=== PATIENT | male | born 1940 | race Caucasian/White ===

== ENCOUNTER 2017-06-10 09:28 | Emergency (ER) | payer MEDICARE, BC ==
[2017-06-10 09:45] VITALS: BP 122/50
--- NOTE | 2017-06-10 10:01 | EDM.PDOC ---
ED HPI GENERAL MEDICAL PROBLEM - General Chief Complaint: Chest Pain Stated Complaint: Rt Chest Pain Time Seen by Provider: 06/10/17 09:55 Source of Information: Reports: Patient History Limitations: Reports: No Limitations - History of Present Illness INITIAL COMMENTS - FREE TEXT/NARRATIVE: PT STATES HE DEVELOPED RIGHT LOWER CHEST AND RIGHT UPPER ABD PAIN AT MIDNIGHT TODAY. FEELS CRAMPY AND IS CONTINUOUS. CURRENTLY IN BETWEEN MEDICATION CYCLES FOR BONE CANCER. 3 WEEKS ON AND ONE WEEK OFF. RESTART ON TUESDAY. DENIES SOB, N/V /D, DYSURIA, KENDALL, OR VISION CHANGES. HAS HAD SIMILAR PAIN IN PAST WITH MEDICATION. DIAGNOSED WITH CA 2.5 YEARS AGO. Onset: Today Duration: Hour(s): Location: Reports: Chest, Abdomen Quality: Reports: Other (CRAMPING) Severity: Mild Improves with: Reports: None Worsens with: Reports: None Associated Symptoms: Reports: No Other Symptoms Right Upper Chest Pain Score (Numeric/FACES): 5 - Related Data Allergies Allergy/AdvReac Type Severity Reaction Status Date / Time No Known Drug Allergies Allergy NONE Verified 06/10/17 09:50 Home Meds: Home Meds FLUoxetine HCl [Prozac] 10 mg PO 0800 02/14/15 [History] [place]ep[place] [address]/14/15 [History] Simvastatin 40 mg PO 199902/14/15 [History] Docusate Sodium [Colace] 100 mg PO 0809/02/15 [History] Metoprolol Tartrate 50 mg PO 199909/02/15 [History] Polyethylene Glycol 3350 [Miralax] 17 gm PO 0809/02/15 [History] Tamsulosin [Flomax] 0.4 mg PO 0800 09/02/15 [History] Warfarin [Coumadin] 5 mg PO ASDIRECTED 09/02/15 [History] oxyCODONE 10 mg PO Q4H PRN 09/02/15 [History] Prochlorperazine Maleate [Compazine] 10 mg PO Q6H PRN 09/03/15 [History] Cholecalciferol (Vitamin D3) [Vitamin D3] 1 tab PO DAILY@1500 10/27/15 [History] Cyanocobalamin (Vitamin B-12) [Vitamin B-12] 1,000 mcg PO DAILY@1500 10/27/15 [ History] Moexipril/Hydrochlorothiazide [Moexipril-HCTZ 15-25 MG] 0.5 tab PO DAILY [History] Potassium Chloride [Klor-Con 10] 20 meq PO TID 01/21/16 [History] Furosemide [Lasix] 20 mg PO ASDIRECTED 06/16/16 [History] Methadone 10 mg PO QID 06/16/16 [History] Oxybutynin Chloride [Ditropan Xl] 10 mg PO DAILY 06/16/16 [History] Phytonadione [Vitamin K] 100 mcg PO DAILY 06/16/16 [History] valACYclovir HCl [Valtrex] 500 mg PO BID 06/16/16 [History] LORazepam 0.5 mg PO Q4H PRN 01/06/17 [History] Solifenacin [Vesicare] 5 mg PO DAILY 01/06/17 [History] FLUoxetine HCl [Fluoxetine HCl] 20 mg PO DAILY 06/10/17 [History] Gabapentin [Neurontin] 900 mg PO BEDTIME 06/10/17 [History] Lenalidomide [Revlimid] 15 mg PO DAILY 06/10/17 [History] oxyCODONE 10 mg PO Q4H PRN 06/10/17 [History] rOPINIRole HCl [Requip] 0.5 mg PO BEDTIME 06/10/17 [History] Past Medical History HEENT History: Reports: Impaired Vision Cardiovascular History: Reports: Blood Clots/VTE/DVT, CAD, High Cholesterol, Hypertension, MD, SOB on Exertion Respiratory History: Reports: Sleep Apnea, SOB Other Respiratory History: CPAP Gastrointestinal History: Reports: Chronic Constipation, GERD Genitourinary History: Reports: BPH, Other (See Below) Other Genitourinary History: appt to see Dr Sin Mojica in [place] 09/30/16 for Kidney follow-up/. Renal Biopsy Oct 13 2015 negative for malignancy Musculoskeletal History: Reports: Back Pain, Chronic, Fracture, Other (See Below ) Other Musculoskeletal History: Thigh pain resolved no voices only of low back pain - see pain assessment. Neurological History: Reports: None Psychiatric History: Reports: Depression, Other (See Below) Other Psychiatric History: continues on Prozac - feels this is helpful, anxiety is less Prozac qd Endocrine/Metabolic History: Reports: Obesity/BMI 30+ Hematologic History: Reports: None, Other (See Below) Other Hematologic History: Iron studies done Oncologic (Cancer) History: Reports: Prostate, Other (See Below) Other Oncologic History: multiple myeloma jun 2015 Dermatologic History: Reports: Eczema, Other (See Below) Other Dermatologic History: In Sep 2016Itchy rash raised red/pink size of a pinhead after procrit injection, Procrit now held. continues using cream for eczema on abdomen, Voices at one time bruising was an issue "not so much any more" It's getting better" - Infectious Disease History Infectious Disease History: Reports: Chicken Pox, Measles - Past Surgical History HEENT Surgical History: Reports: None Cardiovascular Surgical History: Reports: Coronary Artery Bypass Respiratory Surgical History: Reports: None GI Surgical History: Reports: Colonoscopy Male Surgical History: Reports: Prostate Biopsy Endocrine Surgical History: Reports: None Neurological Surgical History: Reports: Vertebroplasty, Other (See Below) Other Neurological Surgeries/Procedures: vertibroplasty - in Jun 2015 Musculoskeletal Surgical History: Reports: Other (See Below) Other Musculoskeletal Surgeries/Procedures:: 3rd vertebral plasty done 09/24/15. Oncologic Surgical History: Reports: Bone Marrow Aspiration Social & Family History - Family History Family Medical History: Noncontributory Cardiac: Reports: MD Respiratory: Reports: None GI: Reports: None : Reports: None OBGYN: Reports: None Musculoskeletal: Reports: Back pain, Chronic Psychiatric: Reports: None Endocrine/Metabolic: Reports: None - Tobacco Use Smoking Status *Q: Former Smoker Years of Tobacco use: 30 Packs/Tins Daily: 1 Used Tobacco, but Quit: Yes Month Tobacco Last Used: 1 Second Hand Smoke Exposure: No - Alcohol Use Days Per Week of Alcohol Use: 0 - Recreational Drug Use Recreational Drug Use: No - Living Situation & Occupation Living situation: Reports: , with Spouse ED ROS GENERAL - Review of Systems Review Of Systems: ROS reveals no pertinent complaints other than HPI. Constitutional: Reports: No Symptoms HEENT: Reports: No Symptoms Respiratory: Reports: No Symptoms Cardiovascular: Reports: Chest Pain Endocrine: Reports: No Symptoms GI/Abdominal: Reports: Abdominal Pain : Reports: No Symptoms Musculoskeletal: Reports: No Symptoms Skin: Reports: No Symptoms Neurological: Reports: No Symptoms Psychiatric: Reports: No Symptoms Hematologic/Lymphatic: Reports: No Symptoms Immunologic: Reports: No Symptoms ED EXAM, GENERAL - Physical Exam Exam: See Below Exam Limited By: No Limitations General Appearance: Alert, WD/WN, No Apparent Distress Eye Exam: Bilateral Eye: Normal Inspection Nose: Normal Inspection, Normal Mucosa, No Blood Throat/Mouth: Normal Inspection, Normal Oropharynx, No Airway Compromise Head: Atraumatic, Normocephalic Neck: Normal Inspection, Supple Respiratory/Chest: No Respiratory Distress, Lungs Clear, Normal Breath Sounds, No Accessory Muscle Use, Other (TENDERNESS TO PALP ON RIGHT LOWER RIBS) Cardiovascular: Regular Rate, Rhythm, No Murmur GI/Abdominal: Normal Bowel Sounds, Soft, Tender (MINIMAL AT RUQ). No: Distended , Guarding, Rigid, Rebound Back Exam: Normal Inspection. No: CVA Tenderness (L), CVA Tenderness (R) Extremities: Normal Inspection, No Pedal Edema Neurological: Alert, Oriented, Normal Cognition Psychiatric: Normal Affect, Normal Mood Skin Exam: Warm, Dry, Intact, Normal Color, No Rash EKG INTERPRETATION EKG Date: 06/10/17 Time: 09:50 Rhythm: Other (sinus nagi) Rate (Beats/Min): 50 [place]: Normal P-Wave: Present QRS: Normal ST-T: Normal QT: Normal Comparison: NA - No Prior EKG Course - Vital Signs Last Recorded V/S: Last Vital Signs Temp 99.1 F 06/10/17 09:41 Pulse 72 06/10/17 09:41 Resp 18 06/10/17 09:41 BP 122/50 L 06/10/17 09:41 Pulse Ox 95 06/10/17 09:41 - Orders/Labs/Meds Orders: Active Orders 24 hr Category Date Time Status EKG Documentation Completion [RC] ASDIRECTED Care 06/10/17 09:45 Active Chest 2V [CR] Stat Exams 06/10/17 09:46 Ordered CBC WITH AUTO DIFF [HEME] Stat Lab 06/10/17 09:47 Ordered CMP [COMPREHENSIVE METABOLIC PN,CMP] [CHEM] Stat Lab 06/10/17 09:47 Ordered D Dimer [D-DIMER QUANTITATIVE] [COAG] Stat Lab 06/10/17 09:48 Ordered INR,PT,PROTHROMBIN TIME [COAG] Stat Lab 06/10/17 09:48 Ordered LIPASE [CHEM] Stat Lab 06/10/17 09:47 Ordered EKG 12 Lead [EK] Routine Ther 06/10/17 09:45 Ordered - Radiology Interpretation Free Text/Narrative:: CXR SHOWS NO ACUTE PROCESS - Re-Assessments/Exams Free Text/Narrative Re-Assessment/Exam: 06/10/17 10:44 PT AFEBRILE, NONTOXIC APPEARING, PAIN SUBSIDED, AT BEDSIDE. RECEIVED LAB VALUES FROM 06/06/17 TO COMPARE TO TODAY. NO SIGNIFICANT CHANGE NOTED Departure - Departure Time of Disposition: 10:46 Disposition: Home, Self-Care 01 Condition: Good Clinical Impression: Atypical chest pain - Discharge Information Instructions: Nonspecific Chest Pain, [id number] Referrals: Danielle Foss, [employer] [Primary Care Provider] - Additional Instructions: RESTART MEDICATION TOMORROW DIRECTED. FOLLOW UP AT [facility] NEXT WEEK. RETURN TO ER SOONER IF SYMPTOMS CONTINUE - My Orders Last 24 Hours: My Active Orders 06/10/17 09:45 EKG Documentation Completion [RC] ASDIRECTED EKG 12 Lead [EK] Routine 06/10/17 09:46 Chest 2V [CR] Stat 06/10/17 09:47 CBC WITH AUTO DIFF [HEME] Stat CMP [COMPREHENSIVE METABOLIC PN,CMP] [CHEM] Stat LIPASE [CHEM] Stat 06/10/17 09:48 D Dimer [D-DIMER QUANTITATIVE] [COAG] Stat INR,PT,PROTHROMBIN TIME [COAG] Stat - Assessment/Plan Last 24 Hours: My Active Orders 06/10/17 09:45 EKG Documentation Completion [RC] ASDIRECTED EKG 12 Lead [EK] Routine 06/10/17 09:46 Chest 2V [CR] Stat 06/10/17 09:47 CBC WITH AUTO DIFF [HEME] Stat CMP [COMPREHENSIVE METABOLIC PN,CMP] [CHEM] Stat LIPASE [CHEM] Stat 06/10/17 09:48 D Dimer [D-DIMER QUANTITATIVE] [COAG] Stat INR,PT,PROTHROMBIN TIME [COAG] Stat Assessment:: NONSPECIFIC CHEST PAIN Plan: F/U WITH PCP
== END 2017-06-10 11:00 | disposition home or self-care (01) ==
LOC: KA.ED 09:28
DX: R07.89 Other chest pain (principal); E78.00 Pure hypercholesterolemia, unspecified; I25.10 Atherosclerotic heart disease of native coronary artery without angina pectoris; I10 Essential (primary) hypertension; I25.2 Old myocardial infarction; K21.9 Gastro-esophageal reflux disease without esophagitis; E66.9 Obesity, unspecified; C79.51 Secondary malignant neoplasm of bone; Z79.899 Other long term (current) drug therapy; Z87.891 Personal history of nicotine dependence
CPT/HCPCS: 36415; 71020; 80053; 83690; 85025; 85379; 85610; 93005; 99284; 99285

== ENCOUNTER 2018-11-29 11:41 | Inpatient (IN) | payer MEDICARE, BC ==
[2018-11-30] MEDS ORDERED: EPINEPHrine 0.3 MG/0.3 ML Pen Autoinjector IM PRN (16:43)
[2018-11-30] MEDS ORDERED: Prochlorperazine 5 MG Tab PO PRN (16:43)
[2018-11-30] MEDS ORDERED: traZODone 50 MG Tab PO PRN (16:43)
[2018-11-30] MEDS ORDERED: LORazepam 0.5 MG Tab PO PRN (16:43)
[2018-11-30] MEDS ORDERED: Warfarin 5 MG Tab PO SCH (18:00)
[2018-11-30] MEDS: Gabapentin 300 MG Cap PO SCH (21:11)
[2018-11-30] MEDS: Potassium Chloride 10 MEQ Tab.ER PO SCH (21:11)
[2018-11-30] MEDS: Simvastatin 20 MG Tab PO SCH (21:11)
[2018-11-30] MEDS: QUEtiapine 25 MG Tab PO SCH (21:11)
[2018-11-30] MEDS: Melatonin 3 MG Tab PO SCH (21:11)
[2018-11-30] MEDS: oxyCODONE 5 MG Tab PO PRN (21:12)
[2018-11-30] MEDS: Enoxaparin 40 MG/0.4 ML Syringe SUBCUT SCH (21:15)
[2018-11-30] MEDS: valACYclovir 500 MG Tab PO SCH (22:18)
[2018-12-01] MEDS: oxyCODONE 5 MG Tab PO PRN ×2 (02:22→10:31)
[2018-12-01] MEDS: Docusate Sodium 100 MG Cap PO SCH (09:10)
[2018-12-01] MEDS: Tamsulosin 0.4 MG Cap.ER PO SCH (09:11)
[2018-12-01] MEDS: Omeprazole 20 MG Cap.CR PO SCH (09:11)
[2018-12-01] MEDS: Polyethylene Glycol 3350 Powder 17 GM Packet PO SCH (09:11)
[2018-12-01] MEDS: Potassium Chloride 10 MEQ Tab.ER PO SCH (09:11)
[2018-12-01] MEDS: Furosemide 40 MG Tab PO SCH (09:12)
[2018-12-01] MEDS: Cyanocobalamin (Vitamin B12) 500 MCG Tab PO SCH (09:13)
[2018-12-01] MEDS: FLUoxetine 10 MG Cap PO SCH (09:13)
[2018-12-01] MEDS: Oxybutynin 5 MG Tab.ER PO SCH (09:13)
[2018-12-01] MEDS: Cholecalciferol (Vitamin D3) 1,000 Unit Tab PO SCH (09:14)
[2018-12-01] MEDS: Phytonadione 100 MCG Tab PO SCH (09:15)
[2018-12-01] MEDS: Lidocaine 5% 700 MG Patch TOP SCH (09:33)
[2018-12-01] MEDS: Gabapentin 300 MG Cap PO SCH ×3 (09:33→20:37)
[2018-12-01 12:27] LABS: ANION GAP 15.5 mmol/L (5-15); CHLORIDE,CL 103 mmol/L (98-115); SODIUM,NA 146 mmol/L (136-145)
[2018-12-01] MEDS: valACYclovir 500 MG Tab PO SCH ×2 (15:00→20:37)
[2018-12-01] MEDS: Moexipril 7.5 MG Tab PO SCH (15:01)
[2018-12-01] MEDS: Hydrochlorothiazide 12.5 MG Cap PO SCH (15:02)
[2018-12-01] MEDS: Warfarin 5 MG Tab PO SCH (18:18)
--- NOTE | 2018-12-01 20:02 | PCM.HP ---
H&P History of Present Illness - General Date of Service: 12/01/18 Admit Problem/Dx: Admission Diagnosis/Problem Admission Diagnosis/Problem Debility Source of Information: Patient, Family, Old Records History Limitations: Reports: No Limitations - History of Present Illness Initial Comments - Free Text/Narative: Mr. Paz reports no complaints this morning. After a long stay at [facility] for R femoral pathological fracture repair and subsequent complications of Oglivie syndrome and acute blood loss anemia requiring transfusions, he is feeling well. Happy to be dyeing machine back tender to home. Optimistic about being able to get stronger and discharge to home. His pain is fairly well controlled. Passing flatus and last bowel movement today. Denies any other concerns; see ROS. - Related Data Allergies/Adverse Reactions: Allergies Allergy/AdvReac Type Severity Reaction Status Date / Time epoetin jesse [From Procrit] Allergy Hives Verified 07/06/18 12:00 Home Medications: Home Meds Omeprazole 20 mg PO 0800 02/14/15 [History] Simvastatin 40 mg PO 199902/14/15 [History] Docusate Sodium [Colace] 100 mg PO 0809/02/15 [History] Polyethylene Glycol 3350 [Miralax] 17 gm PO 0800 09/02/15 [History] Tamsulosin [Flomax] 0.4 mg PO 0800 09/02/15 [History] Prochlorperazine Maleate [Compazine] 10 mg PO Q6H PRN 09/03/15 [History] Potassium Chloride [Klor-Con 10] 40 meq PO BID 01/21/16 [History] Furosemide [Lasix] 40 mg PO DAILY PRN 06/16/16 [History] Phytonadione [Vitamin K] 100 mcg PO DAILY 06/16/16 [History] valACYclovir HCl [Valtrex] 500 mg PO BID 06/16/16 [History] LORazepam 0.5 mg PO Q4H PRN 01/06/17 [History] Gabapentin [Neurontin] 900 mg PO BEDTIME 06/10/17 [History] Lenalidomide [Revlimid] 15 mg PO DAILY 06/10/17 [History] Cyclobenzaprine [Flexeril] 5 - 10 mg PO TID PRN 07/06/18 [History] Moexipril/Hydrochlorothiazide [Moexipril-HCTZ 7.5-12.5 MG] 1 tab PO DAILY [History] traZODone HCl [Trazodone HCl] 50 mg PO BEDTIME PRN 07/06/18 [History] EPINEPHrine [Epipen] 0.3 mg IM ASDIRECTED PRN #1 ml 07/07/18 [Rx] FLUoxetine [PROzac] 10 mg PO DAILY 07/07/18 [History] Gabapentin [Neurontin] 300 mg PO 0900,1500 07/07/18 [History] Cholecalciferol (Vitamin D3) [Vitamin D3] 3,000 unit PO DAILY 11/30/18 [History] Cyanocobalamin (Vitamin B-12) [B-12] 1,000 mg PO DAILY 11/30/18 [History] Enoxaparin [Lovenox] 40 mg SUBCUT BEDTIME 11/30/18 [History] Furosemide [Lasix] 40 mg PO QAM 11/30/18 [History] Lidocaine 5% [Lidoderm 5%] 1 patch TOP DAILY 11/30/18 [History] Melatonin 6 mg PO BEDTIME 11/30/18 [History] Oxybutynin [Oxybutynin ER] 5 mg PO DAILY 11/30/18 [History] QUEtiapine [SEROquel] 25 mg PO BEDTIME 11/30/18 [History] Sennosides/Docusate Sodium [Senna-S] 1 tab PO BID 11/30/18 [History] oxyCODONE 2.5 mg PO Q4HR PRN 11/30/18 [History] Past Medical History HEENT History: Reports: Impaired Vision Cardiovascular History: Reports: Blood Clots/VTE/DVT, CAD, Heart Failure, High Cholesterol, Hypertension, [place], SOB on Exertion Respiratory History: Reports: Sleep Apnea, SOB Other Respiratory History: CPAP Gastrointestinal History: Reports: Chronic Constipation, GERD Genitourinary History: Reports: BPH, Other (See Below) Other Genitourinary History: appt to see Dr Sin Mojica in [place] 09/30/16 for Kidney follow-up/. Renal Biopsy Oct 13 2015 negative for malignancy Musculoskeletal History: Reports: Back Pain, Chronic, Fracture, Other (See Below ) Other Musculoskeletal History: Thigh pain resolved no voices only of low back pain - see pain assessment. Neurological History: Reports: None Psychiatric History: Reports: Depression, Other (See Below) Other Psychiatric History: continues on Prozac - feels this is helpful, anxiety is less Prozac qd Endocrine/Metabolic History: Reports: Obesity/BMI 30+ Hematologic History: Reports: Anemia, Other (See Below) Other Hematologic History: Iron studies done Immunologic History: Reports: Immunosuppression Oncologic (Cancer) History: Reports: Prostate, Other (See Below) Other Oncologic History: multiple myeloma jun 2015 Dermatologic History: Reports: Eczema, Other (See Below) Other Dermatologic History: In Sep 2016Itchy rash raised red/pink size of a pinhead after procrit injection, Procrit now held. continues using cream for eczema on abdomen, Voices at one time bruising was an issue "not so much any more" It's getting better" - Infectious Disease History Infectious Disease History: Reports: Chicken Pox, Measles - Past Surgical History HEENT Surgical History: Reports: None Cardiovascular Surgical History: Reports: Coronary Artery Bypass Respiratory Surgical History: Reports: None GI Surgical History: Reports: Colonoscopy Male Surgical History: Reports: Prostate Biopsy Endocrine Surgical History: Reports: None Neurological Surgical History: Reports: Vertebroplasty, Other (See Below) Other Neurological Surgeries/Procedures: vertibroplasty - in Jun 2015 Musculoskeletal Surgical History: Reports: Other (See Below) Other Musculoskeletal Surgeries/Procedures:: 3rd vertebral plasty done 09/24/15. Oncologic Surgical History: Reports: Bone Marrow Aspiration Social & Family History - Family History Cardiac: Reports: [place] Respiratory: Reports: None GI: Reports: None : Reports: None OBGYN: Reports: None Musculoskeletal: Reports: Back pain, Chronic Psychiatric: Reports: None Endocrine/Metabolic: Reports: None - Tobacco Use Smoking Status *Q: Never Smoker Second Hand Smoke Exposure: No - Caffeine Use Caffeine Use: Reports: Coffee, Soda - Recreational Drug Use Recreational Drug Use: No - Living Situation & Occupation Living situation: Reports: , with Spouse H&P Review of Systems - Review of Systems: Review Of Systems: See Below General: Reports: Weakness (generalized). Denies: Fever, Chills, Fatigue, Decreased Appetite HEENT: Denies: Ear Pain, Eye Pain, Headaches, Sinus Congestion, Sore Throat Pulmonary: Denies: Shortness of Breath, Wheezing, Cough Cardiovascular: Reports: Edema. Denies: Chest Pain, Palpitations, Dyspnea on Exertion, Orthopnea, PND, Lightheadedness Gastrointestinal: Denies: Abdominal Pain, Black Stool, Bloody Stool, Constipation, Diarrhea, Nausea, Vomiting Genitourinary: Denies: Dysuria, Frequency, Burning, Pain Musculoskeletal: Reports: Joint Pain, Muscle Pain. Denies: Neck Pain, Shoulder Pain, Joint Swelling Skin: Reports: Bruising, Wound. Denies: Rash Psychiatric: Denies: Confusion, Depression, Anxiety Neurological: Denies: Confusion, Dizziness, Headache, Numbness, Tingling Hematologic/Lymphatic: Reports: Easy Bleeding, Easy Bruising Exam - Exam Exam: See Below - Vital Signs Vital Signs: Last Vital Signs Temp 37.0 C 12/01/18 15:00 Pulse 87 12/01/18 15:00 Resp 16 12/01/18 15:00 BP 175/78 H 12/01/18 15:01 Pulse Ox 95 12/01/18 15:00 Weight: 121.291 kg - Exam Physical Exam Comments:: GENERAL: Well-appearing morbidly obese elderly white male sitting in bedside chair in in no acute distress. HEENT: Normocephalic, atraumatic. Conjunctiva clear. Nares patent without discharge. Mucous membranes moist, posterior pharynx unremarkable. NECK: Supple, no masses. CV: Regular rate and rhythm, no murmurs, rubs, or gallops. 2+ radial and pedal pulses. PULMONARY: Normal effort, clear to auscultation bilaterally, no wheezes, rales, or rhonchi. ABDOMEN: Positive bowel sounds, soft, nontender, nondistended. EXTREMITIES: 1+ edema of bilateral lower extremities to upper shins, no cyanosis or clubbing. MUSCULOSKELETAL: Moves all extremities well. Ambulates with walker. NEUROLOGICAL: No obvious deficits. Sensation intact to light touch in lower extremity dermatomes. DERMATOLOGIC: No rashes or suspicious lesions in exposed areas. PSYCHIATRIC: Alert, interactive, appropriate affect. - Patient Data Lab Results Last 24 hrs: Laboratory Results - last 24 hr 12/01/18 12/01/18 12/01/18 Range/Units 07:10 12:00 12:00 WBC 4.70 L (5.00-10.00) 10^3/uL RBC 2.93 L (4.50-6.00) 10^6/uL Hgb 9.2 L D (13.0-17.0) g/dL Hct 28.3 L (40.0-52.0) % MCV 96.6 H D (82.0-92.0) fL MCH 31.4 H (27.0-31.0) pg MCHC 32.5 (32.0-36.0) g/dL RDW 16.2 H (11.5-14.5) % Plt Count 192 (150-400) 10^3/uL MPV 11.4 H (7.4-10.4) fL Immature Gran % (Auto) 0.6 (0.0-5.0) % Neut % (Auto) 73.6 H (50.0-70.0) % Lymph % (Auto) 17.9 L (20.0-40.0) % [place] % (Auto) 6.2 (2.0-8.0) % Eos % (Auto) 1.3 (1.0-3.0) % Baso % (Auto) 0.4 (0.0-1.0) % Immature Gran # (Auto) 0.03 (0.00-0.50) 10^3/uL Neut # (Auto) 3.46 (2.50-7.00) 10^3/uL Lymph # (Auto) 0.84 L (1.00-4.00) 10^3/uL [place] # (Auto) 0.29 (0.10-0.80) 10^3/uL Eos # (Auto) 0.06 L (0.10-0.30) 10^3/uL Baso # (Auto) 0.02 (0.00-0.10) 10^3/uL PT TNP INR 1.1 (0.9-1.1) Sodium 146 H (136-145) mmol/L Potassium 4.4 (3.3-5.3) mmol/L Chloride 103 (98-115) mmol/L Carbon Dioxide 31.9 (21.0-32.0) mmol/L Anion Gap 15.5 H (5-15) mmol/L BUN 18 (6-25) mg/dL Creatinine 1.10 (0.51-1.17) mg/dL Est Cr Clr Drug Dosing 50.75 mL/min Estimated GFR (MDRD) > 60 mL/min BUN/Creatinine Ratio 16.36 Glucose 112 H (75 - 99) mg/dL Calcium 8.8 (8.7-10.3) mg/dL Phosphorus 2.9 (2.6-4.7) mg/dL Albumin 2.81 L (3.00-4.80) g/dL Result Diagrams: 12/01/18 12:00 12/01/18 12:00 Problem List Initiated/Reviewed/Updated: Yes Orders Last 24hrs: Active Orders 24 hr Category Date Time Status Activity as Tolerated [RC] .Routine Care 11/30/18 23:56 Active Communication Order [RC] DAILY Care 12/01/18 12:49 Active Communication Order [RC] DAILY Care 12/01/18 12:51 Active Communication Order [RC] DAILY Care 12/01/18 13:15 Active Communication Order [RC] PER UNIT ROUTINE Care 12/01/18 12:44 Active Communication Order [RC] ROUTINE Care 12/01/18 11:25 Active Communication Order [RC] ROUTINE Care 12/01/18 12:41 Active Communication Order [RC] ROUTINE Care 12/01/18 12:47 Active Dressing Change [Wound Care] [RC] ASDIRECTED Care 12/01/18 18:20 Active INR,PT,PROTHROMBIN TIME [COAG] DAILY Lab 12/02/18 18:33 Ordered INR,PT,PROTHROMBIN TIME [COAG] DAILY Lab 12/03/18 18:33 Ordered INR,PT,PROTHROMBIN TIME [COAG] DAILY Lab 12/04/18 18:33 Ordered INR,PT,PROTHROMBIN TIME [COAG] DAILY Lab 12/05/18 18:33 Ordered INR,PT,PROTHROMBIN TIME [COAG] DAILY Lab 12/06/18 18:33 Ordered INR,PT,PROTHROMBIN TIME [COAG] DAILY Lab 12/07/18 18:33 Ordered INR,PT,PROTHROMBIN TIME [COAG] DAILY Lab 12/08/18 18:33 Ordered INR,PT,PROTHROMBIN TIME [COAG] DAILY Lab 12/09/18 18:33 Ordered INR,PT,PROTHROMBIN TIME [COAG] DAILY Lab 12/10/18 18:33 Ordered INR,PT,PROTHROMBIN TIME [COAG] DAILY Lab 12/11/18 18:33 Ordered INR,PT,PROTHROMBIN TIME [COAG] DAILY Lab 12/12/18 18:33 Ordered INR,PT,PROTHROMBIN TIME [COAG] DAILY Lab 12/13/18 18:33 Ordered INR,PT,PROTHROMBIN TIME [COAG] DAILY Lab 12/14/18 18:33 Ordered INR,PT,PROTHROMBIN TIME [COAG] DAILY Lab 12/15/18 18:33 Ordered INR,PT,PROTHROMBIN TIME [COAG] DAILY Lab 12/16/18 18:33 Ordered INR,PT,PROTHROMBIN TIME [COAG] DAILY Lab 12/17/18 18:33 Ordered INR,PT,PROTHROMBIN TIME [COAG] DAILY Lab 12/18/18 18:33 Ordered INR,PT,PROTHROMBIN TIME [COAG] DAILY Lab 12/19/18 18:33 Ordered INR,PT,PROTHROMBIN TIME [COAG] DAILY Lab 12/20/18 18:33 Ordered INR,PT,PROTHROMBIN TIME [COAG] DAILY Lab 12/21/18 18:33 Ordered INR,PT,PROTHROMBIN TIME [COAG] DAILY Lab 12/22/18 18:33 Ordered Cholecalciferol (Vitamin D3) [Vitamin D3] Med 12/01/18 09:00 Active 3,000 units PO DAILY Cyanocobalamin (Vitamin B12) [Vitamin B12] Med 12/01/18 09:00 Active 1,000 mcg PO DAILY Docusate Sodium [Colace] Med 12/01/18 08:00 Active 100 mg PO 0800 Docusate Sodium/Sennosides [Senna Plus] Med 11/30/18 21:00 Active 1 tab PO BID Enoxaparin [Lovenox] Med 11/30/18 21:00 Active 40 mg SUBCUT BEDTIME FLUoxetine [PROzac] Med 12/01/18 09:00 Active 10 mg PO DAILY Furosemide [Lasix] Med 12/01/18 09:00 Active 40 mg PO QAM Gabapentin [Neurontin] Med 12/01/18 09:00 Active 300 mg PO 0900,1500 Gabapentin [Neurontin] Med 11/30/18 21:00 Active 900 mg PO BEDTIME Lidocaine 5% [Lidoderm 5%] Med 12/01/18 09:00 Active 700 mg TOP DAILY Melatonin Med 11/30/18 21:00 Active 6 mg PO BEDTIME Moexipril [Univasc] Med 12/01/18 12:00 Active 7.5 mg PO DAILY Omeprazole Med 12/01/18 08:00 Active 20 mg PO 0800 Oxybutynin [Oxybutynin ER] Med 12/01/18 09:00 Active 5 mg PO DAILY Phytonadione [Vitamin K] Med 12/01/18 09:00 Active 100 mcg PO DAILY Polyethylene Glycol 3350 [MiraLAX] Med 12/01/18 08:00 Active 17 gm PO 0800 Potassium Chloride [Klor-Con M20] Med 12/01/18 21:00 Active 40 meq PO BID QUEtiapine [SEROquel] Med 11/30/18 21:00 Active 25 mg PO BEDTIME Remove Patch Med 11/30/18 21:00 Active 1 ea TRDERM BEDTIME Simvastatin [Zocor] Med 11/30/18 20:00 Active 40 mg PO 2000 Tamsulosin [Flomax] Med 12/01/18 08:00 Active 0.4 mg PO 0800 Warfarin [Coumadin] Med 12/02/18 18:00 Active 5 mg PO SuTuWeThSa@1800 Warfarin [Coumadin] Med 12/01/18 18:00 Active 7.5 mg PO MoFr@1800 hydroCHLOROthiazide Med 12/01/18 12:00 Active 12.5 mg PO DAILY valACYclovir [Valtrex] Med 11/30/18 21:00 Active 500 mg PO BID ALY Bandage [Elastic Wrap] [OM.PC] Routine Oth 12/01/18 18:27 Ordered Resuscitation Status Routine Resus Stat 12/01/18 00:26 Ordered Medication Orders Cholecalciferol (Vitamin D3) 3,000 units PO DAILY [facility] Last Admin: 12/01/18 09:14 Dose: 3,000 units Cyanocobalamin (Vitamin B12) 1,000 mcg PO DAILY [facility] Last Admin: 12/01/18 09:13 Dose: 1,000 mcg Cyclobenzaprine HCl (Flexeril) 5 - 10 mg PO TID PRN PRN Reason: Muscle Spasm Docusate Sodium (Colace) 100 mg PO 0800 [facility] Last Admin: 12/01/18 09:10 Dose: 100 mg Enoxaparin Sodium (Lovenox) 40 mg SUBCUT BEDTIME [facility] Last Admin: 11/30/18 21:15 Dose: 40 mg Epinephrine HCl (Epipen) 0.3 mg IM ASDIRECTED PRN PRN Reason: Anaphylaxis Fluoxetine HCl (Prozac) 10 mg PO DAILY [facility] Last Admin: 12/01/18 09:13 Dose: 10 mg Furosemide (Lasix) 40 mg PO QAM [facility] Last Admin: 12/01/18 09:12 Dose: 40 mg Gabapentin (Neurontin) 900 mg PO BEDTIME [facility] Last Admin: 11/30/18 21:11 Dose: 900 mg Gabapentin (Neurontin) 300 mg PO 0900,1500 [facility] Last Admin: 12/01/18 15:03 Dose: 300 mg Admin: 12/01/18 09:33 Dose: 300 mg Hydrochlorothiazide (Hydrochlorothiazide) 12.5 mg PO DAILY [facility] Last Admin: 12/01/18 15:02 Dose: 12.5 mg Lidocaine (Lidoderm 5%) 700 mg TOP DAILY [facility] Last Admin: 12/01/18 09:33 Dose: 700 mg Lorazepam (Ativan) 0.5 mg PO Q4H PRN PRN Reason: Anxiety Last Admin: 12/01/18 02:21 Dose: 0.5 mg Melatonin (Melatonin) 6 mg PO BEDTIME [facility] Last Admin: 11/30/18 21:11 Dose: 6 mg Miscellaneous Information (Remove Patch) 1 ea TRDERM BEDTIME [facility] Last Admin: 11/30/18 21:13 Dose: 1 ea Moexipril HCl (Univasc) 7.5 mg PO DAILY [facility] Last Admin: 12/01/18 15:01 Dose: 7.5 mg Omeprazole (Omeprazole) 20 mg PO 0800 [facility] Last Admin: 12/01/18 09:11 Dose: 20 mg Oxybutynin Chloride (Oxybutynin Er) 5 mg PO DAILY [facility] Last Admin: 12/01/18 09:13 Dose: 5 mg Oxycodone HCl (Oxycodone) 2.5 mg PO Q4HR PRN PRN Reason: Pain (moderate 4-6) Last Admin: 12/01/18 10:31 Dose: 2.5 mg Admin: 12/01/18 02:22 Dose: 2.5 mg Admin: 11/30/18 21:12 Dose: 2.5 mg Phytonadione (Vitamin K) 100 mcg PO DAILY [facility] Last Admin: 12/01/18 09:15 Dose: 100 mcg Polyethylene Glycol (Miralax) 17 gm PO 0800 [facility] Last Admin: 12/01/18 09:11 Dose: 17 gm Potassium Chloride (Klor-Con M20) 40 meq PO BID [facility] Prochlorperazine Maleate (Compazine) 10 mg PO Q6H PRN PRN Reason: Nausea Quetiapine Fumarate (Seroquel) 25 mg PO BEDTIME [facility] Last Admin: 11/30/18 21:11 Dose: 25 mg Senna/Docusate Sodium (Senna Plus) 1 tab PO BID [facility] Last Admin: 12/01/18 09:13 Dose: 1 tab Admin: 11/30/18 21:12 Dose: 1 tab Simvastatin (Zocor) 40 mg PO 2000 [facility] Last Admin: 11/30/18 21:11 Dose: 40 mg Tamsulosin HCl (Flomax) 0.4 mg PO 0800 [facility] Last Admin: 12/01/18 09:11 Dose: 0.4 mg Trazodone HCl (Trazodone) 50 mg PO BEDTIME PRN PRN Reason: Insomnia Last Admin: 11/30/18 21:12 Dose: 50 mg Valacyclovir HCl (Valtrex) 500 mg PO BID [facility] Last Admin: 12/01/18 15:00 Dose: 500 mg Admin: 11/30/18 22:18 Dose: Warfarin Sodium (Pharmacy To Dose - Warfarin) 1 dose .XX DAILY@1800 [facility] Warfarin Sodium (Coumadin) 5 mg PO SuTuWeThSa@1800 [facility] Warfarin Sodium (Coumadin) 7.5 mg PO MoFr@1800 [facility] Last Admin: 12/01/18 18:18 Dose: 7.5 mg Assessment/Plan Comment:: HPI summary: 78yoM with a history notable for multiple myeloma, 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 Rock, hematology/oncology, for several months of R hip pain for which 11/17/18 PET scan revealed a R pathological femur fracture along with other cervical, scapular, and rib abnormalities and several areas of increased hypermetabolic lesions for which he was admitted for management. He underwent R femoral pathological fracture repair on 11/19/18. Postoperative complications included hematoma and acute blood loss anemia requiring PRBC transfusion, most recently on 11/28/18; Oglivie syndrome requiring colonoscopic decompression on 11/23/18 with subsequent passage of bowel movements; acute delirium improved with melatonin and quetiapine nightly; and LALITHA and HFpEF exacerbation improved with fluid management. Due to deconditioning and need for ongoing physical therapy, he was transferred to [facility] for swing bed rehabilitation. Hospitalization problems: # Deconditioning # S/p R femoral pathological fracture repair - Physical therapy - Lidoderm patch, oxycodone prn, cyclobenzaprine prn - Dressing changes weekly - Follow-up with orthopedic surgery as scheduled on 12/06 (with MRI) and 12/20 Chronic, stable conditions: # Multiple myeloma / recent acute blood loss anemia: Hgb stable today at 9.2. Managed by Dr. Rock, with whom care was discussed. He recommends periodic monitoring of CBC, transfusions to keep hgb >8, and holding Aranesp while hospitalized. Follow-up with Dr. Rock as scheduled on 12/29/18. Continue valacyclovir for prophylaxis. # Hx renal cell cancer and prostate cancer: Follow-up with Dr. Ann as scheduled on 01/02/19. # Hx DVT: Warfarin and vitamin K restarted; dosing per pharmacy (prior stable dosing 5mg except MF 7.5mg along with vitamin K 100mg daily). Continue enoxaparin until therapeutic INR 2-3. # EDITH: Continue CPAP. # CAD s/p CABG / HFpEF / PHTN / HTN / HLD: Last echo 11/28 with EF 60% and moderate pulmonary artery HTN. Last lipid panel 06/29. Continue moexepril, HCTZ , furosemide/KCl, and simvastatin. # Hx Oglivie syndrome: S/p colonoscopy decompression. Ensure BMs daily. Continue PEG daily, docusate daily, and Senna-docusate BID. # GERD: Stable. Continue omeprazole. # BPH: Stable. Continue tamsulosin 0.4mg. # Hyperactive bladder: Stable. Continue oxybutynin. # Hypoalbuminemia: Albumin 2.8. # Morbid obesity: BMI 43. # Neuropathic pain: Stable. Continue gabapentin TID. # Major recurrent depression / generalized anxiety disorder / insomnia / hx delirium: Stable. Continue fluoxetine, quetiapine, trazodone, and melatonin with limited use of lorazepam. # Vitamin B12 and D deficiency: Continue replacement. Hospitalization details: # FEN: No IV. Electrolytes normal. Regular diet. # PPX: DVT prophlyaxis with enoxaparin until warfarin achieves therapeutic INR. Delirium prophylaxis as above. # Code status: DNR/DNI, verified with patient and at bedside. They state this is also reflected on documents they have in a safe deposit box, which I encouraged them to bring in for scanning. # Emergency contact: , Kelly, who was updated at bedside. # Disposition: Admit to swing bed. Anticipate discharge to home pending improvement in physical conditioning.
[2018-12-01] MEDS: Simvastatin 20 MG Tab PO SCH (20:34)
[2018-12-01] MEDS: Potassium Chloride 20 MEQ Tab.ER PO SCH (20:34)
[2018-12-01] MEDS: Enoxaparin 40 MG/0.4 ML Syringe SUBCUT SCH (20:35)
[2018-12-01] MEDS: Melatonin 3 MG Tab PO SCH (20:36)
[2018-12-01] MEDS: QUEtiapine 25 MG Tab PO SCH (20:37)
[2018-12-02] MEDS: oxyCODONE 5 MG Tab PO PRN ×2 (04:59→22:30)
[2018-12-02] MEDS: Polyethylene Glycol 3350 Powder 17 GM Packet PO SCH (08:04)
[2018-12-02] MEDS: Moexipril 7.5 MG Tab PO SCH (08:05)
[2018-12-02] MEDS: Cholecalciferol (Vitamin D3) 1,000 Unit Tab PO SCH (08:05)
[2018-12-02] MEDS: Omeprazole 20 MG Cap.CR PO SCH (08:05)
[2018-12-02] MEDS: Lidocaine 5% 700 MG Patch TOP SCH (08:05)
[2018-12-02] MEDS: Hydrochlorothiazide 12.5 MG Cap PO SCH (08:05)
[2018-12-02] MEDS: Oxybutynin 5 MG Tab.ER PO SCH (08:05)
[2018-12-02] MEDS: Docusate Sodium 100 MG Cap PO SCH (08:06)
[2018-12-02] MEDS: Furosemide 40 MG Tab PO SCH (08:06)
[2018-12-02] MEDS: valACYclovir 500 MG Tab PO SCH ×2 (08:06→20:52)
[2018-12-02] MEDS: FLUoxetine 10 MG Cap PO SCH (08:06)
[2018-12-02] MEDS: Gabapentin 300 MG Cap PO SCH ×3 (08:06→20:51)
[2018-12-02] MEDS: Tamsulosin 0.4 MG Cap.ER PO SCH (08:06)
[2018-12-02] MEDS: Cyanocobalamin (Vitamin B12) 500 MCG Tab PO SCH (08:12)
[2018-12-02] MEDS: Potassium Chloride 20 MEQ Tab.ER PO SCH ×2 (08:12→20:51)
[2018-12-02] MEDS: Phytonadione 100 MCG Tab PO SCH (10:21)
[2018-12-02] MEDS ORDERED: LORazepam 0.5 MG Tab PO PRN (14:11)
[2018-12-02] MEDS: Warfarin 5 MG Tab PO SCH (17:20)
[2018-12-02] MEDS: Enoxaparin 40 MG/0.4 ML Syringe SUBCUT SCH (20:51)
[2018-12-02] MEDS: QUEtiapine 25 MG Tab PO SCH (20:51)
[2018-12-02] MEDS: Melatonin 3 MG Tab PO SCH (20:51)
[2018-12-02] MEDS: Simvastatin 20 MG Tab PO SCH (20:52)
[2018-12-03] MEDS: Omeprazole 20 MG Cap.CR PO SCH (08:28)
[2018-12-03] MEDS: Moexipril 7.5 MG Tab PO SCH (08:28)
[2018-12-03] MEDS: Gabapentin 300 MG Cap PO SCH ×3 (08:28→20:13)
[2018-12-03] MEDS: Cyanocobalamin (Vitamin B12) 500 MCG Tab PO SCH (08:28)
[2018-12-03] MEDS: Cholecalciferol (Vitamin D3) 1,000 Unit Tab PO SCH (08:28)
[2018-12-03] MEDS: Potassium Chloride 20 MEQ Tab.ER PO SCH ×2 (08:28→20:10)
[2018-12-03] MEDS: valACYclovir 500 MG Tab PO SCH ×2 (08:29→20:10)
[2018-12-03] MEDS: Tamsulosin 0.4 MG Cap.ER PO SCH (08:29)
[2018-12-03] MEDS: Hydrochlorothiazide 12.5 MG Cap PO SCH (08:29)
[2018-12-03] MEDS: FLUoxetine 10 MG Cap PO SCH (08:29)
[2018-12-03] MEDS: Furosemide 40 MG Tab PO SCH (08:29)
[2018-12-03] MEDS: Docusate Sodium 100 MG Cap PO SCH (08:29)
[2018-12-03] MEDS: Oxybutynin 5 MG Tab.ER PO SCH (08:29)
[2018-12-03] MEDS: Lidocaine 5% 700 MG Patch TOP SCH (08:32)
[2018-12-03] MEDS: Polyethylene Glycol 3350 Powder 17 GM Packet PO SCH (08:32)
[2018-12-03] MEDS: Phytonadione 100 MCG Tab PO SCH (08:33)
[2018-12-03] MEDS: Warfarin 5 MG Tab PO SCH (18:07)
[2018-12-03] MEDS: Simvastatin 20 MG Tab PO SCH (20:09)
[2018-12-03] MEDS: Melatonin 3 MG Tab PO SCH (20:10)
[2018-12-03] MEDS: QUEtiapine 25 MG Tab PO SCH (20:10)
[2018-12-03] MEDS: oxyCODONE 5 MG Tab PO PRN (20:13)
[2018-12-03] MEDS: Enoxaparin 40 MG/0.4 ML Syringe SUBCUT SCH (20:13)
[2018-12-04 07:45] LABS: ANION GAP 13.9 mmol/L (5-15)
[2018-12-04] MEDS: Polyethylene Glycol 3350 Powder 17 GM Packet PO SCH (08:08)
[2018-12-04] MEDS: Lidocaine 5% 700 MG Patch TOP SCH (08:09)
[2018-12-04] MEDS: Phytonadione 100 MCG Tab PO SCH (08:09)
[2018-12-04] MEDS: Potassium Chloride 20 MEQ Tab.ER PO SCH ×2 (08:10→20:49)
[2018-12-04] MEDS: Docusate Sodium 100 MG Cap PO SCH (08:10)
[2018-12-04] MEDS: Moexipril 7.5 MG Tab PO SCH (08:11)
[2018-12-04] MEDS: Oxybutynin 5 MG Tab.ER PO SCH (08:11)
[2018-12-04] MEDS: FLUoxetine 10 MG Cap PO SCH (08:11)
[2018-12-04] MEDS: Cyanocobalamin (Vitamin B12) 500 MCG Tab PO SCH (08:11)
[2018-12-04] MEDS: Tamsulosin 0.4 MG Cap.ER PO SCH (08:11)
[2018-12-04] MEDS: Hydrochlorothiazide 12.5 MG Cap PO SCH (08:12)
[2018-12-04] MEDS: Cholecalciferol (Vitamin D3) 1,000 Unit Tab PO SCH (08:12)
[2018-12-04] MEDS: Gabapentin 300 MG Cap PO SCH ×3 (08:12→20:50)
[2018-12-04] MEDS: Furosemide 40 MG Tab PO SCH (08:13)
[2018-12-04] MEDS: valACYclovir 500 MG Tab PO SCH ×2 (08:13→20:49)
[2018-12-04] MEDS: Omeprazole 20 MG Cap.CR PO SCH (08:13)
[2018-12-04] MEDS: oxyCODONE 5 MG Tab PO PRN ×2 (13:36→19:26)
[2018-12-04] MEDS: Cyclobenzaprine 5 MG Tab PO PRN (16:09)
[2018-12-04] MEDS: Warfarin 5 MG Tab PO SCH (18:27)
[2018-12-04] MEDS: Melatonin 3 MG Tab PO SCH (20:48)
[2018-12-04] MEDS: Simvastatin 20 MG Tab PO SCH (20:49)
[2018-12-04] MEDS: QUEtiapine 25 MG Tab PO SCH (20:49)
[2018-12-04] MEDS: Enoxaparin 40 MG/0.4 ML Syringe SUBCUT SCH (21:48)
[2018-12-05] MEDS: oxyCODONE 5 MG Tab PO PRN ×2 (06:19→14:47)
[2018-12-05] MEDS: Docusate Sodium 100 MG Cap PO SCH (07:10)
[2018-12-05] MEDS: Polyethylene Glycol 3350 Powder 17 GM Packet PO SCH (07:10)
[2018-12-05] MEDS: Tamsulosin 0.4 MG Cap.ER PO SCH (07:11)
[2018-12-05] MEDS: Omeprazole 20 MG Cap.CR PO SCH (07:11)
[2018-12-05] MEDS: Moexipril 7.5 MG Tab PO SCH (08:48)
[2018-12-05] MEDS: Potassium Chloride 20 MEQ Tab.ER PO SCH ×2 (08:48→20:54)
[2018-12-05] MEDS: Cyanocobalamin (Vitamin B12) 500 MCG Tab PO SCH (08:49)
[2018-12-05] MEDS: valACYclovir 500 MG Tab PO SCH ×2 (08:49→20:54)
[2018-12-05] MEDS: Cholecalciferol (Vitamin D3) 1,000 Unit Tab PO SCH (08:49)
[2018-12-05] MEDS: Gabapentin 300 MG Cap PO SCH ×3 (08:50→20:54)
[2018-12-05] MEDS: Hydrochlorothiazide 12.5 MG Cap PO SCH (08:50)
[2018-12-05] MEDS: FLUoxetine 10 MG Cap PO SCH (08:50)
[2018-12-05] MEDS: Oxybutynin 5 MG Tab.ER PO SCH (08:50)
[2018-12-05] MEDS: Lidocaine 5% 700 MG Patch TOP SCH (08:51)
[2018-12-05] MEDS: Phytonadione 100 MCG Tab PO SCH (08:51)
[2018-12-05] MEDS: Furosemide 40 MG Tab PO SCH (08:53)
[2018-12-05] MEDS: Warfarin 5 MG Tab PO SCH (17:23)
[2018-12-05] MEDS: Cyclobenzaprine 5 MG Tab PO PRN (17:23)
[2018-12-05] MEDS: QUEtiapine 25 MG Tab PO SCH (20:54)
[2018-12-05] MEDS: Melatonin 3 MG Tab PO SCH (20:54)
[2018-12-05] MEDS: Simvastatin 20 MG Tab PO SCH (20:54)
[2018-12-05] MEDS: Enoxaparin 40 MG/0.4 ML Syringe SUBCUT SCH (20:55)
[2018-12-06] MEDS: Omeprazole 20 MG Cap.CR PO SCH (07:37)
[2018-12-06] MEDS: Docusate Sodium 100 MG Cap PO SCH (07:38)
[2018-12-06] MEDS: Polyethylene Glycol 3350 Powder 17 GM Packet PO SCH (07:38)
[2018-12-06] MEDS: Tamsulosin 0.4 MG Cap.ER PO SCH (07:38)
[2018-12-06] MEDS: oxyCODONE 5 MG Tab PO PRN ×3 (07:42→20:34)
[2018-12-06] MEDS: Lidocaine 5% 700 MG Patch TOP SCH (08:56)
[2018-12-06] MEDS: Hydrochlorothiazide 12.5 MG Cap PO SCH (08:56)
[2018-12-06] MEDS: valACYclovir 500 MG Tab PO SCH ×2 (08:57→20:36)
[2018-12-06] MEDS: Potassium Chloride 20 MEQ Tab.ER PO SCH ×2 (08:57→20:36)
[2018-12-06] MEDS: Cholecalciferol (Vitamin D3) 1,000 Unit Tab PO SCH (08:57)
[2018-12-06] MEDS: Phytonadione 100 MCG Tab PO SCH (08:58)
[2018-12-06] MEDS: Oxybutynin 5 MG Tab.ER PO SCH (08:58)
[2018-12-06] MEDS: Cyanocobalamin (Vitamin B12) 500 MCG Tab PO SCH (08:58)
[2018-12-06] MEDS: Gabapentin 300 MG Cap PO SCH ×3 (08:58→20:36)
[2018-12-06] MEDS: Moexipril 7.5 MG Tab PO SCH (08:58)
[2018-12-06] MEDS: FLUoxetine 10 MG Cap PO SCH (08:58)
[2018-12-06] MEDS: Furosemide 40 MG Tab PO SCH (08:58)
[2018-12-06] MEDS: Warfarin 5 MG Tab PO SCH (17:40)
[2018-12-06] MEDS: Enoxaparin 40 MG/0.4 ML Syringe SUBCUT SCH (20:34)
[2018-12-06] MEDS: Simvastatin 20 MG Tab PO SCH (20:35)
[2018-12-06] MEDS: QUEtiapine 25 MG Tab PO SCH (20:36)
[2018-12-06] MEDS: Melatonin 3 MG Tab PO SCH (20:36)
[2018-12-07] MEDS: Cholecalciferol (Vitamin D3) 1,000 Unit Tab PO SCH (08:56)
[2018-12-07] MEDS: Lidocaine 5% 700 MG Patch TOP SCH (08:56)
[2018-12-07] MEDS: FLUoxetine 10 MG Cap PO SCH (08:56)
[2018-12-07] MEDS: Polyethylene Glycol 3350 Powder 17 GM Packet PO SCH (08:56)
[2018-12-07] MEDS: valACYclovir 500 MG Tab PO SCH ×2 (08:56→20:29)
[2018-12-07] MEDS: Cyanocobalamin (Vitamin B12) 500 MCG Tab PO SCH (08:56)
[2018-12-07] MEDS: Hydrochlorothiazide 12.5 MG Cap PO SCH (08:57)
[2018-12-07] MEDS: Furosemide 40 MG Tab PO SCH (08:57)
[2018-12-07] MEDS: Docusate Sodium 100 MG Cap PO SCH (08:57)
[2018-12-07] MEDS: Potassium Chloride 20 MEQ Tab.ER PO SCH ×2 (08:57→20:29)
[2018-12-07] MEDS: Omeprazole 20 MG Cap.CR PO SCH (08:57)
[2018-12-07] MEDS: Oxybutynin 5 MG Tab.ER PO SCH (08:57)
[2018-12-07] MEDS: Phytonadione 100 MCG Tab PO SCH (08:57)
[2018-12-07] MEDS: Gabapentin 300 MG Cap PO SCH ×3 (08:57→20:29)
[2018-12-07] MEDS: Tamsulosin 0.4 MG Cap.ER PO SCH (08:57)
[2018-12-07] MEDS: Moexipril 7.5 MG Tab PO SCH (08:58)
[2018-12-07] MEDS: oxyCODONE 5 MG Tab PO PRN (14:10)
[2018-12-07] MEDS: Warfarin 5 MG Tab PO SCH (17:24)
[2018-12-07] MEDS: Melatonin 3 MG Tab PO SCH (20:29)
[2018-12-07] MEDS: Enoxaparin 40 MG/0.4 ML Syringe SUBCUT SCH (20:29)
[2018-12-07] MEDS: QUEtiapine 25 MG Tab PO SCH (20:30)
[2018-12-07] MEDS: Simvastatin 20 MG Tab PO SCH (20:30)
--- NOTE | 2018-12-08 08:42 | PCM.SN ---
- Free Text/Narrative Note: I was asked to assess the patient's wound by the nursing staff. She has suffered a pathological femur fracture along with other cervical, scapular, and rib abnormalities. He underwent a right femoral pathological fracture repair on 11/19/18. Postoperative complications included hematoma and acute blood loss anemia requiring PRBC transfusion. He was subsequently transferred here for residential services and rehabilitation. Vital signs stable, no fever, Right hip, wound no wound dehiscence, no erythema or discharge. No hematoma palpable. No signs and symptoms of infection
[2018-12-08] MEDS: Cyanocobalamin (Vitamin B12) 500 MCG Tab PO SCH (08:48)
[2018-12-08] MEDS: valACYclovir 500 MG Tab PO SCH ×2 (08:48→20:55)
[2018-12-08] MEDS: Tamsulosin 0.4 MG Cap.ER PO SCH (08:48)
[2018-12-08] MEDS: Docusate Sodium 100 MG Cap PO SCH (08:48)
[2018-12-08] MEDS: FLUoxetine 10 MG Cap PO SCH (08:48)
[2018-12-08] MEDS: Cholecalciferol (Vitamin D3) 1,000 Unit Tab PO SCH (08:49)
[2018-12-08] MEDS: Gabapentin 300 MG Cap PO SCH ×3 (08:49→20:55)
[2018-12-08] MEDS: Moexipril 7.5 MG Tab PO SCH (08:49)
[2018-12-08] MEDS: Omeprazole 20 MG Cap.CR PO SCH (08:49)
[2018-12-08] MEDS: Phytonadione 100 MCG Tab PO SCH (08:49)
[2018-12-08] MEDS: Oxybutynin 5 MG Tab.ER PO SCH (08:49)
[2018-12-08] MEDS: Polyethylene Glycol 3350 Powder 17 GM Packet PO SCH (08:49)
[2018-12-08] MEDS: Hydrochlorothiazide 12.5 MG Cap PO SCH (08:49)
[2018-12-08] MEDS: Furosemide 40 MG Tab PO SCH (08:49)
[2018-12-08] MEDS: Potassium Chloride 20 MEQ Tab.ER PO SCH ×2 (08:50→20:56)
[2018-12-08] MEDS: Lidocaine 5% 700 MG Patch TOP SCH (08:50)
[2018-12-08] MEDS: oxyCODONE 5 MG Tab PO PRN (08:50)
[2018-12-08] MEDS: Cyclobenzaprine 5 MG Tab PO PRN (14:46)
[2018-12-08] MEDS: Warfarin 5 MG Tab PO SCH (17:35)
[2018-12-08] MEDS: Simvastatin 20 MG Tab PO SCH (20:55)
[2018-12-08] MEDS: Melatonin 3 MG Tab PO SCH (20:55)
[2018-12-08] MEDS: QUEtiapine 25 MG Tab PO SCH (20:56)
[2018-12-09] MEDS: Gabapentin 300 MG Cap PO SCH ×3 (08:30→20:39)
[2018-12-09] MEDS: Tamsulosin 0.4 MG Cap.ER PO SCH (08:30)
[2018-12-09] MEDS: Omeprazole 20 MG Cap.CR PO SCH (08:30)
[2018-12-09] MEDS: Furosemide 40 MG Tab PO SCH (08:30)
[2018-12-09] MEDS: FLUoxetine 10 MG Cap PO SCH (08:30)
[2018-12-09] MEDS: Cyanocobalamin (Vitamin B12) 500 MCG Tab PO SCH (08:30)
[2018-12-09] MEDS: Docusate Sodium 100 MG Cap PO SCH (08:30)
[2018-12-09] MEDS: Potassium Chloride 20 MEQ Tab.ER PO SCH (08:30)
[2018-12-09] MEDS: Moexipril 7.5 MG Tab PO SCH (08:30)
[2018-12-09] MEDS: valACYclovir 500 MG Tab PO SCH ×2 (08:30→20:39)
[2018-12-09] MEDS: Cholecalciferol (Vitamin D3) 1,000 Unit Tab PO SCH (08:30)
[2018-12-09] MEDS: Phytonadione 100 MCG Tab PO SCH (08:30)
[2018-12-09] MEDS: Hydrochlorothiazide 12.5 MG Cap PO SCH (08:30)
[2018-12-09] MEDS: Oxybutynin 5 MG Tab.ER PO SCH (08:31)
[2018-12-09] MEDS: Polyethylene Glycol 3350 Powder 17 GM Packet PO SCH (08:31)
[2018-12-09] MEDS: Lidocaine 5% 700 MG Patch TOP SCH (08:58)
[2018-12-09] MEDS: Warfarin 5 MG Tab PO SCH (17:56)
[2018-12-09] MEDS: Melatonin 3 MG Tab PO SCH (20:39)
[2018-12-09] MEDS: Simvastatin 20 MG Tab PO SCH (20:39)
[2018-12-09] MEDS: QUEtiapine 25 MG Tab PO SCH (20:39)
[2018-12-10 07:58] LABS: ANION GAP 14.7 mmol/L (5-15)
[2018-12-10] MEDS: Cholecalciferol (Vitamin D3) 1,000 Unit Tab PO SCH (09:12)
[2018-12-10] MEDS: Potassium Chloride 20 MEQ Tab.ER PO SCH (09:12)
[2018-12-10] MEDS: Oxybutynin 5 MG Tab.ER PO SCH (09:12)
[2018-12-10] MEDS: Docusate Sodium 100 MG Cap PO SCH (09:13)
[2018-12-10] MEDS: Hydrochlorothiazide 12.5 MG Cap PO SCH (09:13)
[2018-12-10] MEDS: Tamsulosin 0.4 MG Cap.ER PO SCH (09:13)
[2018-12-10] MEDS: Gabapentin 300 MG Cap PO SCH ×3 (09:13→20:44)
[2018-12-10] MEDS: Omeprazole 20 MG Cap.CR PO SCH (09:13)
[2018-12-10] MEDS: Moexipril 7.5 MG Tab PO SCH (09:13)
[2018-12-10] MEDS: FLUoxetine 10 MG Cap PO SCH (09:13)
[2018-12-10] MEDS: valACYclovir 500 MG Tab PO SCH ×2 (09:13→20:44)
[2018-12-10] MEDS: Phytonadione 100 MCG Tab PO SCH (09:13)
[2018-12-10] MEDS: Furosemide 40 MG Tab PO SCH (09:13)
[2018-12-10] MEDS: Cyanocobalamin (Vitamin B12) 500 MCG Tab PO SCH (09:14)
[2018-12-10] MEDS: Polyethylene Glycol 3350 Powder 17 GM Packet PO SCH (09:14)
[2018-12-10] MEDS: Lidocaine 5% 700 MG Patch TOP SCH (09:14)
[2018-12-10] MEDS: Warfarin 5 MG Tab PO SCH (17:54)
[2018-12-10] MEDS: QUEtiapine 25 MG Tab PO SCH (20:44)
[2018-12-10] MEDS: Melatonin 3 MG Tab PO SCH (20:45)
[2018-12-10] MEDS: Simvastatin 20 MG Tab PO SCH (20:45)
[2018-12-11] MEDS: Polyethylene Glycol 3350 Powder 17 GM Packet PO SCH (08:44)
[2018-12-11] MEDS: Tamsulosin 0.4 MG Cap.ER PO SCH (08:44)
[2018-12-11] MEDS: Moexipril 7.5 MG Tab PO SCH (08:44)
[2018-12-11] MEDS: Potassium Chloride 20 MEQ Tab.ER PO SCH (08:44)
[2018-12-11] MEDS: Omeprazole 20 MG Cap.CR PO SCH (08:44)
[2018-12-11] MEDS: Gabapentin 300 MG Cap PO SCH ×3 (08:44→20:35)
[2018-12-11] MEDS: Cyanocobalamin (Vitamin B12) 500 MCG Tab PO SCH (08:44)
[2018-12-11] MEDS: Docusate Sodium 100 MG Cap PO SCH (08:44)
[2018-12-11] MEDS: Cholecalciferol (Vitamin D3) 1,000 Unit Tab PO SCH (08:44)
[2018-12-11] MEDS: Lidocaine 5% 700 MG Patch TOP SCH (08:44)
[2018-12-11] MEDS: Phytonadione 100 MCG Tab PO SCH (08:44)
[2018-12-11] MEDS: Oxybutynin 5 MG Tab.ER PO SCH (08:45)
[2018-12-11] MEDS: Hydrochlorothiazide 12.5 MG Cap PO SCH (08:45)
[2018-12-11] MEDS: valACYclovir 500 MG Tab PO SCH ×2 (08:45→20:34)
[2018-12-11] MEDS: Furosemide 40 MG Tab PO SCH (08:45)
[2018-12-11] MEDS: FLUoxetine 10 MG Cap PO SCH (08:45)
[2018-12-11] MEDS: Warfarin 5 MG Tab PO SCH (18:19)
[2018-12-11] MEDS: oxyCODONE 5 MG Tab PO PRN (20:34)
[2018-12-11] MEDS: Simvastatin 20 MG Tab PO SCH (20:35)
[2018-12-11] MEDS: Melatonin 3 MG Tab PO SCH (20:35)
[2018-12-11] MEDS: QUEtiapine 25 MG Tab PO SCH (20:35)
[2018-12-12] MEDS: Cholecalciferol (Vitamin D3) 1,000 Unit Tab PO SCH (09:42)
[2018-12-12] MEDS: valACYclovir 500 MG Tab PO SCH ×2 (09:42→20:52)
[2018-12-12] MEDS: Moexipril 7.5 MG Tab PO SCH (09:43)
[2018-12-12] MEDS: Docusate Sodium 100 MG Cap PO SCH (09:43)
[2018-12-12] MEDS: Furosemide 40 MG Tab PO SCH (09:44)
[2018-12-12] MEDS: Cyanocobalamin (Vitamin B12) 500 MCG Tab PO SCH (09:44)
[2018-12-12] MEDS: Phytonadione 100 MCG Tab PO SCH (09:44)
[2018-12-12] MEDS: FLUoxetine 10 MG Cap PO SCH (09:44)
[2018-12-12] MEDS: Oxybutynin 5 MG Tab.ER PO SCH (09:44)
[2018-12-12] MEDS: Hydrochlorothiazide 12.5 MG Cap PO SCH (09:44)
[2018-12-12] MEDS: Potassium Chloride 20 MEQ Tab.ER PO SCH (09:45)
[2018-12-12] MEDS: Omeprazole 20 MG Cap.CR PO SCH (09:45)
[2018-12-12] MEDS: Lidocaine 5% 700 MG Patch TOP SCH (09:45)
[2018-12-12] MEDS: Tamsulosin 0.4 MG Cap.ER PO SCH (09:46)
[2018-12-12] MEDS: Polyethylene Glycol 3350 Powder 17 GM Packet PO SCH (09:47)
[2018-12-12] MEDS: Gabapentin 300 MG Cap PO SCH ×3 (09:51→20:51)
[2018-12-12] MEDS: Warfarin 5 MG Tab PO SCH (18:41)
[2018-12-12] MEDS: QUEtiapine 25 MG Tab PO SCH (20:51)
[2018-12-12] MEDS: Melatonin 3 MG Tab PO SCH (20:51)
[2018-12-12] MEDS: Simvastatin 20 MG Tab PO SCH (20:52)
[2018-12-12] MEDS: oxyCODONE 5 MG Tab PO PRN (20:57)
[2018-12-13] MEDS: Polyethylene Glycol 3350 Powder 17 GM Packet PO SCH (08:30)
[2018-12-13] MEDS: Docusate Sodium 100 MG Cap PO SCH (08:31)
[2018-12-13] MEDS: Tamsulosin 0.4 MG Cap.ER PO SCH (08:31)
[2018-12-13] MEDS: Oxybutynin 5 MG Tab.ER PO SCH (08:32)
[2018-12-13] MEDS: Omeprazole 20 MG Cap.CR PO SCH (08:32)
[2018-12-13] MEDS: Hydrochlorothiazide 12.5 MG Cap PO SCH (08:32)
[2018-12-13] MEDS: Furosemide 40 MG Tab PO SCH (08:33)
[2018-12-13] MEDS: Cholecalciferol (Vitamin D3) 1,000 Unit Tab PO SCH (08:33)
[2018-12-13] MEDS: valACYclovir 500 MG Tab PO SCH (08:33)
[2018-12-13] MEDS: Potassium Chloride 20 MEQ Tab.ER PO SCH (08:33)
[2018-12-13] MEDS: Phytonadione 100 MCG Tab PO SCH (08:33)
[2018-12-13] MEDS: Moexipril 7.5 MG Tab PO SCH (08:34)
[2018-12-13] MEDS: Gabapentin 300 MG Cap PO SCH (08:34)
[2018-12-13] MEDS: FLUoxetine 10 MG Cap PO SCH (08:34)
[2018-12-13] MEDS: Cyanocobalamin (Vitamin B12) 500 MCG Tab PO SCH (08:34)
[2018-12-13 08:38] VITALS: BP 137/71
[2018-12-13] MEDS: Lidocaine 5% 700 MG Patch TOP SCH (08:38)
--- NOTE | 2018-12-13 09:54 | PCM.DCSUM1 ---
Discharge Summary - Hospital Course Diagnosis: Stroke: No - Discharge Data Discharge Date: 12/13/18 Discharge Disposition: Home, Self-Care 01 Condition: Good - Patient Summary/Data Consults: Consultations 11/30/18 16:49 PT Evaluation and Treatment [CONS] Routine - Patient Instructions Diet: Usual Diet as Tolerated Activity: Apply Ice, Cough & Deep Breathe Showering/Bathing: May Shower Wound/Incision Care: Keep Operative Site/Wound Site Clean and Dry Notify Provider of: Fever, Increased Pain, Swelling and Redness, Drainage, Nausea and/or Vomiting Other/Special Instructions: Follow-up with Dr. Rock as scheduled on . Follow-up with Dr. Ann as scheduled on 01/02/19. Physical therapy with [facility]. [facility] will manage Coumadin/INR - Discharge Plan *PRESCRIPTION DRUG MONITORING PROGRAM REVIEWED*: Not Applicable *COPY OF PRESCRIPTION DRUG MONITORING REPORT IN PATIENT ANAHY: Not Applicable Home Medications: Home Meds [place] [address]/14/15 [History] Simvastatin 40 mg PO 199902/14/15 [History] Docusate Sodium [Colace] 100 mg PO 0809/02/15 [History] Polyethylene Glycol 3350 [Miralax] 17 gm PO 0809/02/15 [History] Tamsulosin [Flomax] 0.4 mg PO 0809/02/15 [History] Prochlorperazine Maleate [Compazine] 10 mg PO Q6H PRN 09/03/15 [History] Potassium Chloride [Klor-Con 10] 40 meq PO BID 01/21/16 [History] Furosemide [Lasix] 40 mg PO DAILY PRN 06/16/16 [History] Phytonadione [Vitamin K] 100 mcg PO DAILY 06/16/16 [History] valACYclovir HCl [Valtrex] 500 mg PO BID 06/16/16 [History] LORazepam 0.5 mg PO Q4H PRN 01/06/17 [History] Gabapentin [Neurontin] 900 mg PO BEDTIME 06/10/17 [History] Lenalidomide [Revlimid] 15 mg PO DAILY 06/10/17 [History] Cyclobenzaprine [Flexeril] 5 - 10 mg PO TID PRN 07/06/18 [History] Moexipril/Hydrochlorothiazide [Moexipril-HCTZ 7.5-12.5 MG] 1 tab PO DAILY [History] traZODone HCl [Trazodone HCl] 50 mg PO BEDTIME PRN 07/06/18 [History] EPINEPHrine [Epipen 2-Hunter] 0.3 mg IM ASDIRECTED PRN #1 ml 07/07/18 [Rx] FLUoxetine [PROzac] 10 mg PO DAILY 07/07/18 [History] Gabapentin [Neurontin] 300 mg PO 0900,1500 07/07/18 [History] Cholecalciferol (Vitamin D3) [Vitamin D3] 3,000 unit PO DAILY 11/30/18 [History] Cyanocobalamin (Vitamin B-12) [B-12] 1,000 mg PO DAILY 11/30/18 [History] Furosemide [Lasix] 40 mg PO QAM 11/30/18 [History] Lidocaine 5% [Lidoderm 5%] 1 patch TOP DAILY 11/30/18 [History] Melatonin 6 mg PO BEDTIME 11/30/18 [History] Oxybutynin [Oxybutynin ER] 5 mg PO DAILY 11/30/18 [History] QUEtiapine [SEROquel] 25 mg PO BEDTIME 11/30/18 [History] Sennosides/Docusate Sodium [Senna-S] 1 tab PO BID 11/30/18 [History] oxyCODONE 2.5 mg PO Q4HR PRN 11/30/18 [History] - Discharge Summary/Plan Comment DC Time >30 min.: Yes Discharge Summary/Plan Comment: Final diagnosis Deconditioning s/p R femoral pathological fracture repair Oglivie syndrome Other chronic problems Multiple myeloma periodic monitoring of CBC, transfusions to keep hgb >8, and holding Aranesp while hospitalized. Follow-up with Dr. Rock as scheduled on 12/29/18. Continue valacyclovir for prophylaxis. Hx renal cell cancer and prostate cancer: Hx DVT EDITH: CAD s/p CABG / HFpEF / PHTN / HTN / HLD: Hx Oglivie syndrome: GERD: BPH: Hyperactive bladder: Hypoalbuminemia: Morbid obesity: Neuropathic pain: Major recurrent depression / generalized anxiety disorder / insomnia / hx delirium: Vitamin B12 and D deficiency: History summary 78y was admitted into swing bed for rehabilitation due to deconditioning conditioning after the patient suffered a R pathological femur fracture along with other cervical, scapular. He underwent R femoral pathological fracture repair on 11/19/18. Postoperative complications included hematoma and acute blood loss anemia requiring PRBC transfusion, Oglivie syndrome requiring colonoscopic decompression on 11/23/18 with subsequent passage of bowel movements ; Due to deconditioning and need for ongoing physical therapy, he was transferred to [facility] for swing bed rehabilitation. Rehabilitation/penitentiary care course Patient did well, receive physical therapy and did well without any complications. His hemoglobin was monitored, did not require any transfusions, wound were monitored without any wound dehiscence. Coumadin and vitamin K was restarted was given enoxaparin until therapeutic INR. Receive physical therapy, pain was controlled with Lidoderm patch, oxycodone and cyclobenzaprine. Aranesp was held while he was in the hospital. Good bowel movements and had good medication for bowel regimen. Follow-up recommendations Follow-up with Dr. Rock as scheduled on 12/29/18. Follow-up with Dr. Ann as scheduled on 01/02/19. PT with [facility] - Review of Systems General: Reports: No Symptoms Pulmonary: Reports: No Symptoms Cardiovascular: Reports: No Symptoms - Patient Data Vitals - Most Recent: Last Vital Signs Temp 98.5 F 12/13/18 06:50 Pulse 86 12/13/18 06:50 Resp 16 12/13/18 06:50 BP 137/71 12/13/18 08:34 Pulse Ox 95 12/13/18 06:55 Weight - Most Recent: 257 lb 3 oz I&O - Last 24 hours: Intake & Output 12/12/18 12/13/18 12/13/18 22:59 06:59 14:59 Intake Total 320 200 Balance 320 200 Lab Results - Last 24 hrs: Laboratory Results - last 24 hr 12/13/18 Range/Units 08:34 PT TNP INR 2.9 H (0.9-1.1) Med Orders - Current: Current Medications Cholecalciferol (Vitamin D3) 3,000 units PO DAILY [facility] Last Admin: 12/13/18 08:33 Dose: 3,000 units Cyanocobalamin (Vitamin B12) 1,000 mcg PO DAILY [facility] Last Admin: 12/13/18 08:34 Dose: 1,000 mcg Cyclobenzaprine HCl (Flexeril) 5 - 10 mg PO TID PRN PRN Reason: Muscle Spasm Last Admin: 12/08/18 14:46 Dose: 5 mg Docusate Sodium (Colace) 100 mg PO 0800 [facility] Last Admin: 12/13/18 08:31 Dose: 100 mg Epinephrine HCl (Epipen) 0.3 mg IM ASDIRECTED PRN PRN Reason: Anaphylaxis Fluoxetine HCl (Prozac) 10 mg PO DAILY [facility] Last Admin: 12/13/18 08:34 Dose: 10 mg Furosemide (Lasix) 40 mg PO QAM [facility] Last Admin: 12/13/18 08:33 Dose: 40 mg Gabapentin (Neurontin) 900 mg PO BEDTIME [facility] Last Admin: 12/12/18 20:51 Dose: 900 mg Gabapentin (Neurontin) 300 mg PO 0900,1500 [facility] Last Admin: 12/13/18 08:34 Dose: 300 mg Hydrochlorothiazide (Hydrochlorothiazide) 12.5 mg PO DAILY [facility] Last Admin: 12/13/18 08:32 Dose: 12.5 mg Lidocaine (Lidoderm 5%) 700 mg TOP DAILY [facility] Last Admin: 12/13/18 08:38 Dose: Not Given Lorazepam (Ativan) 0.5 mg PO BID PRN PRN Reason: Anxiety Melatonin (Melatonin) 6 mg PO BEDTIME [facility] Last Admin: 12/12/18 20:51 Dose: 6 mg Miscellaneous Information (Remove Patch) 1 ea TRDERM BEDTIME [facility] Last Admin: 12/12/18 20:52 Dose: 1 ea Moexipril HCl (Univasc) 7.5 mg PO DAILY [facility] Last Admin: 12/13/18 08:34 Dose: 7.5 mg Omeprazole (Omeprazole) 20 mg PO 0800 [facility] Last Admin: 12/13/18 08:32 Dose: 20 mg Oxybutynin Chloride (Oxybutynin Er) 5 mg PO DAILY [facility] Last Admin: 12/13/18 08:32 Dose: 5 mg Oxycodone HCl (Oxycodone) 2.5 mg PO Q4HR PRN PRN Reason: Pain (moderate 4-6) Last Admin: 12/12/18 20:57 Dose: 2.5 mg Phytonadione (Vitamin K) 100 mcg PO DAILY [facility] Last Admin: 12/13/18 08:33 Dose: 100 mcg Polyethylene Glycol (Miralax) 17 gm PO 0800 [facility] Last Admin: 12/13/18 08:30 Dose: 17 gm Potassium Chloride (Klor-Con M20) 40 meq PO DAILY [facility] Last Admin: 12/13/18 08:33 Dose: 40 meq Prochlorperazine Maleate (Compazine) 10 mg PO Q6H PRN PRN Reason: Nausea Quetiapine Fumarate (Seroquel) 25 mg PO BEDTIME [facility] Last Admin: 12/12/18 20:51 Dose: 25 mg Senna/Docusate Sodium (Senna Plus) 1 tab PO BID [facility] Last Admin: 12/13/18 08:34 Dose: 1 tab Simvastatin (Zocor) 40 mg PO 2000 [facility] Last Admin: 12/12/18 20:52 Dose: 40 mg Tamsulosin HCl (Flomax) 0.4 mg PO 0800 [facility] Last Admin: 12/13/18 08:31 Dose: 0.4 mg Trazodone HCl (Trazodone) 50 mg PO BEDTIME PRN PRN Reason: Insomnia Last Admin: 11/30/18 21:12 Dose: 50 mg Valacyclovir HCl (Valtrex) 500 mg PO BID [facility] Last Admin: 12/13/18 08:33 Dose: 500 mg Warfarin Sodium (Pharmacy To Dose - Warfarin) 1 dose .XX DAILY@1800 [facility] Warfarin Sodium (Coumadin) 5 mg PO SuTuWeThSa@1800 [facility] Last Admin: 12/12/18 18:41 Dose: 5 mg Warfarin Sodium (Coumadin) 7.5 mg PO MoFr@1800 [facility] Last Admin: 12/11/18 18:19 Dose: 7.5 mg Discontinued Medications Enoxaparin Sodium (Lovenox) 40 mg SUBCUT BEDTIME [facility] Last Admin: 12/07/18 20:29 Dose: 40 mg Lorazepam (Ativan) 0.5 mg PO Q4H PRN PRN Reason: Anxiety Last Admin: 12/01/18 02:21 Dose: 0.5 mg Potassium Chloride (Klor-Con 10) 40 meq PO BID [facility] Last Admin: 12/01/18 09:11 Dose: 40 meq Potassium Chloride (Klor-Con M20) 40 meq PO BID [facility] Last Admin: 12/09/18 08:30 Dose: 40 meq Warfarin Sodium (Coumadin) 5 mg PO DAILY@1800 [facility] Stop: 11/30/18 18:01 Last Admin: 11/30/18 18:06 Dose: 5 mg - Exam General: Reports: Alert
== END 2018-12-13 12:30 | disposition home or self-care (01) | DRG 945 ==
LOC: KA.MS 11-30 12:53
PROVIDERS: ADMIT Family Medicine; ATTEND Family Medicine
PROC: F07M6ZZ Therapeutic Exercise Treatment of Musculoskeletal System - Whole Body (ICD-10-PCS; principal; 2018-12-01)
PROC: F07Z5ZZ Bed Mobility Treatment (ICD-10-PCS; 2018-12-01)
PROC: F07Z9ZZ Gait Training/Functional Ambulation Treatment (ICD-10-PCS; 2018-12-01)
PROC: F07Z8ZZ Transfer Training Treatment (ICD-10-PCS; 2018-12-01)
DX: R53.81 Other malaise (principal); H54.7 Unspecified visual loss; I25.10 Atherosclerotic heart disease of native coronary artery without angina pectoris; E78.00 Pure hypercholesterolemia, unspecified; I50.30 Unspecified diastolic (congestive) heart failure; I11.0 Hypertensive heart disease with heart failure; Z66 Do not resuscitate; K21.9 Gastro-esophageal reflux disease without esophagitis; K59.09 Other constipation; N40.0 Benign prostatic hyperplasia without lower urinary tract symptoms; M54.9 Dorsalgia, unspecified; G89.29 Other chronic pain; F32.9 Major depressive disorder, single episode, unspecified; E66.01 Morbid (severe) obesity due to excess calories; G47.33 Obstructive sleep apnea (adult) (pediatric); E78.5 Hyperlipidemia, unspecified; N32.81 Overactive bladder; Z68.41 Body mass index [BMI] 40.0-44.9, adult; E88.09 Other disorders of plasma-protein metabolism, not elsewhere classified; G62.9 Polyneuropathy, unspecified; G47.00 Insomnia, unspecified; F41.1 Generalized anxiety disorder; E53.8 Deficiency of other specified B group vitamins; E55.9 Vitamin D deficiency, unspecified; Z86.718 Personal history of other venous thrombosis and embolism; Z88.8 Allergy status to other drugs, medicaments and biological substances; I25.2 Old myocardial infarction; Z79.899 Other long term (current) drug therapy; Z85.46 Personal history of malignant neoplasm of prostate; Z95.1 Presence of aortocoronary bypass graft
CPT/HCPCS: 36415; 36416; 80048; 80069; 85025; 85610; 87070; 87077; 87147; 87186; 87205; 97110-GP; 97162-GP; A9270-GY; J1650

== ENCOUNTER 2019-02-07 17:19 | Emergency (ER) | payer MEDICARE, BC ==
[2019-02-07 17:56] VITALS: BP 131/67
[2019-02-07] MEDS ORDERED: GI Cocktail 45 ML BOTTLE PO ONE (17:56)
--- NOTE | 2019-02-07 18:00 | EDM.PDOC ---
ED HPI GENERAL MEDICAL PROBLEM - General Chief Complaint: General Stated Complaint: CHEST PRESSURE Time Seen by Provider: 02/07/19 17:33 Source of Information: Reports: Patient History Limitations: Reports: No Limitations - History of Present Illness INITIAL COMMENTS - FREE TEXT/NARRATIVE: Patient is a 78-year-old gentleman who presents to the emergency department this afternoon with a complaint of chest and abdominal burning sensation. Patient states that he was in [place] receiving the chemotherapy drug DARZALEX at noon today. On the ride home they stopped at a gas station and the patient consumed hot dogs and an energy drink. About an hour later, patient felt a burning sensation in upper abdomen and lower chest. He went home and took Tums which gave him mild relief. Patient became concerned so he contacted the [facility] in [place], and was advised to present to the ER to make sure that there are no cardiac issues. At this time. Patient states that symptoms are better, and described it as a burning sensation in mid upper abdomen and lower chest. Patient denies shortness of breath, fever, nausea, vomiting, diarrhea, abdominal pain, rash, or any facial or tongue swelling. Onset: Today Onset Date: 02/07/19 Onset Time: 13:30 Duration: Hour(s): Location: Reports: Chest, Abdomen Quality: Reports: Burning Severity: Mild Improves with: Reports: Other (Somewhat after taking Tums) Worsens with: Reports: None Associated Symptoms: Reports: No Other Symptoms - Related Data Allergies Allergy/AdvReac Type Severity Reaction Status Date / Time epoetin jesse [From Procrit] Allergy Hives Verified 02/07/19 17:57 [id number] [From Zarxio] Allergy Anaphylactic Verified 02/07/19 17:57 Shock Home Meds: Home Meds Omeprazole 20 mg PO 0800 02/14/15 [History] Simvastatin 40 mg PO 199902/14/15 [History] Docusate Sodium [Colace] 100 mg PO 0809/02/15 [History] Polyethylene Glycol 3350 [Miralax] 17 gm PO 0809/02/15 [History] Tamsulosin [Flomax] 0.4 mg PO 0800 09/02/15 [History] Prochlorperazine Maleate [Compazine] 10 mg PO Q6H PRN 12/23/15 [History] Potassium Chloride [Klor-Con 10] 40 meq PO BID 01/21/16 [History] Furosemide [Lasix] 40 mg PO DAILY PRN 06/16/16 [History] Phytonadione [Vitamin K] 100 mcg PO DAILY 06/16/16 [History] valACYclovir HCl [Valtrex] 500 mg PO BID 06/16/16 [History] LORazepam 0.5 mg PO Q4H PRN 01/06/17 [History] Gabapentin [Neurontin] 900 mg PO BEDTIME 06/10/17 [History] Lenalidomide [Revlimid] 15 mg PO DAILY 06/10/17 [History] Cyclobenzaprine [Flexeril] 5 - 10 mg PO TID PRN 07/06/18 [History] Moexipril/Hydrochlorothiazide [Moexipril-HCTZ 7.5-12.5 MG] 1 tab PO DAILY [History] traZODone HCl [Trazodone HCl] 50 mg PO BEDTIME PRN 07/06/18 [History] EPINEPHrine [Epipen 2-Hunter] 0.3 mg IM ASDIRECTED PRN #1 ml 07/07/18 [Rx] FLUoxetine [PROzac] 10 mg PO DAILY 07/07/18 [History] Gabapentin [Neurontin] 300 mg PO 0900,1500 07/07/18 [History] Cholecalciferol (Vitamin D3) [Vitamin D3] 3,000 unit PO DAILY 11/30/18 [History] Cyanocobalamin (Vitamin B-12) [B-12] 1,000 mg PO DAILY 11/30/18 [History] Furosemide [Lasix] 40 mg PO QAM 11/30/18 [History] Lidocaine 5% [Lidoderm 5%] 1 patch TOP DAILY 11/30/18 [History] Melatonin 6 mg PO BEDTIME 11/30/18 [History] Oxybutynin [Oxybutynin ER] 5 mg PO DAILY 11/30/18 [History] QUEtiapine [SEROquel] 25 mg PO BEDTIME 11/30/18 [History] Sennosides/Docusate Sodium [Senna-S] 1 tab PO BID 11/30/18 [History] oxyCODONE 2.5 mg PO Q4HR PRN 11/30/18 [History] Past Medical History HEENT History: Reports: Impaired Vision Cardiovascular History: Reports: Blood Clots/VTE/DVT, CAD, Heart Failure, High Cholesterol, Hypertension, [place], SOB on Exertion Respiratory History: Reports: Sleep Apnea, SOB Other Respiratory History: CPAP Gastrointestinal History: Reports: Chronic Constipation, GERD Genitourinary History: Reports: BPH, Other (See Below) Other Genitourinary History: appt to see Dr Sin Mojica in [place] 09/30/16 for Kidney follow-up/. Renal Biopsy Oct 13 2015 negative for malignancy Musculoskeletal History: Reports: Back Pain, Chronic, Fracture, Other (See Below ) Other Musculoskeletal History: Thigh pain resolved no voices only of low back pain - see pain assessment. Neurological History: Reports: None Psychiatric History: Reports: Depression, Other (See Below) Other Psychiatric History: continues on Prozac - feels this is helpful, anxiety is less Prozac qd Endocrine/Metabolic History: Reports: Obesity/BMI 30+ Hematologic History: Reports: Anemia, Other (See Below) Other Hematologic History: Iron studies done Immunologic History: Reports: Immunosuppression Oncologic (Cancer) History: Reports: Prostate, Other (See Below) Other Oncologic History: multiple myeloma jun 2015 Dermatologic History: Reports: Eczema, Other (See Below) Other Dermatologic History: In Sep 2016Itchy rash raised red/pink size of a pinhead after procrit injection, Procrit now held. continues using cream for eczema on abdomen, Voices at one time bruising was an issue "not so much any more" It's getting better" - Infectious Disease History Infectious Disease History: Reports: Chicken Pox, Measles - Past Surgical History HEENT Surgical History: Reports: None Cardiovascular Surgical History: Reports: Coronary Artery Bypass Respiratory Surgical History: Reports: None GI Surgical History: Reports: Colonoscopy Male Surgical History: Reports: Prostate Biopsy Endocrine Surgical History: Reports: None Neurological Surgical History: Reports: Vertebroplasty, Other (See Below) Other Neurological Surgeries/Procedures: vertibroplasty - in Jun 2015 Musculoskeletal Surgical History: Reports: Other (See Below) Other Musculoskeletal Surgeries/Procedures:: 3rd vertebral plasty done 09/24/15. Oncologic Surgical History: Reports: Bone Marrow Aspiration Social & Family History - Family History Family Medical History: Noncontributory Cardiac: Reports: [place] Respiratory: Reports: None GI: Reports: None : Reports: None OBGYN: Reports: None Musculoskeletal: Reports: Back pain, Chronic Psychiatric: Reports: None Endocrine/Metabolic: Reports: None - Caffeine Use Caffeine Use: Reports: Coffee, Soda - Living Situation & Occupation Living situation: Reports: , with Spouse ED ROS GENERAL - Review of Systems Review Of Systems: ROS reveals no pertinent complaints other than HPI. Constitutional: Reports: No Symptoms HEENT: Reports: No Symptoms Respiratory: Reports: No Symptoms Cardiovascular: Reports: Chest Pain Endocrine: Reports: No Symptoms GI/Abdominal: Reports: Abdominal Pain : Reports: No Symptoms Musculoskeletal: Reports: No Symptoms Skin: Reports: No Symptoms Neurological: Reports: No Symptoms Psychiatric: Reports: No Symptoms Hematologic/Lymphatic: Reports: No Symptoms Immunologic: Reports: No Symptoms ED EXAM, GENERAL - Physical Exam Exam: See Below Exam Limited By: No Limitations General Appearance: Alert, WD/WN, No Apparent Distress Nose: Normal Inspection, Normal Mucosa, No Blood Throat/Mouth: Normal Inspection, Normal Oropharynx, No Airway Compromise Head: Atraumatic, Normocephalic Neck: Normal Inspection, Supple, Non-Tender, Full Range of Motion Respiratory/Chest: No Respiratory Distress, Lungs Clear, Normal Breath Sounds, No Accessory Muscle Use, Chest Non-Tender Cardiovascular: Regular Rate, Rhythm, No Murmur, No Rub GI/Abdominal: Normal Bowel Sounds, Soft, Non-Tender, No Organomegaly, No Distention, No Abnormal Bruit, No Mass Back Exam: Normal Inspection. No: CVA Tenderness (L), CVA Tenderness (R) Extremities: Normal Inspection Neurological: Alert, Oriented, Normal Cognition Psychiatric: Normal Affect, Normal Mood Skin Exam: Warm, Dry, Intact, Normal Color, No Rash EKG INTERPRETATION EKG Date: 02/07/19 Time: 17:45 Rhythm: NSR Rate (Beats/Min): 70 [place]: Normal P-Wave: Present QRS: Normal ST-T: Normal QT: Normal Course - Orders/Labs/Meds Orders: Active Orders 24 hr Category Date Time Status EKG Documentation Completion [RC] ASDIRECTED Care 02/07/19 17:34 Ordered EKG 12 Lead [EK] Routine Ther 02/07/19 17:34 Ordered - Re-Assessments/Exams Free Text/Narrative Re-Assessment/Exam: 02/07/19 18:10 Patient afebrile, vital signs stable, symptoms relieved. Discussed situation in depth with Yuli who is our chemotherapy nurse. Patient scheduled to be seen 0800 tomorrow. Patient will return to ER if symptoms continue or worsen. Departure - Departure Time of Disposition: 18:12 Disposition: Home, Self-Care 01 Condition: Good Clinical Impression: GERD (gastroesophageal reflux disease) Qualifiers: Esophagitis presence: esophagitis presence not specified Qualified Code(s): K21.9 - Gastro-esophageal reflux disease without esophagitis - Discharge Information Instructions: Indigestion, [id number], Food Choices for Gastroesophageal Reflux Disease, Adult, Gastroesophageal Reflux Disease, Adult, [id number] Referrals: Danielle Foss, ACADEMIC SUPPORT DIRECTOR [Primary Care Provider] - Forms: ED Department Discharge Additional Instructions: Follow-up with PCP in next 1-2 days. Follow-up tomorrow morning as scheduled for chemotherapy. Return to emergency department sooner if symptoms continue or worsen. - My Orders Last 24 Hours: My Active Orders 02/07/19 17:34 EKG Documentation Completion [RC] ASDIRECTED EKG 12 Lead [EK] Routine - Assessment/Plan Last 24 Hours: My Active Orders 02/07/19 17:34 EKG Documentation Completion [RC] ASDIRECTED EKG 12 Lead [EK] Routine Assessment:: GERD Plan: Follow-up tomorrow as scheduled for chemotherapy
== END 2019-02-07 18:25 | disposition home or self-care (01) ==
LOC: KA.ED 17:19
DX: K21.9 Gastro-esophageal reflux disease without esophagitis (principal); I11.0 Hypertensive heart disease with heart failure; I50.9 Heart failure, unspecified; E78.00 Pure hypercholesterolemia, unspecified; I25.2 Old myocardial infarction; Z88.8 Allergy status to other drugs, medicaments and biological substances; Z79.899 Other long term (current) drug therapy
CPT/HCPCS: 93005; 99283-25; 99284; A9270-GY

== ENCOUNTER 2019-02-17 21:05 | Inpatient (IN) | payer MEDICARE, BC ==
[2019-02-17] MEDS: Sodium Chloride 0.9% 10 ML Syringe FLUSH PRN (22:05)
--- NOTE | 2019-02-17 22:23 | EDM.PDOC ---
ED HPI GENERAL MEDICAL PROBLEM - General Chief Complaint: Respiratory Problem Stated Complaint: FEVER/WHEEZING Time Seen by Provider: 02/17/19 21:59 Source of Information: Reports: Patient, Significant Other History Limitations: Reports: No Limitations - History of Present Illness INITIAL COMMENTS - FREE TEXT/NARRATIVE: Patient presents with fever, cough and dyspnea that started abruptly two days ago. Temp at home was 101. He is currently getting chemo and radiation for multiple myeloma and his WBC has been in the 1-2 range recently. He takes Bactrim 3x/week for prophylaxis. - Related Data Allergies Allergy/AdvReac Type Severity Reaction Status Date / Time daratumumab Allergy Nausea and Verified 02/17/19 22:57 Vomiting epoetin jesse [From Procrit] Allergy Hives Verified 02/17/19 21:32 [id number] [From Zarxio] Allergy Anaphylactic Verified 02/17/19 21:32 Shock Home Meds: Home Meds Omeprazole 20 mg PO 0800 02/14/15 [History] Simvastatin 40 mg PO 199902/14/15 [History] Docusate Sodium [Colace] 100 mg PO 0800 09/02/15 [History] Polyethylene Glycol 3350 [Miralax] 17 gm PO 0800 09/02/15 [History] Tamsulosin [Flomax] 0.4 mg PO 0800 09/02/15 [History] Potassium Chloride [Klor-Con 10] 10 meq PO BID 01/21/16 [History] Phytonadione [Vitamin K] 100 mcg PO DAILY@1500 06/16/16 [History] valACYclovir HCl [Valtrex] 500 mg PO BID 06/16/16 [History] LORazepam 0.5 mg PO Q4H PRN 01/06/17 [History] Gabapentin [Neurontin] 900 mg PO BEDTIME 06/10/17 [History] Cyclobenzaprine [Flexeril] 5 - 10 mg PO TID PRN 07/06/18 [History] Moexipril/Hydrochlorothiazide [Moexipril-HCTZ 7.5-12.5 MG] 1 tab PO DAILY [History] traZODone HCl [Trazodone HCl] 50 mg PO BEDTIME PRN 07/06/18 [History] EPINEPHrine [Epipen 2-Hunter] 0.3 mg IM ASDIRECTED PRN #1 ml 07/07/18 [Rx] Gabapentin [Neurontin] 300 mg PO 0900,1500 07/07/18 [History] Cholecalciferol (Vitamin D3) [Vitamin D3] 3,000 unit PO DAILY@1500 11/30/18 [ History] Cyanocobalamin (Vitamin B-12) [B-12] 1,000 mg PO DAILY@1500 11/30/18 [History] Furosemide [Lasix] 40 mg PO QAM PRN 11/30/18 [History] Melatonin 6 mg PO BEDTIME 11/30/18 [History] Oxybutynin [Oxybutynin ER] 5 mg PO DAILY 11/30/18 [History] QUEtiapine [SEROquel] 25 mg PO BEDTIME 11/30/18 [History] Sennosides/Docusate Sodium [Senna-S] 1 tab PO BID 11/30/18 [History] oxyCODONE 5 mg PO Q4HR PRN 11/30/18 [History] Lidocaine/Prilocaine [EMLA Crm] 1 applic TOP ASDIRECTED 02/08/19 [History] Magnesium Chloride [Mag-64] 64 mg PO DAILY@1500 02/08/19 [History] Metoprolol Tartrate 50 mg PO DAILY 02/08/19 [History] Pomalidomide [Pomalyst] 1 mg PO DAILY 02/08/19 [History] Prochlorperazine Maleate [Compazine] 10 mg PO Q6H PRN 02/08/19 [History] Sulfamethoxazole/Trimethoprim [Bactrim Ds Tablet] 1 each PO MOWEFR 02/08/19 [ History] Warfarin [Coumadin] 5 mg PO DAILY@1800 02/08/19 [History] dexAMETHasone [Dexamethasone] 20 mg PO ASDIRECTED 02/08/19 [History] FLUoxetine HCl [Prozac] 20 mg PO DAILY 02/17/19 [History] Past Medical History HEENT History: Reports: Impaired Vision Cardiovascular History: Reports: Blood Clots/VTE/DVT, CAD, Heart Failure, High Cholesterol, Hypertension, [place], SOB on Exertion, Other (See Below) Other Cardiovascular History: chronic diastolic heart failure Respiratory History: Reports: Sleep Apnea, SOB Other Respiratory History: CPAP Gastrointestinal History: Reports: Chronic Constipation, GERD Genitourinary History: Reports: BPH, Other (See Below) Other Genitourinary History: appt to see Dr Sin Mojica in [place] 09/30/16 for Kidney follow-up/. Renal Biopsy Oct 13 2015 negative for malignancy. HYPOGONADISM Musculoskeletal History: Reports: Back Pain, Chronic, Fracture, Other (See Below ) Other Musculoskeletal History: Thigh pain resolved no voices only of low back pain - see pain assessment. DJD Neurological History: Reports: Neuropathy, Peripheral, Seizure Psychiatric History: Reports: Anxiety, Depression, Other (See Below) Other Psychiatric History: continues on Prozac - feels this is helpful, anxiety is less Prozac qd Endocrine/Metabolic History: Reports: Obesity/BMI 30+ Hematologic History: Reports: Anemia, Other (See Below) Other Hematologic History: Iron studies done. RED BLOOD CELL ANTIBODY POSITIVE (ON ANTI-CD38 THERAPY (DARATUMUMAB)) Immunologic History: Reports: Immunosuppression, Other (See Below) Other Immunologic History: CHEMOTHERAPY AND RADIATION Oncologic (Cancer) History: Reports: Prostate, Other (See Below) Other Oncologic History: multiple myeloma jun 2015. PROSTATE CA 05-24-2013. 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 MASS IN KIDNEY 06-04-2015 Dermatologic History: Reports: Eczema, Other (See Below) Other Dermatologic History: In Sep 2016Itchy rash raised red/pink size of a pinhead after procrit injection, Procrit now held. continues using cream for eczema on abdomen, Voices at one time bruising was an issue "not so much any more" It's getting better" - Infectious Disease History Infectious Disease History: Reports: Chicken Pox, Measles Other Infectious Disease History: INFECTION WITH DRUG RESISTANT MICROORGANISMS - Past Surgical History HEENT Surgical History: Reports: None Cardiovascular Surgical History: Reports: Coronary Artery Bypass Respiratory Surgical History: Reports: None GI Surgical History: Reports: Colonoscopy Male Surgical History: Reports: Prostate Biopsy Endocrine Surgical History: Reports: None Neurological Surgical History: Reports: Vertebroplasty, Other (See Below) Other Neurological Surgeries/Procedures: vertibroplasty - in Jun 2015 Musculoskeletal Surgical History: Reports: Hip Replacement, Other (See Below) Other Musculoskeletal Surgeries/Procedures:: 3rd vertebral plasty done 09/24/15. Oncologic Surgical History: Reports: Bone Marrow Aspiration, Other (See Below) Other Oncologic Surgeries/Procedures: PROSTATE BIOPSY. LUNG BIOPSY. KIDNEY BIOPSY Dermatological Surgical History: Reports: None Social & Family History - Family History Family Medical History: Noncontributory Cardiac: Reports: [place] Respiratory: Reports: None GI: Reports: None : Reports: None OBGYN: Reports: None Musculoskeletal: Reports: Back pain, Chronic Psychiatric: Reports: None Endocrine/Metabolic: Reports: None - Caffeine Use Caffeine Use: Reports: Coffee, Soda - Living Situation & Occupation Living situation: Reports: , with Spouse ED ROS GENERAL - Review of Systems Review Of Systems: See Below Constitutional: Reports: Fever, Diaphoresis HEENT: Denies: Ear Pain, Vision Change Respiratory: Reports: Shortness of Breath, Wheezing, Cough Cardiovascular: Denies: Chest Pain, Lightheadedness, Syncope GI/Abdominal: Denies: Abdominal Pain, Diarrhea, Nausea, Vomiting : Reports: No Symptoms Musculoskeletal: Reports: No Symptoms Skin: Denies: Cyanosis, Jaundice, Mottled, Pallor, Diaphoresis Neurological: Denies: Confusion, Dizziness, Seizure, Syncope, Trouble Speaking, Difficulty Walking Psychiatric: Denies: Agitation, Anxiety, Confusion Hematologic/Lymphatic: Reports: Easy Bleeding (on warfarin for DVT prophylaxis since a clot 4 years ago) ED EXAM, GENERAL - Physical Exam Exam: See Below Exam Limited By: No Limitations General Appearance: Alert, WD/WN, No Apparent Distress Eye Exam: Bilateral Eye: EOMI, Normal Inspection, PERRL Ears: Normal External Exam, Hearing Grossly Normal Nose: Normal Inspection, No Blood Throat/Mouth: Normal Inspection, Normal Lips, Normal Voice, No Airway Compromise Head: Atraumatic, Normocephalic Neck: Normal Inspection, Supple, Non-Tender, Full Range of Motion Respiratory/Chest: Crackles, Wheezing, Prolonged Expiration. No: Stridor Cardiovascular: Normal Peripheral Pulses, Regular Rate, Rhythm, No Murmur GI/Abdominal: Soft, Non-Tender, No Distention Back Exam: Normal Inspection, Full Range of Motion. No: CVA Tenderness (L), CVA Tenderness (R) Extremities: Normal Inspection Neurological: Alert, Oriented, Normal Cognition, No Motor/Sensory Deficits Psychiatric: Normal Affect, Normal Mood Skin Exam: Warm, Dry, Intact, Normal Color, No Rash Course - Vital Signs Last Recorded V/S: Last Vital Signs Temp 99.7 F 02/17/19 21:18 Pulse 100 02/17/19 21:18 Resp 21 H 02/17/19 21:18 BP 155/73 H 02/17/19 21:18 Pulse Ox 94 L 02/17/19 22:33 - Orders/Labs/Meds Orders: Active Orders 24 hr Category Date Time Status Peripheral IV Care [RC] . DIRECTED Care 02/17/19 22:03 Active RT Aerosol Therapy [RC] ASDIRECTED Care 02/17/19 22:33 Ordered Chest 2V [CR] Stat Exams 02/17/19 21:33 Taken CULTURE BLOOD [BC] Stat Lab 02/17/19 22:32 Ordered CULTURE BLOOD [BC] Stat Lab 02/17/19 22:32 Ordered Sodium Chloride 0.9% [Saline Flush] Med 02/17/19 22:03 Active 10 ml FLUSH Q8HR PRN Blood Culture x2 Reflex Set [OM.PC] Stat Oth 02/17/19 22:32 Ordered Peripheral IV Insertion Adult [OM.PC] Routine Oth 02/17/19 22:03 Ordered Medication Orders Sodium Chloride (Saline Flush) 10 ml FLUSH Q8HR PRN PRN Reason: keep vein open Last Admin: 02/17/19 22:05 Dose: 10 ml Labs: Laboratory Tests 02/17/19 02/17/19 02/17/19 Range/Units 21:50 21:50 21:50 WBC 5.34 (5.00-10.00) 10^3/uL RBC 3.00 L (4.50-6.00) 10^6/uL Hgb 10.6 L D (13.0-17.0) g/dL Hct 29.9 L (40.0-52.0) % MCV 99.7 H (82.0-92.0) fL MCH 35.3 H (27.0-31.0) pg MCHC 35.5 (32.0-36.0) g/dL RDW 16.0 H (11.5-14.5) % Plt Count 164 (150-400) 10^3/uL MPV 11.6 H (7.4-10.4) fL Immature Gran % (Auto) 0.6 (0.0-5.0) % Neut % (Auto) 77.5 H (50.0-70.0) % Lymph % (Auto) 11.4 L (20.0-40.0) % Crane % (Auto) 6.0 (2.0-8.0) % Eos % (Auto) 3.9 H (1.0-3.0) % Baso % (Auto) 0.6 (0.0-1.0) % Immature Gran # (Auto) 0.03 (0.00-0.50) 10^3/uL Neut # (Auto) 4.14 (2.50-7.00) 10^3/uL Lymph # (Auto) 0.61 L (1.00-4.00) 10^3/uL Crane # (Auto) 0.32 (0.10-0.80) 10^3/uL Eos # (Auto) 0.21 (0.10-0.30) 10^3/uL Baso # (Auto) 0.03 (0.00-0.10) 10^3/uL PT 13.7 H D (8.9-11.4) SEC INR 1.4 H (0.9-1.1) APTT 29.6 (23.1-31.3) SEC Sodium 143 (136-145) mmol/L Potassium 3.9 (3.3-5.3) mmol/L Chloride 107 (98-115) mmol/L Carbon Dioxide 26.2 (21.0-32.0) mmol/L Anion Gap 13.7 (5-15) mmol/L BUN 23 (6-25) mg/dL Creatinine 0.98 (0.51-1.17) mg/dL Est Cr Clr Drug Dosing 56.96 mL/min Estimated GFR (MDRD) > 60 mL/min Glucose 110 H (75 - 99) mg/dL Lactic Acid (0.4-2.0) mmol/L Calcium 7.6 L D (8.7-10.3) mg/dL Total Bilirubin 0.3 (0.2-1.0) mg/dL AST 9 L (15-37) U/L ALT 11 L (12-78) U/L Alkaline Phosphatase 63 (46-116) IU/L Total Protein 5.5 L (6.4-8.2) g/dL Albumin 2.79 L (3.00-4.80) g/dL Specimen Type Urine Color (YELLOW) Urine Appearance (CLEAR) Urine pH (5.0-9.0) Ur Specific [place] (1.005-1.030) Urine Protein (NEGATIVE) mg/dL Urine Glucose (UA) (NEGATIVE) mg/dL Urine Ketones (NEGATIVE) mg/dL Urine Occult Blood (NEGATIVE) Urine Nitrite (NEGATIVE) Urine Bilirubin (NEGATIVE) Urine Urobilinogen (0.2-1.0) E.U./dL Ur Leukocyte Esterase (NEGATIVE) Urine RBC (0-5) /HPF Urine WBC (0-5) /HPF Ur Epithelial Cells /LPF Urine Bacteria (NONE TO FEW) /HPF Urine Mucus (NEGATIVE) /LPF 02/17/19 02/17/19 Range/Units 21:50 22:34 WBC (5.00-10.00) 10^3/uL RBC (4.50-6.00) 10^6/uL Hgb (13.0-17.0) g/dL Hct (40.0-52.0) % MCV (82.0-92.0) fL MCH (27.0-31.0) pg MCHC (32.0-36.0) g/dL RDW (11.5-14.5) % Plt Count (150-400) 10^3/uL MPV (7.4-10.4) fL Immature Gran % (Auto) (0.0-5.0) % Neut % (Auto) (50.0-70.0) % Lymph % (Auto) (20.0-40.0) % Crane % (Auto) (2.0-8.0) % Eos % (Auto) (1.0-3.0) % Baso % (Auto) (0.0-1.0) % Immature Gran # (Auto) (0.00-0.50) 10^3/uL Neut # (Auto) (2.50-7.00) 10^3/uL Lymph # (Auto) (1.00-4.00) 10^3/uL Crane # (Auto) (0.10-0.80) 10^3/uL Eos # (Auto) (0.10-0.30) 10^3/uL Baso # (Auto) (0.00-0.10) 10^3/uL PT (8.9-11.4) SEC INR (0.9-1.1) APTT (23.1-31.3) SEC Sodium (136-145) mmol/L Potassium (3.3-5.3) mmol/L Chloride (98-115) mmol/L Carbon Dioxide (21.0-32.0) mmol/L Anion Gap (5-15) mmol/L BUN (6-25) mg/dL Creatinine (0.51-1.17) mg/dL Est Cr Clr Drug Dosing mL/min Estimated GFR (MDRD) mL/min Glucose (75 - 99) mg/dL Lactic Acid 1.5 (0.4-2.0) mmol/L Calcium (8.7-10.3) mg/dL Total Bilirubin (0.2-1.0) mg/dL AST (15-37) U/L ALT (12-78) U/L Alkaline Phosphatase (46-116) IU/L Total Protein (6.4-8.2) g/dL Albumin (3.00-4.80) g/dL Specimen Type Urincc Urine Color Yellow (YELLOW) Urine Appearance Clear (CLEAR) Urine pH 5.5 (5.0-9.0) Ur Specific [place] 1.015 (1.005-1.030) Urine Protein Trace H (NEGATIVE) mg/dL Urine Glucose (UA) Negative (NEGATIVE) mg/dL Urine Ketones Negative (NEGATIVE) mg/dL Urine Occult Blood Negative (NEGATIVE) Urine Nitrite Negative (NEGATIVE) Urine Bilirubin Negative (NEGATIVE) Urine Urobilinogen 0.2 (0.2-1.0) E.U./dL Ur Leukocyte Esterase Negative (NEGATIVE) Urine RBC Not seen (0-5) /HPF Urine WBC 0-5 (0-5) /HPF Ur Epithelial Cells Not seen /LPF Urine Bacteria Rare (NONE TO FEW) /HPF Urine Mucus Occasional H (NEGATIVE) /LPF Meds: Medications Generic Name Dose Route Start Last Admin Trade Name Freq PRN Reason Stop Dose Admin Sodium Chloride 10 ml 02/17/19 22:03 02/17/19 22:05 Saline Flush FLUSH 10 ml Q8HR PRN Administration keep vein open Discontinued Medications Generic Name Dose Route Start Last Admin Trade Name Freq PRN Reason Stop Dose Admin Albuterol/Ipratropium 3 ml 02/17/19 22:33 02/17/19 22:36 Duoneb 3.0-0.5 Mg/3 Ml NEB 06/08/19 22:34 3 ml ONETIME ONE Administration - Re-Assessments/Exams Free Text/Narrative Re-Assessment/Exam: 02/17/19 23:30 WBC is 5.3. Xray shows evidence of possible pneumonia which definitely fits the clinical picture. Patient did have chemotherapy 3 days ago for his multiple myeloma. Discussed findings with patient and his . Will admit for treatment here. Discussed case with Alicja Foss DIRECTOR OF INDIVIDUAL GIVING; she reviews his [facility] chart and notes that the most recent WBC is 6.2 3 days ago. She accepts for admission and will review to determine appropriate antibiotic regimen; she says he also has adenocarcinoma of lung. Blood cultures are drawn and will start antibiotics JAYCEE. 02/17/19 23:50 Alicja called back and will start Cefepime and Vanco. She will put admission orders in. Pt stable throughout ER course. Departure - Departure Time of Disposition: 23:50 Disposition: Admitted As Inpatient 67 Condition: Fair Clinical Impression: Pneumonia Qualifiers: Laterality: bilateral Lung location: unspecified part of lung Multiple myeloma Qualifiers: Multiple myeloma remission status: unspecified Qualified Code(s): C90.00 - Multiple myeloma not having achieved remission - Discharge Information Forms: ED Department Discharge - My Orders Last 24 Hours: My Active Orders 02/17/19 21:33 Chest 2V [CR] Stat 02/17/19 22:03 Peripheral IV Care [RC] . DIRECTED Sodium Chloride 0.9% [Saline Flush] 10 ml FLUSH Q8HR PRN Peripheral IV Insertion Adult [OM.PC] Routine 02/17/19 22:32 CULTURE BLOOD [BC] Stat CULTURE BLOOD [BC] Stat Blood Culture x2 Reflex Set [OM.PC] Stat 02/17/19 22:33 RT Aerosol Therapy [RC] ASDIRECTED - Assessment/Plan Last 24 Hours: My Active Orders 02/17/19 21:33 Chest 2V [CR] Stat 02/17/19 22:03 Peripheral IV Care [RC] . DIRECTED Sodium Chloride 0.9% [Saline Flush] 10 ml FLUSH Q8HR PRN Peripheral IV Insertion Adult [OM.PC] Routine 02/17/19 22:32 CULTURE BLOOD [BC] Stat CULTURE BLOOD [BC] Stat Blood Culture x2 Reflex Set [OM.PC] Stat 02/17/19 22:33 RT Aerosol Therapy [RC] ASDIRECTED
[2019-02-17 22:29] LABS: ANION GAP 13.7 mmol/L (5-15); CHLORIDE,CL 107 mmol/L (98-115); SODIUM,NA 143 mmol/L (136-145)
[2019-02-17] MEDS ORDERED: Albuterol/Ipratropium 3.0-0.5 MG/3 ML Neb Soln NEB ONE (22:33)
[2019-02-18] MEDS ORDERED: oxyCODONE 5 MG Tab PO PRN (01:55)
[2019-02-18] MEDS ORDERED: LORazepam 0.5 MG Tab PO PRN (01:55)
[2019-02-18] MEDS ORDERED: Sodium Chloride 0.9% 10 ML Syringe FLUSH PRN (02:21)
[2019-02-18] MEDS ORDERED: Albuterol 0.083% 2.5 MG/3 ML Neb Soln NEB PRN (02:21)
[2019-02-18] MEDS ORDERED: Acetaminophen 325 MG Tab PO PRN (02:21)
[2019-02-18] MEDS ORDERED: Sodium Chloride 0.9% 250 ML IV SCH (02:45)
[2019-02-18] MEDS: Cefepime 2 GM in Sodium Chloride 0.9% 50 ML IV SCH ×3 (03:21→18:40)
[2019-02-18] MEDS: Albuterol/Ipratropium 3.0-0.5 MG/3 ML Neb Soln NEB SCH ×4 (04:34→22:10)
[2019-02-18] MEDS: Docusate Sodium 100 MG Cap PO SCH (08:15)
[2019-02-18] MEDS: Tamsulosin 0.4 MG Cap.ER PO SCH (08:15)
[2019-02-18] MEDS: Omeprazole 20 MG Cap.CR PO SCH (08:15)
[2019-02-18] MEDS: Polyethylene Glycol 3350 Powder 17 GM Packet PO SCH (08:15)
[2019-02-18 09:24] LABS: CHLORIDE,CL 108 mmol/L (98-115); SODIUM,NA 144 mmol/L (136-145)
[2019-02-18] MEDS: Potassium Chloride 10 MEQ Tab.ER PO SCH ×2 (09:42→20:51)
[2019-02-18] MEDS: FLUoxetine 10 MG Cap PO SCH (09:42)
[2019-02-18] MEDS: Metoprolol Tartrate 50 MG Tab PO SCH (09:42)
[2019-02-18] MEDS: Hydrochlorothiazide 12.5 MG Cap PO SCH (09:42)
[2019-02-18] MEDS: Gabapentin 300 MG Cap PO SCH ×2 (09:42→15:37)
[2019-02-18] MEDS: Oxybutynin 5 MG Tab.ER PO SCH (09:42)
[2019-02-18] MEDS: valACYclovir 500 MG Tab PO SCH ×2 (09:42→20:52)
--- NOTE | 2019-02-18 10:24 | CR ---
[id number] RAD/RAD Chest PA And Lateral EXAM: FRONTAL AND LATERAL CHEST INDICATION: Shortness of breath and wheezing. COMPARISON: July 06, 2018. DISCUSSION: Hyperinflation is compatible with chronic obstructive pulmonary disease. Trace right pleural effusion. On the lateral view early lower lobe infiltrates are suggested, side indeterminant. Mild cardiomegaly without evidence of pulmonary edema. A right internal jugular port is present tip overlying the SVC. Sternotomy. Chronic bilateral rib fractures and likely chronic mild mid thoracic compression fracture. IMPRESSION: 1. Early lower lobe infiltrates are suggested on the lateral view, side undetermined. 2. Trace right pleural effusion. Yadiel Shukla MD 02/18/19 1023 Thank you for allowing us to participate in the care of your patient.
[2019-02-18] MEDS: Moexipril 7.5 MG Tab PO SCH (10:40)
--- NOTE | 2019-02-18 12:05 | PCM.HP ---
H&P History of Present Illness - General Date of Service: 02/18/19 Admit Problem/Dx: Admission Diagnosis/Problem Admission Diagnosis/Problem Pneumonia Pneumonia Immunocompromised status Source of Information: Patient, Old Records, Provider History Limitations: Reports: No Limitations - History of Present Illness Initial Comments - Free Text/Narative: Mr. Paz is a pleasant 78 year old male who presented to the ED 02/17/19 with complaints of a fever and a cough. The patient states that on (02/15/19) he developed a strong productive cough and some wheezing. Yesterday he was mowing the lawn and he noted an increase in wheezing without SOB. He states that he checked his temperature at home and it was 101F. 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 He has been receiving Chemotherapy with last dose on 02/14/19. He has also recently started radiation on 02/12/19 for RUL adenocarcinoma and also of the cervical spine as palliative treatment due to multiple myeloma involvement. Patient contacted oncology yesterday regarding symptoms and fever and was recommended to follow-up in the ED for further evaluation. Pertinent ED workup/findings: Chest-xray- "Early lower lobe infiltrates are suggested on the lateral view, side undetermined. Trace right pleural effusion." WBC-5.4 Hgb- 10.6 Plt- 164 UA- negative INR- 1.4 Lactic acid normal - Related Data Allergies/Adverse Reactions: Allergies Allergy/AdvReac Type Severity Reaction Status Date / Time daratumumab Allergy Nausea and Verified 02/17/19 22:57 Vomiting epoetin jesse [From Procrit] Allergy Hives Verified 02/17/19 21:32 [id number] [From Zarxio] Allergy Anaphylactic Verified 02/17/19 21:32 Shock Home Medications: Home Meds Omeprazole 20 mg PO 0802/14/15 [History] Simvastatin 40 mg PO 199902/14/15 [History] Docusate Sodium [Colace] [place] 79909/02/15 [History] Polyethylene Glycol 3350 [Miralax] 17 [place] 7[address]09/02/15 [History] Tamsulosin [Flomax] 0.4 [place] 79909/02/15 [History] Potassium Chloride [Klor-Con 10] 10 meq PO BID 01/21/16 [History] Phytonadione [Vitamin K] 100 mcg PO DAILY@1500 06/16/16 [History] valACYclovir HCl [Valtrex] 500 mg PO BID 06/16/16 [History] LORazepam 0.5 mg PO Q4H PRN 01/06/17 [History] Gabapentin [Neurontin] 900 mg PO BEDTIME 06/10/17 [History] Cyclobenzaprine [Flexeril] 5 - 10 mg PO TID PRN 07/06/18 [History] Moexipril/Hydrochlorothiazide [Moexipril-HCTZ 7.5-12.5 MG] 1 tab PO DAILY [History] traZODone HCl [Trazodone HCl] 50 mg PO BEDTIME PRN 07/06/18 [History] EPINEPHrine [Epipen 2-Hunter] 0.3 mg IM ASDIRECTED PRN #1 ml 07/07/18 [Rx] Gabapentin [Neurontin] 300 mg PO 0900,1500 07/07/18 [History] Cholecalciferol (Vitamin D3) [Vitamin D3] 3,000 unit PO DAILY@1500 11/30/18 [ History] Cyanocobalamin (Vitamin B-12) [B-12] 1,000 mg PO DAILY@1500 11/30/18 [History] Furosemide [Lasix] 40 mg PO QAM PRN 11/30/18 [History] Melatonin 6 mg PO BEDTIME 11/30/18 [History] Oxybutynin [Oxybutynin ER] 5 mg PO DAILY 11/30/18 [History] QUEtiapine [SEROquel] 25 mg PO BEDTIME 11/30/18 [History] Sennosides/Docusate Sodium [Senna-S] 1 tab PO BID 11/30/18 [History] oxyCODONE 5 mg PO Q4HR PRN 11/30/18 [History] Lidocaine/Prilocaine [EMLA Crm] 1 applic TOP ASDIRECTED 02/08/19 [History] Magnesium Chloride [Mag-64] 64 mg PO DAILY@1500 02/08/19 [History] Metoprolol Tartrate 50 mg PO DAILY 02/08/19 [History] Pomalidomide [Pomalyst] 1 mg PO DAILY 02/08/19 [History] Prochlorperazine Maleate [Compazine] 10 mg PO Q6H PRN 02/08/19 [History] Sulfamethoxazole/Trimethoprim [Bactrim Ds Tablet] 1 each PO MOWEFR 02/08/19 [ History] Warfarin [Coumadin] 5 mg PO DAILY@1800 02/08/19 [History] dexAMETHasone [Dexamethasone] 20 mg PO ASDIRECTED 02/08/19 [History] FLUoxetine HCl [Prozac] 20 mg PO DAILY 02/17/19 [History] Past Medical History HEENT History: Reports: Impaired Vision Cardiovascular History: Reports: Blood Clots/VTE/DVT, CAD, Heart Failure, High Cholesterol, Hypertension, LA, SOB on Exertion, Other (See Below) Other Cardiovascular History: chronic diastolic heart failure Respiratory History: Reports: Bronchitis, Recurrent, COPD, Sleep Apnea, SOB Other Respiratory History: CPAP, adenoncarcinoma of the right lung Gastrointestinal History: Reports: Chronic Constipation, GERD Genitourinary History: Reports: BPH, Other (See Below) Other Genitourinary History: appt to see Dr Sin Mojica in [place] 09/30/16 for Kidney follow-up/. Renal Biopsy Oct 13 2015 negative for malignancy. HYPOGONADISM Musculoskeletal History: Reports: Back Pain, Chronic, Fracture, Other (See Below ) Other Musculoskeletal History: Thigh pain resolved no voices only of low back pain - see pain assessment. DJD Neurological History: Reports: Neuropathy, Peripheral, Seizure Psychiatric History: Reports: Anxiety, Depression, Other (See Below) Other Psychiatric History: continues on Prozac - feels this is helpful, anxiety is less Prozac qd Endocrine/Metabolic History: Reports: Obesity/BMI 30+ Hematologic History: Reports: Anemia, Other (See Below) Other Hematologic History: Iron studies done. RED BLOOD CELL ANTIBODY POSITIVE (ON ANTI-CD38 THERAPY (DARATUMUMAB)). Chemotherapy induced anemiahypogammaglobulinemia, acquired Immunologic History: Reports: Immunosuppression, Other (See Below) Other Immunologic History: CHEMOTHERAPY AND RADIATION Oncologic (Cancer) History: Reports: Prostate, Other (See Below) Other Oncologic History: multiple myeloma jun 2015. PROSTATE CA 05-24-2013. 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 MASS IN KIDNEY 06-04-2015 Dermatologic History: Reports: Eczema, Other (See Below) Other Dermatologic History: In Sep 2016Itchy rash raised red/pink size of a pinhead after procrit injection, Procrit now held. continues using cream for eczema on abdomen, Voices at one time bruising was an issue "not so much any more" It's getting better" - Infectious Disease History Infectious Disease History: Reports: Chicken Pox, Measles Other Infectious Disease History: INFECTION WITH DRUG RESISTANT MICROORGANISMS - Past Surgical History HEENT Surgical History: Reports: None, Tonsillectomy Cardiovascular Surgical History: Reports: Coronary Artery Bypass Respiratory Surgical History: Reports: None GI Surgical History: Reports: Colonoscopy Male Surgical History: Reports: Prostate Biopsy Endocrine Surgical History: Reports: None Neurological Surgical History: Reports: Vertebroplasty, Other (See Below) Other Neurological Surgeries/Procedures: vertibroplasty - in Jun 2015 Musculoskeletal Surgical History: Reports: Hip Replacement, Other (See Below) Other Musculoskeletal Surgeries/Procedures:: 3rd vertebral plasty done 09/24/15. Oncologic Surgical History: Reports: Bone Marrow Aspiration, Other (See Below) Other Oncologic Surgeries/Procedures: PROSTATE BIOPSY. LUNG BIOPSY. KIDNEY BIOPSY Dermatological Surgical History: Reports: None Social & Family History - Family History Family Medical History: Noncontributory Cardiac: Reports: LA Respiratory: Reports: None GI: Reports: None : Reports: None OBGYN: Reports: None Musculoskeletal: Reports: Back pain, Chronic Psychiatric: Reports: None Endocrine/Metabolic: Reports: None - Tobacco Use Smoking Status *Q: Former Smoker Tobacco Use Within Last Twelve Months: Cigarettes Years of Tobacco use: 35 Used Tobacco, but Quit: Yes Month/Year Tobacco Last Used: 09/1989 - Caffeine Use Caffeine Use: Reports: Coffee, Soda - Alcohol Use Alcohol Use History: No - Recreational Drug Use Recreational Drug Use: No - Living Situation & Occupation Living situation: Reports: , with Spouse H&P Review of Systems - Review of Systems: Review Of Systems: See Below General: Reports: Fever, Fatigue. Denies: Chills, Weakness HEENT: Reports: Sinus Congestion, Sore Throat (with cough), Other (nasal congestion). Denies: Dysphasia, Ear Pain, Headaches Pulmonary: Reports: Wheezing, Cough, Sputum. Denies: Shortness of Breath, Pleuritic Chest Pain, Hemoptysis Cardiovascular: Reports: Dyspnea on Exertion (mild, chronic), Edema (chronic and unchanged. L>R). Denies: Chest Pain, Palpitations Gastrointestinal: Reports: Decreased Appetite. Denies: Abdominal Pain, Constipation, Diarrhea, Difficulty Swallowing, Distension, Nausea, Vomiting Genitourinary: Reports: No Symptoms Musculoskeletal: Reports: Joint Pain. Denies: Joint Swelling Skin: Reports: No Symptoms Psychiatric: Denies: Confusion, Depression, Anxiety Neurological: Denies: Dizziness, Headache, Numbness, Tingling, Difficulty Walking, Weakness, Gait Disturbance Hematologic/Lymphatic: Reports: No Symptoms. Denies: Easy Bleeding, Easy Bruising Exam - Exam Exam: See Below - Vital Signs Vital Signs: Last Vital Signs Temp 98.1 F 02/18/19 06:07 Pulse 109 H 02/18/19 09:42 Resp 20 02/18/19 06:07 BP 140/76 02/18/19 09:42 Pulse Ox 96 02/18/19 09:00 Weight: 262 lb 5 oz - Exam General: Alert, Oriented, Other (Morbidly obese elderly male seated at bedsite in no acute distress. ) HEENT: Conjunctiva Clear, Mucosa Moist & [place], Nares Patent Neck: Supple. No: JVD Lungs: Normal Respiratory Effort, Crackles, Wheezing (expiratory wheezing noted throughout), Other (coarse upper airway congestion. ) Cardiovascular: Regular Rate, Regular Rhythm, Other (Apical HR 76) GI/Abdominal Exam: Normal Bowel Sounds, Soft, Non-Tender, Other (Obese habitus) (Male) Exam: Deferred Rectal (Males) Exam: Deferred Extremities: Other (1+ edema noted to bilateral pretibial and ankle. ). No: Leg Pain, Increased Warmth, Redness Skin: Warm, Dry, Intact Neuro Extensive - Mental Status: Alert, Normal Mood/Affect Neuro Extensive - Motor, Sensory, Reflexes: No: Motor/Sensory Deficits Psychiatric: Alert, Normal Affect, Normal Mood - Patient Data Lab Results Last 24 hrs: Laboratory Results - last 24 hr 02/17/19 02/17/19 02/17/19 Range/Units 21:50 21:50 21:50 WBC 5.34 (5.00-10.00) 10^3/uL RBC 3.00 L (4.50-6.00) 10^6/uL Hgb 10.6 L D (13.0-17.0) g/dL Hct 29.9 L (40.0-52.0) % MCV 99.7 H (82.0-92.0) fL MCH 35.3 H (27.0-31.0) pg MCHC 35.5 (32.0-36.0) g/dL RDW 16.0 H (11.5-14.5) % Plt Count 164 (150-400) 10^3/uL MPV 11.6 H (7.4-10.4) fL Immature Gran % (Auto) 0.6 (0.0-5.0) % Neut % (Auto) 77.5 H (50.0-70.0) % Lymph % (Auto) 11.4 L (20.0-40.0) % [place] % (Auto) 6.0 (2.0-8.0) % Eos % (Auto) 3.9 H (1.0-3.0) % Baso % (Auto) 0.6 (0.0-1.0) % Immature Gran # (Auto) 0.03 (0.00-0.50) 10^3/uL Neut # (Auto) 4.14 (2.50-7.00) 10^3/uL Lymph # (Auto) 0.61 L (1.00-4.00) 10^3/uL [place] # (Auto) 0.32 (0.10-0.80) 10^3/uL Eos # (Auto) 0.21 (0.10-0.30) 10^3/uL Baso # (Auto) 0.03 (0.00-0.10) 10^3/uL PT 13.7 H D (8.9-11.4) SEC INR 1.4 H (0.9-1.1) APTT 29.6 (23.1-31.3) SEC Sodium 143 (136-145) mmol/L Potassium 3.9 (3.3-5.3) mmol/L Chloride 107 (98-115) mmol/L Carbon Dioxide 26.2 (21.0-32.0) mmol/L Anion Gap 13.7 (5-15) mmol/L BUN 23 (6-25) mg/dL Creatinine 0.98 (0.51-1.17) mg/dL Est Cr Clr Drug Dosing 56.96 mL/min Estimated GFR (MDRD) > 60 mL/min Glucose 110 H (75 - 99) mg/dL Lactic Acid (0.4-2.0) mmol/L Calcium 7.6 L D (8.7-10.3) mg/dL Total Bilirubin 0.3 (0.2-1.0) mg/dL AST 9 L (15-37) U/L ALT 11 L (12-78) U/L Alkaline Phosphatase 63 (46-116) IU/L B-Natriuretic Peptide (0-100) pg/mL Total Protein 5.5 L (6.4-8.2) g/dL Albumin 2.79 L (3.00-4.80) g/dL Specimen Type Urine Color (YELLOW) Urine Appearance (CLEAR) Urine pH (5.0-9.0) Ur Specific Hood (1.005-1.030) Urine Protein (NEGATIVE) mg/dL Urine Glucose (UA) (NEGATIVE) mg/dL Urine Ketones (NEGATIVE) mg/dL Urine Occult Blood (NEGATIVE) Urine Nitrite (NEGATIVE) Urine Bilirubin (NEGATIVE) Urine Urobilinogen (0.2-1.0) E.U./dL Ur Leukocyte Esterase (NEGATIVE) Urine RBC (0-5) /HPF Urine WBC (0-5) /HPF Ur Epithelial Cells /LPF Urine Bacteria (NONE TO FEW) /HPF Urine Mucus (NEGATIVE) /LPF 02/17/19 02/17/19 02/18/19 Range/Units 21:50 22:34 01:00 WBC (5.00-10.00) 10^3/uL RBC (4.50-6.00) 10^6/uL Hgb (13.0-17.0) g/dL Hct (40.0-52.0) % MCV (82.0-92.0) fL MCH (27.0-31.0) pg MCHC (32.0-36.0) g/dL RDW (11.5-14.5) % Plt Count (150-400) 10^3/uL MPV (7.4-10.4) fL Immature Gran % (Auto) (0.0-5.0) % Neut % (Auto) (50.0-70.0) % Lymph % (Auto) (20.0-40.0) % [place] % (Auto) (2.0-8.0) % Eos % (Auto) (1.0-3.0) % Baso % (Auto) (0.0-1.0) % Immature Gran # (Auto) (0.00-0.50) 10^3/uL Neut # (Auto) (2.50-7.00) 10^3/uL Lymph # (Auto) (1.00-4.00) 10^3/uL [place] # (Auto) (0.10-0.80) 10^3/uL Eos # (Auto) (0.10-0.30) 10^3/uL Baso # (Auto) (0.00-0.10) 10^3/uL PT (8.9-11.4) SEC INR (0.9-1.1) APTT (23.1-31.3) SEC Sodium (136-145) mmol/L Potassium (3.3-5.3) mmol/L Chloride (98-115) mmol/L Carbon Dioxide (21.0-32.0) mmol/L Anion Gap (5-15) mmol/L BUN (6-25) mg/dL Creatinine (0.51-1.17) mg/dL Est Cr Clr Drug Dosing mL/min Estimated GFR (MDRD) mL/min Glucose (75 - 99) mg/dL Lactic Acid 1.5 (0.4-2.0) mmol/L Calcium (8.7-10.3) mg/dL Total Bilirubin (0.2-1.0) mg/dL AST (15-37) U/L ALT (12-78) U/L Alkaline Phosphatase (46-116) IU/L B-Natriuretic Peptide 46 (0-100) pg/mL Total Protein (6.4-8.2) g/dL Albumin (3.00-4.80) g/dL Specimen Type Urincc Urine Color Yellow (YELLOW) Urine Appearance Clear (CLEAR) Urine pH 5.5 (5.0-9.0) Ur Specific Hood 1.015 (1.005-1.030) Urine Protein Trace H (NEGATIVE) mg/dL Urine Glucose (UA) Negative (NEGATIVE) mg/dL Urine Ketones Negative (NEGATIVE) mg/dL Urine Occult Blood Negative (NEGATIVE) Urine Nitrite Negative (NEGATIVE) Urine Bilirubin Negative (NEGATIVE) Urine Urobilinogen 0.2 (0.2-1.0) E.U./dL Ur Leukocyte Esterase Negative (NEGATIVE) Urine RBC Not seen (0-5) /HPF Urine WBC 0-5 (0-5) /HPF Ur Epithelial Cells Not seen /LPF Urine Bacteria Rare (NONE TO FEW) /HPF Urine Mucus Occasional H (NEGATIVE) /LPF 02/18/19 02/18/19 02/18/19 Range/Units 07:35 07:35 07:35 WBC 3.89 L (5.00-10.00) 10^3/uL RBC 2.81 L (4.50-6.00) 10^6/uL Hgb 9.5 L (13.0-17.0) g/dL Hct 28.6 L (40.0-52.0) % MCV 101.8 H (82.0-92.0) fL MCH 33.8 H (27.0-31.0) pg MCHC 33.2 (32.0-36.0) g/dL RDW 15.9 H (11.5-14.5) % Plt Count 134 L (150-400) 10^3/uL MPV 11.9 H (7.4-10.4) fL Immature Gran % (Auto) 0.8 (0.0-5.0) % Neut % (Auto) 77.6 H (50.0-70.0) % Lymph % (Auto) 9.3 L (20.0-40.0) % [place] % (Auto) 5.1 (2.0-8.0) % Eos % (Auto) 6.7 H (1.0-3.0) % Baso % (Auto) 0.5 (0.0-1.0) % Immature Gran # (Auto) 0.03 (0.00-0.50) 10^3/uL Neut # (Auto) 3.02 (2.50-7.00) 10^3/uL Lymph # (Auto) 0.36 L (1.00-4.00) 10^3/uL [place] # (Auto) 0.20 (0.10-0.80) 10^3/uL Eos # (Auto) 0.26 (0.10-0.30) 10^3/uL Baso # (Auto) 0.02 (0.00-0.10) 10^3/uL PT 13.4 H (8.9-11.4) SEC INR 1.3 H (0.9-1.1) APTT (23.1-31.3) SEC Sodium Cancelled (136-145) mmol/L Potassium Cancelled (3.3-5.3) mmol/L Chloride Cancelled (98-115) mmol/L Carbon Dioxide Cancelled (21.0-32.0) mmol/L Anion Gap Cancelled (5-15) mmol/L BUN Cancelled (6-25) mg/dL Creatinine Cancelled (0.51-1.17) mg/dL Est Cr Clr Drug Dosing Cancelled mL/min Estimated GFR (MDRD) Cancelled mL/min Glucose Cancelled (75 - 99) mg/dL Lactic Acid (0.4-2.0) mmol/L Calcium Cancelled (8.7-10.3) mg/dL Total Bilirubin (0.2-1.0) mg/dL AST (15-37) U/L ALT (12-78) U/L Alkaline Phosphatase (46-116) IU/L B-Natriuretic Peptide (0-100) pg/mL Total Protein (6.4-8.2) g/dL Albumin (3.00-4.80) g/dL Specimen Type Urine Color (YELLOW) Urine Appearance (CLEAR) Urine pH (5.0-9.0) Ur Specific Hood (1.005-1.030) Urine Protein (NEGATIVE) mg/dL Urine Glucose (UA) (NEGATIVE) mg/dL Urine Ketones (NEGATIVE) mg/dL Urine Occult Blood (NEGATIVE) Urine Nitrite (NEGATIVE) Urine Bilirubin (NEGATIVE) Urine Urobilinogen (0.2-1.0) E.U./dL Ur Leukocyte Esterase (NEGATIVE) Urine RBC (0-5) /HPF Urine WBC (0-5) /HPF Ur Epithelial Cells /LPF Urine Bacteria (NONE TO FEW) /HPF Urine Mucus (NEGATIVE) /LPF 02/18/19 Range/Units 07:35 WBC (5.00-10.00) 10^3/uL RBC (4.50-6.00) 10^6/uL Hgb (13.0-17.0) g/dL Hct (40.0-52.0) % MCV (82.0-92.0) fL MCH (27.0-31.0) pg MCHC (32.0-36.0) g/dL RDW (11.5-14.5) % Plt Count (150-400) 10^3/uL MPV (7.4-10.4) fL Immature Gran % (Auto) (0.0-5.0) % Neut % (Auto) (50.0-70.0) % Lymph % (Auto) (20.0-40.0) % [place] % (Auto) (2.0-8.0) % Eos % (Auto) (1.0-3.0) % Baso % (Auto) (0.0-1.0) % Immature Gran # (Auto) (0.00-0.50) 10^3/uL Neut # (Auto) (2.50-7.00) 10^3/uL Lymph # (Auto) (1.00-4.00) 10^3/uL [place] # (Auto) (0.10-0.80) 10^3/uL Eos # (Auto) (0.10-0.30) 10^3/uL Baso # (Auto) (0.00-0.10) 10^3/uL PT (8.9-11.4) SEC INR (0.9-1.1) APTT (23.1-31.3) SEC Sodium 144 (136-145) mmol/L Potassium 4.3 (3.3-5.3) mmol/L Chloride 108 (98-115) mmol/L Carbon Dioxide 28.3 (21.0-32.0) mmol/L Anion Gap 12.0 (5-15) mmol/L BUN 21 (6-25) mg/dL Creatinine 0.99 (0.51-1.17) mg/dL Est Cr Clr Drug Dosing 56.39 mL/min Estimated GFR (MDRD) > 60 mL/min Glucose 109 H (75 - 99) mg/dL Lactic Acid (0.4-2.0) mmol/L Calcium 7.7 L (8.7-10.3) mg/dL Total Bilirubin 0.4 (0.2-1.0) mg/dL AST 7 L (15-37) U/L ALT 8 L (12-78) U/L Alkaline Phosphatase 54 (46-116) IU/L B-Natriuretic Peptide (0-100) pg/mL Total Protein 5.2 L (6.4-8.2) g/dL Albumin 2.59 L (3.00-4.80) g/dL Specimen Type Urine Color (YELLOW) Urine Appearance (CLEAR) Urine pH (5.0-9.0) Ur Specific Hood (1.005-1.030) Urine Protein (NEGATIVE) mg/dL Urine Glucose (UA) (NEGATIVE) mg/dL Urine Ketones (NEGATIVE) mg/dL Urine Occult Blood (NEGATIVE) Urine Nitrite (NEGATIVE) Urine Bilirubin (NEGATIVE) Urine Urobilinogen (0.2-1.0) E.U./dL Ur Leukocyte Esterase (NEGATIVE) Urine RBC (0-5) /HPF Urine WBC (0-5) /HPF Ur Epithelial Cells /LPF Urine Bacteria (NONE TO FEW) /HPF Urine Mucus (NEGATIVE) /LPF Result Diagrams: 02/18/19 07:35 02/18/19 07:35 *Q Meaningful Use (ADM) - VTE Risk Assess *Q Each Risk Factor Represents 1 Point: Swollen Legs, Current, Obesity ( BMI > 25 kg/m2), Serious lung disease including pneumonia, Abnormal Pulmonary Function ( COPD) Total Score 1 Point Risk Factors: 4 Each Risk Factor Represents 2 Points: Malignancy (present or previous) Total Score 2 Point Risk Factors: 2 Each Risk Factor Represents 3 Points: Age 75 Years or Greater, History of DVT/PE Total Score 3 Point Risk Factors: 6 Each Risk Factor Represents 5 Points: None Total Score 5 Point Risk Factors: 0 Venous Thromboembolism Risk Factor Score *Q: 12 Problem List Initiated/Reviewed/Updated: Yes Orders Last 24hrs: Active Orders 24 hr Category Date Time Status Patient Status [ADT] Routine ADT 02/17/19 23:44 Ordered Patient Status [ADT] Routine ADT 02/18/19 02:21 Ordered Intake and Output [RC] 1400,2200,0600 Care 02/18/19 02:25 Active Oxygen Therapy [RC] DAILY Care 02/18/19 02:21 Active Pulse Oximetry [RC] .PRN Care 02/18/19 02:26 Active RT Aerosol Therapy [RC] ASDIRECTED Care 02/18/19 02:29 Active VTE/DVT Education [RC] PER UNIT ROUTINE Care 02/18/19 02:21 Active Vital Signs [RC] 0300,0700,1100,1500,1900,2300 Care 02/18/19 02:21 Active Heart Healthy Diet [DIET] Diet 02/18/19 Breakfast Active CBC WITH AUTO DIFF [HEME] AM Lab 02/19/19 05:11 Ordered COMPREHENSIVE METABOLIC PN,CMP [CHEM] DAILY Lab 02/19/19 08:48 Ordered CULTURE BLOOD [BC] Stat Lab 02/17/19 22:50 Received CULTURE BLOOD [BC] Stat Lab 02/17/19 23:08 Received CULTURE SPUTUM + SMEAR [RM] Stat Lab 02/18/19 02:21 Ordered INR,PT,PROTHROMBIN TIME [COAG] AM Lab 02/19/19 05:11 Ordered PROCALCITONIN [REF] Stat Lab 02/18/19 01:00 Received VANCOMYCIN TROUGH [CHEM] Timed Lab 02/20/19 15:30 Ordered Acetaminophen [Tylenol] Med 02/18/19 02:21 Active 650 mg PO Q6H PRN Albuterol [Proventil Neb Soln] Med 02/18/19 02:21 Active 2.5 mg NEB Q2H PRN Albuterol/Ipratropium [DuoNeb 3.0-0.5 MG/3 ML] Med 02/18/19 05:00 Active 3 ml NEB Q6HRRT Cefepime [Maxipime] 2 gm Med 02/18/19 03:00 Active Sodium Chloride 0.9% [Normal Saline] 50 ml IV Q8H Cholecalciferol (Vitamin D3) [Vitamin D3] Med 02/18/19 15:00 Active 3,000 units PO DAILY@1500 Cyanocobalamin (Vitamin B12) [Vitamin B12] Med 02/18/19 15:00 Active 1,000 mcg PO DAILY@1500 Docusate Sodium [Colace] Med 02/18/19 08:00 Active 100 mg PO 0800 Docusate Sodium/Sennosides [Senna Plus] Med 02/18/19 09:00 Active 1 tab PO BID FLUoxetine [PROzac] Med 02/18/19 09:00 Active 20 mg PO DAILY Gabapentin [Neurontin] Med 02/18/19 09:00 Active 300 mg PO 0900,1500 Gabapentin [Neurontin] Med 02/18/19 21:00 Active 900 mg PO BEDTIME LORazepam [Ativan] Med 02/18/19 01:55 Active 0.5 mg PO Q4H PRN Magnesium Chloride [Mag-64] Med 02/18/19 15:00 Active 64 mg PO DAILY@1500 Melatonin Med 02/18/19 21:00 Active 6 mg PO BEDTIME Metoprolol Tartrate [Lopressor] Med 02/18/19 09:00 Active 50 mg PO DAILY Moexipril [Univasc] Med 02/18/19 09:00 Active 7.5 mg PO DAILY Omeprazole Med 02/18/19 08:00 Active 20 mg PO 0800 Oxybutynin [Oxybutynin ER] Med 02/18/19 09:00 Active 5 mg PO DAILY Pharmacy to Dose - Vancomycin Med 02/18/19 02:15 Pending 1 dose .XX ASDIRECTED Phytonadione [Vitamin K] Med 02/18/19 15:00 Active 100 mcg PO DAILY@1500 Polyethylene Glycol 3350 [MiraLAX] Med 02/18/19 08:00 Active 17 gm PO 0800 Potassium Chloride [Klor-Con 10] Med 02/18/19 09:00 Active 10 meq PO BID QUEtiapine [SEROquel] Med 02/18/19 21:00 Active 25 mg PO BEDTIME Simvastatin [Zocor] Med 02/18/19 20:00 Active 40 mg PO 2000 Sodium Chloride 0.9% [Normal Saline] 250 ml Med 02/18/19 02:45 Active IV ASDIRECTED Sodium Chloride 0.9% [Saline Flush] Med 02/17/19 22:03 Active 10 ml FLUSH Q8HR PRN Sodium Chloride 0.9% [Saline Flush] Med 02/18/19 02:21 Active 10 ml FLUSH Q8HR PRN Tamsulosin [Flomax] Med 02/18/19 08:00 Active 0.4 mg PO 0800 Vancomycin 1.25 gm Med 02/18/19 04:00 Active Sodium Chloride 0.9% [Normal Saline] 250 ml IV Q12H Warfarin [Coumadin] Med 02/18/19 18:00 Ordered See Dose Instructions PO DAILY@1800 hydroCHLOROthiazide Med 02/18/19 09:00 Active 12.5 mg PO DAILY oxyCODONE Med 02/18/19 01:55 Active 5 mg PO Q4HR PRN valACYclovir [Valtrex] Med 02/18/19 09:00 Active 500 mg PO BID Blood Culture x2 Reflex Set [OM.PC] Stat Oth 02/17/19 22:32 Ordered Isolation [COMM] Routine Oth 02/18/19 10:48 Ordered Peripheral IV Insertion Adult [OM.PC] Routine Oth 02/17/19 22:03 Ordered Saline Lock Insert [OM.PC] Routine Oth 02/18/19 02:21 Ordered Resuscitation Status Routine Resus Stat 02/18/19 02:21 Ordered Medication Orders Acetaminophen (Tylenol) 650 mg PO Q6H PRN PRN Reason: Pain (Mild 1-3)/fever Albuterol (Proventil Neb Soln) 2.5 mg NEB Q2H PRN PRN Reason: Shortness Of Breath/wheezing Albuterol/Ipratropium (Duoneb 3.0-0.5 Mg/3 Ml) 3 ml NEB Q6HRRT [facility] Last Admin: 02/18/19 11:22 Dose: 3 ml Admin: 02/18/19 04:34 Dose: 3 ml Cholecalciferol (Vitamin D3) 3,000 units PO DAILY@1500 [facility] Cyanocobalamin (Vitamin B12) 1,000 mcg PO DAILY@1500 [facility] Docusate Sodium (Colace) 100 mg PO 0800 [facility] Last Admin: 02/18/19 08:15 Dose: 100 mg Fluoxetine HCl (Prozac) 20 mg PO DAILY [facility] Last Admin: 02/18/19 09:42 Dose: 20 mg Gabapentin (Neurontin) 300 mg PO 0900,1500 [facility] Last Admin: 02/18/19 09:42 Dose: 300 mg Gabapentin (Neurontin) 900 mg PO BEDTIME [facility] Hydrochlorothiazide (Hydrochlorothiazide) 12.5 mg PO DAILY [facility] Last Admin: 02/18/19 09:42 Dose: 12.5 mg Cefepime HCl 2 gm/ Sodium (Chloride) 50 mls @ 100 mls/hr IV Q8H [facility] Last Admin: 02/18/19 11:22 Dose: 100 mls/hr Admin: 02/18/19 03:21 Dose: 100 mls/hr Vancomycin HCl 1.25 gm/ Sodium (Chloride) 250 mls @ 166.667 mls/hr IV Q12H [facility] Last Admin: 02/18/19 04:29 Dose: 166.667 mls/hr Sodium Chloride (Normal Saline) 250 mls @ 50 mls/hr IV ASDIRECTED [facility] Last Admin: 02/18/19 03:21 Dose: 50 mls/hr Lorazepam (Ativan) 0.5 mg PO Q4H PRN PRN Reason: Anxiety Magnesium Chloride (Mag-64) 64 mg PO DAILY@1500 [facility] Melatonin (Melatonin) 6 mg PO BEDTIME [facility] Metoprolol Tartrate (Lopressor) 50 mg PO DAILY [facility] Last Admin: 02/18/19 09:42 Dose: 50 mg Moexipril HCl (Univasc) 7.5 mg PO DAILY [facility] Last Admin: 02/18/19 10:40 Dose: Omeprazole (Omeprazole) 20 mg PO 0800 [facility] Last Admin: 02/18/19 08:15 Dose: 20 mg Oxybutynin Chloride (Oxybutynin Er) 5 mg PO DAILY [facility] Last Admin: 02/18/19 09:42 Dose: 5 mg Oxycodone HCl (Oxycodone) 5 mg PO Q4HR PRN PRN Reason: Pain (moderate 4-6) Phytonadione (Vitamin K) 100 mcg PO DAILY@1500 [facility] Polyethylene Glycol (Miralax) 17 gm PO 0800 [facility] Last Admin: 02/18/19 08:15 Dose: 17 gm Potassium Chloride (Klor-Con 10) 10 meq PO BID [facility] Last Admin: 02/18/19 09:42 Dose: 10 meq Quetiapine Fumarate (Seroquel) 25 mg PO BEDTIME [facility] Senna/Docusate Sodium (Senna Plus) 1 tab PO BID [facility] Last Admin: 02/18/19 09:42 Dose: 1 tab Simvastatin (Zocor) 40 mg PO 2000 [facility] Sodium Chloride (Saline Flush) 10 ml FLUSH Q8HR PRN PRN Reason: keep vein open Last Admin: 02/17/19 22:05 Dose: 10 ml Sodium Chloride (Saline Flush) 10 ml FLUSH Q8HR PRN PRN Reason: keep vein open Last Admin: 02/18/19 04:36 Dose: 10 ml Tamsulosin HCl (Flomax) 0.4 mg PO 0800 [facility] Last Admin: 02/18/19 08:15 Dose: 0.4 mg Valacyclovir HCl (Valtrex) 500 mg PO BID [facility] Last Admin: 02/18/19 09:42 Dose: 500 mg Vancomycin HCl (Pharmacy To Dose - Vancomycin) 1 dose .XX ASDIRECTED [facility] Warfarin Sodium (Coumadin) 0 mg PO DAILY@1800 [facility] Assessment/Plan Comment:: 78 year old male with PMH significant for multiple myeloma and 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 He is followed by Dr. Rock ( oncology/hematology) and Dr. Bowers (Radiotherapy). He recently was started on radiotherapy last week of the cervical spine, due to multiple myeloma involvement, and of the right lung due to adenocarcinoma. He received Daratumumab on 02/14/19 and his Pomalyst had been on hold due to low counts. His WBC had recently been running 1-2 with seg neutrophil counts as low as 0.3. His most recent labwork done on 02/14/19 with a WBC 6.2. Mild anemia noted with a hgb of 10.7 at that time, presumably chemotherapy induced. Recent onset of a cough and wheezing 02/15/19 with symptoms progression. Denies any significant SOB but notes a strong and at times productive cough with wheezing. Fever of 101 at home. Clinical concern for pneumonia. Hospitalization Problems: 1. Pneumonia- chest x-ray done in ED showing "early lower lobe infiltrates suggested on the lateral view, side undetermined". X-ray consistent with history and exam findings. Patient afebrile since admit. 2. Immunocompromised status- recent chemotherapy tx on 02/14/19. WBC mildly decreased today at from 5.4. to 3.89. 3. Anemia- Hemoglobin stable at 9.6. Likely chemotherapy induced. Chronic Conditions: 1. Multiple Myeloma- On chemotherapy (daratumumab) with last dose 02/14/19. Receiving radiotherapy with scheduled end date 02/23/19. Next scheduled dose 02/19. Pomalyst currently on hold per Dr. Rock. On Bactrim MWF for infection prophylaxis. Will hold while on IV abx therapy. Consult with oncology placed through [facility] and spoke with Dr. Deepa Vaz regarding patient status and scheduled radiotherapy for tomorrow. Recommendation to continue current medical therapy and at this time radiotherapy is not felt to be a priority. Dr. Deepa Vaz to contact Dr. Bowers and Dr. Rock to determine further plan and if transfer is recommended to receive radiotherapy scheduled for tomorrow. Continue on Valcyclovir for prophylaxis. Continue on current pain management with scheduled and PRN oxycodone. 2. RUL Adenocarcinoma- Diagnosed 01/10/19. Currently receiving radiotherapy. Schedule as noted above. 3. Hx of Renal cell CA and prostate CA. 4. Hx DVT- On warfarin and Vitamin K. INR is subtherapeutic at 1.3 today. Dosing per pharmacy. Will start enoxaparin until therapeutic INR 2-3. 5. EDITH- Continue on CPAP 6. CAD s/p CABG, HFpEF, PHTN, HTN- BNP done and normal at 96. Last echo 11/28 with EF 60%. Grade 1 diastolic dysfunction. Moderate pulmonary artery HTN. Continue Moexepril, HCTZ, and Metoprolol Tartrate. Furosemide PRN. 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 Ensure daily BM. continue with bowel regimen including PEG daily, docusate daily, and Senna-docusate BID. 8. GERD- stable. continue on Omeprazole daily. 9. BPH- stable. Continue on Tamsulosin 10. Hyperactive bladder- Stable. Continue on oxybutynin. 11. Anxiety- stable. Continue on Fluoxetine. alprazolam as needed. 12. neuropathic pain- continue on gabapentin. 13. Vitamin B12 and Vitamin D deficiencies- Continue on supplementation. 14. Hypoalbuminemia- albumin 2.59. Corrected calcium 8.8. 14. Insomnia- continue on melatonin scheduled. Trazadone PRN. Hospitalization details: 1. FEN: IV fluids TKO. Electrolytes normal. Regular diet. 2. PPX: DVT prophylaxis with enoxaparin until therapeutic INR with warfarin. Close monitoring of platelet counts. 3. Code status: DNR/DNI as verified with patient with at bedside. Disposition: Admit to inpatient status. Continue with IV vancomycin and Cefepime. Scheduled and PRN nebs. Sputum culture and BC x2 pending. Procalcitonin trend. Add Enoxaparin for DVT PPX. Close patient and laboratory monitoring. Low threshold for transfer if change in patient status given significant PMH and immunocompromised status. Will await further notification from oncology regarding radiotherapy scheduled for tomorrow.
[2019-02-18] MEDS ORDERED: Enoxaparin 40 MG/0.4 ML Syringe SUBCUT SCH (13:00)
[2019-02-18] MEDS ORDERED: Cholecalciferol (Vitamin D3) 1,000 Unit Tab PO SCH (15:00)
[2019-02-18] MEDS ORDERED: Cyanocobalamin (Vitamin B12) 500 MCG Tab PO SCH (15:00)
[2019-02-18] MEDS ORDERED: Phytonadione 100 MCG Tab PO SCH (15:00)
[2019-02-18] MEDS ORDERED: Magnesium Chloride 64 MG Tab.ER PO SCH (15:00)
[2019-02-18] MEDS ORDERED: Warfarin 5 MG Tab PO SCH ×2 (18:00)
[2019-02-18] MEDS ORDERED: Simvastatin 20 MG Tab PO SCH (20:00)
[2019-02-18] MEDS ORDERED: Gabapentin 300 MG Cap PO SCH (21:00)
[2019-02-18] MEDS ORDERED: QUEtiapine 25 MG Tab PO SCH (21:00)
[2019-02-18] MEDS ORDERED: Melatonin 3 MG Tab PO SCH (21:00)
[2019-02-19] MEDS: Cefepime 2 GM in Sodium Chloride 0.9% 50 ML IV SCH ×2 (02:47→11:06)
[2019-02-19] MEDS: Albuterol/Ipratropium 3.0-0.5 MG/3 ML Neb Soln NEB SCH ×2 (06:04→10:50)
[2019-02-19 07:29] LABS: ANION GAP 13.8 mmol/L (5-15); CHLORIDE,CL 108 mmol/L (98-115); SODIUM,NA 146 mmol/L (136-145)
[2019-02-19] MEDS: Omeprazole 20 MG Cap.CR PO SCH (08:06)
[2019-02-19] MEDS: Docusate Sodium 100 MG Cap PO SCH (08:06)
[2019-02-19] MEDS: Tamsulosin 0.4 MG Cap.ER PO SCH (08:06)
[2019-02-19] MEDS: Polyethylene Glycol 3350 Powder 17 GM Packet PO SCH (08:07)
[2019-02-19] MEDS: Hydrochlorothiazide 12.5 MG Cap PO SCH (09:28)
[2019-02-19] MEDS: Metoprolol Tartrate 50 MG Tab PO SCH (09:28)
[2019-02-19] MEDS: Potassium Chloride 10 MEQ Tab.ER PO SCH (09:29)
[2019-02-19] MEDS: Oxybutynin 5 MG Tab.ER PO SCH (09:29)
[2019-02-19] MEDS: Gabapentin 300 MG Cap PO SCH (09:29)
[2019-02-19] MEDS: FLUoxetine 10 MG Cap PO SCH (09:29)
[2019-02-19] MEDS: valACYclovir 500 MG Tab PO SCH (09:29)
--- NOTE | 2019-02-19 09:44 | PCM.PN ---
- General Info Date of Service: 02/19/19 Admission Dx/Problem (Free Text): Admission Diagnosis/Problem Admission Diagnosis/Problem Pneumonia Pneumonia Immunocompromised status - Review of Systems General: Denies: Fever - Patient Data Vitals - Most Recent: Last Vital Signs Temp 97.5 F 02/19/19 06:09 Pulse 100 02/19/19 09:28 Resp 20 02/19/19 06:09 BP 137/75 02/19/19 09:28 Pulse Ox 92 L 02/19/19 06:09 Weight - Most Recent: 252 lb 12.8 oz I&O - Last 24 Hours: Intake & Output 02/18/19 02/19/19 02/19/19 22:59 06:59 14:59 Intake Total 640 335 Balance 640 335 Lab Results Last 24 Hours: Laboratory Results - last 24 hr 02/19/19 02/19/19 02/19/19 Range/Units 06:30 06:30 06:30 WBC 3.08 L (5.00-10.00) 10^3/uL RBC 2.91 L (4.50-6.00) 10^6/uL Hgb 9.9 L (13.0-17.0) g/dL Hct 29.1 L (40.0-52.0) % MCV 100.0 H (82.0-92.0) fL MCH 34.0 H (27.0-31.0) pg MCHC 34.0 (32.0-36.0) g/dL RDW 15.7 H (11.5-14.5) % Plt Count 135 L (150-400) 10^3/uL MPV 12.2 H (7.4-10.4) fL Immature Gran % (Auto) 0.3 (0.0-5.0) % Neut % (Auto) 70.9 H (50.0-70.0) % Lymph % (Auto) 15.9 L (20.0-40.0) % [place] % (Auto) 4.2 (2.0-8.0) % Eos % (Auto) 8.4 H (1.0-3.0) % Baso % (Auto) 0.3 (0.0-1.0) % Immature Gran # (Auto) 0.01 (0.00-0.50) 10^3/uL Neut # (Auto) 2.18 L (2.50-7.00) 10^3/uL Lymph # (Auto) 0.49 L (1.00-4.00) 10^3/uL [place] # (Auto) 0.13 (0.10-0.80) 10^3/uL Eos # (Auto) 0.26 (0.10-0.30) 10^3/uL Baso # (Auto) 0.01 (0.00-0.10) 10^3/uL PT 12.6 H (8.9-11.4) SEC INR 1.3 H (0.9-1.1) Sodium 146 H (136-145) mmol/L Potassium 4.3 (3.3-5.3) mmol/L Chloride 108 (98-115) mmol/L Carbon Dioxide 28.5 (21.0-32.0) mmol/L Anion Gap 13.8 (5-15) mmol/L BUN 20 (6-25) mg/dL Creatinine 1.01 (0.51-1.17) mg/dL Est Cr Clr Drug Dosing 55.27 mL/min Estimated GFR (MDRD) > 60 mL/min Glucose 103 H (75 - 99) mg/dL Calcium 8.3 L (8.7-10.3) mg/dL Total Bilirubin 0.5 (0.2-1.0) mg/dL AST 8 L (15-37) U/L ALT 10 L (12-78) U/L Alkaline Phosphatase 56 (46-116) IU/L Total Protein 5.4 L (6.4-8.2) g/dL Albumin 2.62 L (3.00-4.80) g/dL Frank Results Last 24 Hours: Microbiology 02/17/19 23:08 Aerobic Blood Culture - Preliminary Blood - Venous - Lab Draw NO GROWTH AFTER 1 DAY Anaerobic Blood Culture - Preliminary NO GROWTH AFTER 1 DAY 02/17/19 22:50 Aerobic Blood Culture - Preliminary Blood - Venous NO GROWTH AFTER 1 DAY Anaerobic Blood Culture - Preliminary NO GROWTH AFTER 1 DAY Med Orders - Current: Current Medications Acetaminophen (Tylenol) 650 mg PO Q6H PRN PRN Reason: Pain (Mild 1-3)/fever Albuterol (Proventil Neb Soln) 2.5 mg NEB Q2H PRN PRN Reason: Shortness Of Breath/wheezing Albuterol/Ipratropium (Duoneb 3.0-0.5 Mg/3 Ml) 3 ml NEB Q6HRRT [facility] Last Admin: 02/19/19 06:04 Dose: 3 ml Cholecalciferol (Vitamin D3) 3,000 units PO DAILY@1500 [facility] Last Admin: 02/18/19 15:37 Dose: 3,000 units Cyanocobalamin (Vitamin B12) 1,000 mcg PO DAILY@1500 [facility] Last Admin: 02/18/19 15:37 Dose: 1,000 mcg Docusate Sodium (Colace) 100 mg PO 0800 [facility] Last Admin: 02/19/19 08:06 Dose: 100 mg Enoxaparin Sodium (Lovenox) 40 mg SUBCUT Q24H [facility] Last Admin: 02/18/19 14:09 Dose: 40 mg Fluoxetine HCl (Prozac) 20 mg PO DAILY [facility] Last Admin: 02/19/19 09:29 Dose: 20 mg Gabapentin (Neurontin) 300 mg PO 0900,1500 [facility] Last Admin: 02/19/19 09:29 Dose: 300 mg Gabapentin (Neurontin) 900 mg PO BEDTIME [facility] Last Admin: 02/18/19 20:52 Dose: 900 mg Hydrochlorothiazide (Hydrochlorothiazide) 12.5 mg PO DAILY [facility] Last Admin: 02/19/19 09:28 Dose: 12.5 mg Cefepime HCl 2 gm/ Sodium (Chloride) 50 mls @ 100 mls/hr IV Q8H [facility] Last Admin: 02/19/19 02:47 Dose: 100 mls/hr Vancomycin HCl 1.25 gm/ Sodium (Chloride) 250 mls @ 166.667 mls/hr IV Q12H [facility] Last Admin: 02/19/19 03:36 Dose: 166.667 mls/hr Sodium Chloride (Normal Saline) 250 mls @ 50 mls/hr IV ASDIRECTED [facility] Last Admin: 02/18/19 03:21 Dose: 50 mls/hr Lorazepam (Ativan) 0.5 mg PO Q4H PRN PRN Reason: Anxiety Magnesium Chloride (Mag-64) 64 mg PO DAILY@1500 [facility] Last Admin: 02/18/19 15:37 Dose: 64 mg Melatonin (Melatonin) 6 mg PO BEDTIME [facility] Last Admin: 02/18/19 20:51 Dose: 6 mg Metoprolol Tartrate (Lopressor) 50 mg PO DAILY [facility] Last Admin: 02/19/19 09:28 Dose: 50 mg Moexipril HCl (Univasc) 7.5 mg PO DAILY [facility] Last Admin: 02/18/19 10:40 Dose: Not Given Omeprazole (Omeprazole) 20 mg PO 0800 [facility] Last Admin: 02/19/19 08:06 Dose: 20 mg Oxybutynin Chloride (Oxybutynin Er) 5 mg PO DAILY [facility] Last Admin: 02/19/19 09:29 Dose: 5 mg Oxycodone HCl (Oxycodone) 5 mg PO Q4HR PRN PRN Reason: Pain (moderate 4-6) Phytonadione (Vitamin K) 100 mcg PO DAILY@1500 [facility] Last Admin: 02/18/19 15:37 Dose: 100 mcg Polyethylene Glycol (Miralax) 17 gm PO 0800 [facility] Last Admin: 02/19/19 08:07 Dose: 17 gm Potassium Chloride (Klor-Con 10) 10 meq PO BID [facility] Last Admin: 02/19/19 09:29 Dose: 10 meq Quetiapine Fumarate (Seroquel) 25 mg PO BEDTIME [facility] Last Admin: 02/18/19 20:52 Dose: 25 mg Senna/Docusate Sodium (Senna Plus) 1 tab PO BID [facility] Last Admin: 02/19/19 09:29 Dose: 1 tab Simvastatin (Zocor) 40 mg PO 1999 [facility] Last Admin: 02/18/19 20:51 Dose: 40 mg Sodium Chloride (Saline Flush) 10 ml FLUSH Q8HR PRN PRN Reason: keep vein open Last Admin: 02/17/19 22:05 Dose: 10 ml Sodium Chloride (Saline Flush) 10 ml FLUSH Q8HR PRN PRN Reason: keep vein open Last Admin: 02/18/19 04:36 Dose: 10 ml Tamsulosin HCl (Flomax) 0.4 mg PO 0800 [facility] Last Admin: 02/19/19 08:06 Dose: 0.4 mg Valacyclovir HCl (Valtrex) 500 mg PO BID [facility] Last Admin: 02/19/19 09:29 Dose: 500 mg Vancomycin HCl (Pharmacy To Dose - Vancomycin) 1 dose .XX ASDIRECTED [facility] Warfarin Sodium (Coumadin) 5 mg PO DAILY@1800 [facility] Last Admin: 02/18/19 17:39 Dose: 5 mg Warfarin Sodium (Pharmacy To Dose - Warfarin) 1 dose PO ASDIRECTED [facility] Discontinued Medications Albuterol/Ipratropium (Duoneb 3.0-0.5 Mg/3 Ml) 3 ml NEB ONETIME ONE Stop: 02/17/19 22:34 Last Admin: 02/17/19 22:36 Dose: 3 ml Warfarin Sodium (Coumadin) 5 mg PO DAILY@1800 [facility] - Problem List Review Problem List Initiated/Reviewed/Updated: Yes - My Orders Last 24 Hours: My Active Orders 02/18/19 09:00 Docusate Sodium/Sennosides [Senna Plus] 1 tab PO BID FLUoxetine [PROzac] 20 mg PO DAILY Gabapentin [Neurontin] 300 mg PO 0900,1500 Metoprolol Tartrate [Lopressor] 50 mg PO DAILY Moexipril [Univasc] 7.5 mg PO DAILY Oxybutynin [Oxybutynin ER] 5 mg PO DAILY Potassium Chloride [Klor-Con 10] 10 meq PO BID hydroCHLOROthiazide 12.5 mg PO DAILY valACYclovir [Valtrex] 500 mg PO BID 02/18/19 10:48 Isolation [COMM] Routine 02/18/19 12:00 Warfarin Pharmacy to Dose [Pharmacy to Dose - Warfarin] 1 dose PO ASDIRECTED 02/18/19 13:00 Enoxaparin [Lovenox] 40 mg SUBCUT Q24H 02/18/19 15:00 Cholecalciferol (Vitamin D3) [Vitamin D3] 3,000 units PO DAILY@1500 Cyanocobalamin (Vitamin B12) [Vitamin B12] 1,000 mcg PO DAILY@1500 Magnesium Chloride [Mag-64] 64 mg PO DAILY@1500 Phytonadione [Vitamin K] 100 mcg PO DAILY@1500 02/18/19 18:00 Warfarin [Coumadin] 5 mg PO DAILY@1800 02/18/19 20:00 Simvastatin [Zocor] 40 mg PO 199902/18/19 21:00 Gabapentin [Neurontin] 900 mg PO BEDTIME Melatonin 6 mg PO BEDTIME QUEtiapine [SEROquel] 25 mg PO BEDTIME - Plan Plan:: 78 year old male with PMH significant for multiple myeloma and 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 He is followed by Dr. Rock ( oncology/hematology) and Dr. Bowers (Radiotherapy). He recently was started on radiotherapy last week of the cervical spine, due to multiple myeloma involvement, and of the right lung due to adenocarcinoma. He received Daratumumab on 02/14/19 and his Pomalyst had been on hold due to low counts. His WBC had recently been running 1-2 with seg neutrophil counts as low as 0.3. His most recent labwork done on 02/14/19 with a WBC 6.2. Mild anemia noted with a hgb of 10.7 at that time, presumably chemotherapy induced. Recent onset of a cough and wheezing 02/15/19 with symptoms progression. Denies any significant SOB but notes a strong and at times productive cough with wheezing. Fever of 101 at home. Clinical concern for pneumonia. Hospitalization Problems: 1. Pneumonia- chest x-ray done in ED showing "early lower lobe infiltrates suggested on the lateral view, side undetermined". X-ray consistent with history and exam findings. Patient afebrile since admit. 2. Immunocompromised status- recent chemotherapy tx on 02/14/19. WBC mildly decreased today at from 5.4. to 3.89. 3. Anemia- Hemoglobin stable at 9.6. Likely chemotherapy induced. Chronic Conditions: 1. Multiple Myeloma- On chemotherapy (daratumumab) with last dose 02/14/19. Receiving radiotherapy with scheduled end date 02/23/19. Next scheduled dose 02/19. Pomalyst currently on hold per Dr. Rock. On Bactrim MWF for infection prophylaxis. Will hold while on IV abx therapy. Consult with oncology placed through [facility] and spoke with Dr. Deepa Vaz regarding patient status and scheduled radiotherapy for tomorrow. Recommendation to continue current medical therapy and at this time radiotherapy is not felt to be a priority. Dr. Deepa Vaz to contact Dr. Bowers and Dr. Rock to determine further plan and if transfer is recommended to receive radiotherapy scheduled for tomorrow. Continue on Valcyclovir for prophylaxis. Continue on current pain management with scheduled and PRN oxycodone. 2. RUL Adenocarcinoma- Diagnosed 01/10/19. Currently receiving radiotherapy. Schedule as noted above. 3. Hx of Renal cell CA and prostate CA. 4. Hx DVT- On warfarin and Vitamin K. INR is subtherapeutic at 1.3 today. Dosing per pharmacy. Will start enoxaparin until therapeutic INR 2-3. 5. EDITH- Continue on CPAP 6. CAD s/p CABG, HFpEF, PHTN, HTN- BNP done and normal at 96. Last echo 11/28 with EF 60%. Grade 1 diastolic dysfunction. Moderate pulmonary artery HTN. Continue Moexepril, HCTZ, and Metoprolol Tartrate. Furosemide PRN. 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 Ensure daily BM. continue with bowel regimen including PEG daily, docusate daily, and Senna-docusate BID. 8. GERD- stable. continue on Omeprazole daily. 9. BPH- stable. Continue on Tamsulosin 10. Hyperactive bladder- Stable. Continue on oxybutynin. 11. Anxiety- stable. Continue on Fluoxetine. alprazolam as needed. 12. neuropathic pain- continue on gabapentin. 13. Vitamin B12 and Vitamin D deficiencies- Continue on supplementation. 14. Hypoalbuminemia- albumin 2.59. Corrected calcium 8.8. 14. Insomnia- continue on melatonin scheduled. Trazadone PRN. Hospitalization details: 1. FEN: IV fluids TKO. Electrolytes normal. Regular diet. 2. PPX: DVT prophylaxis with enoxaparin until therapeutic INR with warfarin. Close monitoring of platelet counts and for S&S of bleeding. 3. Code status: DNR/DNI as verified with patient with at bedside. Disposition: Continue with IV vancomycin and Cefepime. Scheduled and PRN nebs. Sputum culture and BC x2 pending. Procalcitonin trend. Add Enoxaparin for DVT PPX. Close patient and laboratory monitoring. Low threshold for transfer if change in patient status given significant PMH and immunocompromised status. Will await further notification from oncology regarding radiotherapy scheduled for tomorrow.
[2019-02-19] MEDS: Moexipril 7.5 MG Tab PO SCH (10:08)
--- NOTE | 2019-02-19 10:12 | PCM.DCSUM1 ---
Discharge Summary - Discharge Data Discharge Date: 02/19/19 Discharge Disposition: DC/Tfer to Acute Hospital 02 Condition: Fair - Discharge Diagnosis/Problem(s) (1) Pneumonia SNOMED Code(s): 157637609 ICD Code: J18.9 - PNEUMONIA, UNSPECIFIED ORGANISM Status: Acute Current Visit: No Qualifiers: Laterality: bilateral Lung location: unspecified part of lung (2) Immunocompromised state SNOMED Code(s): 466555656 ICD Code: D89.9 - DISORDER INVOLVING THE IMMUNE MECHANISM, UNSPECIFIED Status: Acute Current Visit: Yes - Discharge Plan Home Medications: Home Meds Omeprazole 20 mg PO 0800 02/14/15 [History] Simvastatin 40 mg PO 199902/14/15 [History] Docusate Sodium [Colace] 100 mg PO 0800 09/02/15 [History] Polyethylene Glycol 3350 [Miralax] 17 gm PO 0800 09/02/15 [History] Tamsulosin [Flomax] 0.4 mg PO 0800 09/02/15 [History] Potassium Chloride [Klor-Con 10] 10 meq PO BID 01/21/16 [History] Phytonadione [Vitamin K] 100 mcg PO DAILY@1500 06/16/16 [History] valACYclovir HCl [Valtrex] 500 mg PO BID 06/16/16 [History] LORazepam 0.5 mg PO Q4H PRN 01/06/17 [History] Gabapentin [Neurontin] 900 mg PO BEDTIME 06/10/17 [History] Cyclobenzaprine [Flexeril] 5 - 10 mg PO TID PRN 07/06/18 [History] Moexipril/Hydrochlorothiazide [Moexipril-HCTZ 7.5-12.5 MG] 1 tab PO DAILY [History] traZODone HCl [Trazodone HCl] 50 mg PO BEDTIME PRN 07/06/18 [History] EPINEPHrine [Epipen 2-Hunter] 0.3 mg IM ASDIRECTED PRN #1 ml 07/07/18 [Rx] Gabapentin [Neurontin] 300 mg PO 0900,1500 07/07/18 [History] Cholecalciferol (Vitamin D3) [Vitamin D3] 3,000 unit PO DAILY@1500 11/30/18 [ History] Cyanocobalamin (Vitamin B-12) [B-12] 1,000 mg PO DAILY@1500 11/30/18 [History] Furosemide [Lasix] 40 mg PO QAM PRN 11/30/18 [History] Melatonin 6 mg PO BEDTIME 11/30/18 [History] Oxybutynin [Oxybutynin ER] 5 mg PO DAILY 11/30/18 [History] QUEtiapine [SEROquel] 25 mg PO BEDTIME 11/30/18 [History] Sennosides/Docusate Sodium [Senna-S] 1 tab PO BID 11/30/18 [History] oxyCODONE 5 mg PO Q4HR PRN 11/30/18 [History] Lidocaine/Prilocaine [EMLA Crm] 1 applic TOP ASDIRECTED 02/08/19 [History] Magnesium Chloride [Mag-64] 64 mg PO DAILY@1500 02/08/19 [History] Metoprolol Tartrate 50 mg PO DAILY 02/08/19 [History] Pomalidomide [Pomalyst] 1 mg PO DAILY 02/08/19 [History] Prochlorperazine Maleate [Compazine] 10 mg PO Q6H PRN 02/08/19 [History] Sulfamethoxazole/Trimethoprim [Bactrim Ds Tablet] 1 each PO MOWEFR 02/08/19 [ History] Warfarin [Coumadin] 5 mg PO DAILY@1800 02/08/19 [History] dexAMETHasone [Dexamethasone] 20 mg PO ASDIRECTED 02/08/19 [History] FLUoxetine HCl [Prozac] 20 mg PO DAILY 02/17/19 [History] Forms: ED Department Discharge - Discharge Summary/Plan Comment DC Time >30 min.: Yes - General Info Date of Service: 02/19/19 Admission Dx/Problem (Free Text: Mr. Paz is a pleasant 78 year old male who presented to the ED 02/17/19 with complaints of a fever and a cough. The patient states that on (02/15/19) he developed a strong productive cough and some wheezing. Yesterday he was mowing the lawn and he noted an increase in wheezing without SOB. He states that he checked his temperature at home and it was 101F. 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 He is followed by Dr. Rock (oncology/hematology) and Dr. Bowers (Radiation oncology). He recently was started on radiotherapy last week of the cervical spine, due to multiple myeloma involvement, and of the right lung due to adenocarcinoma. He received Daratumumab on 02/14/19 and his Pomalyst had been on hold due to low counts. His WBC had recently been running 1 -2 with seg neutrophil counts as low as 0.3. His most recent lab work done on 02/14/19 with a WBC 6.2. Mild anemia noted with a hgb of 10.7 at that time, presumably chemotherapy induced. He contacted [facility] oncology department regarding his fever and respiratory symptoms and was instructed to present to the local ER for further evaluation. Pertinent ED workup/findings: Chest-xray- "Early lower lobe infiltrates are suggested on the lateral view, side undetermined. Trace right pleural effusion." WBC-5.4 Hgb- 10.6 Plt- 164 UA- negative INR- 1.4 Lactic acid normal Hospitalization Problems/Course: 1. Pneumonia- Patient was admitted to the hospital as an inpatient status. Hospital course thus far has been stable Patient has been receiving IV cefepime 2 g Q8H and IV vancomycin. DueNebs scheduled with PRN albuterol. Continues to note wheezing and upper airway congestion with improvement with neb treatments. Cough is productive. Lung sound are course with notable wheezing. He has been afebrile since admit. He has been off of supplemental oxygen for 24 hours with saturations >90%. Preliminary blood culture report after 24 hours showing now growth. Sputum culture is pending. Procalcitonin pending. Patient has been up ambulating in the halls. 2. Immunocompromised status- Close monitoring of counts. WBC on admit 5.4. WBC today 3.08. 3. Anemia- Hemoglobin is stable. Hemoglobin up from 9.6 to 9.9 today. Anemia likely chemotherapy induced. Chronic conditions: 1. Multiple Myeloma- On chemotherapy (daratumumab) with last dose 02/14/19. Receiving radiotherapy with scheduled end date 02/23/19. Next scheduled dose 02/19. Pomalyst currently on hold per Dr. Rock. On Bactrim MWF for infection prophylaxis. Medication held while on IV abx therapy. Continued on Valcyclovir for prophylaxis. On pain management regimen with scheduled and PRN oxycodone. Did consult with oncology through [facility] on 02/18/[address] Deepa Vaz regarding patient status and scheduled radiotherapy for tomorrow. Recommendation to continue current medical therapy made at that time and further contact with Dr. Bowers and Dr. Rock to determine if transfer would be recommended. Outgoing call placed today to 02/19/19 to [facility] oncology department and spoke with Dr. Rock with recommendation for patient transfer. 2. RUL Adenocarcinoma- Diagnosed 01/10/19. Currently receiving radiotherapy. Schedule as noted above. 3. Hx of Renal cell CA and prostate CA. 4. Hx DVT- On warfarin and Vitamin K. INR subtherapeutic throughout hospitalization with INR at discharge today of 1.3. Patient on enoxaparin until therapeutic INR 2-3. 5. DEITH- On CPAP 6. COPD- HO COPD. He has reportedly been managing nonpharmacologically. 6. CAD s/p CABG, HFpEF, PHTN, HTN- BNP done on admit and normal at 96. Last echo 11/28 with EF 60%. Grade 1 diastolic dysfunction. Moderate pulmonary artery HTN. On Moexepril, HCTZ, and Metoprolol Tartrate. Furosemide PRN. 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 On daily bowel regimen including PEG daily, docusate daily, and Senna-docusate BID. 8. GERD- stable. continue on Omeprazole daily. 9. BPH- stable. On Tamsulosin 10. Hyperactive bladder- Stable. On oxybutynin. 11. Anxiety- stable. On Fluoxetine. alprazolam as needed. 12. neuropathic pain- On gabapentin. 13. Vitamin B12 and Vitamin D deficiencies- On supplementation. 14. Hypoalbuminemia- albumin 2.62. 14. Insomnia- On melatonin at HS. Trazadone PRN. Hospitalization details: 1. FEN: IV fluids TKO. Electrolytes normal. Regular diet. 2. PPX: DVT prophylaxis with enoxaparin until therapeutic INR with warfarin. Platelet count stable. 3. Code status: DNR/DNI as verified with patient with at bedside. Disposition: Discussed plan of care with Dr. Rock and the radiation/oncology department at [facility] with recommendation to transfer patient. Patient is scheduled to receive radiotherapy today-Tuesday. Will plan for transfer via EMS to [facility] in [place]. Functional Status: Reports: Pain Controlled, Tolerating Diet, Ambulating - Review of Systems General: Reports: Appetite (decreased appetite). Denies: Fever, Weakness, Night Sweats HEENT: Reports: Sinus Congestion, Sore Throat (with coughing), Rhinitis Pulmonary: Reports: Cough, Sputum, Wheezing. Denies: Shortness of Breath Cardiovascular: Reports: Orthopnea, Edema (chronic edema with the LLE>RLE). Denies: Chest Pain, Palpitations, Dyspnea on Exertion Gastrointestinal: Reports: No Symptoms Genitourinary: Reports: Frequency (notes up frequently during the night voiding. ) Musculoskeletal: Reports: No Symptoms Skin: Reports: Pallor, Dryness. Denies: Cyanosis, Mottled, Diaphoresis Neurological: Denies: Dizziness, Headache, Difficulty Walking, Gait Disturbance Psychiatric: Reports: No Symptoms - Patient Data Vitals - Most Recent: Last Vital Signs Temp 98.3 F 02/19/19 09:15 Pulse 100 02/19/19 09:28 Resp 18 02/19/19 09:15 BP 137/75 02/19/19 09:28 Pulse Ox 96 02/19/19 09:15 Weight - Most Recent: 252 lb 12.8 oz I&O - Last 24 hours: Intake & Output 02/18/19 02/19/19 02/19/19 22:59 06:59 14:59 Intake Total 640 335 Balance 640 335 Lab Results - Last 24 hrs: Laboratory Results - last 24 hr 02/19/19 02/19/19 02/19/19 Range/Units 06:30 06:30 06:30 WBC 3.08 L (5.00-10.00) 10^3/uL RBC 2.91 L (4.50-6.00) 10^6/uL Hgb 9.9 L (13.0-17.0) g/dL Hct 29.1 L (40.0-52.0) % MCV 100.0 H (82.0-92.0) fL MCH 34.0 H (27.0-31.0) pg MCHC 34.0 (32.0-36.0) g/dL RDW 15.7 H (11.5-14.5) % Plt Count 135 L (150-400) 10^3/uL MPV 12.2 H (7.4-10.4) fL Immature Gran % (Auto) 0.3 (0.0-5.0) % Neut % (Auto) 70.9 H (50.0-70.0) % Lymph % (Auto) 15.9 L (20.0-40.0) % [place] % (Auto) 4.2 (2.0-8.0) % Eos % (Auto) 8.4 H (1.0-3.0) % Baso % (Auto) 0.3 (0.0-1.0) % Immature Gran # (Auto) 0.01 (0.00-0.50) 10^3/uL Neut # (Auto) 2.18 L (2.50-7.00) 10^3/uL Lymph # (Auto) 0.49 L (1.00-4.00) 10^3/uL [place] # (Auto) 0.13 (0.10-0.80) 10^3/uL Eos # (Auto) 0.26 (0.10-0.30) 10^3/uL Baso # (Auto) 0.01 (0.00-0.10) 10^3/uL PT 12.6 H (8.9-11.4) SEC INR 1.3 H (0.9-1.1) Sodium 146 H (136-145) mmol/L Potassium 4.3 (3.3-5.3) mmol/L Chloride 108 (98-115) mmol/L Carbon Dioxide 28.5 (21.0-32.0) mmol/L Anion Gap 13.8 (5-15) mmol/L BUN 20 (6-25) mg/dL Creatinine 1.01 (0.51-1.17) mg/dL Est Cr Clr Drug Dosing 55.27 mL/min Estimated GFR (MDRD) > 60 mL/min Glucose 103 H (75 - 99) mg/dL Calcium 8.3 L (8.7-10.3) mg/dL Total Bilirubin 0.5 (0.2-1.0) mg/dL AST 8 L (15-37) U/L ALT 10 L (12-78) U/L Alkaline Phosphatase 56 (46-116) IU/L Total Protein 5.4 L (6.4-8.2) g/dL Albumin 2.62 L (3.00-4.80) g/dL MARY Results - Last 24 hrs: Microbiology 02/17/19 23:08 Aerobic Blood Culture - Preliminary Blood - Venous - Lab Draw NO GROWTH AFTER 1 DAY Anaerobic Blood Culture - Preliminary NO GROWTH AFTER 1 DAY 02/17/19 22:50 Aerobic Blood Culture - Preliminary Blood - Venous NO GROWTH AFTER 1 DAY Anaerobic Blood Culture - Preliminary NO GROWTH AFTER 1 DAY Med Orders - Current: Current Medications Acetaminophen (Tylenol) 650 mg PO Q6H PRN PRN Reason: Pain (Mild 1-3)/fever Albuterol (Proventil Neb Soln) 2.5 mg NEB Q2H PRN PRN Reason: Shortness Of Breath/wheezing Albuterol/Ipratropium (Duoneb 3.0-0.5 Mg/3 Ml) 3 ml NEB Q6HRRT [facility] Last Admin: 02/19/19 06:04 Dose: 3 ml Cholecalciferol (Vitamin D3) 3,000 units PO DAILY@1500 [facility] Last Admin: 02/18/19 15:37 Dose: 3,000 units Cyanocobalamin (Vitamin B12) 1,000 mcg PO DAILY@1500 [facility] Last Admin: 02/18/19 15:37 Dose: 1,000 mcg Docusate Sodium (Colace) 100 mg PO 0800 [facility] Last Admin: 02/19/19 08:06 Dose: 100 mg Enoxaparin Sodium (Lovenox) 40 mg SUBCUT Q24H [facility] Last Admin: 02/18/19 14:09 Dose: 40 mg Fluoxetine HCl (Prozac) 20 mg PO DAILY [facility] Last Admin: 02/19/19 09:29 Dose: 20 mg Gabapentin (Neurontin) 300 mg PO 0900,1500 [facility] Last Admin: 02/19/19 09:29 Dose: 300 mg Gabapentin (Neurontin) 900 mg PO BEDTIME [facility] Last Admin: 02/18/19 20:52 Dose: 900 mg Hydrochlorothiazide (Hydrochlorothiazide) 12.5 mg PO DAILY [facility] Last Admin: 02/19/19 09:28 Dose: 12.5 mg Cefepime HCl 2 gm/ Sodium (Chloride) 50 mls @ 100 mls/hr IV Q8H [facility] Last Admin: 02/19/19 02:47 Dose: 100 mls/hr Vancomycin HCl 1.25 gm/ Sodium (Chloride) 250 mls @ 166.667 mls/hr IV Q12H [facility] Last Admin: 02/19/19 03:36 Dose: 166.667 mls/hr Sodium Chloride (Normal Saline) 250 mls @ 50 mls/hr IV ASDIRECTED [facility] Last Admin: 02/18/19 03:21 Dose: 50 mls/hr Lorazepam (Ativan) 0.5 mg PO Q4H PRN PRN Reason: Anxiety Magnesium Chloride (Mag-64) 64 mg PO DAILY@1500 [facility] Last Admin: 02/18/19 15:37 Dose: 64 mg Melatonin (Melatonin) 6 mg PO BEDTIME [facility] Last Admin: 02/18/19 20:51 Dose: 6 mg Metoprolol Tartrate (Lopressor) 50 mg PO DAILY [facility] Last Admin: 02/19/19 09:28 Dose: 50 mg Moexipril HCl (Univasc) 7.5 mg PO DAILY [facility] Last Admin: 02/18/19 10:40 Dose: Not Given Omeprazole (Omeprazole) 20 mg PO 0800 [facility] Last Admin: 02/19/19 08:06 Dose: 20 mg Oxybutynin Chloride (Oxybutynin Er) 5 mg PO DAILY [facility] Last Admin: 02/19/19 09:29 Dose: 5 mg Oxycodone HCl (Oxycodone) 5 mg PO Q4HR PRN PRN Reason: Pain (moderate 4-6) Phytonadione (Vitamin K) 100 mcg PO DAILY@1500 [facility] Last Admin: 02/18/19 15:37 Dose: 100 mcg Polyethylene Glycol (Miralax) 17 gm PO 0800 [facility] Last Admin: 02/19/19 08:07 Dose: 17 gm Potassium Chloride (Klor-Con 10) 10 meq PO BID [facility] Last Admin: 02/19/19 09:29 Dose: 10 meq Quetiapine Fumarate (Seroquel) 25 mg PO BEDTIME [facility] Last Admin: 02/18/19 20:52 Dose: 25 mg Senna/Docusate Sodium (Senna Plus) 1 tab PO BID [facility] Last Admin: 02/19/19 09:29 Dose: 1 tab Simvastatin (Zocor) 40 mg PO 1999 [facility] Last Admin: 02/18/19 20:51 Dose: 40 mg Sodium Chloride (Saline Flush) 10 ml FLUSH Q8HR PRN PRN Reason: keep vein open Last Admin: 02/17/19 22:05 Dose: 10 ml Sodium Chloride (Saline Flush) 10 ml FLUSH Q8HR PRN PRN Reason: keep vein open Last Admin: 02/18/19 04:36 Dose: 10 ml Tamsulosin HCl (Flomax) 0.4 mg PO 0800 [facility] Last Admin: 02/19/19 08:06 Dose: 0.4 mg Valacyclovir HCl (Valtrex) 500 mg PO BID [facility] Last Admin: 02/19/19 09:29 Dose: 500 mg Vancomycin HCl (Pharmacy To Dose - Vancomycin) 1 dose .XX ASDIRECTED [facility] Warfarin Sodium (Coumadin) 5 mg PO DAILY@1800 [facility] Last Admin: 02/18/19 17:39 Dose: 5 mg Warfarin Sodium (Pharmacy To Dose - Warfarin) 1 dose PO ASDIRECTED [facility] Discontinued Medications Albuterol/Ipratropium (Duoneb 3.0-0.5 Mg/3 Ml) 3 ml NEB ONETIME ONE Stop: 02/17/19 22:34 Last Admin: 02/17/19 22:36 Dose: 3 ml Warfarin Sodium (Coumadin) 5 mg PO DAILY@1800 [facility] - Exam Quality Assessment: Reports: DVT Prophylaxis. Denies: Supplemental Oxygen, Skin Breakdown General: Reports: Alert, Oriented Neck: Reports: Supple. Denies: No JVD Lungs: Reports: Crackles (crackles noted to the lung bases), Wheezing ( inspiratory wheezing noted throughout. ), Other (there is notable upper airway congestion. ) Cardiovascular: Reports: Regular Rate, Regular Rhythm GI/Abdominal Exam: Normal Bowel Sounds, Soft, Non-Tender. No: No Distention Extremities: Normal Inspection, Other (1+ midlly pitting edema to the BLE, with LLE midly worse than RLE) Skin: Reports: Warm, Dry, Intact Neurological: Reports: No New Focal Deficit Psy/Mental Status: Reports: Alert, Normal Affect, Normal Mood
[2019-02-19 11:01] VITALS: BP 118/70
[2019-02-19] MEDS: Sodium Chloride 0.9% 10 ML Syringe FLUSH PRN (11:06)
== END 2019-02-19 11:15 | DRG 194 ==
LOC: KA.ED 21:05 → KA.MS 23:44
PROVIDERS: ADMIT Physician Assistant Surgical; ATTEND Nurse Practitioner Family
DX: R05 Cough (principal); R06.00 Dyspnea, unspecified; J18.9 Pneumonia, unspecified organism; I50.32 Chronic diastolic (congestive) heart failure; C90.00 Multiple myeloma not having achieved remission; C34.11 Malignant neoplasm of upper lobe, right bronchus or lung; Z68.41 Body mass index [BMI] 40.0-44.9, adult; F32.9 Major depressive disorder, single episode, unspecified; Z86.718 Personal history of other venous thrombosis and embolism; I25.10 Atherosclerotic heart disease of native coronary artery without angina pectoris; I25.2 Old myocardial infarction; Z66 Do not resuscitate; K59.00 Constipation, unspecified; E78.00 Pure hypercholesterolemia, unspecified; G89.29 Other chronic pain; M54.9 Dorsalgia, unspecified; H54.7 Unspecified visual loss; I11.0 Hypertensive heart disease with heart failure; J44.9 Chronic obstructive pulmonary disease, unspecified; K21.9 Gastro-esophageal reflux disease without esophagitis; N32.81 Overactive bladder; F41.9 Anxiety disorder, unspecified; G62.9 Polyneuropathy, unspecified; E66.9 Obesity, unspecified; Z96.649 Presence of unspecified artificial hip joint; N40.0 Benign prostatic hyperplasia without lower urinary tract symptoms; G47.00 Insomnia, unspecified; E88.09 Other disorders of plasma-protein metabolism, not elsewhere classified; D89.9 Disorder involving the immune mechanism, unspecified; D64.81 Anemia due to antineoplastic chemotherapy; Z85.46 Personal history of malignant neoplasm of prostate; Z88.8 Allergy status to other drugs, medicaments and biological substances; Z87.891 Personal history of nicotine dependence; Z79.899 Other long term (current) drug therapy; Z92.21 Personal history of antineoplastic chemotherapy; Z92.3 Personal history of irradiation; Z95.1 Presence of aortocoronary bypass graft; Z79.01 Long term (current) use of anticoagulants; Z85.528 Personal history of other malignant neoplasm of kidney
CPT/HCPCS: 36415; 71046; 80053; 81001; 83605; 83880; 84145; 85025; 85610; 85730; 87040; 94640; 99284; 99285-25; A9270-GY; J0692; J1650; J3370; J7050; J7620-GY

== ENCOUNTER 2019-05-22 18:00 | Inpatient (IN) | payer MEDICARE, BC ==
[2019-05-22] MEDS ORDERED: Lidocaine/Prilocaine 2.5-2.5% Crm 5 GM Tube TOP ONE (18:47)
[2019-05-22] MEDS ORDERED: oxyCODONE 5 MG Tab PO PRN (19:39)
[2019-05-22] MEDS ORDERED: LORazepam 0.5 MG Tab PO PRN (19:39)
[2019-05-22] MEDS ORDERED: Prochlorperazine 5 MG Tab PO PRN (19:52)
[2019-05-22] MEDS ORDERED: Cyclobenzaprine 5 MG Tab PO PRN (19:52)
[2019-05-22] MEDS ORDERED: traZODone 50 MG Tab PO PRN (19:52)
[2019-05-22] MEDS ORDERED: EPINEPHrine 0.3 MG/0.3 ML Pen Autoinjector IM PRN (19:52)
[2019-05-22] MEDS ORDERED: Lidocaine/Prilocaine 2.5-2.5% Crm 5 GM Tube TOP SCH (20:00)
[2019-05-22] MEDS ORDERED: Sodium Chloride 0.9% 100 ML SDV FLUSH PRN (20:47)
[2019-05-22] MEDS: Cefepime 2 GM in Sodium Chloride 0.9% 50 ML IV SCH (20:52)
[2019-05-22] MEDS: valACYclovir 500 MG Tab PO SCH (21:44)
[2019-05-22] MEDS: Potassium Chloride 10 MEQ Tab.ER PO SCH (21:44)
[2019-05-22] MEDS: Gabapentin 300 MG Cap PO SCH (21:45)
[2019-05-22] MEDS: Simvastatin 20 MG Tab PO SCH (21:46)
[2019-05-22] MEDS: Enoxaparin 150 MG/1 ML Syringe SUBCUT SCH (21:47)
[2019-05-23 07:44] LABS: ANION GAP 12.3 mmol/L (5-15)
[2019-05-23] MEDS: Oxybutynin 5 MG Tab.ER PO SCH (08:11)
[2019-05-23] MEDS: valACYclovir 500 MG Tab PO SCH ×2 (08:11→20:46)
[2019-05-23] MEDS: FLUoxetine 10 MG Cap PO SCH (08:11)
[2019-05-23] MEDS: Polyethylene Glycol 3350 Powder 17 GM Packet PO SCH (08:11)
[2019-05-23] MEDS: Omeprazole 20 MG Cap.CR PO SCH (08:12)
[2019-05-23] MEDS: Potassium Chloride 10 MEQ Tab.ER PO SCH ×2 (08:12→20:46)
[2019-05-23] MEDS: Tolterodine 2 MG Cap.ER PO SCH (08:12)
[2019-05-23] MEDS: Gabapentin 300 MG Cap PO SCH ×3 (08:12→20:45)
[2019-05-23] MEDS ORDERED: POMALIDOMIDE 1 MG PO SCH (09:00)
[2019-05-23] MEDS: Metoprolol Tartrate 50 MG Tab PO SCH (09:01)
[2019-05-23] MEDS: Cefepime 2 GM in Sodium Chloride 0.9% 50 ML IV SCH (10:15)
--- NOTE | 2019-05-23 11:36 | PCM.PN ---
- General Info Date of Service: 05/23/19 Functional Status: Reports: Pain Controlled, Tolerating Diet, New Symptoms ( overall feels better slightly weak upon standing). Denies: Ambulating - Review of Systems General: Reports: Weakness, Fatigue. Denies: Fever, Malaise, Chills, Night Sweats HEENT: Reports: No Symptoms Pulmonary: Denies: Shortness of Breath, Cough, Sputum Cardiovascular: Reports: Dyspnea on Exertion, Edema Gastrointestinal: Reports: No Symptoms Genitourinary: Reports: No Symptoms Musculoskeletal: Reports: No Symptoms Skin: Reports: No Symptoms Neurological: Reports: Difficulty Walking, Weakness Psychiatric: Denies: Confusion, Depression, Agitation - Patient Data Vitals - Most Recent: Last Vital Signs Temp 97.6 F 05/23/19 06:51 Pulse 69 05/23/19 09:01 Resp 20 05/23/19 06:51 BP 104/55 L 05/23/19 09:01 Pulse Ox 96 05/23/19 06:51 Weight - Most Recent: 272 lb I&O - Last 24 Hours: Intake & Output 05/22/19 05/23/19 05/23/19 22:59 06:59 14:59 Intake Total 760 300 Output Total 200 Balance 760 100 Lab Results Last 24 Hours: Laboratory Results - last 24 hr 05/23/19 05/23/19 05/23/19 Range/Units 06:29 07:16 07:16 WBC 1.98 L* (5.00-10.00) 10^3/uL RBC 2.20 L (4.50-6.00) 10^6/uL Hgb 8.0 L D (13.0-17.0) g/dL Hct 24.0 L (40.0-52.0) % MCV 109.1 H D (82.0-92.0) fL MCH 36.4 H (27.0-31.0) pg MCHC 33.3 (32.0-36.0) g/dL RDW 16.7 H (11.5-14.5) % Plt Count 91 L (150-400) 10^3/uL MPV 11.9 H (7.4-10.4) fL Add Manual Diff Yes Neutrophils % (Manual) 42 L (50-70) % Lymphocytes % (Manual) 26 (20-40) % Monocytes % (Manual) 17 H (2-8) % Eosinophils % (Manual) 15 H (1-3) % Absolute Neutrophils 0.8316 Lymphocytes # (Manual) 0.5148 Monocytes # (Manual) 0.3366 Eosinophils # (Manual) 0.2970 Reactive Lymphocytes Occasional Tear Drop Cells 2+ moderate Schistocytes 1+ slight Sodium 143 (136-145) mmol/L Potassium 4.4 (3.3-5.3) mmol/L Chloride 107 (98-115) mmol/L Carbon Dioxide 28.1 (21.0-32.0) mmol/L Anion Gap 12.3 (5-15) mmol/L BUN 27 H (6-25) mg/dL Creatinine 1.49 H (0.51-1.17) mg/dL Est Cr Clr Drug Dosing 37.47 mL/min Estimated GFR (MDRD) 46 mL/min Glucose 99 (75 - 99) mg/dL Calcium 7.9 L (8.7-10.3) mg/dL Specimen Type Urinblad Urine Color Yellow (YELLOW) Urine Appearance Slightly cloudy H (CLEAR) Urine pH 5.0 (5.0-9.0) Ur Specific [place] 1.025 (1.005-1.030) Urine Protein Negative (NEGATIVE) mg/dL Urine Glucose (UA) Negative (NEGATIVE) mg/dL Urine Ketones Negative (NEGATIVE) mg/dL Urine Occult Blood Negative (NEGATIVE) Urine Nitrite Negative (NEGATIVE) Urine Bilirubin Negative (NEGATIVE) Urine Urobilinogen 0.2 (0.2-1.0) E.U./dL Ur Leukocyte Esterase Negative (NEGATIVE) Urine RBC 0-5 (0-5) /HPF Urine WBC 0-5 (0-5) /HPF Ur Epithelial Cells Rare /LPF Urine Bacteria Occasional (NONE TO FEW) /HPF Hyaline Casts Few H (NEGATIVE) /LPF Urine Mucus Few H (NEGATIVE) /LPF Med Orders - Current: Current Medications Cholecalciferol (Vitamin D3) 75 mcg PO DAILY@1500 [facility] Cyanocobalamin (Vitamin B12) 1,000 mcg PO DAILY@1500 [facility] Cyclobenzaprine HCl (Flexeril) 5 mg PO TID PRN PRN Reason: Muscle Spasm Enoxaparin Sodium (Lovenox) 120 mg 1 mg/kg (120 mg) SUBCUT BID [facility] Last Admin: 05/22/19 21:47 Dose: 120 mg Epinephrine HCl (Epipen) 0.3 mg IM ASDIRECTED PRN PRN Reason: Anaphylaxis Fluoxetine HCl (Prozac) 20 mg PO DAILY [facility] Last Admin: 05/23/19 08:11 Dose: 20 mg Furosemide (Lasix) 40 mg PO QAM PRN PRN Reason: leg swelling Gabapentin (Neurontin) 900 mg PO BEDTIME [facility] Last Admin: 05/22/19 21:45 Dose: 900 mg Gabapentin (Neurontin) 300 mg PO 0900,1500 [facility] Last Admin: 05/23/19 08:12 Dose: 300 mg Cefepime HCl 2 gm/ Sodium (Chloride) 50 mls @ 100 mls/hr IV Q12H [facility] Last Admin: 05/23/19 10:15 Dose: 100 mls/hr Vancomycin HCl 1.25 gm/ Sodium (Chloride) 250 mls @ 166.667 mls/hr IV DAILY@ 1800 [facility] Last Admin: 05/22/19 22:03 Dose: 166.667 mls/hr Lidocaine/Prilocaine (Emla Crm) 0 gm TOP ASDIRECTED [facility] Lorazepam (Ativan) 0.5 mg PO Q4H PRN PRN Reason: Anxiety Magnesium Chloride (Mag-64) 64 mg PO DAILY@1500 [facility] Metoprolol Tartrate (Lopressor) 50 mg PO DAILY [facility] Last Admin: 05/23/19 09:01 Dose: 50 mg Omeprazole (Omeprazole) 20 mg PO 0800 [facility] Last Admin: 05/23/19 08:12 Dose: 20 mg Oxybutynin Chloride (Oxybutynin Er) 5 mg PO DAILY [facility] Last Admin: 05/23/19 08:11 Dose: 5 mg Oxycodone HCl (Oxycodone) 10 mg PO Q4H PRN PRN Reason: Pain *Ptom* Pomalyst 1mg (Capsule) 1 each PO DAILY [facility] Stop: 05/28/19 09:01 Polyethylene Glycol (Miralax) 17 gm PO 0800 [facility] Last Admin: 05/23/19 08:11 Dose: 17 gm Potassium Chloride (Klor-Con 10) 10 meq PO BID [facility] Last Admin: 05/23/19 08:12 Dose: 10 meq Prochlorperazine Maleate (Compazine) 10 mg PO Q6H PRN PRN Reason: Nausea Senna/Docusate Sodium (Senna Plus) 1 tab PO BID [facility] Last Admin: 05/23/19 08:12 Dose: 1 tab Simvastatin (Zocor) 40 mg PO 1999 [facility] Last Admin: 05/22/19 21:46 Dose: 40 mg Sodium Chloride (Normal Saline) 100 ml FLUSH ASDIRECTED PRN PRN Reason: Flush Tolterodine Tartrate (Detrol La 24 Hr) 2 mg PO DAILY [facility] Last Admin: 05/23/19 08:12 Dose: 2 mg Trazodone HCl (Trazodone) 50 mg PO BEDTIME PRN PRN Reason: Insomnia Valacyclovir HCl (Valtrex) 500 mg PO BID [facility] Last Admin: 05/23/19 08:11 Dose: 500 mg Vancomycin HCl (Pharmacy To Dose - Vancomycin) 1 dose .XX ONETIME ONE Stop: 05/22/19 22:31 Discontinued Medications Vancomycin HCl 1.25 gm/ Sodium (Chloride) 250 mls @ 166.667 mls/hr IV DAILY@ 1800 [facility] Last Admin: 05/22/19 23:06 Dose: Not Given Lidocaine/Prilocaine (Emla Crm) 5 gm TOP ONETIME ONE Stop: 05/22/19 18:48 Last Admin: 05/22/19 19:30 Dose: 1 applic Non-Formulary Medication (Pomalidomide [Pomalyst]) 1 mg PO DAILY [facility] - Exam Quality Assessment: No: Supplemental Oxygen, DVT Prophylaxis General: Alert, Oriented, Cooperative, No Acute Distress HEENT: Other (dry lips dry mouth). No: Scleral Icterus Neck: Supple. No: Lymphadenopathy Lungs: Wheezing (wheezing, slightly worse posterior right l) Cardiovascular: Irregular Rhythm. No: Tachycardia GI/Abdominal Exam: Soft. No: Hepatomegaly (Male) Exam: Deferred Back Exam: No: CVA Tenderness (L), CVA Tenderness (R) Extremities: Pedal Edema (2+ LLE, 1+ RLE) Peripheral Pulses: 2+: Radial (L), Radial (R) Skin: Warm, Dry, Intact Psy/Mental Status: Alert, Normal Affect, Normal Mood - Problem List Review Problem List Initiated/Reviewed/Updated: Yes - My Orders Last 24 Hours: My Active Orders 05/24/19 09:00 Patient's Own Medication [Ptom] 1 each PO DAILY - Plan Plan:: history summary Mr Zabala is a 78 -year-old gentleman that was admitted yesterday from [facility] by Alicja Foss [employer]. He was seen for what what described as generalized complaints of SOB, wheezing, nausea/vomiting, urinary frequency, and weakness. The patients spouse stated that the patient was in [place] the day prior when he started to get quite diaphoretic nausea, and weak with the feeling of almost passing out. When he was seen in the clinic has some wheezing and occasional SOB. however no fever but did have chills/diaphoresis and mild cough. patient was recently removed off oagulation due to a pending lesion removal on his face. He started having worsening LE edema so US was performed and patient ruled out for acute DVT. INR 1.[address] [facility]. ABGs were ordered hoever were not able to be obtained. Due to pneumonia patient was started on cefepime and vancomycin. Patient does have relapsed multiple myeloma does see oncology for th Pertinent diagnostics US LLE; no evidence of acute DVT. primary hospital problems --Pneumonia, RLL, --Neutropenia, severe ANC 0.8 (yesterday ANC was 1,500) --Immunocompromised Host --CKD, creatinine 1. --thrombocytopenia ,hold LWMW --History of DV, hypercoagulable state, restart warfarin and vitamin K Chronic conditions: --Multiple Myeloma- On chemotherapy. Will hold next dose of Daratumumab schedule for 05/24/19 On Pomalidomide. Labs done yesterday- WBC 4.2, absolute neutrophil 1.9. Hemoglobin 9.5. plt 130, creatinine 1.67, GFR 40. History of pathologic fracture of C3 treated with RT. On Bactrim three times a week and Valacyclovir BID for prophylaxis. 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 Treated with SBRT starting 02/12/19. --Hx of renal cell carcinoma and prostate cancer --EDITH- on CPAP --CAD- s/p CABG, HFpEF, PHTN, HTN- last echo 11/28 with EF 60%. Grade 1 diastolic dysfunction. Moderate pulmonary artery HTN. On Moexepril, HCTZ, ------ ---History [place] syndrome- on Miralax daily. Senna BID. monitor K+ --GERD- on omeprazole --BPH- on Tamsulosin --Hyperactive bladder- on oxybutynin --Anxiety- On fluoxetine. Alprazolam PRN. Scheduled to see psychology 05/31/19. --Neuropathic pain- on gabapentin --Vitamin B12 and Vitamin D deficiency- on supplementation. --Insomnia- on Trazodone PRN. --Hypogammaglobulinemia --History of MRSA Disposition/overall plan --continue cefepime and vancomycin --Restart coumadin --neutropenic precautions --May benefit from Neupogen, will consult oncology --Hold Chemo the patient is quite neutropenic, with pneumonia.
[2019-05-23] MEDS: Enoxaparin 150 MG/1 ML Syringe SUBCUT SCH (12:18)
[2019-05-23] MEDS: Cyanocobalamin (Vitamin B12) 500 MCG Tab PO SCH (16:56)
[2019-05-23] MEDS: Cholecalciferol (Vitamin D3) 25 MCG Tab PO SCH (16:56)
[2019-05-23] MEDS: Magnesium Chloride 64 MG Tab.ER PO SCH (16:57)
[2019-05-23] MEDS: Warfarin 5 MG Tab PO SCH (18:11)
[2019-05-23] MEDS: Simvastatin 20 MG Tab PO SCH (20:46)
[2019-05-24] MEDS: Omeprazole 20 MG Cap.CR PO SCH (07:55)
[2019-05-24] MEDS: Polyethylene Glycol 3350 Powder 17 GM Packet PO SCH (07:55)
[2019-05-24] MEDS: valACYclovir 500 MG Tab PO SCH ×2 (08:31→20:22)
[2019-05-24] MEDS: Tolterodine 2 MG Cap.ER PO SCH (08:31)
[2019-05-24] MEDS: Potassium Chloride 10 MEQ Tab.ER PO SCH ×2 (08:31→20:22)
[2019-05-24] MEDS: Gabapentin 300 MG Cap PO SCH ×3 (08:31→20:21)
[2019-05-24] MEDS: Oxybutynin 5 MG Tab.ER PO SCH (08:32)
[2019-05-24] MEDS: FLUoxetine 10 MG Cap PO SCH (08:32)
[2019-05-24] MEDS: Docusate Sodium 100 MG Cap PO SCH (08:32)
[2019-05-24] MEDS: POMALYST PO SCH (08:37)
[2019-05-24] MEDS: Metoprolol Tartrate 50 MG Tab PO SCH (08:49)
[2019-05-24 08:53] LABS: ANION GAP 12.7 mmol/L (5-15)
--- NOTE | 2019-05-24 09:45 | PCM.PN ---
- General Info Date of Service: 05/24/19 Functional Status: Reports: Pain Controlled, Tolerating Diet, Ambulating, Urinating, Incentive Spirometry. Denies: New Symptoms - Review of Systems General: Denies: Fever, Weakness, Night Sweats HEENT: Reports: No Symptoms Pulmonary: Reports: Wheezing (slight wheezing) Cardiovascular: Reports: Edema. Denies: Chest Pain, Dyspnea on Exertion, Orthopnea Gastrointestinal: Reports: No Symptoms Genitourinary: Reports: No Symptoms Musculoskeletal: Reports: No Symptoms Skin: Denies: Rash Neurological: Reports: Gait Disturbance Psychiatric: Reports: No Symptoms - Patient Data Vitals - Most Recent: Last Vital Signs Temp 98.2 F 05/24/19 06:52 Pulse 70 05/24/19 08:49 Resp 20 05/24/19 06:52 BP 106/60 05/24/19 08:49 Pulse Ox 95 05/24/19 06:52 Weight - Most Recent: 272 lb I&O - Last 24 Hours: Intake & Output 05/23/19 05/24/19 05/24/19 22:59 06:59 14:59 Intake Total 830 200 Output Total 300 Balance 830 -100 Lab Results Last 24 Hours: Laboratory Results - last 24 hr 05/22/19 05/24/19 05/24/19 Range/Units 19:00 07:15 08:15 WBC 1.77 L* (5.00-10.00) 10^3/uL RBC 2.46 L (4.50-6.00) 10^6/uL Hgb 8.9 L (13.0-17.0) g/dL Hct 27.1 L (40.0-52.0) % MCV 110.2 H (82.0-92.0) fL MCH 36.2 H (27.0-31.0) pg MCHC 32.8 (32.0-36.0) g/dL RDW 16.5 H (11.5-14.5) % Plt Count 96 L (150-400) 10^3/uL MPV 12.8 H (7.4-10.4) fL Immature Gran % (Auto) 0.0 (0.0-5.0) % Neut % (Auto) 35.0 L (50.0-70.0) % Lymph % (Auto) 32.8 (20.0-40.0) % Pierce % (Auto) 11.9 H (2.0-8.0) % Eos % (Auto) 19.2 H (1.0-3.0) % Baso % (Auto) 1.1 H (0.0-1.0) % Immature Gran # (Auto) 0.00 (0.00-0.50) 10^3/uL Neut # (Auto) 0.62 L (2.50-7.00) 10^3/uL Lymph # (Auto) 0.58 L (1.00-4.00) 10^3/uL Pierce # (Auto) 0.21 (0.10-0.80) 10^3/uL Eos # (Auto) 0.34 H (0.10-0.30) 10^3/uL Baso # (Auto) 0.02 (0.00-0.10) 10^3/uL Platelet Estimate Decreased Tear Drop Cells 1+ slight Schistocytes 1+ slight PT TNP INR 1.1 (0.9-1.1) Sodium (136-145) mmol/L Potassium (3.3-5.3) mmol/L Chloride (98-115) mmol/L Carbon Dioxide (21.0-32.0) mmol/L Anion Gap (5-15) mmol/L BUN (6-25) mg/dL Creatinine (0.51-1.17) mg/dL Est Cr Clr Drug Dosing mL/min Estimated GFR (MDRD) mL/min Glucose (75 - 99) mg/dL Calcium (8.7-10.3) mg/dL Procalcitonin 0.16 H (<0.10) ng/mL 05/24/19 Range/Units 08:15 WBC (5.00-10.00) 10^3/uL RBC (4.50-6.00) 10^6/uL Hgb (13.0-17.0) g/dL Hct (40.0-52.0) % MCV (82.0-92.0) fL MCH (27.0-31.0) pg MCHC (32.0-36.0) g/dL RDW (11.5-14.5) % Plt Count (150-400) 10^3/uL MPV (7.4-10.4) fL Immature Gran % (Auto) (0.0-5.0) % Neut % (Auto) (50.0-70.0) % Lymph % (Auto) (20.0-40.0) % Pierce % (Auto) (2.0-8.0) % Eos % (Auto) (1.0-3.0) % Baso % (Auto) (0.0-1.0) % Immature Gran # (Auto) (0.00-0.50) 10^3/uL Neut # (Auto) (2.50-7.00) 10^3/uL Lymph # (Auto) (1.00-4.00) 10^3/uL Pierce # (Auto) (0.10-0.80) 10^3/uL Eos # (Auto) (0.10-0.30) 10^3/uL Baso # (Auto) (0.00-0.10) 10^3/uL Platelet Estimate Tear Drop Cells Schistocytes PT INR (0.9-1.1) Sodium 141 (136-145) mmol/L Potassium 4.6 (3.3-5.3) mmol/L Chloride 107 (98-115) mmol/L Carbon Dioxide 25.9 (21.0-32.0) mmol/L Anion Gap 12.7 (5-15) mmol/L BUN 22 (6-25) mg/dL Creatinine 1.32 H (0.51-1.17) mg/dL Est Cr Clr Drug Dosing 42.29 mL/min Estimated GFR (MDRD) 53 mL/min Glucose 132 H (75 - 99) mg/dL Calcium 8.1 L (8.7-10.3) mg/dL Procalcitonin (<0.10) ng/mL Frank Results Last 24 Hours: Microbiology 05/22/19 20:15 Aerobic Blood Culture - Preliminary Blood - Venous - Lab Draw NO GROWTH AFTER 1 DAY Anaerobic Blood Culture - Preliminary NO GROWTH AFTER 1 DAY 05/22/19 19:00 Aerobic Blood Culture - Preliminary Blood - Venous NO GROWTH AFTER 1 DAY Anaerobic Blood Culture - Preliminary NO GROWTH AFTER 1 DAY Med Orders - Current: Current Medications Cholecalciferol (Vitamin D3) 75 mcg PO DAILY@1500 [facility] Last Admin: 05/23/19 16:56 Dose: 75 mcg Cyanocobalamin (Vitamin B12) 1,000 mcg PO DAILY@1500 [facility] Last Admin: 05/23/19 16:56 Dose: 1,000 mcg Cyclobenzaprine HCl (Flexeril) 5 mg PO TID PRN PRN Reason: Muscle Spasm Docusate Sodium (Colace) 100 mg PO DAILY [facility] Last Admin: 05/24/19 08:32 Dose: 100 mg Enoxaparin Sodium (Lovenox) 120 mg 1 mg/kg (120 mg) SUBCUT BID [facility] Last Admin: 05/23/19 12:18 Dose: Not Given Epinephrine HCl (Epipen) 0.3 mg IM ASDIRECTED PRN PRN Reason: Anaphylaxis Fluoxetine HCl (Prozac) 20 mg PO DAILY [facility] Last Admin: 05/24/19 08:32 Dose: 20 mg Furosemide (Lasix) 40 mg PO QAM PRN PRN Reason: leg swelling Gabapentin (Neurontin) 900 mg PO BEDTIME [facility] Last Admin: 05/23/19 20:45 Dose: 900 mg Gabapentin (Neurontin) 300 mg PO 0900,1500 [facility] Last Admin: 05/24/19 08:31 Dose: 300 mg Vancomycin HCl 1.25 gm/ Sodium (Chloride) 250 mls @ 166.667 mls/hr IV DAILY@ 1800 [facility] Last Admin: 05/23/19 18:11 Dose: 166.667 mls/hr Cefepime HCl 2 gm/ Sodium (Chloride) 50 mls @ 100 mls/hr IV DAILY [facility] Lidocaine/Prilocaine (Emla Crm) 0 gm TOP ASDIRECTED [facility] Lorazepam (Ativan) 0.5 mg PO Q4H PRN PRN Reason: Anxiety Magnesium Chloride (Mag-64) 64 mg PO DAILY@1500 [facility] Last Admin: 05/23/19 16:57 Dose: 64 mg Metoprolol Tartrate (Lopressor) 50 mg PO DAILY [facility] Last Admin: 05/24/19 08:49 Dose: 50 mg Omeprazole (Omeprazole) 20 mg PO 0800 [facility] Last Admin: 05/24/19 07:55 Dose: 20 mg Oxybutynin Chloride (Oxybutynin Er) 5 mg PO DAILY [facility] Last Admin: 05/24/19 08:32 Dose: 5 mg Oxycodone HCl (Oxycodone) 10 mg PO Q4H PRN PRN Reason: Pain *Ptom* Pomalyst 1mg (Capsule) 1 each PO DAILY [facility] Stop: 05/28/19 09:01 Last Admin: 05/24/19 08:37 Dose: 1 each Polyethylene Glycol (Miralax) 17 gm PO 0800 [facility] Last Admin: 05/24/19 07:55 Dose: 17 gm Potassium Chloride (Klor-Con 10) 10 meq PO BID [facility] Last Admin: 05/24/19 08:31 Dose: 10 meq Prochlorperazine Maleate (Compazine) 10 mg PO Q6H PRN PRN Reason: Nausea Sargramostim (Leukine) 500 mcg SUBCUT ONETIME ONE Stop: 05/24/19 09:43 Senna/Docusate Sodium (Senna Plus) 1 tab PO BID [facility] Last Admin: 05/24/19 08:31 Dose: 1 tab Simvastatin (Zocor) 40 mg PO 1999 [facility] Last Admin: 05/23/19 20:46 Dose: 40 mg Sodium Chloride (Normal Saline) 100 ml FLUSH ASDIRECTED PRN PRN Reason: Flush Tolterodine Tartrate (Detrol La 24 Hr) 2 mg PO DAILY [facility] Last Admin: 05/24/19 08:31 Dose: 2 mg Trazodone HCl (Trazodone) 50 mg PO BEDTIME PRN PRN Reason: Insomnia Valacyclovir HCl (Valtrex) 500 mg PO BID [facility] Last Admin: 05/24/19 08:31 Dose: 500 mg Vancomycin HCl (Pharmacy To Dose - Vancomycin) 1 dose .XX ONETIME ONE Stop: 05/22/19 22:31 Warfarin Sodium (Coumadin) 5 mg PO SUTUWETHSA [facility] Last Admin: 05/23/19 18:11 Dose: 5 mg Warfarin Sodium (Coumadin) 7.5 mg PO MOFR [facility] Discontinued Medications Cefepime HCl 2 gm/ Sodium (Chloride) 50 mls @ 100 mls/hr IV Q12H [facility] Last Admin: 05/23/19 10:15 Dose: 100 mls/hr Vancomycin HCl 1.25 gm/ Sodium (Chloride) 250 mls @ 166.667 mls/hr IV DAILY@ 1800 [facility] Last Admin: 05/22/19 23:06 Dose: Not Given Lidocaine/Prilocaine (Emla Crm) 5 gm TOP ONETIME ONE Stop: 05/22/19 18:48 Last Admin: 05/22/19 19:30 Dose: 1 applic Non-Formulary Medication (Pomalidomide [Pomalyst]) 1 mg PO DAILY [facility] - Exam Quality Assessment: DVT Prophylaxis. No: Supplemental Oxygen General: Alert, Oriented, Cooperative, No Acute Distress Neck: No JVD Lungs: Wheezing (slight wheeze) Cardiovascular: Regular Rate, Irregular Rhythm GI/Abdominal Exam: Soft Back Exam: No: CVA Tenderness (L), CVA Tenderness (R) Extremities: Pedal Edema Skin: Warm, Dry, Intact Neurological: No New Focal Deficit Psy/Mental Status: Alert, Normal Affect, Normal Mood - Problem List Review Problem List Initiated/Reviewed/Updated: Yes - My Orders Last 24 Hours: My Active Orders 05/23/19 18:00 Warfarin [Coumadin] 5 mg PO SUTUWETHSA 05/24/19 09:00 Docusate Sodium [Colace] 100 mg PO DAILY Patient's Own Medication [Ptom] 1 each PO DAILY 05/24/19 09:42 Sargramostim [Leukine] 500 mcg SUBCUT ONETIME ONE 05/24/19 10:00 Cefepime [Maxipime] 2 gm Sodium Chloride 0.9% [Normal Saline] 50 ml IV DAILY 05/25/19 05:11 INR,PT,PROTHROMBIN TIME [COAG] DAILY 05/25/19 18:00 Warfarin [Coumadin] 7.5 mg PO MOFR 05/26/19 05:11 INR,PT,PROTHROMBIN TIME [COAG] DAILY 05/27/19 05:11 INR,PT,PROTHROMBIN TIME [COAG] DAILY 05/28/19 05:11 INR,PT,PROTHROMBIN TIME [COAG] DAILY - Plan Plan:: history summary Mr Zabala is a 78 -year-old gentleman that was admitted yesterday from [facility] by Alicja Foss [employer]. He was seen for what what described as generalized complaints of SOB, wheezing, nausea/vomiting, urinary frequency, and weakness. The patients spouse stated that the patient was in [place] the day prior when he started to get quite diaphoretic nausea, and weak with the feeling of almost passing out. When he was seen in the clinic has some wheezing and occasional SOB. however no fever but did have chills/diaphoresis and mild cough. patient was recently removed off oagulation due to a pending lesion removal on his face. He started having worsening LE edema so US was performed and patient ruled out for acute DVT. INR 1.1 at [facility]. ABGs were ordered hoever were not able to be obtained. Due to pneumonia patient was started on cefepime and vancomycin. Patient does have relapsed multiple myeloma does see oncology for th Pertinent diagnostics US LLE; no evidence of acute DVT. update on rounds today, No fever, severe ANC ~600. slight loose cough, improvement in his resp status, Likely pulmonary source of infection identified- -suspect viral pneumonia. MAP good, no fever, night sweats or mental status, no sputum. no growth on blood cultures. No SOB primary hospital problems --Pneumonia, RLL, --Neutropenia/Immunocompromised Host, severe ANC ~600. no fever. --CKD, creatinine 1. --thrombocytopenia, hold LWMW --History of DVT, hypercoagulable state, restart warfarin and vitamin K, monitor INR Chronic conditions: --Multiple Myeloma- On chemotherapy. Will hold next dose of Daratumumab schedule for 05/24/19 On Pomalidomide. Labs done yesterday- --History of pathologic fracture of C3 treated with RT. On Bactrim three times a week and Valacyclovir BID for prophylaxis. 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 Treated with SBRT starting 02/12/19. --Hx of renal cell carcinoma and prostate cancer --EDITH- on CPAP --CAD- s/p CABG, HFpEF, PHTN, HTN- last echo 11/28 with EF 60%. Grade 1 diastolic dysfunction. Moderate pulmonary artery HTN. On Moexepril, HCTZ, ------ ---History [place] syndrome- on Miralax daily. Senna BID. monitor K+ --GERD- on PPI --BPH- on Tamsulosin --Hyperactive bladder- on oxybutynin --Anxiety- On fluoxetine. Alprazolam PRN. Scheduled to see psychology 05/31/19. --Neuropathic pain- on gabapentin --Vitamin B12 and Vitamin D deficiency- on supplementation. --Insomnia- Trazodone PRN. --Hypogammaglobulinemia --History of MRSA Disposition/overall plan --continue cefepime and vancomycin, monitor creat and trough --500mcg Leukine today to boost neutrophilia. --Monitor INR, restarted coumadin --neutropenic precautions --Hold Chemo --TEDs stockings. --Monitor BC results.
[2019-05-24] MEDS: Cefepime 2 GM in Sodium Chloride 0.9% 50 ML IV SCH (10:24)
[2019-05-24] MEDS ORDERED: Sodium Chloride 0.9% 100 ML IV SCH (10:30)
[2019-05-24] MEDS: Cyanocobalamin (Vitamin B12) 500 MCG Tab PO SCH (14:04)
[2019-05-24] MEDS: Cholecalciferol (Vitamin D3) 25 MCG Tab PO SCH (14:05)
[2019-05-24] MEDS: Magnesium Chloride 64 MG Tab.ER PO SCH (14:05)
[2019-05-24] MEDS: Warfarin 5 MG Tab PO SCH (17:27)
[2019-05-24] MEDS: Simvastatin 20 MG Tab PO SCH (20:21)
[2019-05-25] MEDS: Omeprazole 20 MG Cap.CR PO SCH (07:25)
[2019-05-25] MEDS: Polyethylene Glycol 3350 Powder 17 GM Packet PO SCH (07:25)
[2019-05-25 07:46] LABS: ANION GAP 1.6 mmol/L (5-15)
[2019-05-25] MEDS: Oxybutynin 5 MG Tab.ER PO SCH (08:08)
[2019-05-25] MEDS: Potassium Chloride 10 MEQ Tab.ER PO SCH ×2 (08:08→21:15)
[2019-05-25] MEDS: Gabapentin 300 MG Cap PO SCH ×3 (08:08→21:15)
[2019-05-25] MEDS: Tolterodine 2 MG Cap.ER PO SCH (08:08)
[2019-05-25] MEDS: FLUoxetine 10 MG Cap PO SCH (08:08)
[2019-05-25] MEDS: Docusate Sodium 100 MG Cap PO SCH (08:08)
[2019-05-25] MEDS: valACYclovir 500 MG Tab PO SCH ×2 (08:08→21:15)
[2019-05-25] MEDS: Metoprolol Tartrate 50 MG Tab PO SCH (08:14)
[2019-05-25] MEDS: POMALYST PO SCH (08:15)
[2019-05-25] MEDS: Cefepime 2 GM in Sodium Chloride 0.9% 50 ML IV SCH (09:59)
--- NOTE | 2019-05-25 10:25 | PCM.PN ---
- General Info Date of Service: 05/25/19 Functional Status: Reports: Pain Controlled, Tolerating Diet, Incentive Spirometry. Denies: New Symptoms - Review of Systems General: Reports: Weakness. Denies: Night Sweats HEENT: Reports: No Symptoms, Other (left eye droop). Denies: Eye Pain Pulmonary: Reports: Wheezing. Denies: Cough Cardiovascular: Reports: Dyspnea on Exertion, Edema. Denies: Palpitations, Orthopnea, Lightheadedness Gastrointestinal: Reports: No Symptoms Genitourinary: Reports: No Symptoms Musculoskeletal: Reports: No Symptoms Neurological: Denies: Tingling, Weakness Psychiatric: Reports: No Symptoms - Patient Data Vitals - Most Recent: Last Vital Signs Temp 98.3 F 05/25/19 06:35 Pulse 71 05/25/19 08:14 Resp 20 05/25/19 06:35 BP 112/59 L 05/25/19 08:14 Pulse Ox 94 L 05/25/19 06:35 Weight - Most Recent: 272 lb I&O - Last 24 Hours: Intake & Output 05/24/19 05/25/19 05/25/19 22:59 06:59 14:59 Intake Total 780 150 Balance 780 150 Lab Results Last 24 Hours: Laboratory Results - last 24 hr 05/25/19 05/25/19 05/25/19 Range/Units 07:15 07:15 07:15 WBC 1.80 L* (5.00-10.00) 10^3/uL RBC 2.25 L (4.50-6.00) 10^6/uL Hgb 8.1 L (13.0-17.0) g/dL Hct 24.8 L (40.0-52.0) % MCV 110.2 H (82.0-92.0) fL MCH 36.0 H (27.0-31.0) pg MCHC 32.7 (32.0-36.0) g/dL RDW 16.5 H (11.5-14.5) % Plt Count 61 L (150-400) 10^3/uL MPV 9.4 (7.4-10.4) fL Immature Gran % (Auto) 0.6 (0.0-5.0) % Neut % (Auto) 32.8 L (50.0-70.0) % Lymph % (Auto) 27.2 (20.0-40.0) % [place] % (Auto) 16.1 H (2.0-8.0) % Eos % (Auto) 22.2 H (1.0-3.0) % Baso % (Auto) 1.1 H (0.0-1.0) % Immature Gran # (Auto) 0.01 (0.00-0.50) 10^3/uL Neut # (Auto) 0.59 L (2.50-7.00) 10^3/uL Lymph # (Auto) 0.49 L (1.00-4.00) 10^3/uL [place] # (Auto) 0.29 (0.10-0.80) 10^3/uL Eos # (Auto) 0.40 H (0.10-0.30) 10^3/uL Baso # (Auto) 0.02 (0.00-0.10) 10^3/uL Tear Drop Cells 1+ slight Schistocytes 1+ slight PT 11.4 (8.9-11.4) SEC INR 1.1 (0.9-1.1) Sodium 134 L (136-145) mmol/L Potassium 5.0 (3.3-5.3) mmol/L Chloride 108 (98-115) mmol/L Carbon Dioxide 29.4 (21.0-32.0) mmol/L Anion Gap 1.6 L (5-15) mmol/L BUN 17 (6-25) mg/dL Creatinine 1.31 H (0.51-1.17) mg/dL Est Cr Clr Drug Dosing 42.61 mL/min Estimated GFR (MDRD) 53 mL/min Glucose 97 (75 - 99) mg/dL Calcium 8.2 L (8.7-10.3) mg/dL Frank Results Last 24 Hours: Microbiology 05/22/19 20:15 Aerobic Blood Culture - Preliminary Blood - Venous - Lab Draw NO GROWTH AFTER 2 DAYS Anaerobic Blood Culture - Preliminary NO GROWTH AFTER 2 DAYS 05/22/19 19:00 Aerobic Blood Culture - Preliminary Blood - Venous NO GROWTH AFTER 2 DAYS Anaerobic Blood Culture - Preliminary NO GROWTH AFTER 2 DAYS Med Orders - Current: Current Medications Cholecalciferol (Vitamin D3) 75 mcg PO DAILY@1500 [facility] Last Admin: 05/24/19 14:05 Dose: 75 mcg Cyanocobalamin (Vitamin B12) 1,000 mcg PO DAILY@1500 [facility] Last Admin: 05/24/19 14:04 Dose: 1,000 mcg Cyclobenzaprine HCl (Flexeril) 5 mg PO TID PRN PRN Reason: Muscle Spasm Docusate Sodium (Colace) 100 mg PO DAILY [facility] Last Admin: 05/25/19 08:08 Dose: 100 mg Enoxaparin Sodium (Lovenox) 120 mg 1 mg/kg (120 mg) SUBCUT BID [facility] Last Admin: 05/23/19 12:18 Dose: Not Given Epinephrine HCl (Epipen) 0.3 mg IM ASDIRECTED PRN PRN Reason: Anaphylaxis Fluoxetine HCl (Prozac) 20 mg PO DAILY [facility] Last Admin: 05/25/19 08:08 Dose: 20 mg Furosemide (Lasix) 40 mg PO QAM PRN PRN Reason: leg swelling Gabapentin (Neurontin) 900 mg PO BEDTIME [facility] Last Admin: 05/24/19 20:21 Dose: 900 mg Gabapentin (Neurontin) 300 mg PO 0900,1500 [facility] Last Admin: 05/25/19 08:08 Dose: 300 mg Vancomycin HCl 1.25 gm/ Sodium (Chloride) 250 mls @ 166.667 mls/hr IV DAILY@ 1800 [facility] Last Admin: 05/24/19 17:15 Dose: 166.667 mls/hr Cefepime HCl 2 gm/ Sodium (Chloride) 50 mls @ 100 mls/hr IV DAILY [facility] Last Admin: 05/25/19 09:59 Dose: 100 mls/hr Sodium Chloride (Normal Saline) 100 mls @ 999 mls/hr IV ONETIME [facility] Last Admin: 05/24/19 10:25 Dose: 999 mls/hr Lidocaine/Prilocaine (Emla Crm) 0 gm TOP ASDIRECTED [facility] Lorazepam (Ativan) 0.5 mg PO Q4H PRN PRN Reason: Anxiety Magnesium Chloride (Mag-64) 64 mg PO DAILY@1500 [facility] Last Admin: 05/24/19 14:05 Dose: 64 mg Metoprolol Tartrate (Lopressor) 50 mg PO DAILY [facility] Last Admin: 05/25/19 08:14 Dose: 50 mg Omeprazole (Omeprazole) 20 mg PO 0800 [facility] Last Admin: 05/25/19 07:25 Dose: 20 mg Oxybutynin Chloride (Oxybutynin Er) 5 mg PO DAILY [facility] Last Admin: 05/25/19 08:08 Dose: 5 mg Oxycodone HCl (Oxycodone) 10 mg PO Q4H PRN PRN Reason: Pain *Ptom* Pomalyst 1mg (Capsule) 1 each PO DAILY [facility] Stop: 05/28/19 09:01 Last Admin: 05/25/19 08:15 Dose: 1 each Polyethylene Glycol (Miralax) 17 gm PO 0800 [facility] Last Admin: 05/25/19 07:25 Dose: 17 gm Potassium Chloride (Klor-Con 10) 10 meq PO BID [facility] Last Admin: 05/25/19 08:08 Dose: 10 meq Prochlorperazine Maleate (Compazine) 10 mg PO Q6H PRN PRN Reason: Nausea Senna/Docusate Sodium (Senna Plus) 1 tab PO BID [facility] Last Admin: 05/25/19 08:08 Dose: 1 tab Simvastatin (Zocor) 40 mg PO 2000 [facility] Last Admin: 05/24/19 20:21 Dose: 40 mg Tolterodine Tartrate (Detrol La 24 Hr) 2 mg PO DAILY [facility] Last Admin: 05/25/19 08:08 Dose: 2 mg Trazodone HCl (Trazodone) 50 mg PO BEDTIME PRN PRN Reason: Insomnia Valacyclovir HCl (Valtrex) 500 mg PO BID [facility] Last Admin: 05/25/19 08:08 Dose: 500 mg Vancomycin HCl (Pharmacy To Dose - Vancomycin) 1 dose .XX ONETIME ONE Stop: 05/22/19 22:31 Warfarin Sodium (Coumadin) 5 mg PO SUTUWETHSA [facility] Last Admin: 05/24/19 17:27 Dose: 5 mg Warfarin Sodium (Coumadin) 7.5 mg PO MOFR [facility] Discontinued Medications Cefepime HCl 2 gm/ Sodium (Chloride) 50 mls @ 100 mls/hr IV Q12H [facility] Last Admin: 05/23/19 10:15 Dose: 100 mls/hr Vancomycin HCl 1.25 gm/ Sodium (Chloride) 250 mls @ 166.667 mls/hr IV DAILY@ 1800 [facility] Last Admin: 05/22/19 23:06 Dose: Not Given Lidocaine/Prilocaine (Emla Crm) 5 gm TOP ONETIME ONE Stop: 05/22/19 18:48 Last Admin: 05/22/19 19:30 Dose: 1 applic Non-Formulary Medication (Pomalidomide [Pomalyst]) 1 mg PO DAILY [facility] Sargramostim (Leukine) 500 mcg SUBCUT ONETIME ONE Stop: 05/24/19 09:43 Last Admin: 05/24/19 10:09 Dose: 500 mcg - Exam Quality Assessment: DVT Prophylaxis. No: Supplemental Oxygen General: Alert, Oriented, Cooperative, No Acute Distress HEENT: Pupils Reactive, Other Neck: No JVD (Drooping left eye). No: JVD Lungs: Wheezing (Mild insp wheeze R midlung parker--posterior) Cardiovascular: Irregular Rhythm GI/Abdominal Exam: Soft (Male) Exam: Deferred Back Exam: No: CVA Tenderness (R) Extremities: Pedal Edema Peripheral Pulses: 2+: Radial (L), Radial (R) Skin: Warm, Dry, Intact Psy/Mental Status: Alert, Normal Affect, Normal Mood - Problem List Review Problem List Initiated/Reviewed/Updated: Yes - My Orders Last 24 Hours: My Active Orders 05/24/19 10:00 Cefepime [Maxipime] 2 gm Sodium Chloride 0.9% [Normal Saline] 50 ml IV DAILY 05/24/19 10:10 ALY Bandage [Elastic Wrap] [OM.PC] Routine 05/24/19 10:30 Sodium Chloride 0.9% [Normal Saline] 100 ml IV ONETIME 05/25/19 07:15 PROCALCITONIN [REF] Routine 05/25/19 18:00 Warfarin [Coumadin] 7.5 mg PO MOFR 05/26/19 05:11 INR,PT,PROTHROMBIN TIME [COAG] DAILY 05/27/19 05:11 INR,PT,PROTHROMBIN TIME [COAG] DAILY 05/28/19 05:11 INR,PT,PROTHROMBIN TIME [COAG] DAILY - Plan Plan:: history summary Mr Zabala is a 78 -year-old gentleman that was admitted yesterday from [facility] by Alicja Foss NP. He was seen for what what described as generalized complaints of SOB, wheezing, nausea/vomiting, urinary frequency, and weakness. The patients spouse stated that the patient was in [place] the day prior when he started to get quite diaphoretic nausea, and weak with the feeling of almost passing out. When he was seen in the clinic has some wheezing and occasional SOB. however no fever but did have chills/diaphoresis and mild cough. patient was recently removed off oagulation due to a pending lesion removal on his face. He started having worsening LE edema so US was performed and patient ruled out for acute DVT. INR 1.1 at [facility]. ABGs were ordered however were not able to be obtained. Due to pneumonia patient was started on cefepime and vancomycin. Patient does have relapsed multiple myeloma does see oncology for th Pertinent diagnostics US LLE; no evidence of acute DVT. update on rounds today, No fever, severe ANC ~600. slight loose cough, improvement in resp status, WBC slight improvement. Likely pulmonary source of infection identified--suspect viral pneumonia. MAP good, no fever, night sweats or alt mental status, no sputum. no growth on blood cultures. No SOB primary hospital problems --Pneumonia, RLL, --Neutropenia/Immunocompromised Host, severe ANC ~600. no fever. --CKD, creatinine 1.3 --Thrombocytopenia, hold LWMW --History of DVT, hypercoagulable state, restated warfarin and vitamin K, monitor INR--anticipate rapid rise soon, no need to bridge surekha with low plt Chronic conditions: --Multiple Myeloma- On chemotherapy. Held 05/24/ dose of Daratumumab, likely can resurme next week. Keep Pomalidomide. Hemoglobin 8.1 plt 60, --Hx pathologic fracture of C3 treated with RT. On Bactrim three times a week and Valacyclovir BID for prophylaxis. 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 Treated with SBRT starting 02/12/19. --Hx of renal cell carcinoma and prostate cancer --EDITH- on CPAP --CAD- s/p CABG, HFpEF, PHTN, HTN- last echo 11/28 with EF 60%. Grade 1 diastolic dysfunction. Moderate pulmonary artery HTN. On Moexepril, HCTZ, --History [place] syndrome- on Miralax daily. Senna BID. monitor K+ --GERD- on PPI --BPH- on Tamsulosin --Hyperactive bladder- on oxybutynin --Anxiety- On fluoxetine. Alprazolam PRN. Scheduled to see psychology 05/31/19. --Neuropathic pain- on gabapentin --Vitamin B12 and Vitamin D deficiency- on supplementation. --Insomnia- Trazodone PRN. --Hypogammaglobulinemia --History of MRSA Disposition/overall plan --DC cefepime and vancomycin, Place on ceftriaxone --Leukine 500mcg daily for now. --Monitor INR, --Neutropenic precautions --Hold Chemo --TEDs stockings. --Monitor BC results. --Would like to see white count at least 3-4.0 before discharge,
[2019-05-25] MEDS: cefTRIAXone 1 GM Vial IVPUSH SCH (11:23)
[2019-05-25] MEDS: Furosemide 40 MG Tab PO PRN (12:11)
[2019-05-25] MEDS: Cyanocobalamin (Vitamin B12) 500 MCG Tab PO SCH (14:57)
[2019-05-25] MEDS: Magnesium Chloride 64 MG Tab.ER PO SCH (14:57)
[2019-05-25] MEDS: Cholecalciferol (Vitamin D3) 25 MCG Tab PO SCH (14:58)
[2019-05-25] MEDS ORDERED: Warfarin 2.5 MG Tab PO SCH (18:00)
[2019-05-25] MEDS: Simvastatin 20 MG Tab PO SCH (21:14)
[2019-05-26 07:44] LABS: POTASSIUM,POC 4.4 mmol/L (3.5-4.9)
[2019-05-26] MEDS: Polyethylene Glycol 3350 Powder 17 GM Packet PO SCH (08:58)
[2019-05-26] MEDS: Docusate Sodium 100 MG Cap PO SCH (08:58)
[2019-05-26] MEDS: Tolterodine 2 MG Cap.ER PO SCH (08:59)
[2019-05-26] MEDS: FLUoxetine 10 MG Cap PO SCH (08:59)
[2019-05-26] MEDS: Oxybutynin 5 MG Tab.ER PO SCH (08:59)
[2019-05-26] MEDS: Gabapentin 300 MG Cap PO SCH ×3 (08:59→21:36)
[2019-05-26] MEDS: valACYclovir 500 MG Tab PO SCH ×2 (08:59→21:37)
[2019-05-26] MEDS: Potassium Chloride 10 MEQ Tab.ER PO SCH ×2 (08:59→21:37)
[2019-05-26] MEDS: Omeprazole 20 MG Cap.CR PO SCH (08:59)
[2019-05-26] MEDS: POMALYST PO SCH (09:07)
[2019-05-26] MEDS: Metoprolol Tartrate 50 MG Tab PO SCH (09:18)
--- NOTE | 2019-05-26 10:34 | PCM.PN ---
- General Info Date of Service: 05/26/19 Subjective Update: Patient reports he is feeling better. at bedside during rounds. Nursing reports having to repeat the plan of care and medication regimen often for patient, questioning relation to "chemo brain". Functional Status: Reports: Pain Controlled, Tolerating Diet, Ambulating, Urinating - Review of Systems General: Reports: Weakness, Fatigue. Denies: Fever, Chills HEENT: Reports: Glasses, Other (UGASHIK). Denies: Headaches Pulmonary: Reports: Cough. Denies: Shortness of Breath, Sputum, Wheezing Cardiovascular: Reports: Edema. Denies: Chest Pain Gastrointestinal: Denies: Constipation, Diarrhea Genitourinary: Reports: Frequency (related to lasix use yesterday) Neurological: Denies: Dizziness, Headache Psychiatric: Denies: Anxiety - Patient Data Vitals - Most Recent: Last Vital Signs Temp 97.3 F 05/26/19 06:39 Pulse 69 05/26/19 09:18 Resp 16 05/26/19 06:39 BP 108/55 L 05/26/19 09:18 Pulse Ox 93 L 05/26/19 06:39 Weight - Most Recent: 272 lb I&O - Last 24 Hours: Intake & Output 05/25/19 05/26/19 05/26/19 22:59 06:59 14:59 Intake Total 200 300 Balance 200 300 Lab Results Last 24 Hours: Laboratory Results - last 24 hr 05/25/19 05/26/19 05/26/19 Range/Units 07:15 07:00 07:00 WBC 2.23 L (5.00-10.00) 10^3/uL RBC 2.46 L (4.50-6.00) 10^6/uL Hgb 8.9 L (13.0-17.0) g/dL Hct 26.6 L (40.0-52.0) % MCV 108.1 H (82.0-92.0) fL MCH 36.2 H (27.0-31.0) pg MCHC 33.5 (32.0-36.0) g/dL RDW 16.2 H (11.5-14.5) % Plt Count 86 L (150-400) 10^3/uL MPV 12.9 H (7.4-10.4) fL Immature Gran % (Auto) Sprinkler Tender Neut % (Auto) Sprinkler Tender Lymph % (Auto) Sprinkler Tender [place] % (Auto) Sprinkler Tender Eos % (Auto) Sprinkler Tender Baso % (Auto) Sprinkler Tender Immature Gran # (Auto) Sprinkler Tender Neut # (Auto) Sprinkler Tender Lymph # (Auto) Sprinkler Tender [place] # (Auto) Sprinkler Tender Eos # (Auto) Sprinkler Tender Baso # (Auto) Sprinkler Tender Add Manual Diff Yes Neutrophils % (Manual) 25 L (50-70) % Band Neutrophils % 3 L (4-12) % Lymphocytes % (Manual) 24 (20-40) % Atypical Lymphs % 1 Monocytes % (Manual) 15 H (2-8) % Eosinophils % (Manual) 31 H (1-3) % Basophils % (Manual) 1 (0-1) % Absolute Neutrophils 0.6244 Lymphocytes # (Manual) 0.5575 Monocytes # (Manual) 0.3345 Eosinophils # (Manual) 0.6913 Basophils # (Manual) 0.0223 Atypical Lymphocytes Few Smudge Cells Occasional Macrocytosis 1+ slight Tear Drop Cells 1+ slight Helmet Cells Few PT 15.4 H D (8.9-11.4) SEC INR 1.5 H (0.9-1.1) POC Sodium (136-146) mmol/L POC Potassium (3.5-4.9) mmol/L POC Chloride (98-109) mmol/L POC Total CO2 (24-29) mmol/L POC BUN (8-26) mg/dL POC Creatinine (0.60-1.32) mg/dL POC Glucose (74-106) mg/dl POC Ioniz Calcium Lena (1.12-1.32) mmol/L Procalcitonin 0.20 H (<0.10) ng/mL 05/26/19 Range/Units 07:00 WBC (5.00-10.00) 10^3/uL RBC (4.50-6.00) 10^6/uL Hgb (13.0-17.0) g/dL Hct (40.0-52.0) % MCV (82.0-92.0) fL MCH (27.0-31.0) pg MCHC (32.0-36.0) g/dL RDW (11.5-14.5) % Plt Count (150-400) 10^3/uL MPV (7.4-10.4) fL Immature Gran % (Auto) Neut % (Auto) Lymph % (Auto) [place] % (Auto) Eos % (Auto) Baso % (Auto) Immature Gran # (Auto) Neut # (Auto) Lymph # (Auto) [place] # (Auto) Eos # (Auto) Baso # (Auto) Add Manual Diff Neutrophils % (Manual) (50-70) % Band Neutrophils % (4-12) % Lymphocytes % (Manual) (20-40) % Atypical Lymphs % Monocytes % (Manual) (2-8) % Eosinophils % (Manual) (1-3) % Basophils % (Manual) (0-1) % Absolute Neutrophils Lymphocytes # (Manual) Monocytes # (Manual) Eosinophils # (Manual) Basophils # (Manual) Atypical Lymphocytes Smudge Cells Macrocytosis Tear Drop Cells Helmet Cells PT (8.9-11.4) SEC INR (0.9-1.1) POC Sodium 140 (136-146) mmol/L POC Potassium 4.4 (3.5-4.9) mmol/L POC Chloride 102 (98-109) mmol/L POC Total CO2 26 (24-29) mmol/L POC BUN 15 (8-26) mg/dL POC Creatinine 1.30 (0.60-1.32) mg/dL POC Glucose 99 (74-106) mg/dl POC Ioniz Calcium Lena 1.20 (1.12-1.32) mmol/L Procalcitonin (<0.10) ng/mL Frank Results Last 24 Hours: Microbiology 05/22/19 20:15 Aerobic Blood Culture - Preliminary Blood - Venous - Lab Draw NO GROWTH AFTER 3 DAYS Anaerobic Blood Culture - Preliminary NO GROWTH AFTER 3 DAYS 05/22/19 19:00 Aerobic Blood Culture - Preliminary Blood - Venous NO GROWTH AFTER 3 DAYS Anaerobic Blood Culture - Preliminary NO GROWTH AFTER 3 DAYS Med Orders - Current: Current Medications Ceftriaxone Sodium (Rocephin) 1 gm IVPUSH Q24H [facility] Last Admin: 05/25/19 11:23 Dose: 1 gm Cholecalciferol (Vitamin D3) 75 mcg PO DAILY@1500 [facility] Last Admin: 05/25/19 14:58 Dose: 75 mcg Cyanocobalamin (Vitamin B12) 1,000 mcg PO DAILY@1500 [facility] Last Admin: 05/25/19 14:57 Dose: 1,000 mcg Cyclobenzaprine HCl (Flexeril) 5 mg PO TID PRN PRN Reason: Muscle Spasm Docusate Sodium (Colace) 100 mg PO DAILY [facility] Last Admin: 05/26/19 08:58 Dose: 100 mg Enoxaparin Sodium (Lovenox) 120 mg 1 mg/kg (120 mg) SUBCUT BID [facility] Last Admin: 05/23/19 12:18 Dose: Not Given Epinephrine HCl (Epipen) 0.3 mg IM ASDIRECTED PRN PRN Reason: Anaphylaxis Fluoxetine HCl (Prozac) 20 mg PO DAILY [facility] Last Admin: 05/26/19 08:59 Dose: 20 mg Furosemide (Lasix) 40 mg PO QAM PRN PRN Reason: leg swelling Last Admin: 05/25/19 12:11 Dose: 40 mg Gabapentin (Neurontin) 900 mg PO BEDTIME [facility] Last Admin: 05/25/19 21:15 Dose: 900 mg Gabapentin (Neurontin) 300 mg PO 0900,1500 [facility] Last Admin: 05/26/19 08:59 Dose: 300 mg Sodium Chloride (Normal Saline) 100 mls @ 999 mls/hr IV ONETIME [facility] Last Admin: 05/24/19 10:25 Dose: 999 mls/hr Lidocaine/Prilocaine (Emla Crm) 0 gm TOP ASDIRECTED [facility] Lorazepam (Ativan) 0.5 mg PO Q4H PRN PRN Reason: Anxiety Magnesium Chloride (Mag-64) 64 mg PO DAILY@1500 [facility] Last Admin: 05/25/19 14:57 Dose: 64 mg Metoprolol Tartrate (Lopressor) 50 mg PO DAILY [facility] Last Admin: 05/26/19 09:18 Dose: 50 mg Omeprazole (Omeprazole) 20 mg PO 0800 [facility] Last Admin: 05/26/19 08:59 Dose: 20 mg Oxybutynin Chloride (Oxybutynin Er) 5 mg PO DAILY [facility] Last Admin: 05/26/19 08:59 Dose: 5 mg Oxycodone HCl (Oxycodone) 10 mg PO Q4H PRN PRN Reason: Pain *Ptom* Pomalyst 1mg (Capsule) 1 each PO DAILY [facility] Stop: 05/28/19 09:01 Last Admin: 05/26/19 09:07 Dose: 1 each Polyethylene Glycol (Miralax) 17 gm PO 0800 [facility] Last Admin: 05/26/19 08:58 Dose: 17 gm Potassium Chloride (Klor-Con 10) 10 meq PO BID [facility] Last Admin: 05/26/19 08:59 Dose: 10 meq Prochlorperazine Maleate (Compazine) 10 mg PO Q6H PRN PRN Reason: Nausea Sargramostim (Leukine) 500 mcg SUBCUT DAILY [facility] Stop: 05/28/19 23:59 Last Admin: 05/26/19 08:59 Dose: 500 mcg Senna/Docusate Sodium (Senna Plus) 1 tab PO BID [facility] Last Admin: 05/26/19 08:59 Dose: 1 tab Simvastatin (Zocor) 40 mg PO 2000 [facility] Last Admin: 05/25/19 21:14 Dose: 40 mg Tolterodine Tartrate (Detrol La 24 Hr) 2 mg PO DAILY [facility] Last Admin: 05/26/19 08:59 Dose: 2 mg Trazodone HCl (Trazodone) 50 mg PO BEDTIME PRN PRN Reason: Insomnia Valacyclovir HCl (Valtrex) 500 mg PO BID [facility] Last Admin: 05/26/19 08:59 Dose: 500 mg Warfarin Sodium (Coumadin) 5 mg PO SUTUWETHSA [facility] Last Admin: 05/24/19 17:27 Dose: 5 mg Warfarin Sodium (Coumadin) 7.5 mg PO MOFR [facility] Last Admin: 05/25/19 17:15 Dose: 7.5 mg Warfarin Sodium (Pharmacy To Dose - Warfarin) 1 dose .XX ASDIRECTED [facility] Discontinued Medications Cefepime HCl 2 gm/ Sodium (Chloride) 50 mls @ 100 mls/hr IV Q12H [facility] Last Admin: 05/23/19 10:15 Dose: 100 mls/hr Vancomycin HCl 1.25 gm/ Sodium (Chloride) 250 mls @ 166.667 mls/hr IV DAILY@ 1800 [facility] Last Admin: 05/22/19 23:06 Dose: Not Given Vancomycin HCl 1.25 gm/ Sodium (Chloride) 250 mls @ 166.667 mls/hr IV DAILY@ 1800 [facility] Last Admin: 05/24/19 17:15 Dose: 166.667 mls/hr Cefepime HCl 2 gm/ Sodium (Chloride) 50 mls @ 100 mls/hr IV DAILY [facility] Last Admin: 05/25/19 09:59 Dose: 100 mls/hr Lidocaine/Prilocaine (Emla Crm) 5 gm TOP ONETIME ONE Stop: 05/22/19 18:48 Last Admin: 05/22/19 19:30 Dose: 1 applic Non-Formulary Medication (Pomalidomide [Pomalyst]) 1 mg PO DAILY ELLIE Sargramostim (Leukine) 500 mcg SUBCUT ONETIME ONE Stop: 05/24/19 09:43 Last Admin: 05/24/19 10:09 Dose: 500 mcg - Exam Quality Assessment: Central Line/PICC (port in right upper chest wall, no erythema/drainage present). No: Supplemental Oxygen, Urine Catheter, DVT Prophylaxis (on warfarin) General: Alert, Oriented, Cooperative, No Acute Distress HEENT: Other (UGASHIK) Lungs: Normal Respiratory Effort, Crackles (faint crackles to bilateral bases), Wheezing (expiratory wheezes to all lungs parker) Cardiovascular: Regular Rate, Regular Rhythm, No Murmurs GI/Abdominal Exam: Normal Bowel Sounds, Soft, Non-Tender, No Distention Extremities: Other (2-3+ pitting edema from mid-felipe to toes bilaterally, L>R) Skin: Warm, Dry, Intact Neurological: Normal Speech, Normal Tone Psy/Mental Status: Alert, Normal Affect, Normal Mood - Problem List Review Problem List Initiated/Reviewed/Updated: Yes - My Orders Last 24 Hours: My Active Orders 05/25/19 19:00 Pharmacy to Dose - Warfarin 1 dose .XX ASDIRECTED 05/26/19 03:30 Communication Order [RC] 0900,2100 05/27/19 05:11 BMP [BASIC METABOLIC PANEL,BMP] [CHEM] AM CBC WITH MANUAL DIFF [HEME] AM - Plan Plan:: HPI: This is a 78 year old male who presented to the [facility] with several complaints including SOB, wheezing, nausea/vomiting, urinary frequency and weakness. Patient's reported that the day prior to admission he was having dizzy episodes, increased shortness of breath and diaphoretic episodes. She called oncology who recommended he present to an ER, which the patient refused. He had an episode of nausea and emesis the day of admission and then was agreeable to being evaluated. Patient's also noted increase LLE edema and redness. He had been taken off his warfarin d/t an upcoming lesion removal procedure and was on LMWH. Patient has relapsed multiple myeloma for which he follows with oncology for. Patient was admitted for IV antibiotics and further monitoring. Pertinent clinic work-up: -US LLE: no evidence of acute DVT. -CXR: "Increased markings at the right base which may represent infiltrate". -ANC 1.5 -Creatinine 1.72 Primary Assessment/Plan: RLL pneumonia, CAP, POA. WBC 2.23. Repeat procalcitonin 0.20. Antibiotics were de-escalated yesterday to ceftriaxone 1 gm IV daily. Has been afebrile with adequate oxygen saturations on room air. Add DuoNebs q6h. Continue IS. BC x 2 negative. Sputum not obtained d/t nonproductive cough. Moderate neutropenia. ANC 624.4. Give 3rd dose of Leukine. Typically receives 4 doses prior to chemotherapy. Repeat CBC in AM. Consulted with [place] [employer] newsc[employer] director oncologist, Dr. Khalil, who recommends continuing Leukine daily until ANC 1.5 or greater. He also mentioned that oral pomalidomide can cause low counts, so sometimes this is held with infection; he defers this to patient's oncologist, Dr. Gabriel. He also states he would recommend holding the daratumumab until the following week, but defers the final decision to Dr. Gabriel. Will contact Dr. Olivares's through [employer] to make him aware and ask his recommendations. Immunocompromised host. Neutropenic precautions. Bilateral lower extremity edema. Admission BNP 95. Weight down 5 lbs overnight with use of oral lasix yesterday. Repeat lasix 40 mg po today. [place] wraps to BLE. Elevate extremities while seated. Daily weights. Repeat BMP in AM. Thrombocytopenia. PLTs 86. Holding LMWH and can discontinue until he will have lesion removal in the future. Antineoplastic chemotherapy induced anemia. Red blood cell antibody positive. Hgb 8.6. CKD stage III. Creatinine improved to 1.30. History of DVT, hypercoagulable state. Warfarin and vitamin K have been restarted. INR 1.5. Pharmacy to dose warfarin and monitor. Secondary Assessment/Plan: Multiple Myeloma. Currently on chemotherapy regimen of oral pomalidomide ( Pomalyst) and IV daratumumab (Darzalex). Also receives IVIG the day prior to chemo infusion, which is new. Current upcoming schedule is IVIG on 05/30/19 and IV daratumumab on 05/31/19. History of pathologic fracture of C5. Treated with RT. On bactrim three times weekly (on hold) and valacyclovir BID for prophylaxis. Flexeril PRN. 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 Biopsy on 01/10/19: Adenocarcinoma of lung origin. Treated with SBRT starting 02/12/19. History of renal cell carcinoma & prostate cancer. EDITH. On CPAP. CAD, s/p CABG. On lopressor 50 mg daily. HFpEF. Last echo 11/28 with EF 60%. Grade 1 diastolic dysfunction. Moderate pulmonary artery HTN. PHTN. HTN. On moexipril & HCTZ however has been on hold since admission. BPs and creatinine improving, may restart tomorrow. HLD. On simvastatin. LDL 85 (06/2018). History of [place] syndrome. On Miralax daily, colace daily, senna-s BID. GERD. On omeprazole daily. BPH. On tamsulosin. OAB. On oxybutynin and detrol LA. Anxiety. On fluoxetine and lorazepam PRN. Scheduled to see telemedicine psychology in [place] on 05/31/19. has noticed increasing episodes of anger. Insomnia. On trazodone. Neuropathic pain. On gabapentin. Lumbar DDD. On oxycodone PRN. Vitamin B12 and vitamin D deficiency. On supplementation. Hypomagnesemia. On oral magnesium. Mg level in AM. Hypokalemia. On potassium 10 mEq BID. K 4.4. Hypogammaglobulinemia. History of MRSA. Obesity. Overall plan: Continue with IV rocephin and Leukine injection today. Repeat labs in AM. Would like WBC to be between 3-4 prior to discharge. Will consult with Dr. Olivares's regarding chemotherapy plan.
[2019-05-26] MEDS: Albuterol/Ipratropium 3.0-0.5 MG/3 ML Neb Soln NEB SCH ×3 (11:03→23:11)
[2019-05-26] MEDS: cefTRIAXone 1 GM Vial IVPUSH SCH (11:03)
[2019-05-26] MEDS: Magnesium Chloride 64 MG Tab.ER PO SCH (15:05)
[2019-05-26] MEDS: Cyanocobalamin (Vitamin B12) 500 MCG Tab PO SCH (15:05)
[2019-05-26] MEDS: Cholecalciferol (Vitamin D3) 25 MCG Tab PO SCH (15:05)
[2019-05-26] MEDS ORDERED: Acetaminophen 325 MG Tab PO PRN (18:30)
[2019-05-26] MEDS: Warfarin 5 MG Tab PO SCH (18:35)
[2019-05-26] MEDS: Simvastatin 20 MG Tab PO SCH (21:36)
[2019-05-27] MEDS: Albuterol/Ipratropium 3.0-0.5 MG/3 ML Neb Soln NEB SCH ×2 (05:03→10:10)
[2019-05-27] MEDS: Omeprazole 20 MG Cap.CR PO SCH (07:39)
[2019-05-27] MEDS: Furosemide 40 MG Tab PO PRN (07:39)
[2019-05-27] MEDS: Polyethylene Glycol 3350 Powder 17 GM Packet PO SCH (07:40)
[2019-05-27 07:55] LABS: ANION GAP 11.4 mmol/L (5-15); CHLORIDE,CL 109 mmol/L (98-115); SODIUM,NA 146 mmol/L (136-145)
[2019-05-27] MEDS: Tolterodine 2 MG Cap.ER PO SCH (08:42)
[2019-05-27] MEDS: POMALYST PO SCH (08:42)
[2019-05-27] MEDS: Oxybutynin 5 MG Tab.ER PO SCH (08:43)
[2019-05-27] MEDS: Metoprolol Tartrate 50 MG Tab PO SCH (08:43)
[2019-05-27] MEDS: Potassium Chloride 10 MEQ Tab.ER PO SCH (08:43)
[2019-05-27] MEDS: FLUoxetine 10 MG Cap PO SCH (08:43)
[2019-05-27] MEDS: Docusate Sodium 100 MG Cap PO SCH (08:43)
[2019-05-27] MEDS: valACYclovir 500 MG Tab PO SCH (08:43)
[2019-05-27] MEDS: Gabapentin 300 MG Cap PO SCH (08:43)
[2019-05-27 08:48] VITALS: BP 105/61; PULSE 76
[2019-05-27] MEDS: cefTRIAXone 1 GM Vial IVPUSH SCH (10:10)
[2019-05-27] MEDS ORDERED: Sodium Chloride 0.9% 20 ML SDV FLUSH SCH (10:30)
--- NOTE | 2019-05-27 10:50 | PCM.DCSUM1 ---
Discharge Summary - Discharge Data Discharge Date: 05/27/19 Discharge Disposition: Home, Self-Care 01 Condition: Stable - Referral to Home Health Primary Care Physician: Alicja Foss MH TEACHER - Patient Instructions Diet: Heart Healthy Diet Activity: Cough & Deep Breathe, No Strenuous Activities, Rest and Relax Today Driving: Do Not Drive Showering/Bathing: May Shower Notify Provider of: Fever (shortness of breath, chest pain, lethargy), Nausea and/or Vomiting Other/Special Instructions: Hold Pomalyst until you are seen by Dr. Olivares's on 06/13/19. No chemotherapy this week. You will still receive IVIG on 05/30/19 at the [facility]. You will continue the Leukine injections daily until the ANC level is greater than 1500. - Discharge Plan *PRESCRIPTION DRUG MONITORING PROGRAM REVIEWED*: Not Applicable *COPY OF PRESCRIPTION DRUG MONITORING REPORT IN PATIENT ANAHY: Not Applicable Prescriptions/Med Rec: Albuterol/Ipratropium [DuoNeb 3.0-0.5 MG/3 ML] 3 ml NEB Q6HRRT #1 box Home Medications: Home Meds Omeprazole 20 mg PO 0800 02/14/15 [History] Simvastatin 40 mg PO 199902/14/15 [History] Docusate Sodium [Colace] 100 mg PO 0800 09/02/15 [History] Polyethylene Glycol 3350 [Miralax] 17 gm PO 0800 09/02/15 [History] Potassium Chloride [Klor-Con 10] 10 meq PO BID 01/21/16 [History] valACYclovir HCl [Valtrex] 500 mg PO BID 06/16/16 [History] LORazepam 0.5 mg PO Q4H PRN 01/06/17 [History] Gabapentin [Neurontin] 900 mg PO BEDTIME 06/10/17 [History] Cyclobenzaprine [Flexeril] 5 mg PO TID PRN 07/06/18 [History] traZODone HCl [Trazodone HCl] 50 mg PO BEDTIME PRN 07/06/18 [History] EPINEPHrine [Epipen 2-Hunter] 0.3 mg IM ASDIRECTED PRN #1 ml 07/07/18 [Rx] Gabapentin [Neurontin] 300 mg PO 0900,1500 07/07/18 [History] Cholecalciferol (Vitamin D3) [Vitamin D3] 3,000 unit PO DAILY@1500 11/30/18 [ History] Cyanocobalamin (Vitamin B-12) [B-12] 1,000 mg PO DAILY@1500 11/30/18 [History] Oxybutynin [Oxybutynin ER] 5 mg PO DAILY 11/30/18 [History] Sennosides/Docusate Sodium [Senna-S] 1 tab PO BID 11/30/18 [History] Lidocaine/Prilocaine [EMLA Crm] 1 applic TOP ASDIRECTED 02/08/19 [History] Metoprolol Tartrate 50 mg PO DAILY 02/08/19 [History] Prochlorperazine Maleate [Compazine] 10 mg PO Q6H PRN 02/08/19 [History] Warfarin [Coumadin] 5 mg PO SUTUWETHSA 02/08/19 [History] dexAMETHasone [Dexamethasone] 20 mg PO ASDIRECTED 02/08/19 [History] guaiFENesin/Codeine Phosphate [Guaiatussin AC Liquid] 10 ml PO Q4H PRN 04/26/19 [History] oxyCODONE 10 mg PO Q4H PRN 04/26/19 [History] Tolterodine [Detrol LA 24 Hr] 2 mg PO DAILY 05/22/19 [History] Warfarin [Coumadin] 7.5 mg PO MOFR 05/23/19 [History] Acetaminophen [Tylenol] 650 mg PO Q4H PRN tablet 05/27/19 [Rx] Albuterol/Ipratropium [DuoNeb 3.0-0.5 MG/3 ML] 3 ml NEB Q6HRRT #1 box 05/27/19 [ Rx] FLUoxetine HCl [Prozac] 20 mg PO DAILY #0 05/27/19 [Rx] Furosemide [Lasix] 20 mg PO QAM #30 05/27/19 [Rx] Magnesium Chloride [Mag-64] 128 mg PO DAILY@1500 #0 05/27/19 [Rx] Sargramostim [Leukine] 500 mcg SUBCUT DAILY vial 05/27/19 [Rx] Referrals: Dereck Shultz, MH TEACHER [Nurse Practitioner] - 05/28/19 (Call the [facility] in the morning to schedule your hospital follow-up appointment. [phone].) - Discharge Summary/Plan Comment DC Time >30 min.: Yes Discharge Summary/Plan Comment: Date of admission: 05/22/19 Date of discharge: 05/27/19 Admitting diagnosis: Primary: RLL pneumonia, Shortness of breath, Immunocompromised host, Thrombocytopenia, Antineoplastic chemotherapy induced anemia, Red blood cell antibody positive, History of DVT in hypercoagulable state, CKD stage III Secondary: Multiple myeloma, History of pathologic fracture of C5, RUL adenocarcinoma, History of renal cell carcinoma & prostate cancer, EDITH, CAD s/p CABG, HFpEF, PHTN, HTN, HLD, History of [place] syndrome, GERD, BPH, OAB, Anxiety, Insomnia, Neuropathic pain, Lumbar DDD, Vitamin B12 and Vitamin D deficiency, Hypomagnesemia, Hypokalemia, Hypogammaglobulinemia, History of MRSA , Obesity. Final diagnosis: Primary: RLL pneumonia (CAP) viral; Shortness of breath, resolved; Neutropenia, severe; Immunocompromised host; Bilateral lower extremity edema, improving; Thrombocytopenia, Antineoplastic chemotherapy induced anemia, Red blood cell antibody positive, CKD stage III, stable; History of DVT in hypercoagulable state, resolving. Secondary: Multiple myeloma, History of pathologic fracture of C5, RUL adenocarcinoma, History of renal cell carcinoma & prostate cancer, EDITH, CAD s/p CABG, HFpEF, PHTN, HTN, HLD, History of Allison syndrome, GERD, BPH, OAB, Anxiety, Insomnia, Neuropathic pain, Lumbar DDD, Vitamin B12 and Vitamin D deficiency, Hypomagnesemia, Hypokalemia, Hypogammaglobulinemia, History of MRSA , Obesity. Procedures performed: None Complications: None Brief History: This is a 78 year old male who presented to the [facility] with several complaints including SOB, wheezing, nausea/vomiting, urinary frequency and weakness. Patient's reported that the day prior to admission he was having dizzy episodes, increased shortness of breath and diaphoretic episodes. She called oncology who recommended he present to an ER, which the patient refused. He had an episode of nausea and emesis the day of admission and then was agreeable to being evaluated. Patient's also noted increased LLE edema and redness. He had been taken off his warfarin d/t an upcoming lesion removal procedure and was on LMWH. Patient has relapsed multiple myeloma for which he follows with oncology for. Patient was admitted for IV antibiotics and further monitoring. Pertinent clinic work-up: -US LLE: no evidence of acute DVT. -CXR: "Increased markings at the right base which may represent infiltrate". -ANC 1.5 -Creatinine 1.72 Hospital Course: The patient remained hemodynamically stable and afebrile during his stay. He did not require oxygen. He was initially treated with IV vancomycin and cefepime. Initial procalcitonin 0.16. He was neutropenic throughout his stay. He was given Leukine SQ daily and was in neutropenic precautions. Blood cultures x 2 were negative. Sputum culture was not obtained d/t unproductive cough. He used his incentive spirometer and had DuoNebs q6h. Antibiotic therapy was de-escalated to IV rocephin 2 days prior to discharge. He had notable edema to his BLE and was given oral lasix 40 mg daily along with aliya wraps and elevation with improvement in his weight down approximately 8 lbs at discharge. Discharge weight 264.3. His creatinine was elevated on admission and his moexipril-HCTZ was held during his stay. Creatinine improved. Consulted with admissions director [facility] oncologist, Dr. Khalil, as well as with patient's oncologist, Dr. Olivares's regarding chemotherapy plan. Dr. Olivares's recommends holding Pomalyst until his oncology appointment on 06/13/19, hold IV chemo this week, proceed with IVIG as planned on 05/30/19, continue Leukine daily until ANC > 1500. Discharge Labs: WBC 2.04 with ANC 469.2 Hgb 8.4 PLTs 73 INR 1.8 Na 146 K 4.5 Creatinine 1.16 Mg 1.7 New medications on discharge: -DuoNebs inhale every 6 hours -Tylenol 650 mg po every 4 hours PRN (No more than 3 g/day of tylenol from all sources) Changes to home medications on discharge: -Hold Pomalyst -Hold/discontinue lovenox -Lasix 20 mg po daily -Magnesium 128 mg po daily -Leukine 500 mcg SQ daily -Hold vitamin K -Hold Moexipril-HCTZ -Hold Bactrim Regular home medications on discharge: -Warfarin 7.5 mg po MF -Warfarin 5 mg po SunTuesWTHSat -Compazine 10 mg po q6h PRN -EMLA cream 1 application top as directed -Lorazepam 0.5 mg po q4h PRN -Epinephrine 0.3 mg IM as directed PRN -Flexeril 5 mg po TID PRN -Oxybutynin ER 5 mg po daily -Miralax 17 gm po daily -Omeprazole 20 mg po daily -Colace 100 mg po daily -Vitamin D3 3000 units po daily -Simvastatin 40 mg po daily -Senna-S 1 tab po BID -Potassium Chloride 10 mEq po BID -Vitamin B12 1000 mg po daily -Valtrex 500 mg po BID -Trazodone 50 mg po at HS PRN -Oxycodone 10 mg po q4h PRN -Detrol LA 2 mg po daily -Gabapentin 300/300/900 mg po -Dexamethasone 20 mg po as directed -Metoprolol Tartrate 50 mg po daily -Fluoxetine 20 mg po daily -Guaifenesin/Codeine 10 mL po q4h PRN Condition, Treatment & Final Disposition: The patient is in stable condition at the time of discharge. He was instructed on strict neutropenic precautions and voiced understanding. He will be seen in close follow-up tomorrow at the [facility] with labs. He will likely require another dose of Leukine at the [facility] tomorrow as well. Considerations at follow-up include repeat Magnesium level, CBC with ANC calculation, and determining the need of restarting Moexipril-HCTZ. He has a follow-up with oncology on 06/13/19. - General Info Date of Service: 05/27/19 Functional Status: Reports: Pain Controlled, Tolerating Diet, Ambulating, Urinating, Incentive Spirometry - Review of Systems General: Reports: Weakness, Fatigue. Denies: Fever, Chills HEENT: Reports: Glasses, Sore Throat (new in the last 24 hours). Denies: Headaches, Sinus Congestion Pulmonary: Reports: Cough, Sputum (mild). Denies: Shortness of Breath Cardiovascular: Reports: Edema. Denies: Chest Pain Genitourinary: Reports: Frequency (related to lasix use) Neurological: Denies: Dizziness, Headache Psychiatric: Reports: No Symptoms - Patient Data Vitals - Most Recent: Last Vital Signs Temp 96.1 F 05/27/19 06:37 Pulse 76 05/27/19 08:43 Resp 16 05/27/19 06:37 BP 105/61 05/27/19 08:43 Pulse Ox 94 L 05/27/19 06:37 Weight - Most Recent: 264 lb 3.2 oz I&O - Last 24 hours: Intake & Output 05/26/19 05/27/19 05/27/19 22:59 06:59 14:59 Intake Total 450 200 Balance 450 200 Lab Results - Last 24 hrs: Laboratory Results - last 24 hr 05/27/19 05/27/19 05/27/19 Range/Units 07:25 07:25 07:25 WBC 2.04 L (5.00-10.00) 10^3/uL RBC 2.34 L (4.50-6.00) 10^6/uL Hgb 8.4 L (13.0-17.0) g/dL Hct 25.1 L (40.0-52.0) % MCV 107.3 H (82.0-92.0) fL MCH 35.9 H (27.0-31.0) pg MCHC 33.5 (32.0-36.0) g/dL RDW 16.0 H (11.5-14.5) % RDW Coeff of Isaiah 16.0 Plt Count 73 L (150-400) 10^3/uL MPV 12.0 H (7.4-10.4) fL Neutrophils % (Manual) 22 L (50-70) % Band Neutrophils % 1 L (4-12) % Lymphocytes % (Manual) 34 (20-40) % Monocytes % (Manual) 4 (2-8) % Eosinophils % (Manual) 39 H (1-3) % Absolute Neutrophils 0.45 Band Neutrophils # 0.02 Lymphocytes # (Manual) 0.69 Monocytes # (Manual) 0.08 Eosinophils # (Manual) 0.80 Tear Drop Cells 1+ slight Elliptocytes 1+ slight PT 17.6 H (8.9-11.4) SEC INR 1.8 H (0.9-1.1) Sodium 146 H D (136-145) mmol/L Potassium 4.5 (3.3-5.3) mmol/L Chloride 109 (98-115) mmol/L Carbon Dioxide 30.1 (21.0-32.0) mmol/L Anion Gap 11.4 (5-15) mmol/L BUN 16 (6-25) mg/dL Creatinine 1.16 (0.51-1.17) mg/dL Est Cr Clr Drug Dosing 48.13 mL/min Estimated GFR (MDRD) > 60 mL/min Glucose 108 H (75 - 99) mg/dL Calcium 8.4 L (8.7-10.3) mg/dL Magnesium 1.7 L (1.8-2.4) mg/dL MARY Results - Last 24 hrs: Microbiology 05/22/19 20:15 Aerobic Blood Culture - Preliminary Blood - Venous - Lab Draw NO GROWTH AFTER 4 DAYS Anaerobic Blood Culture - Preliminary NO GROWTH AFTER 4 DAYS 05/22/19 19:00 Aerobic Blood Culture - Preliminary Blood - Venous NO GROWTH AFTER 4 DAYS Anaerobic Blood Culture - Preliminary NO GROWTH AFTER 4 DAYS Med Orders - Current: Current Medications Acetaminophen (Tylenol) 650 mg PO Q4H PRN PRN Reason: fever, pain Albuterol/Ipratropium (Duoneb 3.0-0.5 Mg/3 Ml) 3 ml NEB Q6HRRT [facility] Last Admin: 05/27/19 10:10 Dose: 3 ml Ceftriaxone Sodium (Rocephin) 1 gm IVPUSH Q24H [facility] Last Admin: 05/27/19 10:10 Dose: 1 gm Cholecalciferol (Vitamin D3) 75 mcg PO DAILY@1500 [facility] Last Admin: 05/26/19 15:05 Dose: 75 mcg Cyanocobalamin (Vitamin B12) 1,000 mcg PO DAILY@1500 [facility] Last Admin: 05/26/19 15:05 Dose: 1,000 mcg Cyclobenzaprine HCl (Flexeril) 5 mg PO TID PRN PRN Reason: Muscle Spasm Docusate Sodium (Colace) 100 mg PO DAILY [facility] Last Admin: 05/27/19 08:43 Dose: 100 mg Enoxaparin Sodium (Lovenox) 120 mg 1 mg/kg (120 mg) SUBCUT BID [facility] Last Admin: 05/23/19 12:18 Dose: Not Given Epinephrine HCl (Epipen) 0.3 mg IM ASDIRECTED PRN PRN Reason: Anaphylaxis Fluoxetine HCl (Prozac) 20 mg PO DAILY [facility] Last Admin: 05/27/19 08:43 Dose: 20 mg Furosemide (Lasix) 40 mg PO QAM PRN PRN Reason: leg swelling Last Admin: 05/27/19 07:39 Dose: 40 mg Gabapentin (Neurontin) 900 mg PO BEDTIME [facility] Last Admin: 05/26/19 21:36 Dose: 900 mg Gabapentin (Neurontin) 300 mg PO 0900,1500 [facility] Last Admin: 05/27/19 08:43 Dose: 300 mg Sodium Chloride (Normal Saline) 100 mls @ 999 mls/hr IV ONETIME [facility] Last Admin: 05/24/19 10:25 Dose: 999 mls/hr Lidocaine/Prilocaine (Emla Crm) 0 gm TOP ASDIRECTED [facility] Lorazepam (Ativan) 0.5 mg PO Q4H PRN PRN Reason: Anxiety Magnesium Chloride (Mag-64) 64 mg PO DAILY@1500 [facility] Last Admin: 05/26/19 15:05 Dose: 64 mg Metoprolol Tartrate (Lopressor) 50 mg PO DAILY [facility] Last Admin: 05/27/19 08:43 Dose: 50 mg Omeprazole (Omeprazole) 20 mg PO 0800 [facility] Last Admin: 05/27/19 07:39 Dose: 20 mg Oxybutynin Chloride (Oxybutynin Er) 5 mg PO DAILY [facility] Last Admin: 05/27/19 08:43 Dose: 5 mg Oxycodone HCl (Oxycodone) 10 mg PO Q4H PRN PRN Reason: Pain *Ptom* Pomalyst 1mg (Capsule) 1 each PO DAILY [facility] Stop: 05/28/19 09:01 Last Admin: 05/27/19 08:42 Dose: 1 each Polyethylene Glycol (Miralax) 17 gm PO 0800 [facility] Last Admin: 05/27/19 07:40 Dose: 17 gm Potassium Chloride (Klor-Con 10) 10 meq PO BID [facility] Last Admin: 05/27/19 08:43 Dose: 10 meq Prochlorperazine Maleate (Compazine) 10 mg PO Q6H PRN PRN Reason: Nausea Sargramostim (Leukine) 500 mcg SUBCUT DAILY [facility] Stop: 05/28/19 23:59 Last Admin: 05/27/19 08:44 Dose: 500 mcg Senna/Docusate Sodium (Senna Plus) 1 tab PO BID [facility] Last Admin: 05/27/19 08:43 Dose: 1 tab Simvastatin (Zocor) 40 mg PO 2000 [facility] Last Admin: 05/26/19 21:36 Dose: 40 mg Tolterodine Tartrate (Detrol La 24 Hr) 2 mg PO DAILY [facility] Last Admin: 05/27/19 08:42 Dose: 2 mg Trazodone HCl (Trazodone) 50 mg PO BEDTIME PRN PRN Reason: Insomnia Valacyclovir HCl (Valtrex) 500 mg PO BID [facility] Last Admin: 05/27/19 08:43 Dose: 500 mg Warfarin Sodium (Coumadin) 5 mg PO SUTUWETHSA [facility] Last Admin: 05/26/19 18:35 Dose: 5 mg Warfarin Sodium (Coumadin) 7.5 mg PO MOFR [facility] Last Admin: 05/25/19 17:15 Dose: 7.5 mg Warfarin Sodium (Pharmacy To Dose - Warfarin) 1 dose .XX ASDIRECTED [facility] Discontinued Medications Cefepime HCl 2 gm/ Sodium (Chloride) 50 mls @ 100 mls/hr IV Q12H [facility] Last Admin: 05/23/19 10:15 Dose: 100 mls/hr Vancomycin HCl 1.25 gm/ Sodium (Chloride) 250 mls @ 166.667 mls/hr IV DAILY@ 1800 [facility] Last Admin: 05/22/19 23:06 Dose: Not Given Vancomycin HCl 1.25 gm/ Sodium (Chloride) 250 mls @ 166.667 mls/hr IV DAILY@ 1800 [facility] Last Admin: 05/24/19 17:15 Dose: 166.667 mls/hr Cefepime HCl 2 gm/ Sodium (Chloride) 50 mls @ 100 mls/hr IV DAILY [facility] Last Admin: 05/25/19 09:59 Dose: 100 mls/hr Lidocaine/Prilocaine (Emla Crm) 5 gm TOP ONETIME ONE Stop: 05/22/19 18:48 Last Admin: 05/22/19 19:30 Dose: 1 applic Non-Formulary Medication (Pomalidomide [Pomalyst]) 1 mg PO DAILY [facility] Sargramostim (Leukine) 500 mcg SUBCUT ONETIME ONE Stop: 05/24/19 09:43 Last Admin: 05/24/19 10:09 Dose: 500 mcg - Exam Quality Assessment: Reports: Central Line/PICC, DVT Prophylaxis (On warfarin). Denies: Supplemental Oxygen, Urine Catheter General: Reports: Alert, Oriented, Cooperative, No Acute Distress HEENT: Reports: Mucous Membr. Moist/[place], Other (no oropharyngeal erythema/edema /exudate) Lungs: Reports: Normal Respiratory Effort, Wheezing (expiratory wheezes t/o lung parker). Denies: Crackles Cardiovascular: Reports: Regular Rate, Regular Rhythm, No Murmurs Extremities: Other (1-2+ pitting edema to LLE, 1+ edema to RLE) Skin: Reports: Warm, Dry, Intact Neurological: Reports: Normal Speech Psy/Mental Status: Reports: Alert, Normal Affect, Normal Mood
[2019-05-27] MEDS ORDERED: Albuterol/Ipratropium 3.0-0.5 MG/3 ML Neb Soln NEB SCH (11:00)
== END 2019-05-27 12:30 | disposition home or self-care (01) | DRG 194 ==
LOC: KA.MS 18:00
PROVIDERS: ADMIT Nurse Practitioner Family; ATTEND Family Medicine
DX: J12.9 Viral pneumonia, unspecified (principal); I13.0 Hypertensive heart and chronic kidney disease with heart failure and stage 1 through stage 4 chronic kidney disease, or unspecified chronic kidney disease; D80.1 Nonfamilial hypogammaglobulinemia; C90 Multiple myeloma and malignant plasma cell neoplasms; C34.11 Malignant neoplasm of upper lobe, right bronchus or lung; Z68.41 Body mass index [BMI] 40.0-44.9, adult; I50.32 Chronic diastolic (congestive) heart failure; D70.9 Neutropenia, unspecified; D69.6 Thrombocytopenia, unspecified; D64.81 Anemia due to antineoplastic chemotherapy; T45.1X5A Adverse effect of antineoplastic and immunosuppressive drugs, initial encounter; G47.33 Obstructive sleep apnea (adult) (pediatric); I25.10 Atherosclerotic heart disease of native coronary artery without angina pectoris; N18.3 Chronic kidney disease, stage 3 (moderate); E78.5 Hyperlipidemia, unspecified; I27.20 Pulmonary hypertension, unspecified; K21.9 Gastro-esophageal reflux disease without esophagitis; N40.0 Benign prostatic hyperplasia without lower urinary tract symptoms; F41.9 Anxiety disorder, unspecified; G47.00 Insomnia, unspecified; E83.42 Hypomagnesemia; E87.6 Hypokalemia; E66.9 Obesity, unspecified; M51.36 Other intervertebral disc degeneration, lumbar region; G62.9 Polyneuropathy, unspecified; E53.8 Deficiency of other specified B group vitamins; N32.81 Overactive bladder; F32.9 Major depressive disorder, single episode, unspecified; I25.2 Old myocardial infarction; Z85.528 Personal history of other malignant neoplasm of kidney; Z85.46 Personal history of malignant neoplasm of prostate; Z95.1 Presence of aortocoronary bypass graft; Z86.14 Personal history of Methicillin resistant Staphylococcus aureus infection; Z86.718 Personal history of other venous thrombosis and embolism; Z79.01 Long term (current) use of anticoagulants; Z79.899 Other long term (current) drug therapy; Z88.8 Allergy status to other drugs, medicaments and biological substances; Z90.89 Acquired absence of other organs; Z96.641 Presence of right artificial hip joint; Z87.891 Personal history of nicotine dependence
CPT/HCPCS: 36415; 36416; 80047; 80048; 81001; 83735; 84145; 85007; 85025; 85027; 85610; 87040; 94640; A9270-GY; J0692; J0696; J1642; J1650; J2820; J3370; J7050; J7620-GY

== ENCOUNTER 2020-05-26 18:48 | Inpatient (IN) | payer MEDICARE, BC, OTHER ==
--- NOTE | 2020-05-26 19:00 | EDM.PDOC ---
ED HPI GENERAL MEDICAL PROBLEM - General Chief Complaint: General Stated Complaint: LEG WEAKNESS Time Seen by Provider: 05/26/20 19:03 Source of Information: Reports: Patient, Family - History of Present Illness INITIAL COMMENTS - FREE TEXT/NARRATIVE: Underwent chemotherapy fourth fifth sixth and seventh returning home on the eighth with leg weakness developing and worsening since then. States his urine is stronger in order according to his . Denies any shortness of breath or fevers. States he is never experienced this in the week after chemotherapy in the past 3 sessions. Being treated for myeloma. Dr. Ovalles's [place] [facility] Onset: Gradual Duration: Week(s): Location: Reports: Lower Extremity, Left, Lower Extremity, Right Quality: Reports: Other Improves with: Reports: None (Occasional tingling to the feet) Worsens with: Reports: None Context: Reports: Sick Contact Bilateral Leg Pain Score (Numeric/FACES): 10 - Related Data Allergies Allergy/AdvReac Type Severity Reaction Status Date / Time daratumumab Allergy Nausea and Verified 05/26/20 19:07 Vomiting epoetin jesse [From Procrit] Allergy Hives Verified 05/26/20 19:03 [id number] [From Zarxio] Allergy Rash Verified 05/26/20 19:03 Home Meds: Home Meds Omeprazole 20 mg PO 0800 02/14/15 [History] Simvastatin 40 mg PO 199902/14/15 [History] Docusate Sodium [Colace] 100 mg PO 0800 PRN 09/02/15 [History] polyethylene glycoL 3350 [Miralax] 17 gm PO 0800 PRN 09/02/15 [History] Gabapentin [Neurontin] 300 mg PO BEDTIME 06/10/17 [History] EPINEPHrine [Epipen 2-Hunter] 0.3 mg IM ASDIRECTED PRN #1 ml 07/07/18 [Rx] Cyanocobalamin (Vitamin B-12) [B-12] 1,000 mg PO DAILY@1500 11/30/18 [History] Lidocaine/Prilocaine [EMLA Crm] 1 applic TOP ASDIRECTED 02/08/19 [History] Warfarin [Coumadin] 5 mg PO SUTUWETHSA 02/08/19 [History] dexAMETHasone [Dexamethasone] 20 mg PO ASDIRECTED 02/08/19 [History] oxyCODONE 10 mg PO Q4H PRN 04/26/19 [History] Warfarin [Coumadin] 7.5 mg PO MOFR 05/23/19 [History] Acetaminophen [Tylenol] 650 mg PO Q4H PRN tablet 05/27/19 [Rx] Furosemide [Lasix] 40 mg PO QAM 06/01/19 [History] Cholecalciferol (Vitamin D3) [Vitamin D3] 1,000 unit PO DAILY 04/23/20 [History] Sodium Bicarbonate 650 mg PO TID 04/23/20 [History] FLUoxetine [PROzac] 40 mg PO DAILY 05/14/20 [History] NIFEdipine [Nifedipine ER] 60 mg PO DAILY 05/14/20 [History] carvediloL [Carvedilol] 6.25 mg PO DAILY 05/14/20 [History] Past Medical History HEENT History: Reports: Hard of Hearing, Impaired Vision Cardiovascular History: Reports: Blood Clots/VTE/DVT, CAD, Heart Failure, High Cholesterol, Hypertension, [place], SOB on Exertion, Other (See Below) Other Cardiovascular History: Chronic diastolic heart failure Respiratory History: Reports: Bronchitis, Recurrent, COPD, Sleep Apnea, SOB Other Respiratory History: CPAP, Adenoncarcinoma of the right lung Gastrointestinal History: Reports: Chronic Constipation, GERD Genitourinary History: Reports: BPH, Urinary Incontinence Other Genitourinary History: appt to see Dr Sin Mojica in [place] 09/30/16 for Kidney follow-up/. Renal Biopsy Oct 13 2015 negative for malignancy. HYPOGONADISM Musculoskeletal History: Reports: Back Pain, Chronic, Fracture Other Musculoskeletal History: Thigh pain resolved no voices only of low back pain - see pain assessment. DJD Neurological History: Reports: Neuropathy, Peripheral, Seizure Psychiatric History: Reports: Anxiety, Depression Other Psychiatric History: Hallucinating off and on lately, angry, forgetful Endocrine/Metabolic History: Reports: Obesity/BMI 30+ Hematologic History: Reports: Anemia, Other (See Below) Other Hematologic History: Iron studies done. RED BLOOD CELL ANTIBODY POSITIVE (ON ANTI-CD38 THERAPY (DARATUMUMAB)). Chemotherapy induced anemiahypogammaglobulinemia, acquired Immunologic History: Reports: Immunosuppression, Other (See Below) Other Immunologic History: CHEMOTHERAPY AND RADIATION Oncologic (Cancer) History: Reports: Prostate, Other (See Below) Other Oncologic History: multiple myeloma jun 2015. PROSTATE CA 05-24-2013. 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 MASS IN KIDNEY 06-04-2015 Dermatologic History: Reports: Eczema Other Dermatologic History: In Sep 2016Itchy rash raised red/pink size of a pinhead after procrit injection, Procrit now held. continues using cream for eczema on abdomen, Voices at one time bruising was an issue "not so much any more" It's getting better" - Infectious Disease History Infectious Disease History: Reports: Chicken Pox, Influenza, Measles, Mumps Other Infectious Disease History: INFECTION WITH DRUG RESISTANT MICROORGANISMS - Past Surgical History HEENT Surgical History: Reports: Tonsillectomy Cardiovascular Surgical History: Reports: Coronary Artery Bypass Respiratory Surgical History: Reports: None GI Surgical History: Reports: Colonoscopy Male Surgical History: Reports: Prostate Biopsy Endocrine Surgical History: Reports: None Neurological Surgical History: Reports: Vertebroplasty, Other (See Below) Other Neurological Surgeries/Procedures: Vertibroplasty - in Jun 2015 Musculoskeletal Surgical History: Reports: Hip Replacement, Other (See Below) Other Musculoskeletal Surgeries/Procedures:: 3rd vertebral plasty done 09/24/15. Oncologic Surgical History: Reports: Bone Marrow Aspiration, Other (See Below) Other Oncologic Surgeries/Procedures: PROSTATE BIOPSY. LUNG BIOPSY. KIDNEY BIOPSY Dermatological Surgical History: Reports: None Social & Family History - Family History Family Medical History: Noncontributory Cardiac: Reports: [place] Respiratory: Reports: None GI: Reports: None : Reports: None OBGYN: Reports: None Musculoskeletal: Reports: Back pain, Chronic Psychiatric: Reports: None Endocrine/Metabolic: Reports: None - Caffeine Use Caffeine Use: Reports: Coffee, Soda - Living Situation & Occupation Living situation: Reports: , with Spouse ED ROS GENERAL - Review of Systems Review Of Systems: See Below Constitutional: Reports: Malaise, Weakness. Denies: Fever, Chills HEENT: Reports: No Symptoms Respiratory: Reports: No Symptoms Cardiovascular: Reports: No Symptoms Endocrine: Reports: No Symptoms GI/Abdominal: Reports: No Symptoms : Reports: Frequency Musculoskeletal: Reports: Leg Pain Skin: Reports: No Symptoms Neurological: Reports: No Symptoms Psychiatric: Reports: No Symptoms Hematologic/Lymphatic: Reports: No Symptoms Immunologic: Reports: No Symptoms ED EXAM, GENERAL - Physical Exam Exam: See Below Free Text/Narrative:: Alert oriented conversing freely in no acute distress. HEENT shows hair loss from his complexity of chemotherapy. [place] moist mucous membranes PERRLA no icterus no injection. Thorax is clear no wheezes no crackles. Cardiac S1-S2 with no noted murmur. Abdomen is rotund soft no pain is complained of. No flank pain. +2 edema to the lower extremities with generalized tenderness achiness with motion intact. Negative Homans sign but noted tenderness to touch superficially throughout. States he is due for lab work tomorrow including his INR. Course - Vital Signs Last Recorded V/S: Last Vital Signs Temp 35.8 C L 05/26/20 19:00 Pulse 90 05/26/20 19:00 Resp 20 05/26/20 19:00 BP 134/70 05/26/20 19:00 Pulse Ox 93 L 05/26/20 19:00 - Orders/Labs/Meds Orders: Medication Orders Sodium Chloride (Normal Saline) 1,000 mls @ 150 mls/hr IV ASDIRECTED [facility] Ondansetron HCl (Zofran) 4 mg IVPUSH Q6H PRN PRN Reason: Nausea/Vomiting Labs: Laboratory Tests 05/26/20 05/26/20 05/26/20 Range/Units 19:15 19:35 19:35 WBC (5.00-10.00) 10^3/uL RBC (4.50-6.00) 10^6/uL Hgb (13.0-17.0) g/dL Hct (40.0-52.0) % MCV (82.0-92.0) fL MCH (27.0-31.0) pg MCHC (32.0-36.0) g/dL RDW (11.5-14.5) % Plt Count (150-400) 10^3/uL MPV (7.4-10.4) fL Immature Gran % (Auto) (0.0-5.0) % Neut % (Auto) (50.0-70.0) % Lymph % (Auto) (20.0-40.0) % [place] % (Auto) (2.0-8.0) % Eos % (Auto) (1.0-3.0) % Baso % (Auto) (0.0-1.0) % Neut # (Auto) (2.50-7.00) 10^3/uL Lymph # (Auto) (1.00-4.00) 10^3/uL [place] # (Auto) (0.10-0.80) 10^3/uL Eos # (Auto) (0.10-0.30) 10^3/uL Baso # (Auto) (0.00-0.10) 10^3/uL Immature Gran # (Auto) (0.00-0.50) 10^3/uL PT 14.7 H (9.2-11.2) SEC INR 1.5 H (0.9-1.1) Sodium 142 (136-145) mmol/L Potassium 4.7 (3.3-5.3) mmol/L Chloride 106 (98-115) mmol/L Carbon Dioxide 29.6 (21.0-32.0) mmol/L Anion Gap 11.1 (5-15) mmol/L BUN 40 H (6-25) mg/dL Creatinine 3.21 H D (0.51-1.17) mg/dL Est Cr Clr Drug Dosing 17.11 mL/min Estimated GFR (MDRD) 19 mL/min Glucose 96 (75 - 99) mg/dL Calcium 9.3 (8.7-10.3) mg/dL Total Bilirubin 0.4 (0.2-1.0) mg/dL AST 16 (15-37) U/L ALT 16 (12-78) U/L Alkaline Phosphatase 58 (46-116) IU/L Total Protein 6.5 (6.4-8.2) g/dL Albumin 3.33 (3.00-4.80) g/dL Specimen Type Urincc Urine Color Yellow (YELLOW) Urine Appearance Slightly cloudy H (CLEAR) Urine pH 7.0 (5.0-9.0) Ur Specific [place] 1.020 (1.005-1.030) Urine Protein 30 H (NEGATIVE) mg/dL Urine Glucose (UA) Negative (NEGATIVE) mg/dL Urine Ketones Negative (NEGATIVE) mg/dL Urine Occult Blood Small H (NEGATIVE) Urine Nitrite Negative (NEGATIVE) Urine Bilirubin Negative (NEGATIVE) Urine Urobilinogen 0.2 (0.2-1.0) E.U./dL Ur Leukocyte Esterase Negative (NEGATIVE) Urine RBC 0-5 (0-5) /HPF Urine WBC 0-5 (0-5) /HPF Ur Epithelial Cells Few /LPF Amorphous Sediment Few (0/HPF) /HPF Urine Bacteria Few (NONE TO FEW) /HPF COVID-19 (OLIVIA) (NEGATIVE) 05/26/20 05/26/20 Range/Units 19:35 20:40 WBC 2.26 L (5.00-10.00) 10^3/uL RBC 2.58 L (4.50-6.00) 10^6/uL Hgb 8.5 L (13.0-17.0) g/dL Hct 24.5 L (40.0-52.0) % MCV 95.0 H D (82.0-92.0) fL MCH 32.9 H (27.0-31.0) pg MCHC 34.7 (32.0-36.0) g/dL RDW 15.3 H (11.5-14.5) % Plt Count 76 L (150-400) 10^3/uL MPV 12.3 H (7.4-10.4) fL Immature Gran % (Auto) 0.0 (0.0-5.0) % Neut % (Auto) 65.5 (50.0-70.0) % Lymph % (Auto) 29.2 (20.0-40.0) % [place] % (Auto) 4.0 (2.0-8.0) % Eos % (Auto) 0.9 L (1.0-3.0) % Baso % (Auto) 0.4 (0.0-1.0) % Neut # (Auto) 1.48 L (2.50-7.00) 10^3/uL Lymph # (Auto) 0.66 L (1.00-4.00) 10^3/uL [place] # (Auto) 0.09 L (0.10-0.80) 10^3/uL Eos # (Auto) 0.02 L (0.10-0.30) 10^3/uL Baso # (Auto) 0.01 (0.00-0.10) 10^3/uL Immature Gran # (Auto) 0.00 (0.00-0.50) 10^3/uL PT (9.2-11.2) SEC INR (0.9-1.1) Sodium (136-145) mmol/L Potassium (3.3-5.3) mmol/L Chloride (98-115) mmol/L Carbon Dioxide (21.0-32.0) mmol/L Anion Gap (5-15) mmol/L BUN (6-25) mg/dL Creatinine (0.51-1.17) mg/dL Est Cr Clr Drug Dosing mL/min Estimated GFR (MDRD) mL/min Glucose (75 - 99) mg/dL Calcium (8.7-10.3) mg/dL Total Bilirubin (0.2-1.0) mg/dL AST (15-37) U/L ALT (12-78) U/L Alkaline Phosphatase (46-116) IU/L Total Protein (6.4-8.2) g/dL Albumin (3.00-4.80) g/dL Specimen Type Urine Color (YELLOW) Urine Appearance (CLEAR) Urine pH (5.0-9.0) Ur Specific [place] (1.005-1.030) Urine Protein (NEGATIVE) mg/dL Urine Glucose (UA) (NEGATIVE) mg/dL Urine Ketones (NEGATIVE) mg/dL Urine Occult Blood (NEGATIVE) Urine Nitrite (NEGATIVE) Urine Bilirubin (NEGATIVE) Urine Urobilinogen (0.2-1.0) E.U./dL Ur Leukocyte Esterase (NEGATIVE) Urine RBC (0-5) /HPF Urine WBC (0-5) /HPF Ur Epithelial Cells /LPF Amorphous Sediment (0/HPF) /HPF Urine Bacteria (NONE TO FEW) /HPF COVID-19 (OLIVIA) Negative (NEGATIVE) Meds: Medications Generic Name Dose Route Start Last Admin Trade Name Freq PRN Reason Stop Dose Admin Sodium Chloride 1,000 mls @ 150 mls/hr 05/26/20 21:30 Normal Saline IV ASDIRECTED [facility] Ondansetron HCl 4 mg 05/26/20 21:27 Zofran IVPUSH Q6H PRN Nausea/Vomiting - Re-Assessments/Exams Free Text/Narrative Re-Assessment/Exam: 05/26/20 20:50 Discussed laboratory findings with complaint with Dr. Carine Campoverde, who agrees to observation status placement with IV fluid and repeat laboratory analysis in the morning. Departure - Departure Time of Disposition: 21:31 Disposition: Refer to Observation Condition: Fair Clinical Impression: Leg weakness, bilateral, Dependent edema Acute on chronic renal failure Qualifiers: Acute renal failure type: unspecified Chronic kidney disease stage: stage 3 (moderate) Qualified Code(s): N17.9 - Acute kidney failure, unspecified - Discharge Information *PRESCRIPTION DRUG MONITORING PROGRAM REVIEWED*: Not Applicable *COPY OF PRESCRIPTION DRUG MONITORING REPORT IN PATIENT ANAHY: Not Applicable Sepsis Event Note (ED) - Focused Exam Vital Signs: Vital Signs Temp Pulse Resp BP Pulse Ox 05/26/20 19:00 35.8 C L 90 20 134/70 93 L - Problem List & Annotations (1) Leg weakness, bilateral SNOMED Code(s): 6559862 Code(s): R29.898 - OTH SYMPTOMS AND SIGNS INVOLVING THE MUSCULOSKELETAL SYSTEM Status: Acute Priority: High Current Visit: Yes (2) Acute on chronic renal failure SNOMED Code(s): 891736266 Code(s): N17.9 - ACUTE KIDNEY FAILURE, UNSPECIFIED; N18.9 - CHRONIC KIDNEY DISEASE, UNSPECIFIED Status: Acute Current Visit: Yes Qualifiers: Acute renal failure type: unspecified Chronic kidney disease stage: stage 3 (moderate) Qualified Code(s): N17.9 - Acute kidney failure, unspecified; N18.3 - Chronic kidney disease, stage 3 (moderate) (3) Subtherapeutic international normalized ratio (INR) SNOMED Code(s): 989980296, 042123832 Code(s): R79.1 - ABNORMAL COAGULATION PROFILE Status: Acute Priority: Medium Current Visit: Yes (4) Dependent edema SNOMED Code(s): 891736788 Code(s): R60.9 - EDEMA, UNSPECIFIED Status: Chronic Priority: Medium Current Visit: Yes (5) Multiple myeloma SNOMED Code(s): 314866766 Code(s): C90.00 - MULTIPLE MYELOMA NOT HAVING ACHIEVED REMISSION Status: Chronic Priority: Medium Current Visit: No Qualifiers: Multiple myeloma remission status: unspecified Qualified Code(s): C90.00 - Multiple myeloma not having achieved remission - Problem List Review Problem List Initiated/Reviewed/Updated: Yes - Assessment/Plan Plan: Will be admitted observation status [facility], Dr. Carine Campoverde
[2020-05-26 20:02] LABS: ANION GAP 11.1 mmol/L (5-15)
[2020-05-26] MEDS ORDERED: Ondansetron 4 MG/2 ML SDV IVPUSH PRN (21:27)
[2020-05-26] MEDS ORDERED: Polyethylene Glycol 3350 Powder 17 GM Packet PO PRN (21:48)
[2020-05-26] MEDS ORDERED: Docusate Sodium 100 MG Cap PO PRN (21:48)
[2020-05-26] MEDS ORDERED: Non-Formulary Medication 1 Each (Warfarin [Coumadin] 7.5 MG) PO SCH (22:00)
[2020-05-26] MEDS ORDERED: DEXAMETHASONE 20 MG PO SCH (22:00)
[2020-05-26] MEDS ORDERED: Lidocaine/Prilocaine 2.5-2.5% Crm 30 GM Tube TOP SCH (22:00)
[2020-05-26] MEDS: Sodium Chloride 0.9% 1,000 ML IV SCH (22:59)
[2020-05-27] MEDS ORDERED: Warfarin 5 MG Tab PO ONE (01:25)
[2020-05-27] MEDS: Acetaminophen 325 MG Tab PO PRN ×2 (03:09→19:29)
[2020-05-27] MEDS: Omeprazole 20 MG Cap.CR PO SCH (07:57)
[2020-05-27 08:14] LABS: ANION GAP 12.8 mmol/L (5-15)
[2020-05-27] MEDS ORDERED: SODIUM BICARBONATE 650 MG PO SCH (09:00)
[2020-05-27] MEDS ORDERED: Carvedilol 6.25 MG Tab PO SCH (09:00)
[2020-05-27] MEDS: Cholecalciferol (Vitamin D3) 25 MCG Tab PO SCH (09:48)
--- NOTE | 2020-05-27 10:53 | PCM.HP.2 ---
H&P History of Present Illness - General Date of Service: 05/27/20 Admit Problem/Dx: Admission Diagnosis/Problem Admission Diagnosis/Problem Renal failure syndrome Bilateral Leg Pain Score (Numeric/FACES): 4 - Related Data Allergies/Adverse Reactions: Allergies Allergy/AdvReac Type Severity Reaction Status Date / Time daratumumab Allergy Nausea and Verified 05/26/20 22:45 Vomiting epoetin jesse [From Procrit] Allergy Hives Verified 05/26/20 22:45 [id number] [From Zarxio] Allergy Rash Verified 05/26/20 22:45 Home Medications: Home Meds Omeprazole 20 mg PO 0800 02/14/15 [History] Simvastatin 40 mg PO 199902/14/15 [History] Docusate Sodium [Colace] 200 mg PO 0800 09/02/15 [History] polyethylene glycoL 3350 [Miralax] 17 gm PO 0800 PRN 09/02/15 [History] Gabapentin [Neurontin] 300 mg PO BEDTIME 06/10/17 [History] EPINEPHrine [Epipen 2-Hunter] 0.3 mg IM ASDIRECTED PRN #1 ml 07/07/18 [Rx] Cyanocobalamin (Vitamin B-12) [B-12] 1,000 mg PO DAILY@1500 11/30/18 [History] Lidocaine/Prilocaine [EMLA Crm] 1 applic TOP ASDIRECTED 02/08/19 [History] Warfarin [Coumadin] 5 mg PO DAILY 02/08/19 [History] oxyCODONE 10 mg PO Q4H PRN 04/26/19 [History] Acetaminophen [Tylenol] 650 mg PO Q4H PRN tablet 05/27/19 [Rx] Furosemide [Lasix] 40 mg PO QAM 06/01/19 [History] Cholecalciferol (Vitamin D3) [Vitamin D3] 1,000 unit PO DAILY 04/23/20 [History] FLUoxetine [PROzac] 40 mg PO DAILY 05/14/20 [History] NIFEdipine [Nifedipine ER] 60 mg PO DAILY 05/14/20 [History] carvediloL [Carvedilol] 6.25 mg PO BIDMEALS 05/14/20 [History] Albuterol/Ipratropium [DuoNeb 3.0-0.5 MG/3 ML] 3 ml INH QID PRN 05/27/20 [History] Magnesium Chloride [Mag-64] 128 mg PO DAILY 05/27/20 [History] Phytonadione [Vitamin K] 100 mcg PO DAILY 05/27/20 [History] Past Medical History HEENT History: Reports: Hard of Hearing, Impaired Vision Cardiovascular History: Reports: Blood Clots/VTE/DVT, CAD, Heart Failure, High Cholesterol, Hypertension, NV, SOB on Exertion, Other (See Below) Other Cardiovascular History: Chronic diastolic heart failure Respiratory History: Reports: Bronchitis, Recurrent, COPD, Sleep Apnea, SOB Other Respiratory History: CPAP, Adenoncarcinoma of the right lung Gastrointestinal History: Reports: Chronic Constipation, GERD Genitourinary History: Reports: BPH, Urinary Incontinence Other Genitourinary History: appt to see Dr Sin Mojica in [place] 09/30/16 for Kidney follow-up/. Renal Biopsy Oct 13 2015 negative for malignancy. HYPOGONADISM Musculoskeletal History: Reports: Back Pain, Chronic, Fracture Other Musculoskeletal History: Thigh pain resolved no voices only of low back pain - see pain assessment. DJD Neurological History: Reports: Neuropathy, Peripheral, Seizure Psychiatric History: Reports: Anxiety, Depression Other Psychiatric History: Hallucinating off and on lately, angry, forgetful Endocrine/Metabolic History: Reports: Obesity/BMI 30+ Hematologic History: Reports: Anemia, Other (See Below) Other Hematologic History: Iron studies done. RED BLOOD CELL ANTIBODY POSITIVE (ON ANTI-CD38 THERAPY (DARATUMUMAB)). Chemotherapy induced anemiahypogammaglobulinemia, acquired Immunologic History: Reports: Immunosuppression, Other (See Below) Other Immunologic History: CHEMOTHERAPY AND RADIATION Oncologic (Cancer) History: Reports: Prostate, Other (See Below) Other Oncologic History: multiple myeloma jun 2015. PROSTATE CA 05-24-2013. 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 MASS IN KIDNEY 06-04-2015 Dermatologic History: Reports: Eczema Other Dermatologic History: In Sep 2016Itchy rash raised red/pink size of a pinhead after procrit injection, Procrit now held. continues using cream for eczema on abdomen, Voices at one time bruising was an issue "not so much any more" It's getting better" - Infectious Disease History Infectious Disease History: Reports: Chicken Pox, Influenza, Measles, Mumps Other Infectious Disease History: INFECTION WITH DRUG RESISTANT MICROORGANISMS - Past Surgical History HEENT Surgical History: Reports: Tonsillectomy Cardiovascular Surgical History: Reports: Coronary Artery Bypass Respiratory Surgical History: Reports: None GI Surgical History: Reports: Colonoscopy Male Surgical History: Reports: Prostate Biopsy Endocrine Surgical History: Reports: None Neurological Surgical History: Reports: Vertebroplasty, Other (See Below) Other Neurological Surgeries/Procedures: Vertibroplasty - in Jun 2015 Musculoskeletal Surgical History: Reports: Hip Replacement, Other (See Below) Other Musculoskeletal Surgeries/Procedures:: 3rd vertebral plasty done 09/24/15. Oncologic Surgical History: Reports: Bone Marrow Aspiration, Other (See Below) Other Oncologic Surgeries/Procedures: PROSTATE BIOPSY. LUNG BIOPSY. KIDNEY BIOPSY Dermatological Surgical History: Reports: None Social & Family History - Family History Family Medical History: Noncontributory Cardiac: Reports: NV Respiratory: Reports: None GI: Reports: None : Reports: None OBGYN: Reports: None Musculoskeletal: Reports: Back pain, Chronic Psychiatric: Reports: None Endocrine/Metabolic: Reports: None - Tobacco Use Smoking Status *Q: Former Smoker Used Tobacco, but Quit: Yes Month/Year Tobacco Last Used: 1989 - Caffeine Use Caffeine Use: Reports: Coffee, Soda - Recreational Drug Use Recreational Drug Use: No - Living Situation & Occupation Living situation: Reports: , with Spouse H&P Review of Systems - Review of Systems: Review Of Systems: See Below General: Reports: Malaise, Weakness. Denies: Decreased Appetite, Weight Loss HEENT: Reports: No Symptoms Pulmonary: Reports: No Symptoms Cardiovascular: Reports: Edema Gastrointestinal: Reports: No Symptoms Genitourinary: Reports: No Symptoms Musculoskeletal: Reports: No Symptoms Skin: Reports: Bruising (Bruising bilateral lower extremities), Wound (Right anterior felipe, scab) Psychiatric: Reports: No Symptoms Exam - Exam Exam: See Below - Vital Signs Vital Signs: Last Vital Signs Temp 97.5 F 05/27/20 05:57 Pulse 85 05/27/20 07:59 Resp 20 05/27/20 05:57 BP 154/78 H 05/27/20 07:59 Pulse Ox 93 L 05/27/20 05:57 Weight: 249 lb 6.4 oz - Exam Quality Assessment: No: Supplemental Oxygen General: Alert, Oriented, Cooperative. No: Mild Distress HEENT: Hearing Intact Neck: Supple Lungs: Clear to Auscultation, Normal Respiratory Effort Cardiovascular: Regular Rate, Regular Rhythm GI/Abdominal Exam: Normal Bowel Sounds, Soft, Other (Large abdominal habitus). No: Distended, Rigid, Rebound, Tender (Male) Exam: Deferred. No: Rash Rectal (Males) Exam: Deferred Back Exam: No: CVA Tenderness (L), CVA Tenderness (R) Extremities: Pedal Edema (Bilateral lower extremity edema,). No: Slow Capillary Refill ( worse on right) Peripheral Pulses: 0: Radial (L), 2+: Radial (R) Skin: Other (Bruising left medial knee, scab right anterior felipe, stable eschar) Neurological: Normal Speech, Normal Tone, Sensation Intact. No: Normal Gait Neuro Extensive - Mental Status: Alert, Oriented x3 Neuro Extensive - Motor, Sensory, Reflexes: CN II-XII Intact Psychiatric: Alert, Normal Mood - Patient Data Lab Results Last 24 hrs: Laboratory Results - last 24 hr 05/26/20 05/26/20 05/26/20 Range/Units 19:15 19:35 19:35 WBC (5.00-10.00) 10^3/uL RBC (4.50-6.00) 10^6/uL Hgb (13.0-17.0) g/dL Hct (40.0-52.0) % MCV (82.0-92.0) fL MCH (27.0-31.0) pg MCHC (32.0-36.0) g/dL RDW (11.5-14.5) % Plt Count (150-400) 10^3/uL MPV (7.4-10.4) fL Immature Gran % (Auto) (0.0-5.0) % Neut % (Auto) (50.0-70.0) % Lymph % (Auto) (20.0-40.0) % [place] % (Auto) (2.0-8.0) % Eos % (Auto) (1.0-3.0) % Baso % (Auto) (0.0-1.0) % Neut # (Auto) (2.50-7.00) 10^3/uL Lymph # (Auto) (1.00-4.00) 10^3/uL [place] # (Auto) (0.10-0.80) 10^3/uL Eos # (Auto) (0.10-0.30) 10^3/uL Baso # (Auto) (0.00-0.10) 10^3/uL Immature Gran # (Auto) (0.00-0.50) 10^3/uL Tear Drop Cells Elliptocytes PT 14.7 H (9.2-11.2) SEC INR 1.5 H (0.9-1.1) Sodium 142 (136-145) mmol/L Potassium 4.7 (3.3-5.3) mmol/L Chloride 106 (98-115) mmol/L Carbon Dioxide 29.6 (21.0-32.0) mmol/L Anion Gap 11.1 (5-15) mmol/L BUN 40 H (6-25) mg/dL Creatinine 3.21 H D (0.51-1.17) mg/dL Est Cr Clr Drug Dosing 17.11 mL/min Estimated GFR (MDRD) 19 mL/min Glucose 96 (75 - 99) mg/dL Calcium 9.3 (8.7-10.3) mg/dL Total Bilirubin 0.4 (0.2-1.0) mg/dL AST 16 (15-37) U/L ALT 16 (12-78) U/L Alkaline Phosphatase 58 (46-116) IU/L Total Protein 6.5 (6.4-8.2) g/dL Albumin 3.33 (3.00-4.80) g/dL Specimen Type Urincc Urine Color Yellow (YELLOW) Urine Appearance Slightly cloudy H (CLEAR) Urine pH 7.0 (5.0-9.0) Ur Specific Greene 1.020 (1.005-1.030) Urine Protein 30 H (NEGATIVE) mg/dL Urine Glucose (UA) Negative (NEGATIVE) mg/dL Urine Ketones Negative (NEGATIVE) mg/dL Urine Occult Blood Small H (NEGATIVE) Urine Nitrite Negative (NEGATIVE) Urine Bilirubin Negative (NEGATIVE) Urine Urobilinogen 0.2 (0.2-1.0) E.U./dL Ur Leukocyte Esterase Negative (NEGATIVE) Urine RBC 0-5 (0-5) /HPF Urine WBC 0-5 (0-5) /HPF Ur Epithelial Cells Few /LPF Amorphous Sediment Few (0/HPF) /HPF Urine Bacteria Few (NONE TO FEW) /HPF COVID-19 (OLIVIA) (NEGATIVE) 05/26/20 05/26/20 05/27/20 Range/Units 19:35 20:40 07:25 WBC 2.26 L 1.27 L* (5.00-10.00) 10^3/uL RBC 2.58 L 2.29 L (4.50-6.00) 10^6/uL Hgb 8.5 L 7.4 L (13.0-17.0) g/dL Hct 24.5 L 21.9 L (40.0-52.0) % MCV 95.0 H D 95.6 H (82.0-92.0) fL MCH 32.9 H 32.3 H (27.0-31.0) pg MCHC 34.7 33.8 (32.0-36.0) g/dL RDW 15.3 H 15.4 H (11.5-14.5) % Plt Count 76 L 50 L (150-400) 10^3/uL MPV 12.3 H 11.4 H (7.4-10.4) fL Immature Gran % (Auto) 0.0 0.8 (0.0-5.0) % Neut % (Auto) 65.5 55.8 (50.0-70.0) % Lymph % (Auto) 29.2 33.9 (20.0-40.0) % [place] % (Auto) 4.0 7.1 (2.0-8.0) % Eos % (Auto) 0.9 L 1.6 (1.0-3.0) % Baso % (Auto) 0.4 0.8 (0.0-1.0) % Neut # (Auto) 1.48 L 0.71 L (2.50-7.00) 10^3/uL Lymph # (Auto) 0.66 L 0.43 L (1.00-4.00) 10^3/uL [place] # (Auto) 0.09 L 0.09 L (0.10-0.80) 10^3/uL Eos # (Auto) 0.02 L 0.02 L (0.10-0.30) 10^3/uL Baso # (Auto) 0.01 0.01 (0.00-0.10) 10^3/uL Immature Gran # (Auto) 0.00 0.01 (0.00-0.50) 10^3/uL Tear Drop Cells 1+ slight Elliptocytes 1+ slight PT (9.2-11.2) SEC INR (0.9-1.1) Sodium (136-145) mmol/L Potassium (3.3-5.3) mmol/L Chloride (98-115) mmol/L Carbon Dioxide (21.0-32.0) mmol/L Anion Gap (5-15) mmol/L BUN (6-25) mg/dL Creatinine (0.51-1.17) mg/dL Est Cr Clr Drug Dosing mL/min Estimated GFR (MDRD) mL/min Glucose (75 - 99) mg/dL Calcium (8.7-10.3) mg/dL Total Bilirubin (0.2-1.0) mg/dL AST (15-37) U/L ALT (12-78) U/L Alkaline Phosphatase (46-116) IU/L Total Protein (6.4-8.2) g/dL Albumin (3.00-4.80) g/dL Specimen Type Urine Color (YELLOW) Urine Appearance (CLEAR) Urine pH (5.0-9.0) Ur Specific Greene (1.005-1.030) Urine Protein (NEGATIVE) mg/dL Urine Glucose (UA) (NEGATIVE) mg/dL Urine Ketones (NEGATIVE) mg/dL Urine Occult Blood (NEGATIVE) Urine Nitrite (NEGATIVE) Urine Bilirubin (NEGATIVE) Urine Urobilinogen (0.2-1.0) E.U./dL Ur Leukocyte Esterase (NEGATIVE) Urine RBC (0-5) /HPF Urine WBC (0-5) /HPF Ur Epithelial Cells /LPF Amorphous Sediment (0/HPF) /HPF Urine Bacteria (NONE TO FEW) /HPF COVID-19 (OLIVIA) Negative (NEGATIVE) 05/27/20 Range/Units 07:25 WBC (5.00-10.00) 10^3/uL RBC (4.50-6.00) 10^6/uL Hgb (13.0-17.0) g/dL Hct (40.0-52.0) % MCV (82.0-92.0) fL MCH (27.0-31.0) pg MCHC (32.0-36.0) g/dL RDW (11.5-14.5) % Plt Count (150-400) 10^3/uL MPV (7.4-10.4) fL Immature Gran % (Auto) (0.0-5.0) % Neut % (Auto) (50.0-70.0) % Lymph % (Auto) (20.0-40.0) % [place] % (Auto) (2.0-8.0) % Eos % (Auto) (1.0-3.0) % Baso % (Auto) (0.0-1.0) % Neut # (Auto) (2.50-7.00) 10^3/uL Lymph # (Auto) (1.00-4.00) 10^3/uL [place] # (Auto) (0.10-0.80) 10^3/uL Eos # (Auto) (0.10-0.30) 10^3/uL Baso # (Auto) (0.00-0.10) 10^3/uL Immature Gran # (Auto) (0.00-0.50) 10^3/uL Tear Drop Cells Elliptocytes PT (9.2-11.2) SEC INR (0.9-1.1) Sodium 142 (136-145) mmol/L Potassium 3.9 (3.3-5.3) mmol/L Chloride 105 (98-115) mmol/L Carbon Dioxide 28.1 (21.0-32.0) mmol/L Anion Gap 12.8 (5-15) mmol/L BUN 36 H (6-25) mg/dL Creatinine 3.07 H (0.51-1.17) mg/dL Est Cr Clr Drug Dosing 17.90 mL/min Estimated GFR (MDRD) 20 mL/min Glucose 88 (75 - 99) mg/dL Calcium 8.6 L (8.7-10.3) mg/dL Total Bilirubin 0.4 (0.2-1.0) mg/dL AST 14 L (15-37) U/L ALT 13 (12-78) U/L Alkaline Phosphatase 48 (46-116) IU/L Total Protein 5.7 L (6.4-8.2) g/dL Albumin 2.84 L (3.00-4.80) g/dL Specimen Type Urine Color (YELLOW) Urine Appearance (CLEAR) Urine pH (5.0-9.0) Ur Specific Greene (1.005-1.030) Urine Protein (NEGATIVE) mg/dL Urine Glucose (UA) (NEGATIVE) mg/dL Urine Ketones (NEGATIVE) mg/dL Urine Occult Blood (NEGATIVE) Urine Nitrite (NEGATIVE) Urine Bilirubin (NEGATIVE) Urine Urobilinogen (0.2-1.0) E.U./dL Ur Leukocyte Esterase (NEGATIVE) Urine RBC (0-5) /HPF Urine WBC (0-5) /HPF Ur Epithelial Cells /LPF Amorphous Sediment (0/HPF) /HPF Urine Bacteria (NONE TO FEW) /HPF COVID-19 (OLIVIA) (NEGATIVE) Result Diagrams: 05/27/20 07:25 05/27/20 07:25 Sepsis Event Note - Evaluation Sepsis Screening Result: No Definite Risk - Focused Exam Vital Signs: Vital Signs Temp Temp Pulse Pulse Resp BP BP 05/27/20 07:59 85 154/78 H 05/27/20 05:57 97.5 F 85 20 154/78 H 05/27/20 05:55 05/27/20 03:33 99.4 F 87 18 149/78 H 05/27/20 03:09 99.4 F 05/26/20 23:33 99.4 F 88 20 160/75 H Pulse Ox Pulse Ox 05/27/20 07:59 05/27/20 05:57 93 L 05/27/20 05:55 93 L 05/27/20 03:33 93 L 05/27/20 03:09 05/26/20 23:33 93 L Problem List Initiated/Reviewed/Updated: Yes Orders Last 24hrs: Active Orders 24 hr Category Date Time Status Patient Status [ADT] Routine ADT 05/26/20 21:16 Active Patient Status [ADT] Routine ADT 05/26/20 21:16 Active Bedrest Bathroom Privileges [RC] ASDIRECTED Care 05/26/20 23:33 Active Central Line Assessment [RC] 0900,2100 Care 05/26/20 23:33 Active Communication Order [RC] ,21 Care 05/27/20 09:00 Active Intake and Output [RC] 1400,2200,0600 Care 05/26/20 23:33 Active Oxygen Therapy [RC] PRN Care 05/26/20 23:33 Active VTE/DVT Education [RC] PER UNIT ROUTINE Care 05/26/20 23:33 Active Vital Signs [RC] Q4H Care 05/26/20 23:33 Active Heart Healthy Diet [DIET] Diet 05/27/20 Breakfast Active Acetaminophen [TylenoL] Med 05/26/20 21:47 Active 650 mg PO Q4H PRN Cholecalciferol (Vitamin D3) [Vitamin D3] Med 05/27/20 09:00 Active 25 mcg PO DAILY Cyanocobalamin (Vitamin B12) [Vitamin B12] Med 05/27/20 15:00 Active 1,000 mcg PO DAILY@1500 Docusate Sodium [Colace] Med 05/26/20 21:48 Active 100 mg PO 0800 PRN Gabapentin [Neurontin] Med 05/27/20 21:00 Active 300 mg PO BEDTIME Lidocaine/Prilocaine [EMLA Crm] Med 05/26/20 22:00 Active 0 gm TOP ASDIRECTED Omeprazole Med 05/27/20 08:00 Active 20 mg PO 0800 Ondansetron [Zofran] Med 05/26/20 21:27 Active 4 mg IVPUSH Q6H PRN Simvastatin [Zocor] Med 05/27/20 20:00 Active 40 mg PO 2000 Sodium Chloride 0.9% [Normal Saline] 1,000 ml Med 05/26/20 21:30 Active IV ASDIRECTED Warfarin [Coumadin] Med 05/27/20 18:00 Active 5 mg PO 1800 carvediloL [Coreg] Med 05/27/20 09:00 Active 6.25 mg PO DAILY oxyCODONE Med 05/26/20 21:48 Active 10 mg PO Q4H PRN polyethylene glycoL 3350 [MiraLAX] Med 05/26/20 21:48 Active 17 gm PO 0800 PRN Resuscitation Status Routine Resus Stat 05/26/20 23:33 Ordered Medication Orders Acetaminophen (Tylenol) 650 mg PO Q4H PRN PRN Reason: fever, pain Last Admin: 05/27/20 03:09 Dose: 650 mg Documented by: ROBI Carvedilol (Coreg) 6.25 mg PO DAILY ELLIE Last Admin: 05/27/20 07:59 Dose: 6.25 mg Documented by: MERVAT Cholecalciferol (Vitamin D3) 25 mcg PO DAILY [facility] Last Admin: 05/27/20 09:48 Dose: 25 mcg Documented by: MERVAT Cyanocobalamin (Vitamin B12) 1,000 mcg PO DAILY@1500 [facility] Docusate Sodium (Colace) 100 mg PO 0800 PRN PRN Reason: Constipation Gabapentin (Neurontin) 300 mg PO BEDTIME [facility] Sodium Chloride (Normal Saline) 1,000 mls @ 150 mls/hr IV ASDIRECTED [facility] Last Admin: 05/26/20 22:59 Dose: 150 mls/hr Documented by: ROBI Lidocaine/Prilocaine (Emla Crm) 0 gm TOP ASDIRECTED [facility] Omeprazole (Omeprazole) 20 mg PO 0800 [facility] Last Admin: 05/27/20 07:57 Dose: 20 mg Documented by: MERVAT Ondansetron HCl (Zofran) 4 mg IVPUSH Q6H PRN PRN Reason: Nausea/Vomiting Oxycodone HCl (Oxycodone) 10 mg PO Q4H PRN PRN Reason: Pain Polyethylene Glycol (Miralax) 17 gm PO 0800 PRN PRN Reason: Constipation Simvastatin (Zocor) 40 mg PO 2000 [facility] Warfarin Sodium (Coumadin) 5 mg PO 1800 [facility] Assessment/Plan Comment:: History of present illness Flow-void is a 79-year-old gentleman that was admitted through the ED last night due to lower extremity weakness. Patient suffers from progressing multiple myeloma and as under the close care of oncologist Dr. Wagoner in which the patient recently was discharged from [facility] on May 20 after he underwent chemotherapy. He was admitted on 05/15/2020 for cycle #3 of VAD chemotherapy. The patient overall did very well during this treatment and over his previous chemotherapy he did not have significant weakness before. Upon discharge he was quite weak and his oncologist desire him to perform outpatient physical therapy. Impression/plan --Weakness, 2/2 to chemotherapy --Anemia; 2/2 multiple myeloma, renal disease. --Chemotherapy induced neutropenia --Thrombopenia --Myeloma kidney/CKD --Bilateral edema of lower extremity Chronic conditions Chronic diastolic heart failure Bilateral edema of lower extremity CAD, S/P CABG in 1998 receiving clerk current use of anticoagulant, coumadin, INR 1.5 DDD (degenerative disc disease), lumbar Anxiety, stable Hyperlipidemia Essential hypertension Hx Adenocarcinoma of right lung Liver hemangioma Reactive depression Obesity EDITH on CPAP Disposition/overall plan Observation stay for today Leukine (the patient is allergic to filgrastim) TEDS to BLE Will need outpatient physical therapy - Mortality Measure Prognosis:: Good
[2020-05-27] MEDS: Sodium Chloride 0.9% 1,000 ML IV SCH ×2 (12:42→19:24)
[2020-05-27] MEDS: Cyanocobalamin (Vitamin B12) 500 MCG Tab PO SCH (15:16)
[2020-05-27] MEDS: Warfarin 5 MG Tab PO SCH (17:54)
[2020-05-27] MEDS: Simvastatin 20 MG Tab PO SCH (19:29)
[2020-05-27] MEDS: Gabapentin 300 MG Cap PO SCH ×2 (19:30→19:59)
[2020-05-27] MEDS ORDERED: NIFEdipine 30 MG Tab.ER PO ONE (20:50)
[2020-05-27] MEDS: oxyCODONE 5 MG Tab PO PRN (21:07)
[2020-05-27] MEDS: Carvedilol 6.25 MG Tab PO SCH (21:08)
[2020-05-28] MEDS: Sodium Chloride 0.9% 1,000 ML IV SCH ×2 (01:54→08:20)
[2020-05-28] MEDS: Omeprazole 20 MG Cap.CR PO SCH (08:21)
[2020-05-28] MEDS: Carvedilol 6.25 MG Tab PO SCH ×2 (08:21→18:04)
[2020-05-28] MEDS: Cholecalciferol (Vitamin D3) 25 MCG Tab PO SCH (08:21)
[2020-05-28] MEDS ORDERED: Albuterol/Ipratropium 3.0-0.5 MG/3 ML Neb Soln INH PRN (10:02)
[2020-05-28] MEDS ORDERED: Furosemide 40 MG/4 ML VIAL IVPUSH ONE (10:09)
[2020-05-28] MEDS ORDERED: Sodium Chloride 0.9% 10 ML Syringe FLUSH PRN ×2 (10:10→11:39)
[2020-05-28] MEDS: FLUoxetine 10 MG Cap PO SCH (10:39)
[2020-05-28] MEDS: NIFEdipine 30 MG Tab.ER PO SCH (10:39)
[2020-05-28] MEDS: Phytonadione 100 MCG Tab PO SCH (10:40)
[2020-05-28] MEDS: Magnesium Chloride 64 MG Tab.ER PO SCH (10:40)
[2020-05-28 10:53] LABS: POTASSIUM,POC 3.8 mmol/L (3.5-4.5)
--- NOTE | 2020-05-28 11:19 | PCM.PN ---
- General Info Date of Service: 05/28/20 Functional Status: Reports: Pain Controlled, Tolerating Diet, Urinating, New Symptoms (sore throat). Denies: Ambulating - Review of Systems General: Reports: Other (some improvement in BLE weakness). Denies: Fever HEENT: Reports: Sore Throat Pulmonary: Denies: Shortness of Breath, Cough, Sputum Cardiovascular: Reports: Edema (slighjt improved edema bilateral lower extremities). Denies: Chest Pain, Palpitations Gastrointestinal: Reports: No Symptoms. Denies: Abdominal Pain, Constipation, Decreased Appetite Genitourinary: Reports: No Symptoms Musculoskeletal: Reports: Leg Pain Skin: Reports: Bruising Neurological: Reports: Difficulty Walking, Weakness, Gait Disturbance Psychiatric: Reports: No Symptoms - Patient Data Vitals - Most Recent: Last Vital Signs Temp 96.9 F 05/28/20 10:40 Pulse 83 05/28/20 10:40 Resp 18 05/28/20 10:40 BP 141/65 H 05/28/20 10:40 Pulse Ox 93 L 05/28/20 07:55 Weight - Most Recent: 251 lb I&O - Last 24 Hours: Intake & Output 05/27/20 05/28/20 05/28/20 22:59 06:59 14:59 Intake Total 1717 1450 Output Total 600 Balance 1717 850 Lab Results Last 24 Hours: Laboratory Results - last 24 hr 05/28/20 05/28/20 Range/Units 10:25 10:25 WBC 1.10 L* (5.00-10.00) 10^3/uL RBC 2.32 L (4.50-6.00) 10^6/uL Hgb 7.5 L (13.0-17.0) g/dL Hct 22.4 L (40.0-52.0) % MCV 96.6 H (82.0-92.0) fL MCH 32.3 H (27.0-31.0) pg MCHC 33.5 (32.0-36.0) g/dL RDW 15.6 H (11.5-14.5) % Plt Count 58 L (150-400) 10^3/uL MPV 13.3 H (7.4-10.4) fL Immature Gran % (Auto) 0.0 (0.0-5.0) % Neut % (Auto) 58.2 (50.0-70.0) % Lymph % (Auto) 25.5 (20.0-40.0) % Runnels % (Auto) 12.7 H (2.0-8.0) % Eos % (Auto) 2.7 (1.0-3.0) % Baso % (Auto) 0.9 (0.0-1.0) % Neut # (Auto) 0.64 L (2.50-7.00) 10^3/uL Lymph # (Auto) 0.28 L (1.00-4.00) 10^3/uL Runnels # (Auto) 0.14 (0.10-0.80) 10^3/uL Eos # (Auto) 0.03 L (0.10-0.30) 10^3/uL Baso # (Auto) 0.01 (0.00-0.10) 10^3/uL Immature Gran # (Auto) 0.00 (0.00-0.50) 10^3/uL POC Sodium 142 (138-146) mmol/L POC Potassium 3.8 (3.5-4.5) mmol/L POC Chloride 107 (98-107) mmol/l POC Total CO2 27 (23-30) mmol/L POC Anion Gap 12 (7-16) mmol/L POC BUN 27 H (8-26) mg/dL POC Creatinine 3.13 H* (0.51-1.19) mg/dL POC Glucose 135 H (74-100) mg/dL POC Ioniz Calcium Lena 1.19 L (4.6-5.3) mmol/L Med Orders - Current: Current Medications Acetaminophen (Tylenol) 650 mg PO Q4H PRN PRN Reason: fever, pain Last Admin: 05/27/20 19:29 Dose: 650 mg Documented by: Albuterol/Ipratropium (Duoneb 3.0-0.5 Mg/3 Ml) 3 ml INH QID PRN PRN Reason: Shortness of Breath Carvedilol (Coreg) 6.25 mg PO BIDMEALS [facility] Last Admin: 05/28/20 08:21 Dose: 6.25 mg Documented by: Cholecalciferol (Vitamin D3) 25 mcg PO DAILY [facility] Last Admin: 05/28/20 08:21 Dose: 25 mcg Documented by: Cyanocobalamin (Vitamin B12) 1,000 mcg PO DAILY@1500 [facility] Last Admin: 05/27/20 15:16 Dose: 1,000 mcg Documented by: Docusate Sodium (Colace) 100 mg PO 0800 PRN PRN Reason: Constipation Fluoxetine HCl (Prozac) 40 mg PO DAILY [facility] Last Admin: 05/28/20 10:39 Dose: 40 mg Documented by: Gabapentin (Neurontin) 300 mg PO BEDTIME [facility] Last Admin: 05/27/20 19:59 Dose: Not Given Documented by: Lidocaine/Prilocaine (Emla Crm) 0 gm TOP ASDIRECTED [facility] Magnesium Chloride (Mag-64) 128 mg PO DAILY [facility] Last Admin: 05/28/20 10:40 Dose: 128 mg Documented by: Nifedipine (Procardia Xl) 60 mg PO DAILY [facility] Last Admin: 05/28/20 10:39 Dose: 60 mg Documented by: Omeprazole (Omeprazole) 20 mg PO 0800 [facility] Last Admin: 05/28/20 08:21 Dose: 20 mg Documented by: Ondansetron HCl (Zofran) 4 mg IVPUSH Q6H PRN PRN Reason: Nausea/Vomiting Oxycodone HCl (Oxycodone) 10 mg PO Q4H PRN PRN Reason: Pain Last Admin: 05/27/20 21:07 Dose: 10 mg Documented by: Phytonadione (Vitamin K) 100 mcg PO DAILY [facility] Last Admin: 05/28/20 10:40 Dose: 100 mcg Documented by: Polyethylene Glycol (Miralax) 17 gm PO 0800 PRN PRN Reason: Constipation Sargramostim (Leukine) 500 mcg IV ONETIME ONE Stop: 05/28/20 14:01 Simvastatin (Zocor) 40 mg PO 1999 [facility] Last Admin: 05/27/20 19:29 Dose: 40 mg Documented by: Sodium Chloride (Saline Flush) 10 ml FLUSH Q8HR PRN PRN Reason: keep vein open Warfarin Sodium (Coumadin) 5 mg PO 1800 [facility] Last Admin: 05/27/20 17:54 Dose: 5 mg Documented by: Discontinued Medications Carvedilol (Coreg) 6.25 mg PO DAILY [facility] Last Admin: 05/27/20 07:59 Dose: 6.25 mg Documented by: Furosemide (Lasix) 20 mg IVPUSH NOW ONE Stop: 05/28/20 10:10 Last Admin: 05/28/20 10:40 Dose: 20 mg Documented by: Sodium Chloride (Normal Saline) 1,000 mls @ 150 mls/hr IV ASDIRECTED [facility] Last Admin: 05/28/20 08:20 Dose: 150 mls/hr Documented by: Nifedipine (Procardia Xl) 60 mg PO ONETIME ONE Stop: 05/27/20 20:51 Last Admin: 05/27/20 21:08 Dose: 60 mg Documented by: Sargramostim (Leukine) 250 mcg IV DAILY [facility] Sargramostim (Leukine) 500 mcg IV DAILY ONE Stop: 05/27/20 14:00 Last Admin: 05/27/20 15:16 Dose: 500 mcg Documented by: Warfarin Sodium (Coumadin) 5 mg PO ONETIME ONE Stop: 05/27/20 01:26 Last Admin: 05/27/20 03:04 Dose: 5 mg Documented by: - Exam Quality Assessment: DVT Prophylaxis (on coumadin). No: Supplemental Oxygen General: Alert, Oriented, Cooperative, No Acute Distress Neck: Supple Lungs: Clear to Auscultation, Normal Respiratory Effort Cardiovascular: Regular Rate, Regular Rhythm GI/Abdominal Exam: Soft. No: Distended (Male) Exam: Deferred Back Exam: No: CVA Tenderness (L), CVA Tenderness (R) Extremities: Pedal Edema Skin: Other (Oozing left medial knee and a scab stable eschar right anterior felipe--all present on admission) Neurological: No New Focal Deficit Psy/Mental Status: Alert, Normal Affect, Normal Mood Sepsis Event Note - Evaluation Sepsis Screening Result: No Definite Risk - Focused Exam Vital Signs: Vital Signs Temp Pulse Pulse Resp BP BP Pulse Ox 05/28/20 10:40 96.9 F 83 18 141/65 H 05/28/20 10:39 141/65 H 05/28/20 08:21 88 146/74 H 05/28/20 07:55 05/28/20 07:17 05/28/20 06:57 97.4 F 86 20 147/76 H 93 L 05/28/20 02:09 98.8 F 85 20 158/79 H 92 L Pulse Ox 05/28/20 10:40 05/28/20 10:39 05/28/20 08:21 05/28/20 07:55 93 L 05/28/20 07:17 93 L 05/28/20 06:57 05/28/20 02:09 - Problem List Review Problem List Initiated/Reviewed/Updated: Yes - My Orders Last 24 Hours: My Active Orders 05/28/20 09:00 Magnesium Chloride [Mag-64] 128 mg PO DAILY 05/28/20 10:02 Albuterol/Ipratropium [DuoNeb 3.0-0.5 MG/3 ML] 3 ml INH QID PRN 05/28/20 10:06 RT Aerosol Therapy [RC] ASDIRECTED 05/28/20 10:10 Sodium Chloride 0.9% [Saline Flush] 10 ml FLUSH Q8HR PRN Convert IV to Peripheral Lock [Convert IV to Saline Lock] [OM.PC] Routine 05/28/20 10:30 FLUoxetine [PROzac] 40 mg PO DAILY NIFEdipine [Procardia XL] 60 mg PO DAILY Phytonadione [Vitamin K] 100 mcg PO DAILY 05/28/20 14:00 Sargramostim [Leukine] 500 mcg IV ONETIME ONE 05/29/20 06:00 INR,PT,PROTHROMBIN TIME [COAG] AM - Plan Plan:: History of present illness Flow-void is a 79-year-old gentleman that was admitted through the ED last night due to lower extremity weakness. Patient suffers from progressing multiple myeloma and as under the close care of oncologist Dr. Wagoner in which the patient recently was discharged from [facility] on May 20 after he underwent chemotherapy. He was admitted on 05/15/2020 for cycle #3 of VAD chemotherapy. The patient overall did very well during this treatment and over his previous chemotherapy he did not have significant weakness before. Upon discharge he was quite weak and his oncologist desire him to perform outpatient physical therapy. Impression/plan --Neutropenia, moderate with ANC 640 (chemo-induced) --Thrombocytopenia will monitor for bleeding, assess INR --Weakness, 2/2 to chemotherapy --Anemia; 2/2 multiple myeloma, renal disease. --Myeloma kidney/CKD --Bilateral edema of lower extremity--improving, saline lock fluids Chronic conditions Chronic diastolic heart failure Bilateral edema of lower extremity CAD, S/P CABG in 1998 longterm current use of anticoagulant, coumadin, INR 1.5 DDD (degenerative disc disease), lumbar Anxiety, stable Hyperlipidemia Essential hypertension Hx Adenocarcinoma of right lung Liver hemangioma Reactive depression Obesity EDITH on CPAP Disposition/overall plan --Change to inpatient status to monitor rising creatinine, decreasing ANC close monitoring for any opportunistic infections. --Neutropenic precautions --Neutropenic diet --throat culture --Lock IV fluids --Restart lasix but only 20mg today --We will need physical therapy consultation due to lower extremity weakness observation stay for today --Leukine 500mcg today --labs in am
[2020-05-28] MEDS: Cyanocobalamin (Vitamin B12) 500 MCG Tab PO SCH (14:44)
[2020-05-28] MEDS: Warfarin 5 MG Tab PO SCH (18:04)
[2020-05-28] MEDS: Simvastatin 20 MG Tab PO SCH (20:24)
[2020-05-28] MEDS: Gabapentin 300 MG Cap PO SCH (20:24)
[2020-05-28] MEDS: oxyCODONE 5 MG Tab PO PRN (20:27)
[2020-05-29] MEDS: Phytonadione 100 MCG Tab PO SCH (08:33)
[2020-05-29] MEDS: Cholecalciferol (Vitamin D3) 25 MCG Tab PO SCH (08:33)
[2020-05-29] MEDS: Magnesium Chloride 64 MG Tab.ER PO SCH (08:33)
[2020-05-29] MEDS: FLUoxetine 10 MG Cap PO SCH (08:33)
[2020-05-29] MEDS: Omeprazole 20 MG Cap.CR PO SCH (08:33)
[2020-05-29] MEDS: Carvedilol 6.25 MG Tab PO SCH ×2 (08:34→17:50)
[2020-05-29] MEDS: NIFEdipine 30 MG Tab.ER PO SCH (08:34)
[2020-05-29 09:09] LABS: ANION GAP 14.2 mmol/L (5-15)
--- NOTE | 2020-05-29 10:25 | PCM.PN ---
- General Info Date of Service: 05/29/20 Functional Status: Reports: Pain Controlled, Tolerating Diet, Urinating. Denies: Ambulating, New Symptoms - Review of Systems General: Reports: Weakness, Fatigue. Denies: Night Sweats, Appetite HEENT: Reports: No Symptoms Pulmonary: Reports: No Symptoms Cardiovascular: Reports: No Symptoms Gastrointestinal: Reports: No Symptoms Genitourinary: Reports: No Symptoms Musculoskeletal: Reports: Leg Pain Skin: Reports: Bruising. Denies: Rash Neurological: Reports: Pre-Existing Deficit, Difficulty Walking, Weakness Psychiatric: Denies: Confusion, Agitation - Patient Data Vitals - Most Recent: Last Vital Signs Temp 99.5 F 05/29/20 06:36 Pulse 95 05/29/20 08:34 Resp 18 05/29/20 06:36 BP 132/64 05/29/20 08:34 Pulse Ox 92 L 05/29/20 06:38 Weight - Most Recent: 249 lb 5 oz I&O - Last 24 Hours: Intake & Output 05/28/20 05/29/20 05/29/20 22:59 06:59 14:59 Intake Total 200 300 Output Total 300 Balance 200 0 Lab Results Last 24 Hours: Laboratory Results - last 24 hr 05/28/20 05/28/20 05/29/20 Range/Units 10:25 10:25 08:04 WBC 1.10 L* (5.00-10.00) 10^3/uL RBC 2.32 L (4.50-6.00) 10^6/uL Hgb 7.5 L (13.0-17.0) g/dL Hct 22.4 L (40.0-52.0) % MCV 96.6 H (82.0-92.0) fL MCH 32.3 H (27.0-31.0) pg MCHC 33.5 (32.0-36.0) g/dL RDW 15.6 H (11.5-14.5) % Plt Count 58 L (150-400) 10^3/uL MPV 13.3 H (7.4-10.4) fL Immature Gran % (Auto) 0.0 (0.0-5.0) % Neut % (Auto) 58.2 (50.0-70.0) % Lymph % (Auto) 25.5 (20.0-40.0) % Morrison % (Auto) 12.7 H (2.0-8.0) % Eos % (Auto) 2.7 (1.0-3.0) % Baso % (Auto) 0.9 (0.0-1.0) % Neut # (Auto) 0.64 L (2.50-7.00) 10^3/uL Lymph # (Auto) 0.28 L (1.00-4.00) 10^3/uL Morrison # (Auto) 0.14 (0.10-0.80) 10^3/uL Eos # (Auto) 0.03 L (0.10-0.30) 10^3/uL Baso # (Auto) 0.01 (0.00-0.10) 10^3/uL Immature Gran # (Auto) 0.00 (0.00-0.50) 10^3/uL WBC Morphology Comment Polychromasia Macrocytosis Tear Drop Cells Schistocytes PT 21.7 H D (9.2-11.2) SEC INR 2.2 H (0.9-1.1) POC Sodium 142 (138-146) mmol/L Sodium (136-145) mmol/L POC Potassium 3.8 (3.5-4.5) mmol/L Potassium (3.3-5.3) mmol/L POC Chloride 107 (98-107) mmol/l Chloride (98-115) mmol/L Carbon Dioxide (21.0-32.0) mmol/L POC Total CO2 27 (23-30) mmol/L Anion Gap (5-15) mmol/L POC Anion Gap 12 (7-16) mmol/L POC BUN 27 H (8-26) mg/dL BUN (6-25) mg/dL Creatinine (0.51-1.17) mg/dL POC Creatinine 3.13 H* (0.51-1.19) mg/dL Est Cr Clr Drug Dosing mL/min Estimated GFR (MDRD) mL/min Glucose (75 - 99) mg/dL POC Glucose 135 H (74-100) mg/dL Calcium (8.7-10.3) mg/dL POC Ioniz Calcium Lena 1.19 L (4.6-5.3) mmol/L 05/29/20 05/29/20 Range/Units 08:04 08:04 WBC 1.68 L* (5.00-10.00) 10^3/uL RBC 2.57 L (4.50-6.00) 10^6/uL Hgb 8.4 L (13.0-17.0) g/dL Hct 24.6 L (40.0-52.0) % MCV 95.7 H (82.0-92.0) fL MCH 32.7 H (27.0-31.0) pg MCHC 34.1 (32.0-36.0) g/dL RDW 15.9 H (11.5-14.5) % Plt Count 71 L (150-400) 10^3/uL MPV Consolidator (7.4-10.4) fL Immature Gran % (Auto) 1.2 (0.0-5.0) % Neut % (Auto) 52.9 (50.0-70.0) % Lymph % (Auto) 27.4 (20.0-40.0) % Morrison % (Auto) 14.9 H (2.0-8.0) % Eos % (Auto) 3.0 (1.0-3.0) % Baso % (Auto) 0.6 (0.0-1.0) % Neut # (Auto) 0.89 L (2.50-7.00) 10^3/uL Lymph # (Auto) 0.46 L (1.00-4.00) 10^3/uL Morrison # (Auto) 0.25 (0.10-0.80) 10^3/uL Eos # (Auto) 0.05 L (0.10-0.30) 10^3/uL Baso # (Auto) 0.01 (0.00-0.10) 10^3/uL Immature Gran # (Auto) 0.02 (0.00-0.50) 10^3/uL WBC Morphology Comment See note Polychromasia 1+ slight Macrocytosis Occasional Tear Drop Cells 1+ slight Schistocytes 1+ slight PT (9.2-11.2) SEC INR (0.9-1.1) POC Sodium (138-146) mmol/L Sodium 138 (136-145) mmol/L POC Potassium (3.5-4.5) mmol/L Potassium 4.0 (3.3-5.3) mmol/L POC Chloride (98-107) mmol/l Chloride 104 (98-115) mmol/L Carbon Dioxide 23.8 (21.0-32.0) mmol/L POC Total CO2 (23-30) mmol/L Anion Gap 14.2 (5-15) mmol/L POC Anion Gap (7-16) mmol/L POC BUN (8-26) mg/dL BUN 27 H (6-25) mg/dL Creatinine 2.90 H (0.51-1.17) mg/dL POC Creatinine (0.51-1.19) mg/dL Est Cr Clr Drug Dosing 18.94 mL/min Estimated GFR (MDRD) 21 mL/min Glucose 101 H (75 - 99) mg/dL POC Glucose (74-100) mg/dL Calcium 8.5 L (8.7-10.3) mg/dL POC Ioniz Calcium Lena (4.6-5.3) mmol/L Med Orders - Current: Current Medications Acetaminophen (Tylenol) 650 mg PO Q4H PRN PRN Reason: fever, pain Last Admin: 05/27/20 19:29 Dose: 650 mg Documented by: Albuterol/Ipratropium (Duoneb 3.0-0.5 Mg/3 Ml) 3 ml INH QID PRN PRN Reason: Shortness of Breath Carvedilol (Coreg) 6.25 mg PO BIDMEALS [facility] Last Admin: 05/29/20 08:34 Dose: 6.25 mg Documented by: Cholecalciferol (Vitamin D3) 25 mcg PO DAILY [facility] Last Admin: 05/29/20 08:33 Dose: 25 mcg Documented by: Cyanocobalamin (Vitamin B12) 1,000 mcg PO DAILY@1500 [facility] Last Admin: 05/28/20 14:44 Dose: 1,000 mcg Documented by: Docusate Sodium (Colace) 100 mg PO 0800 PRN PRN Reason: Constipation Fluoxetine HCl (Prozac) 40 mg PO DAILY [facility] Last Admin: 05/29/20 08:33 Dose: 40 mg Documented by: Gabapentin (Neurontin) 300 mg PO BEDTIME [facility] Last Admin: 05/28/20 20:24 Dose: 300 mg Documented by: Lidocaine/Prilocaine (Emla Crm) 0 gm TOP ASDIRECTED [facility] Magnesium Chloride (Mag-64) 128 mg PO DAILY [facility] Last Admin: 05/29/20 08:33 Dose: 128 mg Documented by: Nifedipine (Procardia Xl) 60 mg PO DAILY [facility] Last Admin: 05/29/20 08:34 Dose: 60 mg Documented by: Omeprazole (Omeprazole) 20 mg PO 0800 [facility] Last Admin: 05/29/20 08:33 Dose: 20 mg Documented by: Ondansetron HCl (Zofran) 4 mg IVPUSH Q6H PRN PRN Reason: Nausea/Vomiting Oxycodone HCl (Oxycodone) 10 mg PO Q4H PRN PRN Reason: Pain Last Admin: 05/28/20 20:27 Dose: 10 mg Documented by: Phytonadione (Vitamin K) 100 mcg PO DAILY [facility] Last Admin: 05/29/20 08:33 Dose: 100 mcg Documented by: Polyethylene Glycol (Miralax) 17 gm PO 0800 PRN PRN Reason: Constipation Simvastatin (Zocor) 40 mg PO 2000 [facility] Last Admin: 05/28/20 20:24 Dose: 40 mg Documented by: Sodium Chloride (Saline Flush) 10 ml FLUSH Q8HR PRN PRN Reason: keep vein open Last Admin: 05/28/20 14:45 Dose: 10 ml Documented by: Sodium Chloride (Saline Flush) 10 ml FLUSH Q8HR PRN PRN Reason: keep vein open Warfarin Sodium (Coumadin) 5 mg PO 1800 [facility] Last Admin: 05/28/20 18:04 Dose: 5 mg Documented by: Discontinued Medications Carvedilol (Coreg) 6.25 mg PO DAILY [facility] Last Admin: 05/27/20 07:59 Dose: 6.25 mg Documented by: Furosemide (Lasix) 20 mg IVPUSH NOW ONE Stop: 05/28/20 10:10 Last Admin: 05/28/20 10:40 Dose: 20 mg Documented by: Sodium Chloride (Normal Saline) 1,000 mls @ 150 mls/hr IV ASDIRECTED [facility] Last Admin: 05/28/20 08:20 Dose: 150 mls/hr Documented by: Nifedipine (Procardia Xl) 60 mg PO ONETIME ONE Stop: 05/27/20 20:51 Last Admin: 05/27/20 21:08 Dose: 60 mg Documented by: Sargramostim (Leukine) 250 mcg IV DAILY [facility] Sargramostim (Leukine) 500 mcg IV DAILY ONE Stop: 05/27/20 14:00 Last Admin: 05/27/20 15:16 Dose: 500 mcg Documented by: Sargramostim (Leukine) 500 mcg IV ONETIME ONE Stop: 05/28/20 14:01 Last Admin: 05/28/20 14:45 Dose: 500 mcg Documented by: Warfarin Sodium (Coumadin) 5 mg PO ONETIME ONE Stop: 05/27/20 01:26 Last Admin: 05/27/20 03:04 Dose: 5 mg Documented by: - Exam Quality Assessment: DVT Prophylaxis (on coumadin). No: Supplemental Oxygen General: Alert, Oriented, No Acute Distress Neck: No JVD Lungs: Clear to Auscultation, Normal Respiratory Effort Cardiovascular: Regular Rate, Regular Rhythm GI/Abdominal Exam: Soft Back Exam: No: CVA Tenderness (L), CVA Tenderness (R) Extremities: Pedal Edema (lower ) Skin: Other (bruising to left medial knee, and healing scab, stable eschar right ant felipe) Wound/Incisions: Healing Well Neurological: No New Focal Deficit, Normal Speech, Cranial Nerves Intact Psy/Mental Status: Alert, Normal Affect, Normal Mood Sepsis Event Note - Evaluation Sepsis Screening Result: No Definite Risk - Focused Exam Vital Signs: Vital Signs Temp Temp Pulse Pulse Resp BP BP 05/29/20 08:34 95 132/64 05/29/20 06:38 05/29/20 06:36 99.5 F 98 18 141/69 H 05/29/20 03:00 99.5 F 92 18 122/74 05/29/20 00:00 99.1 F 05/28/20 22:42 99.9 F 88 18 148/74 H Pulse Ox Pulse Ox 05/29/20 08:34 05/29/20 06:38 92 L 05/29/20 06:36 92 L 05/29/20 03:00 93 L 05/29/20 00:00 05/28/20 22:42 93 L - Problem List Review Problem List Initiated/Reviewed/Updated: Yes - My Orders Last 24 Hours: My Active Orders 05/28/20 10:02 Albuterol/Ipratropium [DuoNeb 3.0-0.5 MG/3 ML] 3 ml INH QID PRN 05/28/20 10:06 RT Aerosol Therapy [RC] ASDIRECTED 05/28/20 10:10 Sodium Chloride 0.9% [Saline Flush] 10 ml FLUSH Q8HR PRN Convert IV to Peripheral Lock [Convert IV to Saline Lock] [OM.PC] Routine 05/28/20 10:30 FLUoxetine [PROzac] 40 mg PO DAILY NIFEdipine [Procardia XL] 60 mg PO DAILY Phytonadione [Vitamin K] 100 mcg PO DAILY 05/28/20 11:37 Patient Status [ADT] Routine 05/28/20 11:39 Sodium Chloride 0.9% [Saline Flush] 10 ml FLUSH Q8HR PRN Convert IV to Saline Lock [OM.PC] Routine 05/28/20 11:42 Consult to Physical Therapy [PT Evaluation and Treatment] [CONS] Routine 05/28/20 13:00 CULTURE THROAT [RM] Routine 05/28/20 Dinner Neutropenic [DIET] - Plan Plan:: History of present illness Flow-void is a 79-year-old gentleman that was admitted through the ED last night due to lower extremity weakness. Patient suffers from progressing multiple myeloma and as under the close care of oncologist Dr. Wagoner in which the patient recently was discharged from on May 20 after he underwent chemotherapy. He was admitted on 05/15/2020 for cycle #3 of VAD chemotherapy. The patient overall did very well during this treatment and over his previous chemotherapy he did not have significant weakness before. Upon discharge he was quite weak and his oncologist desire him to perform outpatient physical therapy. Hospital course 05/28/2020; although lower extremity weakness is improving patient with signif icant neutropenia with an ANC approximately 600 requiring the patient to be placed on neutropenic precautions with neutropenic diet and closely monitoring for any opportunistic infection. Due to rising creatinine level likely slightly over hydrated and his fluids were saline locked. Lower extremity edema remains however slightly improved. He was started back on Lasix however at half the dose of 20 mg and physical therapy did evaluate the patient that day. Given dose of Leukine 500 mcg 05/29/2020; Patient is improving as his white count is improved today at 1.68 with corresponding ANC now up to 890. Leukine 500 mcg was given yesterday. He was taken off of IV fluids yesterday and his renal indices have improved today. Does have improved however lower extremity weakness, physical therapy feels would need PT likely as outpatient. INR now therapeutic. Impression/plan --Neutropenia, moderate with ANC 890, (chemo-induced) --Thrombocytopenia will monitor for bleeding, INR now therapeutic --Weakness, 2/2 to chemotherapy --Anemia; 2/2 multiple myeloma, renal disease. --Myeloma kidney/CKD --Bilateral edema of lower extremity--improving, saline lock fluids Chronic conditions Chronic diastolic heart failure Bilateral edema of lower extremity CAD, S/P CABG in 1998 senior living current use of anticoagulant, coumadin, INR 1.5 DDD (degenerative disc disease), lumbar Anxiety, stable Hyperlipidemia Essential hypertension Hx Adenocarcinoma of right lung Liver hemangioma Reactive depression Obesity EDITH on CPAP Disposition/overall plan --Patient meets ongoing inpatient qualification due to neutropenic precautions, monitoring for any opportunistic infection and/or bleeding. --Leukine 500 mcg today --Neutropenic precautions --Neutropenic diet --20 Lasix x 1 today --Anticipate discharge home in am with PT at least 3 days/week. --labs in am
[2020-05-29] MEDS ORDERED: Furosemide 40 MG/4 ML VIAL IVPUSH ONE (10:26)
[2020-05-29] MEDS: Cyanocobalamin (Vitamin B12) 500 MCG Tab PO SCH (14:38)
[2020-05-29] MEDS: Warfarin 5 MG Tab PO SCH (17:50)
[2020-05-29] MEDS: Simvastatin 20 MG Tab PO SCH (20:53)
[2020-05-29] MEDS: Gabapentin 300 MG Cap PO SCH (20:53)
[2020-05-30 08:00] LABS: ANION GAP 14.1 mmol/L (5-15)
[2020-05-30] MEDS: Cholecalciferol (Vitamin D3) 25 MCG Tab PO SCH (08:15)
[2020-05-30] MEDS: FLUoxetine 10 MG Cap PO SCH (08:15)
[2020-05-30] MEDS: Carvedilol 6.25 MG Tab PO SCH (08:16)
[2020-05-30] MEDS: Omeprazole 20 MG Cap.CR PO SCH (08:16)
[2020-05-30] MEDS: NIFEdipine 30 MG Tab.ER PO SCH (08:16)
[2020-05-30] MEDS: Phytonadione 100 MCG Tab PO SCH (08:17)
[2020-05-30] MEDS: Magnesium Chloride 64 MG Tab.ER PO SCH (08:17)
[2020-05-30 11:16] VITALS: BP 131/65; PULSE 83
--- NOTE | 2020-05-30 11:34 | PCM.DCSUM1 ---
Discharge Summary - Hospital Course Diagnosis: Stroke: No - Discharge Data Discharge Date: 05/30/20 Discharge Disposition: Home, Self-Care 01 Condition: Fair - Referral to Home Health Primary Care Physician: Nancie Campoverde MD - Patient Summary/Data Consults: Consultations 05/28/20 11:42 Consult to Physical Therapy [PT Evaluation and Treatment] [CONS] Routine - Patient Instructions Diet: Usual Diet as Tolerated Activity: As Tolerated Driving: May Drive Today Showering/Bathing: May Shower Notify Provider of: Fever, Nausea and/or Vomiting - Discharge Plan *PRESCRIPTION DRUG MONITORING PROGRAM REVIEWED*: Yes (through [employer] EMR) *COPY OF PRESCRIPTION DRUG MONITORING REPORT IN PATIENT ANAHY: Yes Home Medications: Home Meds Omeprazole 20 mg PO 0800 02/14/15 [History] Simvastatin 40 mg PO 199902/14/15 [History] Docusate Sodium [Colace] 200 mg PO 0800 09/02/15 [History] polyethylene glycoL 3350 [Miralax] 17 gm PO 0800 PRN 09/02/15 [History] Gabapentin [Neurontin] 300 mg PO BEDTIME 06/10/17 [History] EPINEPHrine [Epipen 2-Hunter] 0.3 mg IM ASDIRECTED PRN #1 ml 07/07/18 [Rx] Cyanocobalamin (Vitamin B-12) [B-12] 1,000 mg PO DAILY@1500 11/30/18 [History] Lidocaine/Prilocaine [EMLA Crm] 1 applic TOP ASDIRECTED 02/08/19 [History] Warfarin [Coumadin] 5 mg PO DAILY 02/08/19 [History] oxyCODONE 10 mg PO Q4H PRN 04/26/19 [History] Acetaminophen [Tylenol] 650 mg PO Q4H PRN tablet 05/27/19 [Rx] Furosemide [Lasix] 40 mg PO QAM 06/01/19 [History] Cholecalciferol (Vitamin D3) [Vitamin D3] 1,000 unit PO DAILY 04/23/20 [History] FLUoxetine [PROzac] 40 mg PO DAILY 05/14/20 [History] NIFEdipine [Nifedipine ER] 60 mg PO DAILY 05/14/20 [History] carvediloL [Carvedilol] 6.25 mg PO BIDMEALS 05/14/20 [History] Albuterol/Ipratropium [DuoNeb 3.0-0.5 MG/3 ML] 3 ml INH QID PRN 05/27/20 [History] Magnesium Chloride [Mag-64] 128 mg PO DAILY 05/27/20 [History] Phytonadione [Vitamin K] 100 mcg PO DAILY 05/27/20 [History] Referrals: Joaquin Rock MD [Ordering Only Provider] - - Discharge Summary/Plan Comment DC Time >30 min.: Yes Discharge Summary/Plan Comment: Final diagnosis Neutropenia, moderate with ANC 720, (chemo-induced) Thrombocytopenia INR now therapeutic Weakness, 2/2 to chemotherapy Anemia; 2/2 multiple myeloma, renal disease. Myeloma kidney/CKD Bilateral edema of lower extremity--improving, Chronic conditions Chronic diastolic heart failure Bilateral edema of lower extremity CAD, S/P CABG in 1998 [facility] current use of anticoagulant, coumadin therapeutic on discharge at 2.2 DDD (degenerative disc disease), lumbar Anxiety, stable Hyperlipidemia Essential hypertension Hx Adenocarcinoma of right lung Liver hemangioma Reactive depression EDITH on CPAP Obesity History Summary Mr Zabala is a 79-year-old gentleman that was admitted through the ED last night due to lower extremity weakness. Patient suffers from progressing multiple myeloma and as under the close care of oncologist Dr. Wagoner in which the patient recently was discharged from [facility] on May 20 after he underwent chemotherapy. He was admitted on 05/15/2020 for cycle #3 of VAD chemotherapy. The patient overall did very well during this treatment and over his previous chemotherapy he did not have significant weakness before. Upon discharge he was quite weak and his oncologist desire him to perform outpatient physical therapy. Hospital course 05/28/2020; although lower extremity weakness is improving patient with significant neutropenia with an ANC approximately 600 requiring the patient to be placed on neutropenic precautions with neutropenic diet and closely monitoring for any opportunistic infection. Due to rising creatinine level likely slightly over hydrated and his fluids were saline locked. Lower extremity edema remains however slightly improved. He was started back on Lasix however at half the dose of 20 mg and physical therapy did evaluate the patient that day. Given dose of Leukine 500 mcg 05/29/2020; Patient is improving as his white count is improved today at 1.68 with corresponding ANC now up to 890. Leukine 500 mcg was given yesterday. He was taken off of IV fluids yesterday and his renal indices have improved today. Does have improved however lower extremity weakness, physical therapy feels would need PT likely as outpatient. INR now therapeutic. 05/30/2020; patient's lower extremity weakness however not optimal or near baseline has been improved. Feels ready to be discharged today, slept well, no fever, his white count and ANC did decrease despite Leukine however no signs and symptoms of sequela or systemic infection. Medication changes/adjustments upon discharge No Changes to home medications Continue home medications as previously prescribed Disposition/overall plan Patient will be discharged from [facility], he is deemed ready for discharge despite being vulnerable due to low white count however he will receive his third dose of Leukine prior to discharge today. He will follow-up with his oncologist at a previously scheduled appointment at [facility]. Instructions to monitor for any edema, further weakness or any fever Referrals Referral sent for PT 3 days/week peter [facility] [place] - General Info Date of Service: 05/30/20 Functional Status: Reports: Pain Controlled, Tolerating Diet, Ambulating - Review of Systems General: Reports: Weakness (improved) HEENT: Reports: No Symptoms Pulmonary: Reports: No Symptoms Cardiovascular: Reports: No Symptoms Gastrointestinal: Reports: No Symptoms Genitourinary: Reports: No Symptoms Musculoskeletal: Reports: Leg Pain Skin: Reports: No Symptoms Neurological: Reports: Difficulty Walking, Weakness, Gait Disturbance. Denies: Confusion, Dizziness, Headache, Numbness Psychiatric: Reports: No Symptoms - Patient Data Vitals - Most Recent: Last Vital Signs Temp 97 F 05/30/20 11:00 Pulse 83 05/30/20 11:00 Resp 20 05/30/20 11:00 BP 131/65 05/30/20 11:00 Pulse Ox 93 L 05/30/20 11:00 Weight - Most Recent: 249 lb 5 oz I&O - Last 24 hours: Intake & Output 05/29/20 05/30/20 05/30/20 22:59 06:59 14:59 Intake Total 960 100 Balance 960 100 Lab Results - Last 24 hrs: Laboratory Results - last 24 hr 05/30/20 05/30/20 Range/Units 07:10 07:15 WBC 1.42 L* (5.00-10.00) 10^3/uL RBC 2.32 L (4.50-6.00) 10^6/uL Hgb 7.6 L (13.0-17.0) g/dL Hct 22.0 L (40.0-52.0) % MCV 94.8 H (82.0-92.0) fL MCH 32.8 H (27.0-31.0) pg MCHC 34.5 (32.0-36.0) g/dL RDW 16.1 H (11.5-14.5) % Plt Count 65 L (150-400) 10^3/uL MPV 13.1 H (7.4-10.4) fL Immature Gran % (Auto) 1.4 (0.0-5.0) % Neut % (Auto) 50.7 (50.0-70.0) % Lymph % (Auto) 29.6 (20.0-40.0) % [place] % (Auto) 12.7 H (2.0-8.0) % Eos % (Auto) 4.9 H (1.0-3.0) % Baso % (Auto) 0.7 (0.0-1.0) % Neut # (Auto) 0.72 L (2.50-7.00) 10^3/uL Lymph # (Auto) 0.42 L (1.00-4.00) 10^3/uL [place] # (Auto) 0.18 (0.10-0.80) 10^3/uL Eos # (Auto) 0.07 L (0.10-0.30) 10^3/uL Baso # (Auto) 0.01 (0.00-0.10) 10^3/uL Immature Gran # (Auto) 0.02 (0.00-0.50) 10^3/uL Sodium 141 (136-145) mmol/L Potassium 3.7 (3.3-5.3) mmol/L Chloride 105 (98-115) mmol/L Carbon Dioxide 25.6 (21.0-32.0) mmol/L Anion Gap 14.1 (5-15) mmol/L BUN 31 H (6-25) mg/dL Creatinine 2.95 H (0.51-1.17) mg/dL Est Cr Clr Drug Dosing 18.62 mL/min Estimated GFR (MDRD) 21 mL/min Glucose 91 (75 - 99) mg/dL Calcium 8.4 L (8.7-10.3) mg/dL Med Orders - Current: Current Medications Acetaminophen (Tylenol) 650 mg PO Q4H PRN PRN Reason: fever, pain Last Admin: 05/27/20 19:29 Dose: 650 mg Documented by: Albuterol/Ipratropium (Duoneb 3.0-0.5 Mg/3 Ml) 3 ml INH QID PRN PRN Reason: Shortness of Breath Carvedilol (Coreg) 6.25 mg PO BIDMEALS [facility] Last Admin: 05/30/20 08:16 Dose: 6.25 mg Documented by: Cholecalciferol (Vitamin D3) 25 mcg PO DAILY [facility] Last Admin: 05/30/20 08:15 Dose: 25 mcg Documented by: Cyanocobalamin (Vitamin B12) 1,000 mcg PO DAILY@1500 [facility] Last Admin: 05/29/20 14:38 Dose: 1,000 mcg Documented by: Docusate Sodium (Colace) 100 mg PO 0800 PRN PRN Reason: Constipation Fluoxetine HCl (Prozac) 40 mg PO DAILY [facility] Last Admin: 05/30/20 08:15 Dose: 40 mg Documented by: Gabapentin (Neurontin) 300 mg PO BEDTIME [facility] Last Admin: 05/29/20 20:53 Dose: 300 mg Documented by: Lidocaine/Prilocaine (Emla Crm) 0 gm TOP ASDIRECTED [facility] Magnesium Chloride (Mag-64) 128 mg PO DAILY [facility] Last Admin: 05/30/20 08:17 Dose: 128 mg Documented by: Nifedipine (Procardia Xl) 60 mg PO DAILY [facility] Last Admin: 05/30/20 08:16 Dose: 60 mg Documented by: Omeprazole (Omeprazole) 20 mg PO 0800 [facility] Last Admin: 05/30/20 08:16 Dose: 20 mg Documented by: Ondansetron HCl (Zofran) 4 mg IVPUSH Q6H PRN PRN Reason: Nausea/Vomiting Oxycodone HCl (Oxycodone) 10 mg PO Q4H PRN PRN Reason: Pain Last Admin: 05/28/20 20:27 Dose: 10 mg Documented by: Phytonadione (Vitamin K) 100 mcg PO DAILY [facility] Last Admin: 05/30/20 08:17 Dose: 100 mcg Documented by: Polyethylene Glycol (Miralax) 17 gm PO 0800 PRN PRN Reason: Constipation Simvastatin (Zocor) 40 mg PO 2000 [facility] Last Admin: 05/29/20 20:53 Dose: 40 mg Documented by: Sodium Chloride (Saline Flush) 10 ml FLUSH Q8HR PRN PRN Reason: keep vein open Last Admin: 05/28/20 14:45 Dose: 10 ml Documented by: Sodium Chloride (Saline Flush) 10 ml FLUSH Q8HR PRN PRN Reason: keep vein open Last Admin: 05/29/20 10:44 Dose: 10 ml Documented by: Warfarin Sodium (Coumadin) 5 mg PO 1800 [facility] Last Admin: 05/29/20 17:50 Dose: 5 mg Documented by: Discontinued Medications Carvedilol (Coreg) 6.25 mg PO DAILY [facility] Last Admin: 05/27/20 07:59 Dose: 6.25 mg Documented by: Furosemide (Lasix) 20 mg IVPUSH NOW ONE Stop: 05/28/20 10:10 Last Admin: 05/28/20 10:40 Dose: 20 mg Documented by: Furosemide (Lasix) 20 mg IVPUSH NOW ONE Stop: 05/29/20 10:27 Last Admin: 05/29/20 10:44 Dose: 20 mg Documented by: Sodium Chloride (Normal Saline) 1,000 mls @ 150 mls/hr IV ASDIRECTED [facility] Last Admin: 05/28/20 08:20 Dose: 150 mls/hr Documented by: Nifedipine (Procardia Xl) 60 mg PO ONETIME ONE Stop: 05/27/20 20:51 Last Admin: 05/27/20 21:08 Dose: 60 mg Documented by: Sargramostim (Leukine) 250 mcg IV DAILY [facility] Sargramostim (Leukine) 500 mcg IV DAILY ONE Stop: 05/27/20 14:00 Last Admin: 05/27/20 15:16 Dose: 500 mcg Documented by: Sargramostim (Leukine) 500 mcg IV ONETIME ONE Stop: 05/28/20 14:01 Last Admin: 05/28/20 14:45 Dose: 500 mcg Documented by: Sargramostim (Leukine) 500 mcg SUBCUT ONETIME ONE Stop: 05/29/20 14:01 Last Admin: 05/29/20 14:38 Dose: 500 mcg Documented by: Sargramostim (Leukine) 500 mcg SUBCUT ONETIME ONE Stop: 05/30/20 11:16 Warfarin Sodium (Coumadin) 5 mg PO ONETIME ONE Stop: 05/27/20 01:26 Last Admin: 05/27/20 03:04 Dose: 5 mg Documented by: - Exam Quality Assessment: Denies: Supplemental Oxygen General: Reports: Alert, Oriented, Cooperative, No Acute Distress Neck: Reports: No JVD Lungs: Reports: Clear to Auscultation, Normal Respiratory Effort Cardiovascular: Reports: Regular Rate, Regular Rhythm GI/Abdominal Exam: Soft Extremities: Pedal Edema Skin: Reports: Other (bruising to LLE medical knee and stable scab/escar Right ant felipe) Wound/Incisions: Reports: No Drainage Neurological: Reports: Normal Tone, Sensation Intact. Denies: Normal Gait Psy/Mental Status: Reports: Alert, Normal Affect, Normal Mood
[2020-05-30] MEDS: Cyanocobalamin (Vitamin B12) 500 MCG Tab PO SCH (14:26)
== END 2020-05-30 14:46 | disposition home or self-care (01) | DRG 809 ==
LOC: KA.ED 18:48 → KA.MS 21:16 → OBSVTOIN 05-28 11:37
PROVIDERS: ADMIT Nurse Practitioner; ATTEND Nurse Practitioner Family
DX: R53.1 Weakness (principal); D70.1 Agranulocytosis secondary to cancer chemotherapy; D63.8 Anemia in other chronic diseases classified elsewhere; I50.32 Chronic diastolic (congestive) heart failure; C90.00 Multiple myeloma not having achieved remission; I13.0 Hypertensive heart and chronic kidney disease with heart failure and stage 1 through stage 4 chronic kidney disease, or unspecified chronic kidney disease; D69.6 Thrombocytopenia, unspecified; N18.9 Chronic kidney disease, unspecified; I25.10 Atherosclerotic heart disease of native coronary artery without angina pectoris; Z79.01 Long term (current) use of anticoagulants; D70.2 Other drug-induced agranulocytosis; Z79.899 Other long term (current) drug therapy; T45.1X5A Adverse effect of antineoplastic and immunosuppressive drugs, initial encounter; D18.09 Hemangioma of other sites; Z95.1 Presence of aortocoronary bypass graft; M51.36 Other intervertebral disc degeneration, lumbar region; F41.9 Anxiety disorder, unspecified; E78.5 Hyperlipidemia, unspecified; Z85.118 Personal history of other malignant neoplasm of bronchus and lung; Z20.828 Contact with and (suspected) exposure to other viral communicable diseases; D18.03 Hemangioma of intra-abdominal structures; F32.9 Major depressive disorder, single episode, unspecified; G47.33 Obstructive sleep apnea (adult) (pediatric); Z99.81 Dependence on supplemental oxygen; E66.9 Obesity, unspecified; Z88.8 Allergy status to other drugs, medicaments and biological substances; H91.90 Unspecified hearing loss, unspecified ear; H54.7 Unspecified visual loss; J44.9 Chronic obstructive pulmonary disease, unspecified; K59.09 Other constipation; K21.9 Gastro-esophageal reflux disease without esophagitis; N40.1 Benign prostatic hyperplasia with lower urinary tract symptoms; N39.498 Other specified urinary incontinence; G89.29 Other chronic pain; M54.9 Dorsalgia, unspecified; G62.9 Polyneuropathy, unspecified; D63.0 Anemia in neoplastic disease; D89.9 Disorder involving the immune mechanism, unspecified; Z85.46 Personal history of malignant neoplasm of prostate; Z90.89 Acquired absence of other organs; Z96.649 Presence of unspecified artificial hip joint; Z87.891 Personal history of nicotine dependence
CPT/HCPCS: 36415; 80047; 80048; 80053; 81001; 85025; 85610; 96360; 96361; 96374; 97162-GP; 99284; 99285-25; A9270-GY; G0378; J1940; J2820; J7030; U0002

== ENCOUNTER 2020-06-23 13:04 | Inpatient (IN) | payer MEDICARE, BC, OTHER ==
[2020-06-23] MEDS ORDERED: Loratadine 10 MG Tab PO ONE (15:00)
[2020-06-23] MEDS ORDERED: Hydrocortisone Sodium Succinate 100 MG/2 ML SDV IVPUSH ONE (15:00)
[2020-06-23] MEDS ORDERED: Acetaminophen 325 MG Tab PO ONE (15:00)
[2020-06-23] MEDS: Sodium Chloride 0.9% 1,000 ML IV SCH (15:15)
[2020-06-23] MEDS ORDERED: Albuterol/Ipratropium 3.0-0.5 MG/3 ML Neb Soln INH PRN (15:42)
[2020-06-23] MEDS ORDERED: Acetaminophen 325 MG Tab PO PRN (15:42)
[2020-06-23] MEDS: Carvedilol 6.25 MG Tab PO SCH (18:22)
[2020-06-23] MEDS: Simvastatin 20 MG Tab PO SCH (20:56)
[2020-06-23] MEDS: Gabapentin 300 MG Cap PO SCH (20:56)
[2020-06-23] MEDS ORDERED: SODIUM BICARBONATE 650 MG PO SCH (21:00)
[2020-06-24] MEDS: Sodium Chloride 0.9% 1,000 ML IV SCH ×2 (01:50→16:47)
[2020-06-24] MEDS: NIFEdipine 30 MG Tab.ER PO SCH (08:47)
[2020-06-24] MEDS: Cholecalciferol (Vitamin D3) 25 MCG Tab PO SCH (08:47)
[2020-06-24] MEDS: FLUoxetine 10 MG Cap PO SCH (08:47)
[2020-06-24] MEDS: Magnesium Chloride 64 MG Tab.ER PO SCH (08:47)
[2020-06-24] MEDS: Omeprazole 20 MG Cap.CR PO SCH (08:47)
[2020-06-24] MEDS: Phytonadione 100 MCG Tab PO SCH (08:47)
[2020-06-24] MEDS: Docusate Sodium 100 MG Cap PO SCH (08:47)
[2020-06-24] MEDS: Carvedilol 6.25 MG Tab PO SCH ×2 (08:48→18:12)
[2020-06-24] MEDS ORDERED: Dexamethasone 4 MG Tab PO ONE (09:00)
[2020-06-24 09:26] LABS: ANION GAP 11.8 mmol/L (5-15)
--- NOTE | 2020-06-24 11:10 | PCM.PN ---
- General Info Date of Service: 06/24/20 - Patient Data Vitals - Most Recent: Last Vital Signs Temp 97.1 F 06/24/20 07:00 Pulse 78 06/24/20 08:48 Resp 16 06/24/20 07:00 BP 150/64 H 06/24/20 08:48 Pulse Ox 100 06/24/20 07:00 Weight - Most Recent: 246 lb I&O - Last 24 Hours: Intake & Output 06/23/20 06/24/20 06/24/20 22:59 06:59 14:59 Intake Total 670 944 Balance 670 944 Lab Results Last 24 Hours: Laboratory Results - last 24 hr 06/23/20 06/23/20 06/23/20 Range/Units 13:43 14:28 14:28 WBC (5.00-10.00) 10^3/uL RBC (4.50-6.00) 10^6/uL Hgb (13.0-17.0) g/dL Hct (40.0-52.0) % MCV (82.0-92.0) fL MCH (27.0-31.0) pg MCHC (32.0-36.0) g/dL RDW (11.5-14.5) % Plt Count (150-400) 10^3/uL MPV (7.4-10.4) fL Immature Gran % (Auto) (0.0-5.0) % Neut % (Auto) (50.0-70.0) % Lymph % (Auto) (20.0-40.0) % [place] % (Auto) (2.0-8.0) % Eos % (Auto) (1.0-3.0) % Baso % (Auto) (0.0-1.0) % Neut # (Auto) (2.50-7.00) 10^3/uL Lymph # (Auto) (1.00-4.00) 10^3/uL [place] # (Auto) (0.10-0.80) 10^3/uL Eos # (Auto) (0.10-0.30) 10^3/uL Baso # (Auto) (0.00-0.10) 10^3/uL Immature Gran # (Auto) (0.00-0.50) 10^3/uL PT INR (0.9-1.1) Sodium (136-145) mmol/L Potassium (3.3-5.3) mmol/L Chloride (98-115) mmol/L Carbon Dioxide (21.0-32.0) mmol/L Anion Gap (5-15) mmol/L BUN (6-25) mg/dL Creatinine (0.51-1.17) mg/dL Est Cr Clr Drug Dosing mL/min Estimated GFR (MDRD) mL/min Glucose (75 - 99) mg/dL Calcium (8.7-10.3) mg/dL Total Bilirubin (0.2-1.0) mg/dL AST (15-37) U/L ALT (12-78) U/L Alkaline Phosphatase (46-116) IU/L Total Protein (6.4-8.2) g/dL Albumin (3.00-4.80) g/dL SARS CoV-2 RNA Rapid OLIVIA Negative (NEGATIVE) Blood Type Cancelled O NEGATIVE Gel Antibody Screen Cancelled Negative Crossmatch See Detail 06/23/20 06/24/20 06/24/20 Range/Units 16:14 08:10 08:10 WBC 2.97 L (5.00-10.00) 10^3/uL RBC 2.28 L (4.50-6.00) 10^6/uL Hgb 7.4 L (13.0-17.0) g/dL Hct 22.0 L (40.0-52.0) % MCV 96.5 H (82.0-92.0) fL MCH 32.5 H (27.0-31.0) pg MCHC 33.6 (32.0-36.0) g/dL RDW 15.7 H (11.5-14.5) % Plt Count 70 L (150-400) 10^3/uL MPV 10.5 H (7.4-10.4) fL Immature Gran % (Auto) 0.3 (0.0-5.0) % Neut % (Auto) 74.8 H (50.0-70.0) % Lymph % (Auto) 22.2 (20.0-40.0) % [place] % (Auto) 2.7 (2.0-8.0) % Eos % (Auto) 0.0 L (1.0-3.0) % Baso % (Auto) 0.0 (0.0-1.0) % Neut # (Auto) 2.22 L (2.50-7.00) 10^3/uL Lymph # (Auto) 0.66 L (1.00-4.00) 10^3/uL [place] # (Auto) 0.08 L (0.10-0.80) 10^3/uL Eos # (Auto) 0.00 L (0.10-0.30) 10^3/uL Baso # (Auto) 0.00 (0.00-0.10) 10^3/uL Immature Gran # (Auto) 0.01 (0.00-0.50) 10^3/uL PT TNP INR 3.3 H (0.9-1.1) Sodium 143 (136-145) mmol/L Potassium 3.8 (3.3-5.3) mmol/L Chloride 109 (98-115) mmol/L Carbon Dioxide 26.0 (21.0-32.0) mmol/L Anion Gap 11.8 (5-15) mmol/L BUN 49 H (6-25) mg/dL Creatinine 2.67 H (0.51-1.17) mg/dL Est Cr Clr Drug Dosing 20.58 mL/min Estimated GFR (MDRD) 23 mL/min Glucose 81 (75 - 99) mg/dL Calcium 8.4 L (8.7-10.3) mg/dL Total Bilirubin 0.4 (0.2-1.0) mg/dL AST 12 L (15-37) U/L ALT 17 (12-78) U/L Alkaline Phosphatase 50 (46-116) IU/L Total Protein 5.5 L (6.4-8.2) g/dL Albumin 3.00 (3.00-4.80) g/dL SARS CoV-2 RNA Rapid OLIVIA (NEGATIVE) Blood Type Gel Antibody Screen Crossmatch 06/24/20 Range/Units 08:10 WBC (5.00-10.00) 10^3/uL RBC (4.50-6.00) 10^6/uL Hgb (13.0-17.0) g/dL Hct (40.0-52.0) % MCV (82.0-92.0) fL MCH (27.0-31.0) pg MCHC (32.0-36.0) g/dL RDW (11.5-14.5) % Plt Count (150-400) 10^3/uL MPV (7.4-10.4) fL Immature Gran % (Auto) (0.0-5.0) % Neut % (Auto) (50.0-70.0) % Lymph % (Auto) (20.0-40.0) % [place] % (Auto) (2.0-8.0) % Eos % (Auto) (1.0-3.0) % Baso % (Auto) (0.0-1.0) % Neut # (Auto) (2.50-7.00) 10^3/uL Lymph # (Auto) (1.00-4.00) 10^3/uL [place] # (Auto) (0.10-0.80) 10^3/uL Eos # (Auto) (0.10-0.30) 10^3/uL Baso # (Auto) (0.00-0.10) 10^3/uL Immature Gran # (Auto) (0.00-0.50) 10^3/uL PT 23.6 H INR 2.4 H (0.9-1.1) Sodium (136-145) mmol/L Potassium (3.3-5.3) mmol/L Chloride (98-115) mmol/L Carbon Dioxide (21.0-32.0) mmol/L Anion Gap (5-15) mmol/L BUN (6-25) mg/dL Creatinine (0.51-1.17) mg/dL Est Cr Clr Drug Dosing mL/min Estimated GFR (MDRD) mL/min Glucose (75 - 99) mg/dL Calcium (8.7-10.3) mg/dL Total Bilirubin (0.2-1.0) mg/dL AST (15-37) U/L ALT (12-78) U/L Alkaline Phosphatase (46-116) IU/L Total Protein (6.4-8.2) g/dL Albumin (3.00-4.80) g/dL SARS CoV-2 RNA Rapid OLIVIA (NEGATIVE) Blood Type Gel Antibody Screen Crossmatch Med Orders - Current: Current Medications Acetaminophen (Tylenol) 650 mg PO Q4H PRN PRN Reason: fever, pain Albuterol/Ipratropium (Duoneb 3.0-0.5 Mg/3 Ml) 3 ml INH QID PRN PRN Reason: Shortness of Breath Carvedilol (Coreg) 6.25 mg PO BIDMEALS [facility] Last Admin: 06/24/20 08:48 Dose: 6.25 mg Documented by: Cholecalciferol (Vitamin D3) 25 mcg PO DAILY [facility] Last Admin: 06/24/20 08:47 Dose: 25 mcg Documented by: Cyanocobalamin (Vitamin B12) 1,000 mcg PO DAILY@1500 [facility] Dexamethasone (Dexamethasone) 20 mg PO DAILY [facility] Stop: 07/01/20 09:01 Docusate Sodium (Colace) 200 mg PO 0800 [facility] Last Admin: 06/24/20 08:47 Dose: 200 mg Documented by: Fluoxetine HCl (Prozac) 40 mg PO DAILY [facility] Last Admin: 06/24/20 08:47 Dose: 40 mg Documented by: Gabapentin (Neurontin) 300 mg PO BEDTIME [facility] Last Admin: 06/23/20 20:56 Dose: 300 mg Documented by: Sodium Chloride (Normal Saline) 1,000 mls @ 71 mls/hr IV ASDIRECTED [facility] Last Admin: 06/24/20 01:50 Dose: 71 mls/hr Documented by: Magnesium Chloride (Mag-64) 128 mg PO DAILY [facility] Last Admin: 06/24/20 08:47 Dose: 128 mg Documented by: Nifedipine (Procardia Xl) 60 mg PO DAILY [facility] Last Admin: 06/24/20 08:47 Dose: 60 mg Documented by: Non-Formulary Medication (Sodium Bicarbonate [Sodium Bicarbonate]) 650 mg PO TID [facility] Omeprazole (Omeprazole) 20 mg PO 0800 [facility] Last Admin: 06/24/20 08:47 Dose: 20 mg Documented by: Oxycodone HCl (Oxycodone) 10 mg PO Q4H PRN PRN Reason: Pain Phytonadione (Vitamin K) 100 mcg PO DAILY [facility] Last Admin: 06/24/20 08:47 Dose: 100 mcg Documented by: Simvastatin (Zocor) 40 mg PO 2000 [facility] Last Admin: 06/23/20 20:56 Dose: 40 mg Documented by: Warfarin Sodium (Coumadin) 5 mg PO DAILY [facility] Warfarin Sodium (Pharmacy To Dose - Warfarin) 1 dose PO ASDIRECTED ELLIE Discontinued Medications Acetaminophen (Tylenol) 650 mg PO ONETIME ONE Stop: 06/23/20 15:01 Last Admin: 06/23/20 15:54 Dose: 650 mg Documented by: Hydrocortisone Sodium Succinate (Solu-Cortef) 100 mg IVPUSH ONETIME ONE Stop: 06/23/20 15:01 Last Admin: 06/23/20 15:55 Dose: 100 mg Documented by: Loratadine (Claritin) 10 mg PO ONETIME ONE Stop: 06/23/20 15:01 Last Admin: 06/23/20 15:55 Dose: 10 mg Documented by: Sepsis Event Note - Evaluation Sepsis Screening Result: No Definite Risk - Focused Exam Vital Signs: Vital Signs Temp Pulse Pulse Resp BP BP Pulse Ox 06/24/20 08:48 78 150/64 H 06/24/20 08:47 150/64 H 06/24/20 07:00 97.1 F 76 16 150/77 H 100 - Problem List Review Problem List Initiated/Reviewed/Updated: Yes - My Orders Last 24 Hours: My Active Orders 06/23/20 13:15 Patient Status [ADT] Routine 06/23/20 13:26 Oxygen Therapy [RC] .PRN Up With Assistance [RC] ASDIRECTED Up to Chair [RC] ASDIRECTED VTE/DVT Education [RC] PER UNIT ROUTINE Resuscitation Status Routine 06/23/20 13:29 Intake and Output [RC] 1400,2200,0600 06/23/20 13:30 Sodium Chloride 0.9% [Normal Saline] 1,000 ml IV ASDIRECTED 06/23/20 13:39 Central Line Assessment [RC] 0900,2100 06/23/20 14:28 RED BLOOD CELLS LP [BBK] Stat 06/23/20 15:00 Vital Signs [RC] 07,15,23 06/23/20 15:33 Communication Order [RC] ROUTINE 06/23/20 15:42 Acetaminophen [TylenoL] 650 mg PO Q4H PRN Albuterol/Ipratropium [DuoNeb 3.0-0.5 MG/3 ML] 3 ml INH QID PRN oxyCODONE 10 mg PO Q4H PRN 06/23/20 15:45 RT Aerosol Therapy [RC] ASDIRECTED 06/23/20 16:15 Warfarin Pharmacy to Dose [Pharmacy to Dose - Warfarin] 1 dose PO ASDIRECTED 06/23/20 Dinner Regular Diet [DIET] carvediloL [Coreg] 6.25 mg PO BIDMEALS 06/23/20 20:00 Simvastatin [Zocor] 40 mg PO 2000 06/23/20 21:00 Gabapentin [Neurontin] 300 mg PO BEDTIME Sodium Bicarbonate [Sodium Bicarbonate] 650 mg PO TID 06/24/20 08:00 Docusate Sodium [Colace] 200 mg PO 0800 Omeprazole 20 mg PO 0800 06/24/20 09:00 Cholecalciferol (Vitamin D3) [Vitamin D3] 25 mcg PO DAILY FLUoxetine [PROzac] 40 mg PO DAILY Magnesium Chloride [Mag-64] 128 mg PO DAILY NIFEdipine [Procardia XL] 60 mg PO DAILY Phytonadione [Vitamin K] 100 mcg PO DAILY Warfarin [Coumadin] 5 mg PO DAILY 06/24/20 15:00 Cyanocobalamin (Vitamin B12) [Vitamin B12] 1,000 mcg PO DAILY@1500 06/28/20 09:00 dexAMETHasone 20 mg PO DAILY - Plan Plan:: History summary Vj is a 79-year-old gentleman whom this author admitted yesterday due to anemia and elevated creatinine. I had seen that [facility] clinic the day of admission due to elevated creatinine levels and anemia. Patient suffers from progressing form of multiple myeloma and as under the close care of oncologist/director of retail marketing Dr. Vargas. He was admitted on to [facility] 06/12/2020 for his 4th cycle of VAD chemotherapy for multiple myeloma and did well with this without major symptoms at that time. He was also admitted about one month prior when he went through cycle #3 however that was mainly for lower extremity weakness. Some lower extremity edema that he controls with compression stockings. His lab work did show some evidence of response to the chemotherapy however he does have a anemia induced by his chemotherapy of 7.1 along with a creatinine of 3.41 which is above his baseline. Vj states that although he does seem to drink quite a bit of water during the day he did lose his balance 2 days prior to admission when he fell twice at home 1 time during the night to use the bathroom and he contributes to dizziness. He does use a 4- wheeled walker however mainly his cane. Also been feeling somewhat nauseated however no vomiting. Has been in PT at [facility] for his lower extremity weakness. At last admission in [facility] I did administer Leukine to improve in his white count/ANC (the patient is allergic to filgrastim). Hospital course 06/23/2020; patient received 1 units of packed red blood cells yesterday and his hemoglobin increased to 7.4%. He was given IV fluids of isotonic saline with a 400 cc initial bolus on admission. 06/24/2020; Patient is feeling better, hemoglobin improved slightly to 7.4%, creatinine dramatically increased to 2.67. He was given isotonic saline infusion throughout the night after initial bolus. Primary hospital problems --LALITHA, prerenal superimposed on chronic kidney disease --Anemia, chemotherapy induced --Immunocompromised host --Chemotherapy induced neutropenia, Adequate ANC, monitor for need for Leukine was CBC a.m. --Nausea, improved, --Weakness, Ongoing PT as outpatient, [facility] --Dependent edema --Multiple myeloma Chronic conditions Chronic diastolic heart failure, Daily weights, monitor for volume overload CAD, S/P CABG in 1998 DDD (degenerative disc disease), lumbar Anxiety, stable Obesity (BMI 30-39.9) EDITH on CPAP Hx of DVT; On Coumadin, INR 2.5 Coumadin , pharmacy to monitor INR Hyperlipidemia Essential hypertension Hx Adenocarcinoma of right lung Liver hemangioma Reactive depression Plan: Continue with IV fluids and oral hydration, monitor renal indices, 1 more unit of PRBC today. Patient is progressing well. - Review of Systems General: Reports: Fatigue, Malaise. Denies: Chills, Night Sweats HEENT: Reports: No Symptoms Pulmonary: Reports: No Symptoms Cardiovascular: Reports: No Symptoms Gastrointestinal: Reports: No Symptoms Genitourinary: Reports: No Symptoms Musculoskeletal: Reports: No Symptoms Skin: Denies: Rash Neurological: Reports: Gait Disturbance. Denies: Confusion Psychiatric: Reports: No Symptoms - Exam Quality Assessment: DVT Prophylaxis (Cross covered with Coumadin). No: Supplemental Oxygen General: Alert, Oriented Neck: Supple Lungs: Clear to Auscultation, Normal Respiratory Effort Cardiovascular: Regular Rate, Regular Rhythm GI/Abdominal Exam: Normal Bowel Sounds, Soft (Male) Exam: Deferred Extremities: Pedal Edema (Right chronic pedal edema 1+ left lower extremity) Skin: Warm, Dry, Intact, Other (No discoloration port catheter right anterior chest wall) Neurological: Normal Speech, Normal Tone, Sensation Intact Psy/Mental Status: Alert, Normal Affect, Normal Mood
[2020-06-24] MEDS: Warfarin 5 MG Tab PO SCH (11:20)
[2020-06-24] MEDS: Cyanocobalamin (Vitamin B12) 500 MCG Tab PO SCH (14:12)
[2020-06-24] MEDS: Simvastatin 20 MG Tab PO SCH (20:08)
[2020-06-24] MEDS: Gabapentin 300 MG Cap PO SCH (20:09)
[2020-06-25] MEDS: Sodium Chloride 0.9% 1,000 ML IV SCH (07:18)
[2020-06-25] MEDS: Carvedilol 6.25 MG Tab PO SCH ×2 (08:54→17:29)
[2020-06-25] MEDS: Omeprazole 20 MG Cap.CR PO SCH (08:54)
[2020-06-25] MEDS: Magnesium Chloride 64 MG Tab.ER PO SCH (08:55)
[2020-06-25] MEDS: Phytonadione 100 MCG Tab PO SCH (08:55)
[2020-06-25] MEDS: FLUoxetine 10 MG Cap PO SCH (08:55)
[2020-06-25] MEDS: NIFEdipine 30 MG Tab.ER PO SCH (08:55)
[2020-06-25] MEDS: Warfarin 5 MG Tab PO SCH (08:55)
[2020-06-25] MEDS: Docusate Sodium 100 MG Cap PO SCH (08:55)
[2020-06-25] MEDS: Cholecalciferol (Vitamin D3) 25 MCG Tab PO SCH (08:55)
--- NOTE | 2020-06-25 10:13 | PCM.PN ---
- General Info Date of Service: 06/25/20 Functional Status: Reports: Pain Controlled - Review of Systems General: Denies: Fever, Weakness, Fatigue HEENT: Reports: No Symptoms Pulmonary: Denies: Cough, Sputum Cardiovascular: Reports: Edema. Denies: Chest Pain, Palpitations, Dyspnea on Exertion, Orthopnea, PND Gastrointestinal: Reports: No Symptoms Genitourinary: Reports: No Symptoms Musculoskeletal: Reports: No Symptoms Skin: Reports: Pallor. Denies: Bruising, Pruritis Neurological: Denies: Difficulty Walking, Gait Disturbance Psychiatric: Reports: No Symptoms - Patient Data Vitals - Most Recent: Last Vital Signs Temp 97.6 F 06/25/20 06:10 Pulse 79 06/25/20 08:54 Resp 20 06/25/20 06:10 BP 150/74 H 06/25/20 08:55 Pulse Ox 93 L 06/25/20 06:10 Weight - Most Recent: 246 lb I&O - Last 24 Hours: Intake & Output 06/24/20 06/25/20 06/25/20 22:59 06:59 14:59 Intake Total 1891 904 Balance 1891 904 Lab Results Last 24 Hours: Laboratory Results - last 24 hr 06/23/20 06/24/20 06/25/20 Range/Units 14:28 08:10 07:50 WBC (5.00-10.00) 10^3/uL RBC (4.50-6.00) 10^6/uL Hgb (13.0-17.0) g/dL Hct (40.0-52.0) % MCV (82.0-92.0) fL MCH (27.0-31.0) pg MCHC (32.0-36.0) g/dL RDW (11.5-14.5) % Plt Count (150-400) 10^3/uL MPV (7.4-10.4) fL Immature Gran % (Auto) (0.0-5.0) % Neut % (Auto) (50.0-70.0) % Lymph % (Auto) (20.0-40.0) % [place] % (Auto) (2.0-8.0) % Eos % (Auto) (1.0-3.0) % Baso % (Auto) (0.0-1.0) % Neut # (Auto) (2.50-7.00) 10^3/uL Lymph # (Auto) (1.00-4.00) 10^3/uL [place] # (Auto) (0.10-0.80) 10^3/uL Eos # (Auto) (0.10-0.30) 10^3/uL Baso # (Auto) (0.00-0.10) 10^3/uL Immature Gran # (Auto) (0.00-0.50) 10^3/uL PT 23.6 H 18.9 H (9.2-11.2) SEC INR 2.4 H 1.9 H (0.9-1.1) Blood Type Cancelled Gel Antibody Screen Cancelled Crossmatch See Detail 06/25/20 Range/Units 07:50 WBC 1.95 L* (5.00-10.00) 10^3/uL RBC 2.69 L (4.50-6.00) 10^6/uL Hgb 8.6 L (13.0-17.0) g/dL Hct 25.7 L (40.0-52.0) % MCV 95.5 H (82.0-92.0) fL MCH 32.0 H (27.0-31.0) pg MCHC 33.5 (32.0-36.0) g/dL RDW 16.0 H (11.5-14.5) % Plt Count 56 L (150-400) 10^3/uL MPV 10.2 (7.4-10.4) fL Immature Gran % (Auto) 1.0 (0.0-5.0) % Neut % (Auto) 79.0 H (50.0-70.0) % Lymph % (Auto) 15.9 L (20.0-40.0) % [place] % (Auto) 3.6 (2.0-8.0) % Eos % (Auto) 0.5 L (1.0-3.0) % Baso % (Auto) 0.0 (0.0-1.0) % Neut # (Auto) 1.54 L (2.50-7.00) 10^3/uL Lymph # (Auto) 0.31 L (1.00-4.00) 10^3/uL [place] # (Auto) 0.07 L (0.10-0.80) 10^3/uL Eos # (Auto) 0.01 L (0.10-0.30) 10^3/uL Baso # (Auto) 0.00 (0.00-0.10) 10^3/uL Immature Gran # (Auto) 0.02 (0.00-0.50) 10^3/uL PT (9.2-11.2) SEC INR (0.9-1.1) Blood Type Gel Antibody Screen Crossmatch Med Orders - Current: Current Medications Acetaminophen (Tylenol) 650 mg PO Q4H PRN PRN Reason: fever, pain Albuterol/Ipratropium (Duoneb 3.0-0.5 Mg/3 Ml) 3 ml INH QID PRN PRN Reason: Shortness of Breath Carvedilol (Coreg) 6.25 mg PO BIDMEALS [facility] Last Admin: 06/25/20 08:54 Dose: 6.25 mg Documented by: Cholecalciferol (Vitamin D3) 25 mcg PO DAILY [facility] Last Admin: 06/25/20 08:55 Dose: 25 mcg Documented by: Cyanocobalamin (Vitamin B12) 1,000 mcg PO DAILY@1500 [facility] Last Admin: 06/24/20 14:12 Dose: 1,000 mcg Documented by: Dexamethasone (Dexamethasone) 20 mg PO DAILY [facility] Stop: 07/01/20 09:01 Docusate Sodium (Colace) 200 mg PO 0800 [facility] Last Admin: 06/25/20 08:55 Dose: 200 mg Documented by: Fluoxetine HCl (Prozac) 40 mg PO DAILY [facility] Last Admin: 06/25/20 08:55 Dose: 40 mg Documented by: Gabapentin (Neurontin) 300 mg PO BEDTIME [facility] Last Admin: 06/24/20 20:09 Dose: 300 mg Documented by: Sodium Chloride (Normal Saline) 1,000 mls @ 71 mls/hr IV ASDIRECTED [facility] Last Admin: 06/25/20 07:18 Dose: 71 mls/hr Documented by: Magnesium Chloride (Mag-64) 128 mg PO DAILY [facility] Last Admin: 06/25/20 08:55 Dose: 128 mg Documented by: Nifedipine (Procardia Xl) 60 mg PO DAILY [facility] Last Admin: 06/25/20 08:55 Dose: 60 mg Documented by: Non-Formulary Medication (Sodium Bicarbonate [Sodium Bicarbonate]) 650 mg PO TID [facility] Omeprazole (Omeprazole) 20 mg PO 0800 [facility] Last Admin: 06/25/20 08:54 Dose: 20 mg Documented by: Oxycodone HCl (Oxycodone) 10 mg PO Q4H PRN PRN Reason: Pain Phytonadione (Vitamin K) 100 mcg PO DAILY [facility] Last Admin: 06/25/20 08:55 Dose: 100 mcg Documented by: Simvastatin (Zocor) 40 mg PO 1999 [facility] Last Admin: 06/24/20 20:08 Dose: 40 mg Documented by: Warfarin Sodium (Coumadin) 5 mg PO DAILY [facility] Last Admin: 06/25/20 08:55 Dose: 5 mg Documented by: Warfarin Sodium (Pharmacy To Dose - Warfarin) 1 dose PO ASDIRECTED [facility] Discontinued Medications Acetaminophen (Tylenol) 650 mg PO ONETIME ONE Stop: 06/23/20 15:01 Last Admin: 06/23/20 15:54 Dose: 650 mg Documented by: Hydrocortisone Sodium Succinate (Solu-Cortef) 100 mg IVPUSH ONETIME ONE Stop: 06/23/20 15:01 Last Admin: 06/23/20 15:55 Dose: 100 mg Documented by: Loratadine (Claritin) 10 mg PO ONETIME ONE Stop: 06/23/20 15:01 Last Admin: 06/23/20 15:55 Dose: 10 mg Documented by: - Exam Quality Assessment: No: Supplemental Oxygen General: Alert, Oriented Neck: Supple Lungs: Clear to Auscultation, Normal Respiratory Effort Cardiovascular: Regular Rate, Regular Rhythm GI/Abdominal Exam: Distended Back Exam: No: CVA Tenderness (L), CVA Tenderness (R) Extremities: Pedal Edema (1+ nonpitting left lower extremity) Peripheral Pulses: 2+: Carotid (L), Carotid (R), Brachial (L), Brachial (R), Radial (L), Radial (R), Femoral (L), Femoral (R), Popliteal (L), Popliteal (R), Posterior Tibial (L), Posterior Tibial (R), Dorsalis Pedis (L), Dorsalis Pedis (R) Skin: Warm, Other (Back to Port-A-Cath left anterior chest wall) Neurological: Normal Gait, Normal Tone, Sensation Intact Psy/Mental Status: Alert, Normal Affect, Normal Mood Sepsis Event Note - Evaluation Sepsis Screening Result: No Definite Risk - Focused Exam Vital Signs: Vital Signs Temp Pulse Pulse Resp BP BP Pulse Ox 06/25/20 08:55 150/74 H 06/25/20 08:54 79 150/74 H 06/25/20 06:10 97.6 F 91 20 168/77 H 93 L 06/24/20 22:19 98.8 F 80 20 141/68 H 95 - Problem List Review Problem List Initiated/Reviewed/Updated: Yes - My Orders Last 24 Hours: My Active Orders 06/24/20 15:00 Cyanocobalamin (Vitamin B12) [Vitamin B12] 1,000 mcg PO DAILY@1500 06/25/20 10:06 BMP [BASIC METABOLIC PANEL,BMP] [CHEM] Routine 06/26/20 05:11 INR,PT,PROTHROMBIN TIME [COAG] DAILY 06/27/20 05:11 INR,PT,PROTHROMBIN TIME [COAG] DAILY 06/28/20 09:00 dexAMETHasone 20 mg PO DAILY - Plan Plan:: History summary Vj is a 79-year-old gentleman whom this author admitted yesterday due to anemia and elevated creatinine. I had seen that [facility] the day of admission due to elevated creatinine levels and anemia. Patient suffers from progressing form of multiple myeloma and as under the close care of oncologist/mechanist Dr. Wagoner's. He was admitted on to [facility] 06/12/2020 for his 4th cycle of VAD chemotherapy for multiple myeloma and did well with this without major symptoms at that time. He was also admitted about one month prior when he went through cycle #3 however that was mainly for lower extremity weakness. Some lower extremity edema that he controls with compression stockings. His lab work did show some evidence of response to the chemotherapy however he does have a anemia induced by his chemotherapy of 7.1 along with a creatinine of 3.41 which is above his baseline. Vj states that although he does seem to drink quite a bit of water during the day he did lose his balance 2 days prior to admission when he fell twice at home 1 time during the night to use the bathroom and he contributes to dizziness. He does use a 4- wheeled walker however mainly his cane. Also been feeling somewhat nauseated however no vomiting. Has been in PT at [facility] for his lower extremity weakness. At last admission in [facility] I did administer Leukine to improve in his white count/ANC (the patient is allergic to filgrastim). Hospital course 06/23/2020; patient received 1 units of packed red blood cells yesterday and his hemoglobin increased to 7.4%. He was given IV fluids of isotonic saline with a 400 cc initial bolus on admission. 06/24/2020; Patient is feeling better, hemoglobin improved slightly to 7.4%, creatinine dramatically increased to 2.67. He was given isotonic saline infusion throughout the night after initial bolus. 06/25/2020; patient is WBC down to 1.95 with a subsequent ANC of 1540. No signs of systemic infection. No chills, no shortness of breath. Seems to be tolerating fluids well, BUN 41 creatinine 2.54 dramatically improving. No fever, blood pressure 150/74. Not requiring oxygen. Slightly unsteady on his feet when he goes to the restroom. Hemoglobin 8.6 after second unit of packed red blood cells. No signs of fluid overload. Some lower extremity weakness however seems to be improving. Primary hospital problems --LALITHA, prerenal superimposed on chronic kidney disease, greatly improved --Anemia, chemotherapy induced, hemoglobin improved 8.6 after 2 units of PRBC --Immunocompromised host, ANC of 1540, add neutropenic precautions, neutropenic diet --Chemotherapy induced neutropenia, Leukine 500 micrograms subcu --Multiple myeloma --Nausea, improved, --Weakness, Ongoing PT as outpatient, [facility], follow 5 for PT here at [place]. Social service determination --Dependent edema, improved Chronic conditions Chronic diastolic heart failure, Daily weights, monitor for volume overload CAD, S/P CABG in 1998 DDD (degenerative disc disease), lumbar Anxiety, stable Obesity (BMI 30-39.9) EDITH on CPAP Hx of DVT; On Coumadin, INR 2.5 Coumadin , pharmacy to monitor INR Hyperlipidemia Essential hypertension Hx Adenocarcinoma of right lung Liver hemangioma Reactive depression Plan: --Continue inpatient stay for monitoring of white count, indices along with IV fluids --Leukine 500 mcg subcu --Saline lock after current bag of fluids completion. Encourage p.o. fluid. --Continue holding Lasix. --Neutropenic diet and precautions --labs in am, prevent blood draw anemia --Social service/PT consultation to determine if swing bed candidate
[2020-06-25 10:32] LABS: ANION GAP 13.2 mmol/L (5-15)
[2020-06-25] MEDS ORDERED: Sodium Chloride 0.9% 10 ML Syringe FLUSH PRN (10:46)
[2020-06-25] MEDS: Cyanocobalamin (Vitamin B12) 500 MCG Tab PO SCH (14:03)
[2020-06-25] MEDS: oxyCODONE 5 MG Tab PO PRN ×2 (15:58→20:11)
[2020-06-25] MEDS ORDERED: cefTRIAXone 1 GM Vial IVPUSH ONE (17:33)
--- NOTE | 2020-06-25 18:43 | CR ---
[id number] RAD/RAD Chest PA And Lateral EXAM: FRONTAL AND LATERAL CHEST INDICATION: DIFFICULTY BREATHING. COMPARISON: February 17, 2019. DISCUSSION: Cardiomegaly with development of mild central vascular congestion and a small right pleural effusion compatible with congestive heart failure. No definite infiltrates. Right internal jugular approach port tip high right atrium. Sternotomy. Chronic right rib fractures. IMPRESSION: 1. Mild congestive heart failure. Yadiel Shukla MD 06/25/20 1842 Thank you for allowing us to participate in the care of your patient.
[2020-06-25] MEDS ORDERED: Furosemide 40 MG/4 ML VIAL IVPUSH ONE (18:50)
[2020-06-25] MEDS: Gabapentin 300 MG Cap PO SCH (20:11)
[2020-06-25] MEDS: Simvastatin 20 MG Tab PO SCH (20:11)
[2020-06-26 08:10] LABS: ANION GAP 11.5 mmol/L (5-15)
[2020-06-26] MEDS: Carvedilol 6.25 MG Tab PO SCH ×2 (08:40→18:03)
[2020-06-26] MEDS: Omeprazole 20 MG Cap.CR PO SCH (08:41)
[2020-06-26] MEDS: NIFEdipine 30 MG Tab.ER PO SCH (08:41)
[2020-06-26] MEDS: Cholecalciferol (Vitamin D3) 25 MCG Tab PO SCH (08:41)
[2020-06-26] MEDS: Warfarin 5 MG Tab PO SCH (08:41)
[2020-06-26] MEDS: Magnesium Chloride 64 MG Tab.ER PO SCH (08:42)
[2020-06-26] MEDS: Docusate Sodium 100 MG Cap PO SCH (08:42)
[2020-06-26] MEDS: Phytonadione 100 MCG Tab PO SCH (08:42)
[2020-06-26] MEDS: FLUoxetine 10 MG Cap PO SCH (08:42)
--- NOTE | 2020-06-26 09:39 | PCM.PN ---
- General Info Date of Service: 06/26/20 Functional Status: Reports: Pain Controlled, Tolerating Diet, Ambulating - Review of Systems General: Reports: Weakness. Denies: Fever, Night Sweats HEENT: Reports: No Symptoms Pulmonary: Denies: Shortness of Breath, Cough, Sputum Cardiovascular: Reports: Edema. Denies: Chest Pain Gastrointestinal: Reports: No Symptoms Genitourinary: Reports: No Symptoms Musculoskeletal: Reports: No Symptoms Skin: Reports: Pallor. Denies: Rash Neurological: Reports: Weakness. Denies: Confusion, Dizziness, Headache, Numbness Psychiatric: Reports: No Symptoms - Patient Data Vitals - Most Recent: Last Vital Signs Temp 97.5 F 06/26/20 06:07 Pulse 89 06/26/20 08:40 Resp 20 06/26/20 06:07 BP 120/53 L 06/26/20 08:41 Pulse Ox 97 06/26/20 06:07 Weight - Most Recent: 242 lb 3.2 oz I&O - Last 24 Hours: Intake & Output 06/25/20 06/26/20 06/26/20 22:59 06:59 14:59 Intake Total 794 150 Output Total 200 450 Balance 594 -300 Lab Results Last 24 Hours: Laboratory Results - last 24 hr 06/25/20 06/26/20 06/26/20 Range/Units 08:50 07:30 07:30 WBC (5.00-10.00) 10^3/uL RBC (4.50-6.00) 10^6/uL Hgb (13.0-17.0) g/dL Hct (40.0-52.0) % MCV (82.0-92.0) fL MCH (27.0-31.0) pg MCHC (32.0-36.0) g/dL RDW (11.5-14.5) % Plt Count (150-400) 10^3/uL MPV Immature Gran % (Auto) (0.0-5.0) % Neut % (Auto) (50.0-70.0) % Lymph % (Auto) (20.0-40.0) % Grundy % (Auto) (2.0-8.0) % Eos % (Auto) (1.0-3.0) % Baso % (Auto) (0.0-1.0) % Neut # (Auto) (2.50-7.00) 10^3/uL Lymph # (Auto) (1.00-4.00) 10^3/uL Grundy # (Auto) (0.10-0.80) 10^3/uL Eos # (Auto) (0.10-0.30) 10^3/uL Baso # (Auto) (0.00-0.10) 10^3/uL Immature Gran # (Auto) (0.00-0.50) 10^3/uL PT 17.8 H (9.2-11.2) SEC INR 1.8 H (0.9-1.1) Sodium 140 137 (136-145) mmol/L Potassium 4.1 3.9 (3.3-5.3) mmol/L Chloride 106 105 (98-115) mmol/L Carbon Dioxide 24.9 24.4 (21.0-32.0) mmol/L Anion Gap 13.2 11.5 (5-15) mmol/L BUN 41 H 38 H (6-25) mg/dL Creatinine 2.54 H 2.52 H (0.51-1.17) mg/dL Est Cr Clr Drug Dosing 21.63 21.80 mL/min Estimated GFR (MDRD) 25 25 mL/min Glucose 83 100 H (75 - 99) mg/dL Calcium 8.2 L 7.8 L (8.7-10.3) mg/dL 06/26/20 Range/Units 07:30 WBC 1.60 L* (5.00-10.00) 10^3/uL RBC 2.51 L (4.50-6.00) 10^6/uL Hgb 8.3 L (13.0-17.0) g/dL Hct 23.9 L (40.0-52.0) % MCV 95.2 H (82.0-92.0) fL MCH 33.1 H (27.0-31.0) pg MCHC 34.7 (32.0-36.0) g/dL RDW 16.4 H (11.5-14.5) % Plt Count 71 L (150-400) 10^3/uL MPV TNP Immature Gran % (Auto) 0.6 (0.0-5.0) % Neut % (Auto) 72.5 H (50.0-70.0) % Lymph % (Auto) 18.1 L (20.0-40.0) % Grundy % (Auto) 6.3 (2.0-8.0) % Eos % (Auto) 2.5 (1.0-3.0) % Baso % (Auto) 0.0 (0.0-1.0) % Neut # (Auto) 1.16 L (2.50-7.00) 10^3/uL Lymph # (Auto) 0.29 L (1.00-4.00) 10^3/uL Grundy # (Auto) 0.10 (0.10-0.80) 10^3/uL Eos # (Auto) 0.04 L (0.10-0.30) 10^3/uL Baso # (Auto) 0.00 (0.00-0.10) 10^3/uL Immature Gran # (Auto) 0.01 (0.00-0.50) 10^3/uL PT (9.2-11.2) SEC INR (0.9-1.1) Sodium (136-145) mmol/L Potassium (3.3-5.3) mmol/L Chloride (98-115) mmol/L Carbon Dioxide (21.0-32.0) mmol/L Anion Gap (5-15) mmol/L BUN (6-25) mg/dL Creatinine (0.51-1.17) mg/dL Est Cr Clr Drug Dosing mL/min Estimated GFR (MDRD) mL/min Glucose (75 - 99) mg/dL Calcium (8.7-10.3) mg/dL Med Orders - Current: Current Medications Acetaminophen (Tylenol) 650 mg PO Q4H PRN PRN Reason: fever, pain Albuterol/Ipratropium (Duoneb 3.0-0.5 Mg/3 Ml) 3 ml INH QID PRN PRN Reason: Shortness of Breath Last Admin: 06/25/20 20:13 Dose: 3 ml Documented by: Carvedilol (Coreg) 6.25 mg PO BIDMEALS [facility] Last Admin: 06/26/20 08:40 Dose: 6.25 mg Documented by: Cholecalciferol (Vitamin D3) 25 mcg PO DAILY [facility] Last Admin: 06/26/20 08:41 Dose: 25 mcg Documented by: Cyanocobalamin (Vitamin B12) 1,000 mcg PO DAILY@1500 [facility] Last Admin: 06/25/20 14:03 Dose: 1,000 mcg Documented by: Dexamethasone (Dexamethasone) 20 mg PO DAILY [facility] Stop: 07/01/20 09:01 Docusate Sodium (Colace) 200 mg PO 0800 [facility] Last Admin: 06/26/20 08:42 Dose: 200 mg Documented by: Fluoxetine HCl (Prozac) 40 mg PO DAILY [facility] Last Admin: 06/26/20 08:42 Dose: 40 mg Documented by: Gabapentin (Neurontin) 300 mg PO BEDTIME [facility] Last Admin: 06/25/20 20:11 Dose: 300 mg Documented by: Magnesium Chloride (Mag-64) 128 mg PO DAILY [facility] Last Admin: 06/26/20 08:42 Dose: 128 mg Documented by: Nifedipine (Procardia Xl) 60 mg PO DAILY [facility] Last Admin: 06/26/20 08:41 Dose: 60 mg Documented by: Non-Formulary Medication (Sodium Bicarbonate [Sodium Bicarbonate]) 650 mg PO TID [facility] Omeprazole (Omeprazole) 20 mg PO 0800 [facility] Last Admin: 06/26/20 08:41 Dose: 20 mg Documented by: Oxycodone HCl (Oxycodone) 10 mg PO Q4H PRN PRN Reason: Pain Last Admin: 06/25/20 20:11 Dose: 10 mg Documented by: Phytonadione (Vitamin K) 100 mcg PO DAILY [facility] Last Admin: 06/26/20 08:42 Dose: 100 mcg Documented by: Sargramostim (Leukine) 500 mcg SUBCUT DAILY [facility] Stop: 06/27/20 23:59 Last Admin: 06/25/20 12:03 Dose: 500 mcg Documented by: Simvastatin (Zocor) 40 mg PO 1999 [facility] Last Admin: 06/25/20 20:11 Dose: 40 mg Documented by: Sodium Chloride (Saline Flush) 10 ml FLUSH Q8HR PRN PRN Reason: keep vein open Warfarin Sodium (Coumadin) 5 mg PO DAILY [facility] Last Admin: 06/26/20 08:41 Dose: 5 mg Documented by: Warfarin Sodium (Pharmacy To Dose - Warfarin) 1 dose PO ASDIRECTED [facility] Discontinued Medications Acetaminophen (Tylenol) 650 mg PO ONETIME ONE Stop: 06/23/20 15:01 Last Admin: 06/23/20 15:54 Dose: 650 mg Documented by: Ceftriaxone Sodium (Rocephin) 1 gm IVPUSH ONETIME ONE Stop: 06/25/20 17:34 Last Admin: 06/25/20 17:58 Dose: 1 gm Documented by: Furosemide (Lasix) 20 mg IVPUSH NOW ONE Stop: 06/25/20 18:51 Last Admin: 06/25/20 19:07 Dose: 20 mg Documented by: Hydrocortisone Sodium Succinate (Solu-Cortef) 100 mg IVPUSH ONETIME ONE Stop: 06/23/20 15:01 Last Admin: 06/23/20 15:55 Dose: 100 mg Documented by: Sodium Chloride (Normal Saline) 1,000 mls @ 71 mls/hr IV ASDIRECTED ELLIE Last Infusion: 06/25/20 19:08 Dose: 30 mls/hr Documented by: Loratadine (Claritin) 10 mg PO ONETIME ONE Stop: 06/23/20 15:01 Last Admin: 06/23/20 15:55 Dose: 10 mg Documented by: - Exam Quality Assessment: Supplemental Oxygen, DVT Prophylaxis General: Alert, Oriented Lungs: Clear to Auscultation, Normal Respiratory Effort Cardiovascular: Regular Rate, Regular Rhythm GI/Abdominal Exam: Soft Back Exam: No: CVA Tenderness (L), CVA Tenderness (R) Skin: Warm, Dry, Intact Wound/Incisions: Other (Intact port right upper anterior chest wall) Neurological: Normal Speech, Normal Tone, Sensation Intact Psy/Mental Status: Alert, Normal Affect, Normal Mood Sepsis Event Note - Evaluation Sepsis Screening Result: Severe Sepsis Risk - Focused Exam Vital Signs: Vital Signs Temp Pulse Pulse Resp BP BP Pulse Ox 06/26/20 08:41 120/53 L 06/26/20 08:40 89 120/53 L 06/26/20 06:07 97.5 F 80 20 157/77 H 97 06/25/20 22:09 97.7 F 85 20 137/66 95 - Problem List Review Problem List Initiated/Reviewed/Updated: Yes - My Orders Last 24 Hours: My Active Orders 06/25/20 10:45 Sargramostim [Leukine] 500 mcg SUBCUT DAILY 06/25/20 10:46 Sodium Chloride 0.9% [Saline Flush] 10 ml FLUSH Q8HR PRN Convert IV to Saline Lock [OM.PC] Routine 06/25/20 10:49 Consult to Physical Therapy [PT Evaluation and Treatment] [CONS] Routine 06/25/20 17:43 CULTURE BLOOD [BC] Stat Blood Culture x2 Reflex Set [OM.PC] Stat 06/27/20 05:11 INR,PT,PROTHROMBIN TIME [COAG] DAILY 06/28/20 09:00 dexAMETHasone 20 mg PO DAILY - Plan Plan:: History summary Vj is a 79-year-old gentleman whom this author admitted yesterday due to anemia and elevated creatinine. I had seen that [facility] the day of admission due to elevated creatinine levels and anemia. Patient suffers from progressing form of multiple myeloma and as under the close care of oncologist/studio manager Dr. Langleys. He was admitted on to [facility] 06/12/2020 for his 4th cycle of VAD chemotherapy for multiple myeloma and did well with this without major symptoms at that time. He was also admitted about one month prior when he went through cycle #3 however that was mainly for lower extremity weakness. Some lower extremity edema that he controls with compression stockings. His lab work did show some evidence of response to the chemotherapy however he does have a anemia induced by his chemotherapy of 7.1 along with a creatinine of 3.41 which is above his baseline. Vj states that although he does seem to drink quite a bit of water during the day he did lose his balance 2 days prior to admission when he fell twice at home 1 time during the night to use the bathroom and he contributes to dizziness. He does use a 4- wheeled walker however mainly his cane. Also been feeling somewhat nauseated however no vomiting. Has been in PT at [facility] for his lower extremity weakness. At last admission in [facility] I did administer Leukine to improve in his white count/ANC (the patient is allergic to filgrastim). Hospital course 06/23/2020; patient received 1 units of packed red blood cells yesterday and his hemoglobin increased to 7.4%. He was given IV fluids of isotonic saline with a 400 cc initial bolus on admission. 06/24/2020; Patient is feeling better, hemoglobin improved slightly to 7.4%, creatinine dramatically increased to 2.67. He was given isotonic saline infusio n throughout the night after initial bolus. 06/25/2020; patient is WBC down to 1.95 with a subsequent ANC of 1540. No signs of systemic infection. No chills, no shortness of breath. Seems to be to lerating fluids well, BUN 41 creatinine 2.54 dramatically improving. No fever, blood pressure 150/74. Not requiring oxygen. Slightly unsteady on his feet when he goes to the restroom. Hemoglobin 8.6 after second unit of packed red blood cells. No signs of fluid overload. Some lower extremity weakness however seems to be improving 06/26/2020; patient sitting in chair conversing feeling better today. Yesterday afternoon patient developed low-grade fever, all provider was notified patient was given 1 g of Rocephin, blood cultures were drawn this morning, 20 mg of Lasix last night. No shortness of breath, lungs clear. Chest x-ray demonstrated mild CHF with mild central vascular crowding. WBC decreasing, ANC~ 1150 no signs of systemic infection. Creatinine below baseline at 2.52 BUN 38. Primary hospital problems --LALITHA, prerenal superimposed on chronic kidney disease, greatly improved --Anemia, chemotherapy induced, hemoglobin improved 8.3 after 2 units of PRBC --Immunocompromised host, ANC of 1150, add neutropenic precautions, neutropenic diet, give Leukine today change to IV --Chemotherapy induced neutropenia, Leukine 500 micrograms iv today --Multiple myeloma --Weakness, Ongoing PT as outpatient, Layo CALVERT, Desires to go cont with [facility] in [place]. --Dependent edema, improved Chronic conditions Chronic diastolic heart failure, Daily weights, CAD, S/P CABG in 1998 DDD (degenerative disc disease), lumbar Anxiety, stable Obesity (BMI 30-39.9) EDITH on CPAP Hx of DVT; On Coumadin, INR 2.5 Coumadin , pharmacy to monitor INR Hyperlipidemia Essential hypertension Hx Adenocarcinoma of right lung Liver hemangioma Reactive depression Plan: --give Leukine today change to IV --Continue inpatient stay for monitoring of white count, indices along with IV fluids --Continue holding Lasix. --Neutropenic diet and precautions --labs in am, prevent blood draw anemia --Doubtful swing bed candidate here as no qualifying service and the patient does desire to continue with PT [facility] in [place].
[2020-06-26] MEDS ORDERED: Sodium Chloride 0.9% 50 ML IV PRN (11:46)
[2020-06-26] MEDS ORDERED: SODIUM CHLORIDE 0.9% IV ONE (12:00)
[2020-06-26] MEDS ORDERED: [UNRECOGNIZED DRUG - OTHER] IV ONE (12:00)
[2020-06-26] MEDS: Cyanocobalamin (Vitamin B12) 500 MCG Tab PO SCH (16:15)
[2020-06-26] MEDS: Gabapentin 300 MG Cap PO SCH (20:37)
[2020-06-26] MEDS: Simvastatin 20 MG Tab PO SCH (20:37)
[2020-06-27] MEDS: Magnesium Chloride 64 MG Tab.ER PO SCH (08:05)
[2020-06-27] MEDS: Phytonadione 100 MCG Tab PO SCH (08:05)
[2020-06-27] MEDS: Omeprazole 20 MG Cap.CR PO SCH (08:05)
[2020-06-27] MEDS: Warfarin 5 MG Tab PO SCH (08:05)
[2020-06-27] MEDS: Docusate Sodium 100 MG Cap PO SCH (08:06)
[2020-06-27] MEDS: FLUoxetine 10 MG Cap PO SCH (08:06)
[2020-06-27] MEDS: Carvedilol 6.25 MG Tab PO SCH (08:06)
[2020-06-27] MEDS: Cholecalciferol (Vitamin D3) 25 MCG Tab PO SCH (08:06)
[2020-06-27 08:07] VITALS: BP 113/62; PULSE 83
[2020-06-27] MEDS: NIFEdipine 30 MG Tab.ER PO SCH (08:07)
--- NOTE | 2020-06-27 11:22 | PCM.DCSUM1 ---
Discharge Summary - Hospital Course Diagnosis: Stroke: No - Discharge Data Discharge Date: 06/27/20 Discharge Disposition: DC/Tfer W/I Hosp To [facility] Condition: Poor - Referral to Home Health Primary Care Physician: Nancie Campoverde MD - Patient Summary/Data Consults: Consultations 06/25/20 10:49 Consult to Physical Therapy [PT Evaluation and Treatment] [CONS] Routine - Discharge Plan *PRESCRIPTION DRUG MONITORING PROGRAM REVIEWED*: Not Applicable *COPY OF PRESCRIPTION DRUG MONITORING REPORT IN PATIENT ANAHY: Not Applicable Home Medications: Home Meds Omeprazole 20 mg PO 0800 02/14/15 [History] Simvastatin 40 mg PO 199902/14/15 [History] Docusate Sodium [Colace] 200 mg PO 0800 09/02/15 [History] Gabapentin [Neurontin] 300 mg PO BEDTIME 06/10/17 [History] EPINEPHrine [Epipen 2-Hunter] 0.3 mg IM ASDIRECTED PRN #1 ml 07/07/18 [Rx] Cyanocobalamin (Vitamin B-12) [B-12] 1,000 mcg PO DAILY@1500 11/30/18 [History] Lidocaine/Prilocaine [EMLA Crm] 1 applic TOP ASDIRECTED 02/08/19 [History] Warfarin [Coumadin] 5 mg PO DAILY 02/08/19 [History] oxyCODONE 10 mg PO Q4H PRN 04/26/19 [History] Acetaminophen [Tylenol] 650 mg PO Q4H PRN tablet 05/27/19 [Rx] Furosemide [Lasix] 40 mg PO QAM 06/01/19 [History] Cholecalciferol (Vitamin D3) [Vitamin D3] 1,000 unit PO DAILY 04/23/20 [History] FLUoxetine [PROzac] 40 mg PO DAILY 05/14/20 [History] NIFEdipine [Nifedipine ER] 60 mg PO DAILY 05/14/20 [History] carvediloL [Carvedilol] 6.25 mg PO BIDMEALS 05/14/20 [History] Albuterol/Ipratropium [DuoNeb 3.0-0.5 MG/3 ML] 3 ml INH QID PRN 05/27/20 [History] Magnesium Chloride [Mag-64] 128 mg PO DAILY 05/27/20 [History] Phytonadione [Vitamin K] 100 mcg PO DAILY 05/27/20 [History] Sodium Bicarbonate 650 mg PO TID 06/18/20 [History] dexAMETHasone [Dexamethasone] 20 mg PO ASDIRECTED 06/23/20 [History] - Discharge Summary/Plan Comment DC Time >30 min.: Yes Discharge Summary/Plan Comment: Final diagnosis LALITHA, prerenal superimposed on chronic kidney disease, greatly improved Anemia, chemotherapy induced, Immunocompromised host, Chemotherapy induced neutropenia, Multiple myeloma Weakness, Dependent edema, improved History summary Vj is a 79-year-old gentleman whom this author admitted yesterday due to anemia and elevated creatinine. I had seen that [facility] clinic the day of admission due to elevated creatinine levels and anemia. Patient suffers from progressing form of multiple myeloma and as under the close care of oncologist/solar installer technician Dr. Wagoner's. He was admitted on to [facility] 06/12/2020 for his 4th cycle of VAD chemotherapy for multiple myeloma and did well with this without major symptoms at that time. He was also admitted about one month prior when he went through cycle #3 however that was mainly for lower extremity weakness. Some lower extremity edema that he controls with compression stockings. His lab work did show some evidence of response to the chemotherapy however he does have a anemia induced by his chemotherapy of 7.1 along with a creatinine of 3.41 which is above his baseline. Vj states that although he does seem to drink quite a bit of water during the day he did lose his balance 2 days prior to admission when he fell twice at home 1 time during the night to use the bathroom and he contributes to dizziness. He does use a 4- wheeled walker however mainly his cane. Also been feeling somewhat nauseated however no vomiting. Has been in PT at [facility] for his lower extremity weakness. At last admission in [facility] I did administer Leukine to improve in his white count/ANC (the patient is allergic to filgrastim). Hospital course 06/23/2020; patient received 1 units of packed red blood cells yesterday and his hemoglobin increased to 7.4%. He was given IV fluids of isotonic saline with a 400 cc initial bolus on admission. 06/24/2020; Patient is feeling better, hemoglobin improved slightly to 7.4%, creatinine dramatically increased to 2.67. He was given isotonic saline infusion throughout the night after initial bolus. 06/25/2020; patient is WBC down to 1.95 with a subsequent ANC of 1540. No signs of systemic infection. No chills, no shortness of breath. Seems to be tolerating fluids well, BUN 41 creatinine 2.54 dramatically improving. No fever, blood pressure 150/74. Not requiring oxygen. Slightly unsteady on his feet when he goes to the restroom. Hemoglobin 8.6 after second unit of packed red blood cells. No signs of fluid overload. Some lower extremity weakness however seems to be improving 06/26/2020; patient sitting in chair conversing feeling better today. Yesterday afternoon patient developed low-grade fever, all provider was notified patient was given 1 g of Rocephin, blood cultures were drawn this morning, 20 mg of Lasix last night. No shortness of breath, lungs clear. Chest x-ray demonstrated mild CHF with mild central vascular crowding. WBC decreasing, ANC~ 1150 no signs of systemic infection. Creatinine below baseline at 2.52 BUN 38. 06/27/2020; patient's white count continues to decrease with an ANC less than 1000. He had been administered a total of 3 doses of Leukine so far with 2 unit s of packed red blood cells with decreasing anemia however no signs of occult bleeding. Slightly weak today. He is still requiring oxygen 1 to 2 L. Medication changes/adjustments upon discharge --Sodium bicarb, spouse to bring in PTOM --Start Lasix however 20 mg daily Disposition/overall plan --Discharged patient from acute care into correction here at [facility]. Patient meets qualification for physical therapy --give Leukine today inpatient record, Leukine daily thereafter until WBC 3000 --Patient spouse was updated, she is concerned how she cannot visit patient. Discussed with ARMINDA and here at [facility] for care conference early next week - General Info Functional Status: Reports: Pain Controlled, Tolerating Diet, Ambulating, Urinating - Review of Systems General: Reports: Weakness Pulmonary: Reports: Shortness of Breath. Denies: Cough, Sputum, Hemoptysis, Wheezing Cardiovascular: Denies: Orthopnea Gastrointestinal: Reports: No Symptoms Genitourinary: Reports: No Symptoms Musculoskeletal: Reports: No Symptoms Skin: Reports: Pallor Neurological: Reports: Pre-Existing Deficit, Weakness, Gait Disturbance. Denies: Dizziness Psychiatric: Reports: No Symptoms - Patient Data Vitals - Most Recent: Last Vital Signs Temp 98.0 F 10/16/20 06:10 Pulse 83 06/27/20 08:06 Resp 20 06/27/20 06:10 BP 113/62 06/27/20 08:07 Pulse Ox 97 06/27/20 06:10 Weight - Most Recent: 242 lb 3.2 oz I&O - Last 24 hours: Intake & Output 06/26/20 06/27/20 06/27/20 22:59 06:59 14:59 Intake Total 600 150 Balance 600 150 Lab Results - Last 24 hrs: Laboratory Results - last 24 hr 06/27/20 06/27/20 Range/Units 07:25 07:25 WBC 1.46 L* (5.00-10.00) 10^3/uL RBC 2.33 L (4.50-6.00) 10^6/uL Hgb 7.5 L (13.0-17.0) g/dL Hct 22.4 L (40.0-52.0) % MCV 96.1 H (82.0-92.0) fL MCH 32.2 H (27.0-31.0) pg MCHC 33.5 (32.0-36.0) g/dL RDW 16.5 H (11.5-14.5) % Plt Count 57 L (150-400) 10^3/uL MPV 12.2 H (7.4-10.4) fL Immature Gran % (Auto) 0.7 (0.0-5.0) % Neut % (Auto) 66.4 (50.0-70.0) % Lymph % (Auto) 19.9 L (20.0-40.0) % [place] % (Auto) 10.3 H (2.0-8.0) % Eos % (Auto) 2.7 (1.0-3.0) % Baso % (Auto) 0.0 (0.0-1.0) % Neut # (Auto) 0.97 L (2.50-7.00) 10^3/uL Lymph # (Auto) 0.29 L (1.00-4.00) 10^3/uL [place] # (Auto) 0.15 (0.10-0.80) 10^3/uL Eos # (Auto) 0.04 L (0.10-0.30) 10^3/uL Baso # (Auto) 0.00 (0.00-0.10) 10^3/uL Immature Gran # (Auto) 0.01 (0.00-0.50) 10^3/uL PT 24.5 H D (9.2-11.2) SEC INR 2.5 H (0.9-1.1) MARY Results - Last 24 hrs: Microbiology 06/26/20 07:20 Aerobic Blood Culture - Preliminary Blood - Venous NO GROWTH AFTER 1 DAY Anaerobic Blood Culture - Preliminary NO GROWTH AFTER 1 DAY 06/26/20 07:30 Aerobic Blood Culture - Preliminary Blood - Arm, Left NO GROWTH AFTER 1 DAY Anaerobic Blood Culture - Preliminary NO GROWTH AFTER 1 DAY Med Orders - Current: Current Medications Acetaminophen (Tylenol) 650 mg PO Q4H PRN PRN Reason: fever, pain Last Admin: 06/26/20 20:41 Dose: 650 mg Documented by: Albuterol/Ipratropium (Duoneb 3.0-0.5 Mg/3 Ml) 3 ml INH QID PRN PRN Reason: Shortness of Breath Last Admin: 06/25/20 20:13 Dose: 3 ml Documented by: Carvedilol (Coreg) 6.25 mg PO BIDMEALS [facility] Last Admin: 06/27/20 08:06 Dose: 6.25 mg Documented by: Cholecalciferol (Vitamin D3) 25 mcg PO DAILY [facility] Last Admin: 06/27/20 08:06 Dose: 25 mcg Documented by: Cyanocobalamin (Vitamin B12) 1,000 mcg PO DAILY@1500 [facility] Last Admin: 06/26/20 16:15 Dose: 1,000 mcg Documented by: Dexamethasone (Dexamethasone) 20 mg PO DAILY [facility] Stop: 07/01/20 09:01 Docusate Sodium (Colace) 200 mg PO 0800 [facility] Last Admin: 06/27/20 08:06 Dose: 200 mg Documented by: Fluoxetine HCl (Prozac) 40 mg PO DAILY [facility] Last Admin: 06/27/20 08:06 Dose: 40 mg Documented by: Gabapentin (Neurontin) 300 mg PO BEDTIME [facility] Last Admin: 06/26/20 20:37 Dose: 300 mg Documented by: Sodium Chloride (Normal Saline) 50 mls @ 125 mls/hr IV ASDIRECTED PRN PRN Reason: FLUSH Last Admin: 06/26/20 12:08 Dose: 125 mls/hr Documented by: Magnesium Chloride (Mag-64) 128 mg PO DAILY [facility] Last Admin: 06/27/20 08:05 Dose: 128 mg Documented by: Nifedipine (Procardia Xl) 60 mg PO DAILY [facility] Last Admin: 06/27/20 08:07 Dose: 60 mg Documented by: Non-Formulary Medication (Sodium Bicarbonate [Sodium Bicarbonate]) 650 mg PO TID [facility] Omeprazole (Omeprazole) 20 mg PO 0800 [facility] Last Admin: 06/27/20 08:05 Dose: 20 mg Documented by: Oxycodone HCl (Oxycodone) 10 mg PO Q4H PRN PRN Reason: Pain Last Admin: 06/25/20 20:11 Dose: 10 mg Documented by: Phytonadione (Vitamin K) 100 mcg PO DAILY [facility] Last Admin: 06/27/20 08:05 Dose: 100 mcg Documented by: Simvastatin (Zocor) 40 mg PO 1999 [facility] Last Admin: 06/26/20 20:37 Dose: 40 mg Documented by: Sodium Chloride (Saline Flush) 10 ml FLUSH Q8HR PRN PRN Reason: keep vein open Warfarin Sodium (Coumadin) 5 mg PO DAILY [facility] Last Admin: 06/27/20 08:05 Dose: 5 mg Documented by: Warfarin Sodium (Pharmacy To Dose - Warfarin) 1 dose PO ASDIRECTED [facility] Discontinued Medications Acetaminophen (Tylenol) 650 mg PO ONETIME ONE Stop: 06/23/20 15:01 Last Admin: 06/23/20 15:54 Dose: 650 mg Documented by: Ceftriaxone Sodium (Rocephin) 1 gm IVPUSH ONETIME ONE Stop: 06/25/20 17:34 Last Admin: 06/25/20 17:58 Dose: 1 gm Documented by: Furosemide (Lasix) 20 mg IVPUSH NOW ONE Stop: 06/25/20 18:51 Last Admin: 06/25/20 19:07 Dose: 20 mg Documented by: Hydrocortisone Sodium Succinate (Solu-Cortef) 100 mg IVPUSH ONETIME ONE Stop: 06/23/20 15:01 Last Admin: 06/23/20 15:55 Dose: 100 mg Documented by: Sodium Chloride (Normal Saline) 1,000 mls @ 71 mls/hr IV ASDIRECTED [facility] Last Infusion: 06/25/20 19:08 Dose: 30 mls/hr Documented by: Sargramostim 500 mcg/ Sodium (Chloride) 50 mls @ 12.5 mls/hr IV ONETIME ONE Stop: 06/26/20 15:59 Last Admin: 06/26/20 12:08 Dose: 12.5 mls/hr Documented by: Loratadine (Claritin) 10 mg PO ONETIME ONE Stop: 06/23/20 15:01 Last Admin: 06/23/20 15:55 Dose: 10 mg Documented by: Sargramostim (Leukine) 500 mcg SUBCUT DAILY [facility] Stop: 06/27/20 23:59 Last Admin: 06/26/20 12:16 Dose: Not Given Documented by: - Exam Quality Assessment: Reports: Supplemental Oxygen, DVT Prophylaxis General: Reports: Alert, Oriented, Cooperative, No Acute Distress Neck: Reports: No JVD Lungs: Reports: Clear to Auscultation, Normal Respiratory Effort Cardiovascular: Reports: No Murmurs GI/Abdominal Exam: Soft Rectal (Males) Exam: No: Black Stool Extremities: Pedal Edema Skin: Reports: Warm, Dry, Intact Psy/Mental Status: Reports: Alert, Normal Affect, Normal Mood
[2020-06-28] MEDS ORDERED: Dexamethasone 4 MG Tab PO SCH (09:00)
== END 2020-06-27 10:29 | disposition swing bed (61) | DRG 812 ==
LOC: KA.MS 13:04 → UNDOADMIN 13:04 → KA.MS 13:19
PROVIDERS: ADMIT Nurse Practitioner Family; ATTEND Nurse Practitioner Family
PROC: 30233N1 Transfusion of Nonautologous Red Blood Cells into Peripheral Vein, Percutaneous Approach (ICD-10-PCS; principal; 2020-06-23)
DX: D64.81 Anemia due to antineoplastic chemotherapy (principal); C90.01 Multiple myeloma in remission; N17.9 Acute kidney failure, unspecified; I50.32 Chronic diastolic (congestive) heart failure; T45.1X5A Adverse effect of antineoplastic and immunosuppressive drugs, initial encounter; N18.9 Chronic kidney disease, unspecified; D70.1 Agranulocytosis secondary to cancer chemotherapy; I25.10 Atherosclerotic heart disease of native coronary artery without angina pectoris; M51.36 Other intervertebral disc degeneration, lumbar region; E66.9 Obesity, unspecified; G47.33 Obstructive sleep apnea (adult) (pediatric); Z86.718 Personal history of other venous thrombosis and embolism; Z85.118 Personal history of other malignant neoplasm of bronchus and lung; E78.00 Pure hypercholesterolemia, unspecified; Z20.828 Contact with and (suspected) exposure to other viral communicable diseases
CPT/HCPCS: 36415; 36416; 36430; 71046; 80048; 80053; 85025; 85610; 86850; 86900; 86901; 86920; 86922; 87040; 97110-GP; 97162-GP; A9270-GY; J0696; J1720; J1940; J2820; J7030; J7620-GY; P9016; U0002

== ENCOUNTER 2020-06-27 09:58 | Inpatient (IN) | payer MEDICARE, BC ==
[2020-06-27] MEDS ORDERED: Albuterol/Ipratropium 3.0-0.5 MG/3 ML Neb Soln INH PRN (10:22)
[2020-06-27] MEDS ORDERED: Sodium Chloride 0.9% 10 ML Syringe FLUSH PRN (10:22)
[2020-06-27] MEDS ORDERED: oxyCODONE 5 MG Tab PO PRN (10:22)
[2020-06-27] MEDS ORDERED: Acetaminophen 325 MG Tab PO PRN (10:22)
--- NOTE | 2020-06-27 10:57 | PCM.HP.2 ---
H&P History of Present Illness - General Date of Service: 06/27/20 Admit Problem/Dx: Admission Diagnosis/Problem Admission Diagnosis/Problem Weakness Source of Information: Patient, Old Records, RN History Limitations: Reports: No Limitations - Related Data Allergies/Adverse Reactions: Allergies Allergy/AdvReac Type Severity Reaction Status Date / Time daratumumab Allergy Nausea and Verified 06/27/20 12:03 Vomiting epoetin jesse [From Procrit] Allergy Hives Verified 06/27/20 12:03 [id number] [From Zarxio] Allergy Rash Verified 06/27/20 12:03 Home Medications: Home Meds Omeprazole 20 mg PO 0800 02/14/15 [History] Simvastatin 40 mg PO 199902/14/15 [History] Docusate Sodium [Colace] 200 mg PO 0800 09/02/15 [History] Gabapentin [Neurontin] 300 mg PO BEDTIME 06/10/17 [History] EPINEPHrine [Epipen 2-Hunter] 0.3 mg IM ASDIRECTED PRN #1 ml 07/07/18 [Rx] Cyanocobalamin (Vitamin B-12) [B-12] 1,000 mcg PO DAILY@1500 11/30/18 [History] Lidocaine/Prilocaine [EMLA Crm] 1 applic TOP ASDIRECTED 02/08/19 [History] Warfarin [Coumadin] 5 mg PO DAILY 02/08/19 [History] oxyCODONE 10 mg PO Q4H PRN 04/26/19 [History] Acetaminophen [Tylenol] 650 mg PO Q4H PRN tablet 05/27/19 [Rx] Furosemide [Lasix] 40 mg PO QAM 06/01/19 [History] Cholecalciferol (Vitamin D3) [Vitamin D3] 1,000 unit PO DAILY 04/23/20 [History] FLUoxetine [PROzac] 40 mg PO DAILY 05/14/20 [History] NIFEdipine [Nifedipine ER] 60 mg PO DAILY 05/14/20 [History] carvediloL [Carvedilol] 6.25 mg PO BIDMEALS 05/14/20 [History] Albuterol/Ipratropium [DuoNeb 3.0-0.5 MG/3 ML] 3 ml INH QID PRN 05/27/20 [History] Magnesium Chloride [Mag-64] 128 mg PO DAILY 05/27/20 [History] Phytonadione [Vitamin K] 100 mcg PO DAILY 05/27/20 [History] Sodium Bicarbonate 650 mg PO TID 06/18/20 [History] dexAMETHasone [Dexamethasone] 20 mg PO ASDIRECTED 06/23/20 [History] Past Medical History HEENT History: Reports: Hard of Hearing, Impaired Vision Cardiovascular History: Reports: Blood Clots/VTE/DVT, CAD, Heart Failure, High Cholesterol, Hypertension, PR, SOB on Exertion, Other (See Below) Other Cardiovascular History: Chronic diastolic heart failure Respiratory History: Reports: Bronchitis, Recurrent, COPD, Sleep Apnea, SOB Other Respiratory History: CPAP, Adenoncarcinoma of the right lung Gastrointestinal History: Reports: Chronic Constipation, GERD Genitourinary History: Reports: BPH, Urinary Incontinence Other Genitourinary History: appt to see Dr Sin Mojica in [place] 09/30/16 for Kidney follow-up/. Renal Biopsy Oct 13 2015 negative for malignancy. HYPOGONADISM Musculoskeletal History: Reports: Back Pain, Chronic, Fracture Other Musculoskeletal History: Thigh pain resolved no voices only of low back pain - see pain assessment. DJD Neurological History: Reports: Neuropathy, Peripheral, Seizure Psychiatric History: Reports: Anxiety, Depression Other Psychiatric History: Hallucinating off and on lately, angry, forgetful Endocrine/Metabolic History: Reports: Obesity/BMI 30+ Hematologic History: Reports: Anemia, Other (See Below) Other Hematologic History: Iron studies done. RED BLOOD CELL ANTIBODY POSITIVE (ON ANTI-CD38 THERAPY (DARATUMUMAB)). Chemotherapy induced anemiahypogammaglobulinemia, acquired Immunologic History: Reports: Immunosuppression, Other (See Below) Other Immunologic History: CHEMOTHERAPY AND RADIATION Oncologic (Cancer) History: Reports: Prostate, Other (See Below) Other Oncologic History: multiple myeloma jun 2015. PROSTATE CA 05-24-2013. 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 MASS IN KIDNEY 06-04-2015 Dermatologic History: Reports: Eczema Other Dermatologic History: In Sep 2016Itchy rash raised red/pink size of a pinhead after procrit injection, Procrit now held. continues using cream for eczema on abdomen, Voices at one time bruising was an issue "not so much any more" It's getting better" - Infectious Disease History Infectious Disease History: Reports: Chicken Pox, Influenza, Measles, Mumps Other Infectious Disease History: INFECTION WITH DRUG RESISTANT MICROORGANISMS - Past Surgical History HEENT Surgical History: Reports: Tonsillectomy Cardiovascular Surgical History: Reports: Coronary Artery Bypass Respiratory Surgical History: Reports: None GI Surgical History: Reports: Colonoscopy Male Surgical History: Reports: Prostate Biopsy Endocrine Surgical History: Reports: None Neurological Surgical History: Reports: Vertebroplasty, Other (See Below) Other Neurological Surgeries/Procedures: Vertibroplasty - in Jun 2015 Musculoskeletal Surgical History: Reports: Hip Replacement, Other (See Below) Other Musculoskeletal Surgeries/Procedures:: 3rd vertebral plasty done 09/24/15. Oncologic Surgical History: Reports: Bone Marrow Aspiration, Other (See Below) Other Oncologic Surgeries/Procedures: PROSTATE BIOPSY. LUNG BIOPSY. KIDNEY BI OPSY Dermatological Surgical History: Reports: None Social & Family History - Family History Family Medical History: Noncontributory Cardiac: Reports: PR Respiratory: Reports: None GI: Reports: None : Reports: None OBGYN: Reports: None Musculoskeletal: Reports: Back pain, Chronic Psychiatric: Reports: None Endocrine/Metabolic: Reports: None - Caffeine Use Caffeine Use: Reports: Coffee, Soda - Living Situation & Occupation Living situation: Reports: , with Spouse H&P Review of Systems - Review of Systems: Review Of Systems: See Below General: Reports: Malaise, Weakness. Denies: Fever, Night Sweats, Diaphoresis, Decreased Appetite, Weight Loss HEENT: Denies: Dysphasia, Ear Pain, Post Nasal Drip, Sore Throat Pulmonary: Reports: Shortness of Breath Cardiovascular: Reports: Edema Gastrointestinal: Reports: No Symptoms Genitourinary: Denies: Hematuria Musculoskeletal: Reports: No Symptoms Skin: Reports: Pallor, Other (Port line) Psychiatric: Reports: No Symptoms Neurological: Reports: Pre-Existing Deficit, Difficulty Walking, Weakness. Denies: Numbness Hematologic/Lymphatic: Reports: Anemia, Easy Bleeding, Easy Bruising. Denies: Swollen Glands Immunologic: Reports: Other (immunocompromised) Exam - Exam Exam: See Below - Exam Quality Assessment: Supplemental Oxygen (2 L nasal cannula), DVT Prophylaxis (Cross covered with warfarin) General: Alert, Oriented, Cooperative. No: Mild Distress, Severe Distress, S edated, Lethargic, Obtunded HEENT: Hearing Intact, Posterior Pharynx Clear, Pupils Reactive Neck: Supple Lungs: Clear to Auscultation, Normal Respiratory Effort Cardiovascular: Regular Rate, Regular Rhythm GI/Abdominal Exam: Soft. No: Distended (Male) Exam: Deferred Rectal (Males) Exam: No: Black Stool Back Exam: No: CVA Tenderness (L), CVA Tenderness (R) Extremities: Normal Capillary Refill, Pedal Edema Peripheral Pulses: 2+: Radial (L), Radial (R) Skin: Incision (Port-A-Cath intact no signs of redness or infection right upper anterior chest wall, x-rays revealed tip appropriately placed) Neurological: Cranial Nerves Intact, Sensation Intact Neuro Extensive - Mental Status: Alert, Oriented x3, Memory Intact Neuro Extensive - Motor, Sensory, Reflexes: CN II-XII Intact, Normal Gait, Normal Reflexes Psychiatric: Alert, Normal Affect, Normal Mood - Patient Data Result Diagrams: 07/01/20 07:10 06/28/20 07:35 Problem List Initiated/Reviewed/Updated: Yes Orders Last 24hrs: Active Orders 24 hr Category Date Time Status Patient Status [ADT] Routine ADT 06/27/20 10:29 Ordered Central Line Assessment [RC] QSHIFT Care 06/27/20 10:22 Ordered Intake and Output [RC] QSHIFT Care 06/27/20 10:22 Ordered Oxygen Therapy [RC] PRN Care 06/27/20 10:22 Ordered RT Aerosol Therapy [RC] ASDIRECTED Care 06/27/20 10:22 Ordered RT Aerosol Therapy [RC] ASDIRECTED Care 06/27/20 10:22 Ordered Up With Assistance [RC] ASDIRECTED Care 06/27/20 10:22 Ordered Up to Chair [RC] ASDIRECTED Care 06/27/20 10:22 Ordered Vital Signs [RC] Q8H Care 06/27/20 10:22 Ordered Consult to Physical Therapy [PT Evaluation and Cons 06/27/20 10:22 Ordered Treatment] [CONS] Routine Regular Diet [DIET] Diet 06/27/20 Dinner Ordered INR,PT,PROTHROMBIN TIME [COAG] Routine Lab 06/27/20 10:22 Ordered Acetaminophen [TylenoL] Med 06/27/20 10:22 Ordered 650 mg PO Q4H PRN Albuterol/Ipratropium [DuoNeb 3.0-0.5 MG/3 ML] Med 06/27/20 10:22 Ordered 3 ml INH QID PRN Cholecalciferol (Vitamin D3) [Vitamin D3] Med 06/28/20 09:00 Ordered 25 mcg PO DAILY Cyanocobalamin (Vitamin B12) [Vitamin B12] Med 06/27/20 15:00 Ordered 1,000 mcg PO DAILY@1500 Docusate Sodium [Colace] Med 06/28/20 08:00 Ordered 200 mg PO 0800 FLUoxetine [PROzac] Med 06/28/20 09:00 Ordered 40 mg PO DAILY Gabapentin [Neurontin] Med 06/27/20 21:00 Ordered 300 mg PO BEDTIME Magnesium Chloride [Mag-64] Med 06/28/20 09:00 Ordered 128 mg PO DAILY NIFEdipine [Procardia XL] Med 06/28/20 09:00 Ordered 60 mg PO DAILY Omeprazole Med 06/28/20 08:00 Ordered 20 mg PO 0800 Phytonadione [Vitamin K] Med 06/28/20 09:00 Ordered 100 mcg PO DAILY Simvastatin [Zocor] Med 06/27/20 20:00 Ordered 40 mg PO 2000 Sodium Bicarbonate [Sodium Bicarbonate] Med 06/27/20 14:00 Pending 650 mg PO TID Sodium Chloride 0.9% [Normal Saline] 50 ml Med 06/27/20 10:22 Ordered IV ASDIRECTED Sodium Chloride 0.9% [Saline Flush] Med 06/27/20 10:22 Ordered 10 ml FLUSH Q8HR PRN Warfarin Pharmacy to Dose [Pharmacy to Dose - Warfarin] Med 06/27/20 10:22 Pending 1 dose PO ASDIRECTED Warfarin [Coumadin] Med 06/28/20 09:00 Ordered 5 mg PO DAILY carvediloL [Coreg] Med 06/27/20 18:00 Ordered 6.25 mg PO BIDMEALS dexAMETHasone Med 06/28/20 09:00 Ordered 20 mg PO DAILY oxyCODONE Med 06/27/20 10:22 Ordered 10 mg PO Q4H PRN Resuscitation Status Routine Resus Stat 06/27/20 10:22 Ordered Medication Orders Acetaminophen (Tylenol) 650 mg PO Q4H PRN PRN Reason: fever, pain Albuterol/Ipratropium (Duoneb 3.0-0.5 Mg/3 Ml) 3 ml INH QID PRN PRN Reason: Shortness of Breath Carvedilol (Coreg) 6.25 mg PO BIDMEALS ELLIE Cholecalciferol (Vitamin D3) 25 mcg PO DAILY [facility] Cyanocobalamin (Vitamin B12) 1,000 mcg PO DAILY@1500 [facility] Dexamethasone (Dexamethasone) 20 mg PO DAILY [facility] Stop: 07/01/20 09:01 Docusate Sodium (Colace) 200 mg PO 0800 ELLIE Fluoxetine HCl (Prozac) 40 mg PO DAILY [facility] Gabapentin (Neurontin) 300 mg PO BEDTIME [facility] Sodium Chloride (Normal Saline) 50 mls @ 125 mls/hr IV ASDIRECTED PRN PRN Reason: FLUSH Magnesium Chloride (Mag-64) 128 mg PO DAILY ELLIE Nifedipine (Procardia Xl) 60 mg PO DAILY [facility] Non-Formulary Medication (Sodium Bicarbonate [Sodium Bicarbonate]) 650 mg PO TID [facility] Omeprazole (Omeprazole) 20 mg PO 0800 ELLIE Oxycodone HCl (Oxycodone) 10 mg PO Q4H PRN PRN Reason: Pain Phytonadione (Vitamin K) 100 mcg PO DAILY ELLIE Simvastatin (Zocor) 40 mg PO 2000 [facility] Sodium Chloride (Saline Flush) 10 ml FLUSH Q8HR PRN PRN Reason: keep vein open Warfarin Sodium (Pharmacy To Dose - Warfarin) 1 dose PO ASDIRECTED ELLIE Warfarin Sodium (Coumadin) 5 mg PO DAILY [facility] Assessment/Plan Comment:: History of present illness Vj is a 79-year-old gentleman whom this author had admitted into acute care [facility] on June 23 anemia and acute on chronic elevation of creatinine. I had seen that [facility] clinic the day of admission due to elevated creatinine levels and anemia. Patient suffers from progressing form of multiple myeloma and as under the close care of oncologist/director global strategic publisher sales Dr. Wagoner's. He was admitted on to [facility] 06/12/2020 for his 4th cycle of VAD chemotherapy for multiple myeloma and did well with this without major symptoms at that time. He was also admitted about one month prior when he went through cycle #3 however that was mainly for lower extremity weakness. Some lower extremity edema that he controls with compression stockings. His lab work did show some evidence of response to the chemotherapy however he does have a anemia induced by his chemotherapy of 7.1 along with a creatinine of 3.41 which is above his baseline. Vj states that although he does seem to drink quite a bit of water during the day he did lose his balance 2 days prior to admission when he fell twice at home 1 time during the night to use the bathroom and he contributes to dizziness. He does use a 4-wheeled walker however mainly his cane. Also been feeling somewhat nauseated however no vomiting. Has been in PT at [facility] for his lower extremity weakness. At last admission in [facility] I did administer Leukine to improve in his white count/ANC (the patient is allergic to filgrastim). Acute care Hospital course 06/23/2020; patient received 1 units of packed red blood cells yesterday and his hemoglobin increased to 7.4%. He was given IV fluids of isotonic saline with a 400 cc initial bolus on admission. 06/24/2020; Patient is feeling better, hemoglobin improved slightly to 7.4%, creatinine dramatically increased to 2.67. He was given isotonic saline infusion throughout the night after initial bolus. 06/25/2020; patient is WBC down to 1.95 with a subsequent ANC of 1540. No signs of systemic infection. No chills, no shortness of breath. Seems to be tolerating fluids well, BUN 41 creatinine 2.54 dramatically improving. No fever, blood pressure 150/74. Not requiring oxygen. Slightly unsteady on his feet when he goes to the restroom. Hemoglobin 8.6 after second unit of packed red blood cells. No signs of fluid overload. Some lower extremity weakness however seems to be improving 06/26/2020; patient sitting in chair conversing feeling better today. Yesterday afternoon patient developed low-grade fever, all provider was notified patient was given 1 g of Rocephin, blood cultures were drawn this morning, 20 mg of Lasix last night. No shortness of breath, lungs clear. Chest x-ray demonstrated mild CHF with mild central vascular crowding. WBC decreasing, ANC~ 1150 no signs of systemic infection. Creatinine below baseline at 2.52 BUN 38. 06/27/2020; patient's white count continues to decrease with an ANC less than 1000. He had been administered a total of 3 doses of Leukine so far with 2 units of packed red blood cells with decreasing anemia however no signs of occult bleeding. Slightly weak today. Primary SNF problems --Hypoxia, hypoventilation, ICS, will attempt to wean from o2 --Anemia, chemotherapy induced, hemoglobin improved 7.5%, no set transfusion based off of symptoms --Immunocompromised host, ANC of <[id number], add neutropenic precautions, neutropenic diet, give Leukine today change to IV --Chemotherapy induced neutropenia, Leukine 500 micrograms iv today --LALITHA, prerenal superimposed on chronic kidney disease, greatly improved, no lo nger on IV fluids, --Multiple myeloma --Weakness, Ongoing PT as outpatient, Layo CALVERT, Desires to go cont with [facility] in [place]. --Dependent edema, improved Chronic conditions Chronic diastolic heart failure, Daily weights, restart Lasix at 50% dose. CAD, S/P CABG in 1998 DDD (degenerative disc disease), lumbar Anxiety, stable Obesity (BMI 30-39.9) EDITH statt to ensure home CPAP Hx of DVT; On Coumadin, INR 2.5 Coumadin , pharmacy to monitor INR Hyperlipidemia Essential hypertension Hx Adenocarcinoma of right lung Liver hemangioma Depression Plan: --Admit to swing bed status for physical therapy --Daily Leukine until WBC 3,000 --Sodium bicarb, spouse to bring in PTOM --Continue inpatient stay for monitoring of white count, indices along with IV fluids --Restart Lasix however lower dose --Neutropenic diet and precautions --labs in am, prevent blood draw anemia --Discussed condition with spouse, she agrees with plan however concerned about not being able to visit patient - Mortality Measure Prognosis:: Poor
[2020-06-27] MEDS: Cyanocobalamin (Vitamin B12) 500 MCG Tab PO SCH (14:10)
[2020-06-27] MEDS: Sodium Chloride 0.9% 50 ML IV PRN (15:46)
[2020-06-27] MEDS: [UNRECOGNIZED DRUG - OTHER] IV SCH (15:46)
[2020-06-27] MEDS: SODIUM CHLORIDE 0.9% IV SCH (15:46)
[2020-06-27] MEDS: Furosemide 20 MG Tab PO SCH (15:47)
[2020-06-27] MEDS ORDERED: Sodium Chloride 0.9% 20 ML SDV FLUSH SCH (16:00)
[2020-06-27] MEDS: Carvedilol 6.25 MG Tab PO SCH (18:08)
[2020-06-27] MEDS: Gabapentin 300 MG Cap PO SCH (20:46)
[2020-06-27] MEDS: Simvastatin 20 MG Tab PO SCH (20:46)
[2020-06-28] MEDS ORDERED: Menthol 7.6 MG Sugar Free Lozenge ONE (00:59)
[2020-06-28 08:05] LABS: ANION GAP 12.3 mmol/L (5-15)
[2020-06-28] MEDS: Magnesium Chloride 64 MG Tab.ER PO SCH (08:14)
[2020-06-28] MEDS: Docusate Sodium 100 MG Cap PO SCH (08:14)
[2020-06-28] MEDS: Warfarin 5 MG Tab PO SCH (08:14)
[2020-06-28] MEDS: FLUoxetine 10 MG Cap PO SCH (08:14)
[2020-06-28] MEDS: Phytonadione 100 MCG Tab PO SCH (08:15)
[2020-06-28] MEDS: NIFEdipine 30 MG Tab.ER PO SCH (08:15)
[2020-06-28] MEDS: Dexamethasone 4 MG Tab PO SCH (08:15)
[2020-06-28] MEDS: Cholecalciferol (Vitamin D3) 25 MCG Tab PO SCH (08:15)
[2020-06-28] MEDS: Omeprazole 20 MG Cap.CR PO SCH (08:15)
[2020-06-28] MEDS: Carvedilol 6.25 MG Tab PO SCH ×2 (08:15→18:17)
[2020-06-28] MEDS: Furosemide 20 MG Tab PO SCH (08:16)
[2020-06-28] MEDS: Cyanocobalamin (Vitamin B12) 500 MCG Tab PO SCH (15:34)
[2020-06-28] MEDS: SODIUM CHLORIDE 0.9% IV SCH (15:35)
[2020-06-28] MEDS: [UNRECOGNIZED DRUG - OTHER] IV SCH (15:35)
[2020-06-28] MEDS: Sodium Chloride 0.9% 50 ML IV PRN (18:17)
[2020-06-28] MEDS: Menthol 7.6 MG Sugar Free Lozenge PO PRN (20:28)
[2020-06-28] MEDS: Gabapentin 300 MG Cap PO SCH (20:28)
[2020-06-28] MEDS: Simvastatin 20 MG Tab PO SCH (20:29)
[2020-06-29] MEDS ORDERED: Warfarin 2.5 MG Tab PO ONE (09:45)
[2020-06-29] MEDS: Docusate Sodium 100 MG Cap PO SCH (09:48)
[2020-06-29] MEDS: Cholecalciferol (Vitamin D3) 25 MCG Tab PO SCH (09:48)
[2020-06-29] MEDS: FLUoxetine 10 MG Cap PO SCH (09:48)
[2020-06-29] MEDS: Carvedilol 6.25 MG Tab PO SCH ×2 (09:48→18:01)
[2020-06-29] MEDS: Magnesium Chloride 64 MG Tab.ER PO SCH (09:48)
[2020-06-29] MEDS: Omeprazole 20 MG Cap.CR PO SCH (09:48)
[2020-06-29] MEDS: NIFEdipine 30 MG Tab.ER PO SCH (09:48)
[2020-06-29] MEDS: Phytonadione 100 MCG Tab PO SCH (09:49)
[2020-06-29] MEDS: Dexamethasone 4 MG Tab PO SCH (09:49)
[2020-06-29] MEDS: Furosemide 20 MG Tab PO SCH (09:49)
[2020-06-29] MEDS: Warfarin 5 MG Tab PO SCH (10:37)
[2020-06-29] MEDS: Cyanocobalamin (Vitamin B12) 500 MCG Tab PO SCH (15:53)
[2020-06-29] MEDS: SODIUM CHLORIDE 0.9% IV SCH (15:54)
[2020-06-29] MEDS: [UNRECOGNIZED DRUG - OTHER] IV SCH (15:54)
[2020-06-29] MEDS: Sodium Chloride 0.9% 50 ML IV PRN (18:01)
[2020-06-29] MEDS: Menthol 7.6 MG Sugar Free Lozenge PO PRN (20:41)
[2020-06-29] MEDS: Gabapentin 300 MG Cap PO SCH (20:41)
[2020-06-29] MEDS: Simvastatin 20 MG Tab PO SCH (20:41)
[2020-06-30] MEDS: FLUoxetine 10 MG Cap PO SCH (08:56)
[2020-06-30] MEDS: Dexamethasone 4 MG Tab PO SCH (08:56)
[2020-06-30] MEDS: Docusate Sodium 100 MG Cap PO SCH (08:57)
[2020-06-30] MEDS: Magnesium Chloride 64 MG Tab.ER PO SCH (08:57)
[2020-06-30] MEDS: Phytonadione 100 MCG Tab PO SCH (08:57)
[2020-06-30] MEDS: Carvedilol 6.25 MG Tab PO SCH ×2 (08:58→18:06)
[2020-06-30] MEDS: Furosemide 20 MG Tab PO SCH (08:58)
[2020-06-30] MEDS: NIFEdipine 30 MG Tab.ER PO SCH (08:58)
[2020-06-30] MEDS: Omeprazole 20 MG Cap.CR PO SCH (08:59)
[2020-06-30] MEDS: Cholecalciferol (Vitamin D3) 25 MCG Tab PO SCH (08:59)
[2020-06-30] MEDS: Cyanocobalamin (Vitamin B12) 500 MCG Tab PO SCH (14:42)
[2020-06-30] MEDS: Sodium Chloride 0.9% 50 ML IV PRN (14:42)
[2020-06-30] MEDS: [UNRECOGNIZED DRUG - OTHER] IV SCH (14:43)
[2020-06-30] MEDS: SODIUM CHLORIDE 0.9% IV SCH (14:43)
[2020-06-30] MEDS ORDERED: Warfarin 2.5 MG Tab PO ONE (18:00)
[2020-06-30] MEDS: Gabapentin 300 MG Cap PO SCH (20:44)
[2020-06-30] MEDS: Simvastatin 20 MG Tab PO SCH (20:45)
[2020-07-01] MEDS: Docusate Sodium 100 MG Cap PO SCH (08:42)
[2020-07-01] MEDS: Magnesium Chloride 64 MG Tab.ER PO SCH (08:43)
[2020-07-01] MEDS: Omeprazole 20 MG Cap.CR PO SCH (08:43)
[2020-07-01] MEDS: Carvedilol 6.25 MG Tab PO SCH ×2 (08:43→18:18)
[2020-07-01] MEDS: Dexamethasone 4 MG Tab PO SCH (08:44)
[2020-07-01] MEDS: Furosemide 20 MG Tab PO SCH (08:45)
[2020-07-01] MEDS: FLUoxetine 10 MG Cap PO SCH (08:46)
[2020-07-01] MEDS: Cholecalciferol (Vitamin D3) 25 MCG Tab PO SCH (08:46)
[2020-07-01] MEDS: NIFEdipine 30 MG Tab.ER PO SCH (08:47)
[2020-07-01] MEDS: Phytonadione 100 MCG Tab PO SCH (08:47)
--- NOTE | 2020-07-01 10:49 | PCM.PN ---
- General Info Date of Service: 07/01/20 Functional Status: Reports: Pain Controlled, Tolerating Diet, Ambulating. Denies: New Symptoms - Review of Systems General: Denies: Weakness, Fatigue, Malaise, Chills HEENT: Reports: No Symptoms Pulmonary: Reports: Shortness of Breath Cardiovascular: Reports: Edema. Denies: Chest Pain Gastrointestinal: Reports: No Symptoms Skin: Denies: Dryness Neurological: Denies: Confusion Psychiatric: Denies: Confusion - Patient Data Vitals - Most Recent: Last Vital Signs Temp 97.1 F 07/01/20 06:38 Pulse 68 07/01/20 08:43 Resp 20 07/01/20 06:38 BP 141/64 H 07/01/20 08:47 Pulse Ox 96 07/01/20 06:38 Weight - Most Recent: 247 lb 5 oz I&O - Last 24 Hours: Intake & Output 06/30/20 07/01/20 07/01/20 22:59 06:59 14:59 Intake Total 500 100 Balance 500 100 Lab Results Last 24 Hours: Laboratory Results - last 24 hr 07/01/20 07/01/20 Range/Units 07:10 07:10 WBC 3.17 L (5.00-10.00) 10^3/uL RBC 2.55 L (4.50-6.00) 10^6/uL Hgb 8.0 L (13.0-17.0) g/dL Hct 24.1 L (40.0-52.0) % MCV 94.5 H (82.0-92.0) fL MCH 31.4 H (27.0-31.0) pg MCHC 33.2 (32.0-36.0) g/dL RDW 15.9 H (11.5-14.5) % Plt Count 85 L (150-400) 10^3/uL MPV 11.5 H (7.4-10.4) fL Immature Gran % (Auto) 9.5 H (0.0-5.0) % Neut % (Auto) 53.9 (50.0-70.0) % Lymph % (Auto) 16.7 L (20.0-40.0) % [place] % (Auto) 18.0 H (2.0-8.0) % Eos % (Auto) 1.9 (1.0-3.0) % Baso % (Auto) 0.0 (0.0-1.0) % Neut # (Auto) 1.71 L (2.50-7.00) 10^3/uL Lymph # (Auto) 0.53 L (1.00-4.00) 10^3/uL [place] # (Auto) 0.57 (0.10-0.80) 10^3/uL Eos # (Auto) 0.06 L (0.10-0.30) 10^3/uL Baso # (Auto) 0.00 (0.00-0.10) 10^3/uL Immature Gran # (Auto) 0.30 (0.00-0.50) 10^3/uL PT 25.2 H (9.2-11.2) SEC INR 2.5 H (0.9-1.1) Med Orders - Current: Current Medications Acetaminophen (Tylenol) 650 mg PO Q4H PRN PRN Reason: fever, pain Albuterol/Ipratropium (Duoneb 3.0-0.5 Mg/3 Ml) 3 ml INH QID PRN PRN Reason: Shortness of Breath Carvedilol (Coreg) 6.25 mg PO BIDMEALS [facility] Last Admin: 07/01/20 08:43 Dose: 6.25 mg Documented by: Cholecalciferol (Vitamin D3) 25 mcg PO DAILY [facility] Last Admin: 07/01/20 08:46 Dose: 25 mcg Documented by: Cyanocobalamin (Vitamin B12) 1,000 mcg PO DAILY@1500 [facility] Last Admin: 06/30/20 14:42 Dose: 1,000 mcg Documented by: Docusate Sodium (Colace) 200 mg PO 0800 [facility] Last Admin: 07/01/20 08:42 Dose: 200 mg Documented by: Fluoxetine HCl (Prozac) 40 mg PO DAILY [facility] Last Admin: 07/01/20 08:46 Dose: 40 mg Documented by: Furosemide (Lasix) 20 mg PO DAILY [facility] Last Admin: 07/01/20 08:45 Dose: 20 mg Documented by: Gabapentin (Neurontin) 300 mg PO BEDTIME [facility] Last Admin: 06/30/20 20:44 Dose: 300 mg Documented by: Sodium Chloride (Normal Saline) 50 mls @ 125 mls/hr IV ASDIRECTED PRN PRN Reason: FLUSH Last Admin: 06/30/20 14:42 Dose: 125 mls/hr Documented by: Sargramostim 500 mcg/ Sodium (Chloride) 50 mls @ 12.5 mls/hr IV DAILY@1500 [facility] Stop: 07/02/20 20:00 Last Admin: 06/30/20 14:43 Dose: 12.5 mls/hr Documented by: Magnesium Chloride (Mag-64) 128 mg PO DAILY [facility] Last Admin: 07/01/20 08:43 Dose: 128 mg Documented by: Menthol ([place] Sugar Free) 1 nataliya PO ASDIRECTED PRN PRN Reason: Cough Last Admin: 06/29/20 20:41 Dose: 1 nataliya Documented by: Nifedipine (Procardia Xl) 60 mg PO DAILY [facility] Last Admin: 07/01/20 08:47 Dose: 60 mg Documented by: Omeprazole (Omeprazole) 20 mg PO 0800 [facility] Last Admin: 07/01/20 08:43 Dose: 20 mg Documented by: Oxycodone HCl (Oxycodone) 10 mg PO Q4H PRN PRN Reason: Pain Phytonadione (Vitamin K) 100 mcg PO DAILY [facility] Last Admin: 07/01/20 08:47 Dose: 100 mcg Documented by: Simvastatin (Zocor) 40 mg PO 1999 [facility] Last Admin: 06/30/20 20:45 Dose: 40 mg Documented by: Sodium Bicarbonate (Sodium Bicarbonate) 650 mg PO TID [facility] Last Admin: 06/30/20 20:44 Dose: 650 mg Documented by: Sodium Chloride (Saline Flush) 10 ml FLUSH Q8HR PRN PRN Reason: keep vein open Sodium Chloride (Normal Saline) 20 ml FLUSH ASDIRECTED [facility] Warfarin Sodium (Pharmacy To Dose - Warfarin) 1 dose PO ASDIRECTED [facility] Warfarin Sodium (Coumadin) 5 mg PO ONETIME ONE Stop: 07/01/20 18:01 Discontinued Medications Dexamethasone (Dexamethasone) 20 mg PO DAILY [facility] Stop: 07/01/20 09:01 Last Admin: 07/01/20 08:44 Dose: 20 mg Documented by: Menthol ([place] Sugar Free) Confirm Administered Dose 1 nataliya .ROUTE .STK-MED ONE Stop: 06/28/20 01:00 Last Admin: 06/28/20 01:12 Dose: 1 nataliya Documented by: Warfarin Sodium (Coumadin) 5 mg PO DAILY [facility] Last Admin: 06/29/20 10:37 Dose: Not Given Documented by: Warfarin Sodium (Coumadin) 2.5 mg PO ONETIME ONE Stop: 06/29/20 09:46 Last Admin: 06/29/20 09:49 Dose: 2.5 mg Documented by: Warfarin Sodium (Coumadin) 2.5 mg PO ONETIME ONE Stop: 06/30/20 18:01 Last Admin: 06/30/20 18:06 Dose: 2.5 mg Documented by: - Exam Quality Assessment: Supplemental Oxygen (Physical therapist to assess patient for the need for possible home oxygen therapy. ) General: Alert, Oriented, Cooperative, No Acute Distress Neurological: No: Normal Gait Psy/Mental Status: Alert, Normal Affect, Normal Mood Sepsis Event Note - Evaluation Sepsis Screening Result: No Definite Risk - Focused Exam Vital Signs: Vital Signs Temp Pulse Pulse Resp BP BP Pulse Ox 07/01/20 08:47 141/64 H 07/01/20 08:43 68 141/64 H 07/01/20 06:38 97.1 F 67 20 141/64 H 96 - Problem List Review Problem List Initiated/Reviewed/Updated: Yes - My Orders Last 24 Hours: My Active Orders 07/01/20 18:00 Warfarin [Coumadin] 5 mg PO ONETIME ONE 07/02/20 05:11 INR,PT,PROTHROMBIN TIME [COAG] DAILY 07/03/20 05:11 INR,PT,PROTHROMBIN TIME [COAG] DAILY 07/04/20 05:11 INR,PT,PROTHROMBIN TIME [COAG] DAILY 07/05/20 05:11 INR,PT,PROTHROMBIN TIME [COAG] DAILY 07/06/20 05:11 INR,PT,PROTHROMBIN TIME [COAG] DAILY 07/07/20 05:11 INR,PT,PROTHROMBIN TIME [COAG] DAILY - Plan Plan:: History of present illness Vj is a 79-year-old gentleman whom this author had admitted into [facility] on June 23 anemia and acute on chronic elevation of creatinine. I had seen that [facility] clinic the day of admission due to elevated creatinine levels and anemia. Patient suffers from progressing form of multiple myeloma and as under the close care of oncologist/ecologist technician Dr. Vargas. He was admitted on to [facility] 06/12/2020 for his 4th cycle of VAD chemotherapy for multiple myeloma and did well with this without major symptoms at that time. He was also admitted about one month prior when he went through cycle #3 however that was mainly for lower extremity weakness. Some lower extremity edema that he controls with compression stockings. His lab work did show some evidence of response to the chemotherapy however he does have a anemia induced by his chemotherapy of 7.1 along with a creatinine of 3.41 which is above his baseline. Vj states that although he does seem to drink quite a bit of water during the day he did lose his balance 2 days prior to admission when he fell twice at home 1 time during the night to use the bathroom and he contributes to dizziness. He does use a 4-wheeled walker however mainly his cane. Also been feeling somewhat nauseated however no vomiting. Has been in PT at [facility] for his lower extremity weakness. At last admission in [facility] I did administer Leukine to improve in his white count/ANC (the patient is allergic to filgrastim). Acute care Hospital course 06/23/2020; patient received 1 units of packed red blood cells yesterday and his hemoglobin increased to 7.4%. He was given IV fluids of isotonic saline with a 400 cc initial bolus on admission. 06/24/2020; Patient is feeling better, hemoglobin improved slightly to 7.4%, creatinine dramatically increased to 2.67. He was given isotonic saline infusion throughout the night after initial bolus. 06/25/2020; patient is WBC down to 1.95 with a subsequent ANC of 1540. No signs of systemic infection. No chills, no shortness of breath. Seems to be tolerating fluids well, BUN 41 creatinine 2.54 dramatically improving. No fever, blood pressure 150/74. Not requiring oxygen. Slightly unsteady on his feet when he goes to the restroom. Hemoglobin 8.6 after second unit of packed red blood cells. No signs of fluid overload. Some lower extremity weakness however seems to be improving 06/26/2020; patient sitting in chair conversing feeling better today. Yesterday afternoon patient developed low-grade fever, all provider was notified patient was given 1 g of Rocephin, blood cultures were drawn this morning, 20 mg of Lasix last night. No shortness of breath, lungs clear. Chest x-ray demonstrated mild CHF with mild central vascular crowding. WBC decreasing, ANC~ 1150 no signs of systemic infection. Creatinine below baseline at 2.52 BUN 38. 06/27/2020; patient's white count continues to decrease with an ANC less than 1000. He had been administered a total of 3 doses of Leukine so far with 2 units of packed red blood cells with decreasing anemia however no signs of occ ult bleeding. Slightly weak today. 07/01/2020; care conference was held today with patient, patient spouse and 2 daughters. Since around about current condition, prognosis, upcoming treatments with VAD, IVIG and extended hospital stays likely. Patient does have oncologist appointment tomorrow here at [place] and patient will discuss whether he will continue further treatments however the patient stated mine is here rather continue with treatments in order to live as long as he can. Globin has improved with transfusion, Aranesp will be given tomorrow. Upcoming #5 VAD chemotherapy in [place]. white count 3.1 after multiple Leukine injections. ANC 1700 Primary SNF problems --Hypoxia, hypoventilation, ICS, will attempt to wean from o2, RT consulted to assess home oxygen qualification --Anemia, chemotherapy induced, hemoglobin improved 8.0%, no set transfusion based off of symptoms --Immunocompromised host, ANC of 1700, --Chemotherapy induced neutropenia, ANC of 1700, stop leukine --LALITHA, prerenal superimposed on chronic kidney disease, greatly improved, no longer on IV fluids, BMP today --Multiple myeloma, light chain --Weakness, improved with PT. anticipate home health with PT. --Dependent edema, improved Chronic conditions Chronic diastolic heart failure, Daily weights, restart Lasix at 50% dose. CAD, S/P CABG in 1998 DDD (degenerative disc disease), lumbar Anxiety, stable Obesity (BMI 30-39.9) EDITH statt to ensure home CPAP Hx of DVT; On Coumadin, INR 2.5 Coumadin , pharmacy to monitor INR Hyperlipidemia Essential hypertension Hx Adenocarcinoma of right lung Liver hemangioma Depression Plan: --Anticipate discharge tomorrow to home health --BMP today --RT to assess O2 needs. --F/u [facility]
[2020-07-01 11:37] LABS: ANION GAP 9.5 mmol/L (5-15)
[2020-07-01] MEDS: Cyanocobalamin (Vitamin B12) 500 MCG Tab PO SCH (14:52)
[2020-07-01] MEDS ORDERED: Warfarin 5 MG Tab PO ONE (18:00)
[2020-07-01] MEDS: Gabapentin 300 MG Cap PO SCH (21:32)
[2020-07-01] MEDS: Simvastatin 20 MG Tab PO SCH (21:42)
[2020-07-02] MEDS: Omeprazole 20 MG Cap.CR PO SCH (07:23)
[2020-07-02] MEDS: NIFEdipine 30 MG Tab.ER PO SCH (08:12)
[2020-07-02] MEDS: Docusate Sodium 100 MG Cap PO SCH (08:12)
[2020-07-02] MEDS: Magnesium Chloride 64 MG Tab.ER PO SCH (08:12)
[2020-07-02] MEDS: Phytonadione 100 MCG Tab PO SCH (08:12)
[2020-07-02] MEDS: Carvedilol 6.25 MG Tab PO SCH (08:13)
[2020-07-02] MEDS: FLUoxetine 10 MG Cap PO SCH (08:13)
[2020-07-02] MEDS: Cholecalciferol (Vitamin D3) 25 MCG Tab PO SCH (08:13)
[2020-07-02] MEDS: Furosemide 20 MG Tab PO SCH (08:13)
[2020-07-02 08:14] VITALS: BP 152/74; PULSE 78
--- NOTE | 2020-07-02 09:11 | PCM.DCSUM1 ---
Discharge Summary - Hospital Course Diagnosis: Stroke: No - Discharge Data Discharge Date: 07/02/20 Discharge Disposition: Home, W Home Health Agency 06 Condition: Good - Referral to Home Health Date of Face to Face Encounter: 07/01/20 Reason for Homebound Status: Patient is homebound due to oxygen requirements, weakness and the need for in-home physical therapy. Primary Care Physician: Nancie Campoverde MD Skilled Need: July 01,. [id number] encounter as the patient will be home bound and will require oxygen via nasal cannula as directed. He will need physical therapy to help develop an in-home therapy program to dress his decreased strength and endurance due to fatigue, muscle weakness mainly in his lower extremities due to recent chemotherapy treatments. Please help develop him home management program and monitor his oxygen requirements. Patient does have an unsteady gait and the need for assistance due to his recent chemotherapy, anemia, and his immunocompromising state of health. Please monitor his Port-A-Cath in his right upper anterior chest wall as the patient is high risk of infection due to pancytopenia. - Patient Summary/Data Consults: Consultations 06/27/20 10:22 Consult to Physical Therapy [PT Evaluation and Treatment] [CONS] Routine - Patient Instructions Diet: Usual Diet as Tolerated Activity: As Tolerated Showering/Bathing: May Shower Wound/Incision Care: Keep Operative Site/Wound Site Clean and Dry Notify Provider of: Fever Other/Special Instructions: Report any fever, worsening shortness of breath, any worsening fatigue or dizziness. Report any worsening swelling/fluid in your lower legs - Discharge Plan *PRESCRIPTION DRUG MONITORING PROGRAM REVIEWED*: Not Applicable *COPY OF PRESCRIPTION DRUG MONITORING REPORT IN PATIENT ANAHY: Not Applicable Home Medications: Home Meds [place] [address]/14/15 [History] Simvastatin 40 mg PO 199902/14/15 [History] Docusate Sodium [Colace] 200 mg PO 0809/02/15 [History] Gabapentin [Neurontin] 300 mg PO BEDTIME 06/10/17 [History] EPINEPHrine [Epipen 2-Hunter] 0.3 mg IM ASDIRECTED PRN #1 ml 07/07/18 [Rx] Cyanocobalamin (Vitamin B-12) [B-12] 1,000 mcg PO DAILY@1500 11/30/18 [History] Lidocaine/Prilocaine [EMLA Crm] 1 applic TOP ASDIRECTED 02/08/19 [History] Warfarin [Coumadin] 5 mg PO DAILY 02/08/19 [History] oxyCODONE 10 mg PO Q4H PRN 04/26/19 [History] Acetaminophen [Tylenol] 650 mg PO Q4H PRN tablet 05/27/19 [Rx] Furosemide [Lasix] 40 mg PO QAM 06/01/19 [History] Cholecalciferol (Vitamin D3) [Vitamin D3] 1,000 unit PO DAILY 04/23/20 [History] FLUoxetine [PROzac] 40 mg PO DAILY 05/14/20 [History] NIFEdipine [Nifedipine ER] 60 mg PO DAILY 05/14/20 [History] carvediloL [Carvedilol] 6.25 mg PO BIDMEALS 05/14/20 [History] Albuterol/Ipratropium [DuoNeb 3.0-0.5 MG/3 ML] 3 ml INH QID PRN 05/27/20 [Hi story] Magnesium Chloride [Mag-64] 128 mg PO DAILY 05/27/20 [History] Phytonadione [Vitamin K] 100 mcg PO DAILY 05/27/20 [History] Sodium Bicarbonate 650 mg PO TID 06/18/20 [History] dexAMETHasone [Dexamethasone] 20 mg PO ASDIRECTED 06/23/20 [History] Oxygen Therapy Mode: Nasal Cannula Oxygen Flow Rate (L/min): 2 - Discharge Summary/Plan Comment DC Time >30 min.: No Discharge Summary/Plan Comment: Final diagnosis --Hypoxia, hypoventilation, ICS, will attempt to wean from o2, RT consulted to assess home oxygen qualification --Anemia, chemotherapy induced, hemoglobin improved 8.0%, no set transfusion based off of symptoms --Immunocompromised host, ANC of 1700, --Chemotherapy induced neutropenia, ANC of 1700, stop leukine --LALITHA, prerenal superimposed on chronic kidney disease, greatly improved, no longer on IV fluids, BMP today --Multiple myeloma, light chain --Weakness, improved with PT. anticipate home health with PT. --Dependent edema, improved Chronic conditions Chronic diastolic heart failure, Daily weights, restart Lasix at 50% dose. CAD, S/P CABG in 1998 DDD (degenerative disc disease), lumbar Anxiety, stable Obesity (BMI 30-39.9) EDITH statt to ensure home CPAP Hx of DVT; On Coumadin, INR 2.5 Coumadin , pharmacy to monitor INR Hyperlipidemia Essential hypertension Hx Adenocarcinoma of right lung Liver hemangioma Depression History summary Vj is a 79-year-old gentleman who was initially admitted into in acute care on June 23 due to anemia and acute on chronic renal disease. after his acute care admission it was felt that he could benefit from swing bed for strengthening as he did require oxygenation. Vj has multiple myeloma is being followed closely by oncologist/senior care manager Dr. Langleys. He was admitted on to [facility] 06/12/2020 for his 4th cycle of VAD chemotherapy for multiple myeloma and did well with this without major symptoms at that time. He was also admitted about one month prior when he went through cycle #3 however that was mainly for lower extremity weakness. Has been in PT at [facility] for his lower extremity weakness. Acute care & Swing Bed Hospital course 06/23/2020; patient received 1 units of packed red blood cells yesterday and his hemoglobin increased to 7.4%. He was given IV fluids of isotonic saline with a 400 cc initial bolus on admission. 06/24/2020; Patient is feeling better, hemoglobin improved slightly to 7.4%, creatinine dramatically increased to 2.67. He was given isotonic saline infusion throughout the night after initial bolus. 06/25/2020; patient is WBC down to 1.95 with a subsequent ANC of 1540. No signs of systemic infection. No chills, no shortness of breath. Seems to be tolerating fluids well, BUN 41 creatinine 2.54 dramatically improving. No fever, blood pressure 150/74. Not requiring oxygen. Slightly unsteady on his feet when he goes to the restroom. Hemoglobin 8.6 after second unit of packed red blood cells. No signs of fluid overload. Some lower extremity weakness however seems to be improving 06/26/2020; patient sitting in chair conversing feeling better today. Yesterday afternoon patient developed low-grade fever, all provider was notified patient was given 1 g of Rocephin, blood cultures were drawn this morning, 20 mg of Lasix last night. No shortness of breath, lungs clear. Chest x-ray demonstrated mild CHF with mild central vascular crowding. WBC decreasing, ANC~ 1150 no signs of systemic infection. Creatinine below baseline at 2.52 BUN 38. 06/27/2020; patient's white count continues to decrease with an ANC less than 1000. He had been administered a total of 3 doses of Leukine so far with 2 units of packed red blood cells with decreasing anemia however no signs of occult bleeding. Slightly weak today. 07/01/2020; care conference was held with patient, patient spouse and 2 daughters. We discussed current condition, prognosis, upcoming treatments with VAD, IVIG and extended hospital stay in [place] for his next cycle of #5 VAD treatments if needed. Patient does have oncologist appointment [place] and patient will discuss ongoing treatments as the patient feels he would like to continue with current therapies as long as he seems to be progressing. Patient's hemoglobin has improved with transfusion, his white count is above 3000, creatinine 2.20 well below his established baseline. He has oxygen needs which are new on this admission. Aranesp will be given tomorrow. Patient's Lasix was held for a few days and was restarted however only at 50% dose of 20 mg by mouth daily. Upcoming #5 VAD chemotherapy in [place]. white count 3.1 after multiple Leukine injections. ANC 1700 Medication changes/adjustments upon discharge None. Continue medications, Restart Lasix full dose 40 mg by mouth daily Referrals/follow-ups Dr. Wagoner July 02. [address] [facility] July 01, [id number] encounter as the patient will be home bound and will require oxygen via nasal cannula as directed. He will need physical therapy to help develop an in-home therapy program to dress his decreased strength and endurance due to fatigue, muscle weakness mainly in his lower extremities due to recent chemotherapy treatments. Please help develop him home management program and monitor his oxygen requirements. Patient does have an unsteady gait and the need for assistance due to his recent chemotherapy, anemia, and his immunocompromising state of health. Please monitor his Port-A-Cath in his right upper anterior chest wall as the patient is high risk of infection due to pancytopenia. - General Info Date of Service: 07/02/20 Subjective Update: No physical exam or review of system was performed on the day as discharge - Patient Data Vitals - Most Recent: Last Vital Signs Temp 97.8 F 07/02/20 06:16 Pulse 78 07/02/20 08:13 Resp 18 07/02/20 06:16 BP 152/74 H 07/02/20 08:13 Pulse Ox 94 L 07/02/20 06:16 Weight - Most Recent: 247 lb 5 oz I&O - Last 24 hours: Intake & Output 07/01/20 07/02/20 07/02/20 22:59 06:59 14:59 Intake Total 620 150 Balance 620 150 Lab Results - Last 24 hrs: Laboratory Results - last 24 hr 07/01/20 07/02/20 Range/Units 07:10 07:25 INR 2.1 H (0.9-1.1) Sodium 140 (136-145) mmol/L Potassium 4.0 (3.3-5.3) mmol/L Chloride 105 (98-115) mmol/L Carbon Dioxide 29.5 (21.0-32.0) mmol/L Anion Gap 9.5 (5-15) mmol/L BUN 41 H (6-25) mg/dL Creatinine 2.20 H (0.51-1.17) mg/dL Est Cr Clr Drug Dosing 24.97 mL/min Estimated GFR (MDRD) 29 mL/min Glucose 86 (75 - 99) mg/dL Calcium 7.9 L (8.7-10.3) mg/dL Med Orders - Current: Current Medications Acetaminophen (Tylenol) 650 mg PO Q4H PRN PRN Reason: fever, pain Albuterol/Ipratropium (Duoneb 3.0-0.5 Mg/3 Ml) 3 ml INH QID PRN PRN Reason: Shortness of Breath Carvedilol (Coreg) 6.25 mg PO BIDMEALS [facility] Last Admin: 07/02/20 08:13 Dose: 6.25 mg Documented by: Cholecalciferol (Vitamin D3) 25 mcg PO DAILY [facility] Last Admin: 07/02/20 08:13 Dose: 25 mcg Documented by: Cyanocobalamin (Vitamin B12) 1,000 mcg PO DAILY@1500 [facility] Last Admin: 07/01/20 14:52 Dose: 1,000 mcg Documented by: Docusate Sodium (Colace) 200 mg PO 0800 [facility] Last Admin: 07/02/20 08:12 Dose: 200 mg Documented by: Fluoxetine HCl (Prozac) 40 mg PO DAILY [facility] Last Admin: 07/02/20 08:13 Dose: 40 mg Documented by: Furosemide (Lasix) 20 mg PO DAILY [facility] Last Admin: 07/02/20 08:13 Dose: 20 mg Documented by: Gabapentin (Neurontin) 300 mg PO BEDTIME [facility] Last Admin: 07/01/20 21:32 Dose: 300 mg Documented by: Sodium Chloride (Normal Saline) 50 mls @ 125 mls/hr IV ASDIRECTED PRN PRN Reason: FLUSH Last Admin: 06/30/20 14:42 Dose: 125 mls/hr Documented by: Magnesium Chloride (Mag-64) 128 mg PO DAILY [facility] Last Admin: 07/02/20 08:12 Dose: 128 mg Documented by: Menthol ([place] Sugar Free) 1 nataliya PO ASDIRECTED PRN PRN Reason: Cough Last Admin: 06/29/20 20:41 Dose: 1 nataliya Documented by: Nifedipine (Procardia Xl) 60 mg PO DAILY [facility] Last Admin: 07/02/20 08:12 Dose: 60 mg Documented by: Omeprazole (Omeprazole) 20 mg PO 0800 [facility] Last Admin: 07/02/20 07:23 Dose: 20 mg Documented by: Oxycodone HCl (Oxycodone) 10 mg PO Q4H PRN PRN Reason: Pain Phytonadione (Vitamin K) 100 mcg PO DAILY [facility] Last Admin: 07/02/20 08:12 Dose: 100 mcg Documented by: Simvastatin (Zocor) 40 mg PO 1999 [facility] Last Admin: 07/01/20 21:42 Dose: 40 mg Documented by: Sodium Bicarbonate (Sodium Bicarbonate) 650 mg PO TID [facility] Last Admin: 07/02/20 08:12 Dose: 650 mg Documented by: Sodium Chloride (Saline Flush) 10 ml FLUSH Q8HR PRN PRN Reason: keep vein open Sodium Chloride (Normal Saline) 20 ml FLUSH ASDIRECTED [facility] Warfarin Sodium (Pharmacy To Dose - Warfarin) 1 dose PO ASDIRECTED [facility] Discontinued Medications Dexamethasone (Dexamethasone) 20 mg PO DAILY [facility] Stop: 07/01/20 09:01 Last Admin: 07/01/20 08:44 Dose: 20 mg Documented by: Sargramostim 500 mcg/ Sodium (Chloride) 50 mls @ 12.5 mls/hr IV DAILY@1500 [facility] Stop: 07/02/20 20:00 Last Admin: 06/30/20 14:43 Dose: 12.5 mls/hr Documented by: Menthol ([place] Sugar Free) Confirm Administered Dose 1 nataliya .ROUTE .STK-MED ONE Stop: 06/28/20 01:00 Last Admin: 06/28/20 01:12 Dose: 1 nataliya Documented by: Warfarin Sodium (Coumadin) 5 mg PO DAILY [facility] Last Admin: 06/29/20 10:37 Dose: Not Given Documented by: Warfarin Sodium (Coumadin) 2.5 mg PO ONETIME ONE Stop: 06/29/20 09:46 Last Admin: 06/29/20 09:49 Dose: 2.5 mg Documented by: Warfarin Sodium (Coumadin) 2.5 mg PO ONETIME ONE Stop: 06/30/20 18:01 Last Admin: 06/30/20 18:06 Dose: 2.5 mg Documented by: Warfarin Sodium (Coumadin) 5 mg PO ONETIME ONE Stop: 07/01/20 18:01 Last Admin: 07/01/20 18:18 Dose: 5 mg Documented by: Comments:: No physical exam was performed day of discharge - Exam Quality Assessment: Reports: Supplemental Oxygen
[2020-07-02] MEDS ORDERED: DARBEPOETIN ALFA SUBCUT ONE (11:37)
[2020-07-02] MEDS ORDERED: Warfarin 5 MG Tab PO ONE (18:00)
== END 2020-07-02 13:30 | disposition home health service (06) | DRG 556 ==
LOC: KA.MS 10:29
PROVIDERS: ADMIT Nurse Practitioner Family; ATTEND Nurse Practitioner Family
DX: R29.898 Other symptoms and signs involving the musculoskeletal system (principal); I50.32 Chronic diastolic (congestive) heart failure; C90.00 Multiple myeloma not having achieved remission; N17.9 Acute kidney failure, unspecified; D64.81 Anemia due to antineoplastic chemotherapy; T45.1X5A Adverse effect of antineoplastic and immunosuppressive drugs, initial encounter; M51.36 Other intervertebral disc degeneration, lumbar region; I11.0 Hypertensive heart disease with heart failure; R06.89 Other abnormalities of breathing; R09.02 Hypoxemia; D70.1 Agranulocytosis secondary to cancer chemotherapy; F41.9 Anxiety disorder, unspecified; E66.9 Obesity, unspecified; I25.10 Atherosclerotic heart disease of native coronary artery without angina pectoris; G47.33 Obstructive sleep apnea (adult) (pediatric); E78.5 Hyperlipidemia, unspecified; F32.9 Major depressive disorder, single episode, unspecified; D18.03 Hemangioma of intra-abdominal structures; E78.00 Pure hypercholesterolemia, unspecified; K59.09 Other constipation; K21.9 Gastro-esophageal reflux disease without esophagitis; N40.0 Benign prostatic hyperplasia without lower urinary tract symptoms; M54.9 Dorsalgia, unspecified; G89.29 Other chronic pain; Z96.649 Presence of unspecified artificial hip joint; Z85.118 Personal history of other malignant neoplasm of bronchus and lung; Z88.8 Allergy status to other drugs, medicaments and biological substances; Z79.01 Long term (current) use of anticoagulants; Z79.899 Other long term (current) drug therapy; I25.2 Old myocardial infarction; Z86.718 Personal history of other venous thrombosis and embolism; Z68.39 Body mass index [BMI] 39.0-39.9, adult
CPT/HCPCS: 36415; 36416; 80048; 85025; 85610; 97110-GP; 97162-GP; 97537-GP; A9270-GY; J0881; J1642; J2820; J8540

== ENCOUNTER 2020-07-14 19:12 | Inpatient (IN) | payer MEDICARE, BC ==
--- NOTE | 2020-07-14 19:18 | EDM.PDOC ---
ED HPI GENERAL MEDICAL PROBLEM - General Chief Complaint: Respiratory Problem Stated Complaint: SHORT OF BREATH Time Seen by Provider: 07/14/20 19:16 Source of Information: Reports: Patient History Limitations: Reports: No Limitations - History of Present Illness INITIAL COMMENTS - FREE TEXT/NARRATIVE: Brody, 79-year-old male, presents by private vehicle driven by his from his residence this evening requesting admission to the hospital. He is experiencing worsening shortness of breath despite recent changes in medication last week. Was increased in his Lasix by 20 mg daily, to a 40 mg dose for 5 days, today being the fourth day. States his breathing is worse the past 24+ hours and he spoke with Dereck Shultz on the phone this morning and was advised to present fo r admission to the hospital. Vj tells me that he decided he was not going to undergo any further chemotherapy, as last weekend, after his clinic visit with Dereck on Tuesday, they had a family meeting. The decision of the meeting was that he would spend his time at home versus spending 2-week periods in [place] receiving treatment. He denies fever chills, states that his breathing has just not maintained with the initial improvement of the increased Lasix. He stated he noted urine increase when the medication was first doubled but is uncertain if there was any significant improvement today. Urine has become darker yellow again. He speaks of occasional pressure discomfort to the chest, worsening edema to the lower extremities, and significant shortness of breath if he is ever to take off his nasal cannula which is continued at 3 L. He states he would like his blood through his port axis as we will be giving medications and treatment while he is hospitalized. I explained to Vj that because he presented to the emergency department I need to run tests to prove his admission status, and that direct admissions can only be done through the provider that is recommending the admission. Onset: Today, Sudden, Gradual Lower Back Pain Score (Numeric/FACES): 4 - Related Data Allergies Allergy/AdvReac Type Severity Reaction Status Date / Time daratumumab Allergy Nausea and Verified 07/14/20 20:27 Vomiting epoetin jesse [From Procrit] Allergy Hives Verified 07/14/20 20:27 [id number] [From Zarxio] Allergy Rash Verified 07/14/20 20:27 Home Meds: Home Meds Omeprazole 20 mg PO 0800 06/05/15 [History] Simvastatin 40 mg PO 199902/14/15 [History] Docusate Sodium [Colace] 200 mg PO 0800 09/02/15 [History] Gabapentin [Neurontin] 300 mg PO BEDTIME 06/10/17 [History] EPINEPHrine [Epipen 2-Hunter] 0.3 mg IM ASDIRECTED PRN #1 ml 07/07/18 [Rx] Cyanocobalamin (Vitamin B-12) [B-12] 1,000 mcg PO DAILY@1500 11/30/18 [History] Lidocaine/Prilocaine [EMLA Crm] 1 applic TOP ASDIRECTED 02/08/19 [History] Warfarin [Coumadin] 5 mg PO DAILY 02/08/19 [History] oxyCODONE 10 mg PO Q4H PRN 04/26/19 [History] Acetaminophen [Tylenol] 650 mg PO Q4H PRN tablet 05/27/19 [Rx] Furosemide [Lasix] 40 mg PO QAM 06/01/19 [History] Cholecalciferol (Vitamin D3) [Vitamin D3] 1,000 unit PO DAILY 04/23/20 [History] FLUoxetine [PROzac] 40 mg PO DAILY 05/14/20 [History] NIFEdipine [Nifedipine ER] 60 mg PO DAILY 05/14/20 [History] carvediloL [Carvedilol] 6.25 mg PO BIDMEALS 05/14/20 [History] Albuterol/Ipratropium [DuoNeb 3.0-0.5 MG/3 ML] 3 ml INH QID PRN 05/27/20 [History] Magnesium Chloride [Mag-64] 128 mg PO DAILY 05/27/20 [History] Phytonadione [Vitamin K] 100 mcg PO DAILY 05/27/20 [History] Sodium Bicarbonate 650 mg PO TID 06/18/20 [History] dexAMETHasone [Dexamethasone] 20 mg PO ASDIRECTED 06/23/20 [History] Past Medical History HEENT History: Reports: Hard of Hearing, Impaired Vision Cardiovascular History: Reports: Blood Clots/VTE/DVT, CAD, Heart Failure, High Cholesterol, Hypertension, RI, SOB on Exertion, Other (See Below) Other Cardiovascular History: Chronic diastolic heart failure Respiratory History: Reports: Bronchitis, Recurrent, COPD, Sleep Apnea, SOB Other Respiratory History: CPAP, Adenoncarcinoma of the right lung Gastrointestinal History: Reports: Chronic Constipation, GERD Genitourinary History: Reports: BPH, Urinary Incontinence Other Genitourinary History: appt to see Dr Sin Mojica in [place] 09/30/16 for Kidney follow-up/. Renal Biopsy Oct 13 2015 negative for malignancy. HYPOGONADISM Musculoskeletal History: Reports: Back Pain, Chronic, Fracture Other Musculoskeletal History: Thigh pain resolved no voices only of low back pain - see pain assessment. DJD Neurological History: Reports: Neuropathy, Peripheral, Seizure Psychiatric History: Reports: Anxiety, Depression Other Psychiatric History: Hallucinating off and on lately, angry, forgetful Endocrine/Metabolic History: Reports: Obesity/BMI 30+ Hematologic History: Reports: Anemia, Other (See Below) Other Hematologic History: Iron studies done. RED BLOOD CELL ANTIBODY POSITIVE (ON ANTI-CD38 THERAPY (DARATUMUMAB)). Chemotherapy induced anemiahypogammaglobulinemia, acquired Immunologic History: Reports: Immunosuppression, Other (See Below) Other Immunologic History: CHEMOTHERAPY AND RADIATION Oncologic (Cancer) History: Reports: Prostate, Other (See Below) Other Oncologic History: multiple myeloma jun 2015. PROSTATE CA 05-24-2013. 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 MASS IN KIDNEY 06-04-2015 Dermatologic History: Reports: Eczema Other Dermatologic History: In Sep 2016Itchy rash raised red/pink size of a pinhead after procrit injection, Procrit now held. continues using cream for eczema on abdomen, Voices at one time bruising was an issue "not so much any more" It's getting better" - Infectious Disease History Infectious Disease History: Reports: Chicken Pox, Influenza, Measles, Mumps Other Infectious Disease History: INFECTION WITH DRUG RESISTANT MICROORGANISMS - Past Surgical History HEENT Surgical History: Reports: Tonsillectomy Cardiovascular Surgical History: Reports: Coronary Artery Bypass Respiratory Surgical History: Reports: None GI Surgical History: Reports: Colonoscopy Male Surgical History: Reports: Prostate Biopsy Endocrine Surgical History: Reports: None Neurological Surgical History: Reports: Vertebroplasty, Other (See Below) Other Neurological Surgeries/Procedures: Vertibroplasty - in Jun 2015 Musculoskeletal Surgical History: Reports: Hip Replacement, Other (See Below) Other Musculoskeletal Surgeries/Procedures:: 3rd vertebral plasty done 09/24/15. Oncologic Surgical History: Reports: Bone Marrow Aspiration, Other (See Below) Other Oncologic Surgeries/Procedures: PROSTATE BIOPSY. LUNG BIOPSY. KIDNEY BIOPSY Dermatological Surgical History: Reports: None - Past Imaging History Past Imaging History: Reports: CAT Scan, Xray Social & Family History - Family History Family Medical History: Noncontributory Cardiac: Reports: RI Respiratory: Reports: None GI: Reports: None : Reports: None OBGYN: Reports: None Musculoskeletal: Reports: Back pain, Chronic Psychiatric: Reports: None Endocrine/Metabolic: Reports: None - Caffeine Use Caffeine Use: Reports: Coffee, Soda - Living Situation & Occupation Living situation: Reports: , with Spouse ED ROS GENERAL - Review of Systems Review Of Systems: Comprehensive ROS is negative, except as noted in HPI. ED EXAM, GENERAL - Physical Exam Exam: See Below Free Text/Narrative:: Alert, oriented, and conversive with no evidence of cyanosis nor pallor. HEENT is negative to discharge or deformity. He is able to speak with no exhibited worsening shortness of breath. His saturations hovered in the 90 to 93% on 3 L with a heart rate between 97 and 102. Neck is soft supple with no JVD no carotid bruit. Thorax is diminished throughout with fine rhonchi scattered throughout bases are more diminished. Port is palpable to the anterior right chest. Rotund abdomen that is soft bowel sounds are present. rectal is deferred. There is +23 edema to the lower extremities from mid calf distally. Skin is warm and dry. It is noted he prefers sitting up with feet dangling at bedside as he feels he is able to breathe better. We did discuss that that may benefit his breathing temporarily but it does cause pulling of the fluid to the lower legs and feet. #1 Interpretation EKG Date: 07/14/20 Time: 20:17 Rhythm: NSR Rate (Beats/Min): 93 [place]: Normal P-Wave: Present QRS: Normal ST-T: Normal QT: Normal Comparison: No Change (Artifact attributed interference.) Course - Vital Signs Last Recorded V/S: Last Vital Signs Temp 36.2 C 07/14/20 19:24 Pulse 96 07/14/20 19:24 Resp 33 H 07/14/20 19:24 BP 125/69 07/14/20 19:24 Pulse Ox 95 07/14/20 19:24 - Orders/Labs/Meds Orders: Active Orders 24 hr Category Date Time Status EKG Documentation Completion [RC] ASDIRECTED Care 07/14/20 19:17 Active Implanted Port Access [RC] DAILY Care 07/14/20 19:26 Active CORONAVIRUS COVID-19 RAPID [MOLEC] Stat Lab 07/14/20 21:10 Ordered EKG 12 Lead [EK] Urgent Ther 07/14/20 19:17 Ordered Labs: Laboratory Tests 07/14/20 07/14/20 07/14/20 Range/Units 20:00 20:00 20:00 WBC 4.35 L (5.00-10.00) 10^3/uL RBC 2.30 L (4.50-6.00) 10^6/uL Hgb 7.1 L (13.0-17.0) g/dL Hct 22.6 L (40.0-52.0) % MCV 98.3 H D (82.0-92.0) fL MCH 30.9 (27.0-31.0) pg MCHC 31.4 L (32.0-36.0) g/dL RDW 17.4 H (11.5-14.5) % Plt Count 133 L (150-400) 10^3/uL MPV 11.0 H (7.4-10.4) fL Immature Gran % (Auto) 0.5 (0.0-5.0) % Neut % (Auto) 57.2 (50.0-70.0) % Lymph % (Auto) 31.3 (20.0-40.0) % [place] % (Auto) 7.8 (2.0-8.0) % Eos % (Auto) 3.0 (1.0-3.0) % Baso % (Auto) 0.2 (0.0-1.0) % Neut # (Auto) 2.49 L (2.50-7.00) 10^3/uL Lymph # (Auto) 1.36 (1.00-4.00) 10^3/uL [place] # (Auto) 0.34 (0.10-0.80) 10^3/uL Eos # (Auto) 0.13 (0.10-0.30) 10^3/uL Baso # (Auto) 0.01 (0.00-0.10) 10^3/uL Immature Gran # (Auto) 0.02 (0.00-0.50) 10^3/uL PT (9.2-11.2) SEC INR (0.9-1.1) Sodium 139 (136-145) mmol/L Potassium 4.5 (3.3-5.3) mmol/L Chloride 100 (98-115) mmol/L Carbon Dioxide 34.3 H (21.0-32.0) mmol/L Anion Gap 9.2 (5-15) mmol/L BUN 36 H (6-25) mg/dL Creatinine 3.18 H (0.51-1.17) mg/dL Est Cr Clr Drug Dosing TNP Estimated GFR (MDRD) 19 mL/min Glucose 138 H (75 - 99) mg/dL Lactic Acid 0.9 (0.4-2.0) mmol/L Calcium 9.3 (8.7-10.3) mg/dL Total Bilirubin 0.3 (0.2-1.0) mg/dL AST 12 L (15-37) U/L ALT 13 (12-78) U/L Alkaline Phosphatase 73 (46-116) IU/L Creatine Kinase 24 L (26-276) U/L CK-MB (CK-2) < 0.50 (0.00-4.30) ng/mL Troponin I < 0.04 (0.00-0.070) ng/mL B-Natriuretic Peptide 93 (0-100) pg/mL Total Protein 5.9 L (6.4-8.2) g/dL Albumin 2.34 L (3.00-4.80) g/dL 07/14/20 Range/Units 20:00 WBC (5.00-10.00) 10^3/uL RBC (4.50-6.00) 10^6/uL Hgb (13.0-17.0) g/dL Hct (40.0-52.0) % MCV (82.0-92.0) fL MCH (27.0-31.0) pg MCHC (32.0-36.0) g/dL RDW (11.5-14.5) % Plt Count (150-400) 10^3/uL MPV (7.4-10.4) fL Immature Gran % (Auto) (0.0-5.0) % Neut % (Auto) (50.0-70.0) % Lymph % (Auto) (20.0-40.0) % [place] % (Auto) (2.0-8.0) % Eos % (Auto) (1.0-3.0) % Baso % (Auto) (0.0-1.0) % Neut # (Auto) (2.50-7.00) 10^3/uL Lymph # (Auto) (1.00-4.00) 10^3/uL [place] # (Auto) (0.10-0.80) 10^3/uL Eos # (Auto) (0.10-0.30) 10^3/uL Baso # (Auto) (0.00-0.10) 10^3/uL Immature Gran # (Auto) (0.00-0.50) 10^3/uL PT 26.5 H (9.2-11.2) SEC INR 2.7 H (0.9-1.1) Sodium (136-145) mmol/L Potassium (3.3-5.3) mmol/L Chloride (98-115) mmol/L Carbon Dioxide (21.0-32.0) mmol/L Anion Gap (5-15) mmol/L BUN (6-25) mg/dL Creatinine (0.51-1.17) mg/dL Est Cr Clr Drug Dosing Estimated GFR (MDRD) mL/min Glucose (75 - 99) mg/dL Lactic Acid (0.4-2.0) mmol/L Calcium (8.7-10.3) mg/dL Total Bilirubin (0.2-1.0) mg/dL AST (15-37) U/L ALT (12-78) U/L Alkaline Phosphatase (46-116) IU/L Creatine Kinase (26-276) U/L CK-MB (CK-2) (0.00-4.30) ng/mL Troponin I (0.00-0.070) ng/mL B-Natriuretic Peptide (0-100) pg/mL Total Protein (6.4-8.2) g/dL Albumin (3.00-4.80) g/dL Meds: Medications Discontinued Medications Generic Name Dose Route Start Last Admin Trade Name Freq PRN Reason Stop Dose Admin Furosemide 20 mg 07/14/20 20:49 07/14/20 20:54 Lasix IVPUSH 07/14/20 20:50 20 mg NOW ONE Administration Lidocaine HCl 5 ml 07/14/20 19:27 Xylocaine 2% Jelly TOP 07/14/20 19:28 ONETIME ONE - Re-Assessments/Exams Free Text/Narrative Re-Assessment/Exam: 07/14/20 19:56 Port axis unable to be accessed per nursing staff as well as myself with the slight inferior rotation noted, traction held and attempts were stopped due to his discomfort. Free Text/Narrative Re-Assessment/Exam: 07/14/20 21:21 At the time of admission was determined with Dr. John Townsend, I spoke with Vj regarding his CODE STATUS, as there was no documentation found of any changes despite his comments that he was quitting all treatments and going to spend time at home attempting to be comfortable. When directly questioned as to CODE STATUS and resuscitation, Vj responds "I guess you could do what ever if it is going to work, for the time being." I advised him that CODE STATUS determines resuscitation and or intubation status, and is a decision that needs to be made with no guarantee of the outcome if choosing to undergo resuscitation or intubation. To this question he responds "I guess then I will have to talk to my tomorrow, and decide after that." Departure - Departure Time of Disposition: 21:31 Disposition: Admitted As Inpatient 67 Condition: Fair Clinical Impression: Dependent edema, Dyspnea, Acute on chronic renal failure, CHF (congestive heart failure), Cardiomegaly, Anemia - Discharge Information *PRESCRIPTION DRUG MONITORING PROGRAM REVIEWED*: Not Applicable *COPY OF PRESCRIPTION DRUG MONITORING REPORT IN PATIENT ANAHY: Not Applicable Referrals: Dereck Shultz NP [Primary Care Provider] - Regina Castillo MD [Physician] - Forms: ED Department Discharge Additional Instructions: Discussion per phone call with Dr. John Correa agreeing to the admission. Sepsis Event Note (ED) - Focused Exam Vital Signs: Vital Signs Temp Pulse Resp BP Pulse Ox 07/14/20 19:24 36.2 C 96 33 H 125/69 95 ED Communication - ED Communication Date/Time Date: 07/14/20 Time Called: 21:00 - Discussed Case With (1) Discussed Case With (1): Admitting Provider Person/s Notified (1): Regina Castillo - Conversation Summary Admitting Provider Agreed to Patient's Admission: Yes - Problem List & Annotations (1) Anemia SNOMED Code(s): 946267363 Code(s): D64.9 - ANEMIA, UNSPECIFIED Status: Chronic Priority: Medium Current Visit: Yes Qualifiers: Anemia type: other cause (2) Back pain SNOMED Code(s): 116211880 Code(s): M54.9 - DORSALGIA, UNSPECIFIED Status: Chronic Priority: Medium Current Visit: Yes Qualifiers: Back pain location: low back pain Chronicity: chronic Back pain laterality: bilateral Sciatica presence: without sciatica Qualified Code(s): M54.5 - Low back pain; G89.29 - Other chronic pain (3) Acute on chronic renal failure SNOMED Code(s): 891393912 Code(s): N17.9 - ACUTE KIDNEY FAILURE, UNSPECIFIED; N18.9 - CHRONIC KIDNEY DISEASE, UNSPECIFIED Status: Chronic Priority: Medium Current Visit: Yes Qualifiers: Acute renal failure type: unspecified Chronic kidney disease stage: stage 3 (moderate) Chronic kidney disease stage 3 subtype: stage 3b (GFR 30-44) Qualified Code(s): N17.9 - Acute kidney failure, unspecified; N18.32 - Chronic kidney disease, stage 3b (4) Dyspnea SNOMED Code(s): 190928938 Code(s): R06.00 - DYSPNEA, UNSPECIFIED Status: Acute Priority: High Current Visit: Yes Qualifiers: Dyspnea type: shortness of breath Qualified Code(s): R06.02 - Shortness of breath; R06.00 - Dyspnea, unspecified; R06.01 - Orthopnea (5) Hypoxemia SNOMED Code(s): 216752771 Code(s): R09.02 - HYPOXEMIA Status: Chronic Priority: High Current Visit: Yes (6) Dependent edema SNOMED Code(s): 501153157 Code(s): R60.9 - EDEMA, UNSPECIFIED Status: Chronic Priority: Medium Current Visit: No (7) Multiple myeloma SNOMED Code(s): 943319498 Code(s): C90.00 - MULTIPLE MYELOMA NOT HAVING ACHIEVED REMISSION Status: Chronic Priority: Medium Current Visit: No Qualifiers: Multiple myeloma remission status: unspecified Qualified Code(s): C90.00 - Multiple myeloma not having achieved remission (8) CHF (congestive heart failure) SNOMED Code(s): 45262961 Code(s): I50.9 - HEART FAILURE, UNSPECIFIED Status: Acute Priority: High Current Visit: Yes Qualifiers: Heart failure type: unspecified Heart failure chronicity: acute on chronic Qualified Code(s): I50.9 - Heart failure, unspecified (9) Cardiomegaly SNOMED Code(s): 3895599 Code(s): I51.7 - CARDIOMEGALY Status: Chronic Priority: High Current Visit: Yes Annotation/Comment:: Worsened since last x-ray. - Problem List Review Problem List Initiated/Reviewed/Updated: Yes - My Orders Last 24 Hours: My Active Orders 07/14/20 19:17 EKG Documentation Completion [RC] ASDIRECTED EKG 12 Lead [EK] Urgent 07/14/20 19:26 Implanted Port Access [RC] DAILY 07/14/20 21:10 CORONAVIRUS COVID-19 RAPID [MOLEC] Stat - Assessment/Plan Last 24 Hours: My Active Orders 07/14/20 19:17 EKG Documentation Completion [RC] ASDIRECTED EKG 12 Lead [EK] Urgent 07/14/20 19:26 Implanted Port Access [RC] DAILY 07/14/20 21:10 CORONAVIRUS COVID-19 RAPID [MOLEC] Stat Plan: Discussion per phone call with Dr. John Correa agreeing to the admission.
[2020-07-14] MEDS ORDERED: Lidocaine 2% Jelly 5 ML Tube TOP ONE (19:27)
--- NOTE | 2020-07-14 20:33 | CR ---
[id number] RAD/RAD Chest PA or AP 1V EXAM: FRONTAL CHEST INDICATION: Shortness of breath. COMPARISON: June 25, 2020. DISCUSSION: There is stable cardiomegaly with mild to moderate pulmonary edema that has increased relative to the prior study. Small bilateral pleural effusions are stable to mildly increased. A right internal jugular approach port is in stable satisfactory position tip overlying the SVC. Sternotomy. Multiple chronic appearing bilateral rib fractures are unchanged. IMPRESSION: 1. Mild to moderate congestive heart failure has increased. Yadiel Shukla MD 07/14/202031 Thank you for allowing us to participate in the care of your patient.
[2020-07-14 20:38] LABS: ANION GAP 9.2 mmol/L (5-15); CHLORIDE,CL 100 mmol/L (98-115); SODIUM,NA 139 mmol/L (136-145)
[2020-07-14] MEDS ORDERED: Furosemide 40 MG/4 ML VIAL IVPUSH ONE (20:49)
[2020-07-15] MEDS ORDERED: oxyCODONE 5 MG Tab PO PRN (00:36)
[2020-07-15] MEDS ORDERED: Acetaminophen 325 MG Tab PO PRN (00:36)
[2020-07-15] MEDS ORDERED: Albuterol/Ipratropium 3.0-0.5 MG/3 ML Neb Soln INH PRN (00:36)
[2020-07-15] MEDS ORDERED: Phytonadione 100 MCG Tab PO ONE (02:00)
[2020-07-15] MEDS ORDERED: Warfarin 5 MG Tab PO ONE (02:00)
[2020-07-15] MEDS: Omeprazole 20 MG Cap.CR PO SCH (07:42)
[2020-07-15] MEDS: Carvedilol 6.25 MG Tab PO SCH ×2 (07:42→17:44)
[2020-07-15] MEDS: Docusate Sodium 100 MG Cap PO SCH (07:43)
[2020-07-15] MEDS: Cholecalciferol (Vitamin D3) 25 MCG Tab PO SCH (08:16)
[2020-07-15] MEDS: NIFEdipine 30 MG Tab.ER PO SCH (08:16)
[2020-07-15] MEDS: Magnesium Chloride 64 MG Tab.ER PO SCH (08:17)
[2020-07-15] MEDS: FLUoxetine 10 MG Cap PO SCH (08:17)
[2020-07-15 09:08] LABS: ANION GAP 11.3 mmol/L (5-15)
--- NOTE | 2020-07-15 09:20 | PCM.HP.2 ---
H&P History of Present Illness - General Date of Service: 07/15/20 Admit Problem/Dx: Admission Diagnosis/Problem Admission Diagnosis/Problem CHF, Congestive heart failure Source of Information: Patient, Old Records, RN Lower Back Pain Score (Numeric/FACES): 4 - Related Data Allergies/Adverse Reactions: Allergies Allergy/AdvReac Type Severity Reaction Status Date / Time daratumumab Allergy Nausea and Verified 07/14/20 23:15 Vomiting epoetin jesse [From Procrit] Allergy Hives Verified 07/14/20 23:15 [id number] [From Zarxio] Allergy Rash Verified 07/14/20 23:15 Home Medications: Home Meds Omeprazole 20 mg PO 0800 02/14/15 [History] Simvastatin 40 mg PO 199902/14/15 [History] Docusate Sodium [Colace] 100 mg PO 0800 09/02/15 [History] Gabapentin [Neurontin] 300 mg PO BEDTIME 06/10/17 [History] EPINEPHrine [Epipen 2-Hunter] 0.3 mg IM ASDIRECTED PRN #1 ml 07/07/18 [Rx] Cyanocobalamin (Vitamin B-12) [B-12] 1,000 mcg PO DAILY@1500 11/30/18 [History] Lidocaine/Prilocaine [EMLA Crm] 1 applic TOP ASDIRECTED PRN 02/08/19 [History] Warfarin [Coumadin] 5 mg PO QPM 02/08/19 [History] oxyCODONE 10 mg PO Q4H PRN 04/26/19 [History] Acetaminophen [Tylenol] 650 mg PO Q4H PRN tablet 05/27/19 [Rx] Furosemide [Lasix] 40 mg PO BID 06/01/19 [History] Cholecalciferol (Vitamin D3) [Vitamin D3] 1,000 unit PO DAILY 04/23/20 [History] FLUoxetine [PROzac] 40 mg PO QAM 05/14/20 [History] NIFEdipine [Nifedipine ER] 60 mg PO DAILY 05/14/20 [History] carvediloL [Carvedilol] 3.125 mg PO BIDMEALS 05/14/20 [History] Albuterol/Ipratropium [DuoNeb 3.0-0.5 MG/3 ML] 3 ml INH QID PRN 05/27/20 [History] Magnesium Chloride [Mag-64] 128 mg PO DAILY 05/27/20 [History] Phytonadione [Vitamin K] 100 mcg PO QPM 05/27/20 [History] Sodium Bicarbonate 650 mg PO TID 06/18/20 [History] Past Medical History HEENT History: Reports: Hard of Hearing, Impaired Vision Other HEENT History: wears glasses Cardiovascular History: Reports: Blood Clots/VTE/DVT, CAD, Heart Failure, High Cholesterol, Hypertension, [place], SOB on Exertion, Other (See Below) Other Cardiovascular History: Chronic diastolic heart failure Respiratory History: Reports: Bronchitis, Recurrent, COPD, Sleep Apnea, SOB Other Respiratory History: CPAP, Adenoncarcinoma of the right lung Gastrointestinal History: Reports: Chronic Constipation, GERD Genitourinary History: Reports: BPH, Urinary Incontinence Other Genitourinary History: appt to see Dr Sin Mojica in [place] 09/30/16 for Kidney follow-up/. Renal Biopsy Oct 13 2015 negative for malignancy. HYPOGONADISM. acute on chronic renal failure Musculoskeletal History: Reports: Back Pain, Chronic, Fracture Other Musculoskeletal History: DJD Neurological History: Reports: Neuropathy, Peripheral, Seizure Psychiatric History: Reports: Anxiety, Depression Other Psychiatric History: Hallucinating off and on lately, angry, forgetful Endocrine/Metabolic History: Reports: Obesity/BMI 30+ Hematologic History: Reports: Anemia, Other (See Below) Other Hematologic History: Iron studies done. RED BLOOD CELL ANTIBODY POSITIVE (ON ANTI-CD38 THERAPY (DARATUMUMAB)). Chemotherapy induced anemiahypogammaglobulinemia, acquired Immunologic History: Reports: Immunosuppression, Other (See Below) Other Immunologic History: CHEMOTHERAPY AND RADIATION - stopped 2019 Oncologic (Cancer) History: Reports: Prostate, Other (See Below) Other Oncologic History: multiple myeloma jun 2015. PROSTATE CA 05-24-2013. 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 MASS IN KIDNEY 06-04-2015 Dermatologic History: Reports: Eczema Other Dermatologic History: In Sep 2016Itchy rash raised red/pink size of a pinhead after procrit injection, Procrit now held. continues using cream for eczema on abdomen, Voices at one time bruising was an issue "not so much any more" It's getting better" - Infectious Disease History Infectious Disease History: Reports: Chicken Pox, Influenza, Measles, Mumps Other Infectious Disease History: INFECTION WITH DRUG RESISTANT MICROORGANISMS - Past Surgical History HEENT Surgical History: Reports: Tonsillectomy Cardiovascular Surgical History: Reports: Coronary Artery Bypass Respiratory Surgical History: Reports: None GI Surgical History: Reports: Colonoscopy Male Surgical History: Reports: Prostate Biopsy Endocrine Surgical History: Reports: None Neurological Surgical History: Reports: Vertebroplasty, Other (See Below) Other Neurological Surgeries/Procedures: Vertibroplasty - in Jun 2015 Musculoskeletal Surgical History: Reports: Hip Replacement, Other (See Below) Other Musculoskeletal Surgeries/Procedures:: 3rd vertebral plasty done 09/24/15. Oncologic Surgical History: Reports: Bone Marrow Aspiration, Other (See Below) Other Oncologic Surgeries/Procedures: PROSTATE BIOPSY. LUNG BIOPSY. KIDNEY BIOPSY Dermatological Surgical History: Reports: None - Past Imaging History Past Imaging History: Reports: CAT Scan, Xray Social & Family History - Family History Family Medical History: Noncontributory Cardiac: Reports: [place] Respiratory: Reports: None GI: Reports: None : Reports: None OBGYN: Reports: None Musculoskeletal: Reports: Back pain, Chronic Psychiatric: Reports: None Endocrine/Metabolic: Reports: None - Tobacco Use Tobacco Use Status *Q: Former Tobacco User Used Tobacco, but Quit: No - Caffeine Use Caffeine Use: Reports: Coffee, Soda - Recreational Drug Use Recreational Drug Use: No - Living Situation & Occupation Living situation: Reports: , with Spouse H&P Review of Systems - Review of Systems: Review Of Systems: See Below General: Reports: Weakness, Decreased Appetite, Weight Loss. Denies: Fever, Chills, Malaise, Night Sweats, Diaphoresis, Weight Gain HEENT: Reports: No Symptoms Pulmonary: Reports: Shortness of Breath (mild SOB). Denies: Cough, Sputum Cardiovascular: Reports: Dyspnea on Exertion, Edema. Denies: Chest Pain, Orthopnea, PND, Lightheadedness, Blood Pressure Problem Gastrointestinal: Reports: No Symptoms Genitourinary: Denies: Retention (Feels like he empties Bladder ) Musculoskeletal: Reports: No Symptoms Skin: Reports: Pallor Psychiatric: Reports: No Symptoms Neurological: Reports: Difficulty Walking, Weakness. Denies: Confusion, Dizziness Hematologic/Lymphatic: Reports: Anemia Immunologic: Reports: No Symptoms Exam - Exam Exam: See Below - Vital Signs Vital Signs: Last Vital Signs Temp 95.7 F L 07/15/20 06:11 Pulse 83 07/15/20 07:42 Resp 20 07/15/20 06:11 BP 116/90 07/15/20 08:16 Pulse Ox 92 L 07/15/20 06:11 Weight: 236 lb 3 oz - Exam Quality Assessment: Supplemental Oxygen (3 L/min, up from previous admission) HEENT: Hearing Intact Neck: Supple. No: JVD Lungs: Wheezing (3 scant anterior expiratory wheeze and right lower base expiratory end expiratory) Cardiovascular: Regular Rate, Regular Rhythm, Normal S1, Normal S2. No: Gallop/S3 GI/Abdominal Exam: No Distention Extremities: Other (Slight edematous lower extremities however nonpedal slightly 2+ worse on left lower extremity). No: Pedal Edema Peripheral Pulses: 2+: Radial (L), Radial (R) Skin: Other (intach Port-A-Cath right anterior chest wall) Neurological: Normal Speech, Normal Tone, Sensation Intact Neuro Extensive - Mental Status: Alert, Oriented x3 Neuro Extensive - Motor, Sensory, Reflexes: No: Receptive Aphasia, Expressive Aphasia, Abnormal Motor Psychiatric: Alert, Normal Affect, Normal Mood - Patient Data Lab Results Last 24 hrs: Laboratory Results - last 24 hr 07/14/20 07/14/20 07/14/20 Range/Units 20:00 20:00 20:00 WBC 4.35 L (5.00-10.00) 10^3/uL RBC 2.30 L (4.50-6.00) 10^6/uL Hgb 7.1 L (13.0-17.0) g/dL Hct 22.6 L (40.0-52.0) % MCV 98.3 H D (82.0-92.0) fL MCH 30.9 (27.0-31.0) pg MCHC 31.4 L (32.0-36.0) g/dL RDW 17.4 H (11.5-14.5) % Plt Count 133 L (150-400) 10^3/uL MPV 11.0 H (7.4-10.4) fL Immature Gran % (Auto) 0.5 (0.0-5.0) % Neut % (Auto) 57.2 (50.0-70.0) % Lymph % (Auto) 31.3 (20.0-40.0) % [place] % (Auto) 7.8 (2.0-8.0) % Eos % (Auto) 3.0 (1.0-3.0) % Baso % (Auto) 0.2 (0.0-1.0) % Neut # (Auto) 2.49 L (2.50-7.00) 10^3/uL Lymph # (Auto) 1.36 (1.00-4.00) 10^3/uL [place] # (Auto) 0.34 (0.10-0.80) 10^3/uL Eos # (Auto) 0.13 (0.10-0.30) 10^3/uL Baso # (Auto) 0.01 (0.00-0.10) 10^3/uL Immature Gran # (Auto) 0.02 (0.00-0.50) 10^3/uL PT (9.2-11.2) SEC INR (0.9-1.1) Sodium 139 (136-145) mmol/L Potassium 4.5 (3.3-5.3) mmol/L Chloride 100 (98-115) mmol/L Carbon Dioxide 34.3 H (21.0-32.0) mmol/L Anion Gap 9.2 (5-15) mmol/L BUN 36 H (6-25) mg/dL Creatinine 3.18 H (0.51-1.17) mg/dL Est Cr Clr Drug Dosing TNP Estimated GFR (MDRD) 19 mL/min Glucose 138 H (75 - 99) mg/dL Lactic Acid 0.9 (0.4-2.0) mmol/L Calcium 9.3 (8.7-10.3) mg/dL Total Bilirubin 0.3 (0.2-1.0) mg/dL AST 12 L (15-37) U/L ALT 13 (12-78) U/L Alkaline Phosphatase 73 (46-116) IU/L Creatine Kinase 24 L (26-276) U/L CK-MB (CK-2) < 0.50 (0.00-4.30) ng/mL Troponin I < 0.04 (0.00-0.070) ng/mL B-Natriuretic Peptide 93 (0-100) pg/mL Total Protein 5.9 L (6.4-8.2) g/dL Albumin 2.34 L (3.00-4.80) g/dL SARS CoV-2 RNA Rapid OLIVIA (NEGATIVE) 07/14/20 07/14/20 07/15/20 Range/Units 20:00 21:10 08:45 WBC 3.71 L (5.00-10.00) 10^3/uL RBC 2.34 L (4.50-6.00) 10^6/uL Hgb 7.1 L (13.0-17.0) g/dL Hct 22.9 L (40.0-52.0) % MCV 97.9 H (82.0-92.0) fL MCH 30.3 (27.0-31.0) pg MCHC 31.0 L (32.0-36.0) g/dL RDW 17.0 H (11.5-14.5) % Plt Count 141 L (150-400) 10^3/uL MPV 11.7 H (7.4-10.4) fL Immature Gran % (Auto) 0.3 (0.0-5.0) % Neut % (Auto) 56.3 (50.0-70.0) % Lymph % (Auto) 33.7 (20.0-40.0) % [place] % (Auto) 6.5 (2.0-8.0) % Eos % (Auto) 3.2 H (1.0-3.0) % Baso % (Auto) 0.0 (0.0-1.0) % Neut # (Auto) 2.09 L (2.50-7.00) 10^3/uL Lymph # (Auto) 1.25 (1.00-4.00) 10^3/uL [place] # (Auto) 0.24 (0.10-0.80) 10^3/uL Eos # (Auto) 0.12 (0.10-0.30) 10^3/uL Baso # (Auto) 0.00 (0.00-0.10) 10^3/uL Immature Gran # (Auto) 0.01 (0.00-0.50) 10^3/uL PT 26.5 H (9.2-11.2) SEC INR 2.7 H (0.9-1.1) Sodium (136-145) mmol/L Potassium (3.3-5.3) mmol/L Chloride (98-115) mmol/L Carbon Dioxide (21.0-32.0) mmol/L Anion Gap (5-15) mmol/L BUN (6-25) mg/dL Creatinine (0.51-1.17) mg/dL Est Cr Clr Drug Dosing Estimated GFR (MDRD) mL/min Glucose (75 - 99) mg/dL Lactic Acid (0.4-2.0) mmol/L Calcium (8.7-10.3) mg/dL Total Bilirubin (0.2-1.0) mg/dL AST (15-37) U/L ALT (12-78) U/L Alkaline Phosphatase (46-116) IU/L Creatine Kinase (26-276) U/L CK-MB (CK-2) (0.00-4.30) ng/mL Troponin I (0.00-0.070) ng/mL B-Natriuretic Peptide (0-100) pg/mL Total Protein (6.4-8.2) g/dL Albumin (3.00-4.80) g/dL SARS CoV-2 RNA Rapid OLIVIA Negative (NEGATIVE) Result Diagrams: 07/15/20 08:45 07/15/20 08:45 Sepsis Event Note - Evaluation Sepsis Screening Result: Severe Sepsis Risk - Focused Exam Vital Signs: Vital Signs Temp Pulse Pulse Resp BP BP Pulse Ox 07/15/20 08:16 116/90 07/15/20 07:42 83 144/68 H 07/15/20 06:11 95.7 F L 93 20 129/96 H 92 L 07/15/20 02:40 97.9 F 87 20 135/64 93 L 07/14/20 22:51 97.8 F 97 24 H 148/68 H 92 L 07/14/20 21:45 90 23 H 122/62 94 L 07/14/20 21:30 93 14 129/75 92 L 07/14/20 21:16 99 33 H 133/65 87 L Problem List Initiated/Reviewed/Updated: Yes Orders Last 24hrs: Active Orders 24 hr Category Date Time Status Patient Status [ADT] Routine ADT 07/14/20 21:24 Active Cardiac Monitoring [RC] 03,07,11,15,19,23 Care 07/14/20 21:24 Active Implanted Port Access [RC] DAILY Care 07/14/20 19:26 Active Intake and Output [RC] 1400,2200,0600 Care 07/15/20 00:36 Active Up With Assistance [RC] ASDIRECTED Care 07/15/20 00:35 Active VTE/DVT Education [RC] PER UNIT ROUTINE Care 07/15/20 00:35 Active Vital Signs [RC] 03,07,11,15,19,23 Care 07/15/20 00:35 Active Regular Diet [DIET] Diet 07/15/20 Breakfast Active BASIC METABOLIC PANEL,BMP [CHEM] AM Lab 07/15/20 08:45 Received INR,PT,PROTHROMBIN TIME [COAG] Routine Lab 07/15/20 08:45 Received Acetaminophen [TylenoL] Med 07/15/20 00:36 Active 650 mg PO Q4H PRN Albuterol/Ipratropium [DuoNeb 3.0-0.5 MG/3 ML] Med 07/15/20 00:36 Active 3 ml INH QID PRN Cholecalciferol (Vitamin D3) [Vitamin D3] Med 07/15/20 09:00 Active 25 mcg PO DAILY Cyanocobalamin (Vitamin B12) [Vitamin B12] Med 07/15/20 15:00 Active 1,000 mcg PO DAILY@1500 Docusate Sodium [Colace] Med 07/15/20 08:00 Active 100 mg PO DAILY@0800 FLUoxetine [PROzac] Med 07/15/20 09:00 Active 40 mg PO QAM Gabapentin [Neurontin] Med 07/15/20 21:00 Active 300 mg PO BEDTIME Magnesium Chloride [Mag-64] Med 07/15/20 09:00 Active 128 mg PO DAILY NIFEdipine [Procardia XL] Med 07/15/20 09:00 Active 60 mg PO DAILY Omeprazole Med 07/15/20 07:30 Active 20 mg PO ACBREAKFAST Phytonadione [Vitamin K] Med 07/15/20 18:00 Active 100 mcg PO DAILY@1800 Simvastatin [Zocor] Med 07/15/20 20:00 Active 40 mg PO DAILY@2000 Sodium Bicarbonate Med 07/15/20 09:00 Active 650 mg PO TID Warfarin Pharmacy to Dose [Pharmacy to Dose - Warfarin] Med 07/15/20 02:00 Pending 0 dose .XX ASDIRECTED carvediloL [Coreg] Med 07/15/20 08:00 Active 3.125 mg PO BIDMEALS oxyCODONE Med 07/15/20 00:36 Active 10 mg PO Q4H PRN Resuscitation Status Routine Resus Stat 07/15/20 00:35 Ordered EKG 12 Lead [EK] Urgent Ther 07/14/20 19:17 Ordered Medication Orders Acetaminophen (Tylenol) 650 mg PO Q4H PRN PRN Reason: fever, pain Albuterol/Ipratropium (Duoneb 3.0-0.5 Mg/3 Ml) 3 ml INH QID PRN PRN Reason: Shortness of Breath Carvedilol (Coreg) 3.125 mg PO BIDMEALS [facility] Last Admin: 07/15/20 07:42 Dose: 3.125 mg Documented by: MERVAT Cholecalciferol (Vitamin D3) 25 mcg PO DAILY [facility] Last Admin: 07/15/20 08:16 Dose: 25 mcg Documented by: MERVAT Cyanocobalamin (Vitamin B12) 1,000 mcg PO DAILY@1500 [facility] Docusate Sodium (Colace) 100 mg PO DAILY@0800 [facility] Last Admin: 07/15/20 07:43 Dose: 100 mg Documented by: MERVAT Fluoxetine HCl (Prozac) 40 mg PO QAM [facility] Last Admin: 07/15/20 08:17 Dose: 40 mg Documented by: MERVAT Gabapentin (Neurontin) 300 mg PO BEDTIME [facility] Magnesium Chloride (Mag-64) 128 mg PO DAILY [facility] Last Admin: 07/15/20 08:17 Dose: 128 mg Documented by: MERVAT Nifedipine (Procardia Xl) 60 mg PO DAILY [facility] Last Admin: 07/15/20 08:16 Dose: 60 mg Documented by: MERVAT Omeprazole (Omeprazole) 20 mg PO ACBREAKFAST [facility] Last Admin: 07/15/20 07:42 Dose: 20 mg Documented by: MERVAT Oxycodone HCl (Oxycodone) 10 mg PO Q4H PRN PRN Reason: Pain Phytonadione (Vitamin K) 100 mcg PO DAILY@1800 [facility] Simvastatin (Zocor) 40 mg PO DAILY@2000 [facility] Sodium Bicarbonate (Sodium Bicarbonate) 650 mg PO TID [facility] Last Admin: 07/15/20 08:16 Dose: 650 mg Documented by: MERVAT Warfarin Sodium (Pharmacy To Dose - Warfarin) 0 dose .XX ASDIRECTED [facility] Assessment/Plan Comment:: History of Present Illness 79 y/o gentleman well-known to this author who was recently discharged from [facility] to home health status due to significant weakness, anemia related to chemotherapy presented to the ED for increased shortness of breath. I had spoken to the patient's spouse earlier that afternoon when she denoted very little urine output, increased Oxygen needs to 3L/min and noted that he was on his fourth day of extra diuretics. I had seen Justin outpatient [facility] a few days ago and increased in his Lasix by 20 mg daily, to a 40 mg dose for 5 days due to weight gain and increased edema and shortness of breath. Patient with long hx of multiple myeloma and had been cared for closely by oncologist/hospitalist Dr. Wagoner's and recently discontinued his chemotherapy due to post-chemotherapy symptom burden. Pertinent ED findings/work-up Hemoglobin 7.1% Creatinine 3.18 (above baseline) Chest x-ray, mild to moderate pulmonary edema with increasing heart failure size Acute hospital problems --Hypoxia, hypoventilation, ICS, Oxygen 3 L/min --Anemia, Renal/chemotherapy induced, Transfuse --HFpEF, not bad clinical today --Chronic Kidney disease, stage IV --Dependent edema. --Weakness, --Protein Malnutrition --Recent Wt Loss, secondary to poor appetite Chronic problems Multiple myeloma CAD, S/P CABG in 1998 DDD (degenerative disc disease), lumbar Anxiety, stable Obesity (BMI 30-39.9) EDITH, bring in home CPAP Hx of DVT; On Coumadin, INR 2.7 Coumadin, pharmacy to monitor INR Hyperlipidemia Essential hypertension Hx Adenocarcinoma of right lung Liver hemangioma Depression Disposition/overall plan --Patient meets qualification for continue inpatient stay due to the need for transfusion and renal/electrolyte monitoring --Transfuse 1 unit PRBCs x4 hours, preload medications, post transfusion diuretic --Despite BUN/creatinine elevation, continue with gentle diuretic therapy --Assess urine Na+ levels 2 hours AFTER blood completion --Thigh-high TEDS --ICS, goal ~1400 --Post void bladder scan --Strict I/O --Low Na diet --Daily Wts. --Bring in home CPAP --DC Tele --Labs in am --labs in am, prevent blood draw anemia --Discussed condition with spouse, she agrees with plan however concerned about not being able to visit patient - Mortality Measure Prognosis:: Poor
[2020-07-15] MEDS ORDERED: Acetaminophen 325 MG Tab PO SCH (12:00)
[2020-07-15] MEDS ORDERED: diphenhydrAMINE 25 MG Cap PO SCH (12:00)
[2020-07-15] MEDS ORDERED: Sodium Chloride 0.9% 100 ML ONE (12:12)
[2020-07-15] MEDS: Cyanocobalamin (Vitamin B12) 500 MCG Tab PO SCH (14:47)
[2020-07-15] MEDS ORDERED: Furosemide 40 MG/4 ML VIAL IVPUSH SCH (15:00)
[2020-07-15] MEDS: Phytonadione 100 MCG Tab PO SCH (17:45)
[2020-07-15] MEDS: Warfarin 5 MG Tab PO SCH (17:45)
[2020-07-15] MEDS: Simvastatin 20 MG Tab PO SCH (21:00)
[2020-07-15] MEDS ORDERED: Phytonadione 100 MCG Tab PO SCH (21:00)
[2020-07-15] MEDS: Gabapentin 300 MG Cap PO SCH (21:01)
[2020-07-16] MEDS: Docusate Sodium 100 MG Cap PO SCH (07:43)
[2020-07-16] MEDS: Carvedilol 6.25 MG Tab PO SCH ×2 (07:43→18:02)
[2020-07-16] MEDS: Omeprazole 20 MG Cap.CR PO SCH (07:43)
[2020-07-16] MEDS: Magnesium Chloride 64 MG Tab.ER PO SCH (08:19)
[2020-07-16] MEDS: FLUoxetine 10 MG Cap PO SCH (08:20)
[2020-07-16] MEDS: NIFEdipine 30 MG Tab.ER PO SCH (08:20)
[2020-07-16] MEDS: Cholecalciferol (Vitamin D3) 25 MCG Tab PO SCH (08:21)
[2020-07-16 09:09] LABS: ANION GAP 8.9 mmol/L (5-15)
--- NOTE | 2020-07-16 09:34 | PCM.PN ---
- General Info Date of Service: 07/16/20 Functional Status: Reports: Pain Controlled, Tolerating Diet, Urinating (Little output). Denies: Ambulating, New Symptoms, Incentive Spirometry - Review of Systems General: Reports: Weakness, Malaise. Denies: Night Sweats, Appetite HEENT: Reports: No Symptoms Pulmonary: Reports: Shortness of Breath. Denies: Cough, Sputum, Hemoptysis, Wheezing Cardiovascular: Reports: Dyspnea on Exertion, Edema. Denies: Chest Pain, Orthopnea, PND Gastrointestinal: Denies: Abdominal Pain Genitourinary: Reports: No Symptoms Musculoskeletal: Reports: No Symptoms Skin: Reports: Pallor Neurological: Reports: Gait Disturbance. Denies: Confusion, Dizziness Psychiatric: Denies: Confusion, Depression - Patient Data Vitals - Most Recent: Last Vital Signs Temp 97.6 F 07/16/20 06:31 Pulse 93 07/16/20 07:43 Resp 18 07/16/20 06:31 BP 141/62 H 07/16/20 08:20 Pulse Ox 95 07/16/20 06:31 Weight - Most Recent: 232 lb I&O - Last 24 Hours: Intake & Output 07/15/20 07/16/20 07/16/20 22:59 06:59 14:59 Intake Total 883 50 Output Total 200 Balance 683 50 Lab Results Last 24 Hours: Laboratory Results - last 24 hr 07/15/20 07/15/20 07/16/20 Range/Units 08:45 08:45 07:15 WBC (5.00-10.00) 10^3/uL RBC (4.50-6.00) 10^6/uL Hgb (13.0-17.0) g/dL Hct (40.0-52.0) % MCV (82.0-92.0) fL MCH (27.0-31.0) pg MCHC (32.0-36.0) g/dL RDW (11.5-14.5) % Plt Count (150-400) 10^3/uL MPV (7.4-10.4) fL Immature Gran % (Auto) (0.0-5.0) % Neut % (Auto) (50.0-70.0) % Lymph % (Auto) (20.0-40.0) % [place] % (Auto) (2.0-8.0) % Eos % (Auto) (1.0-3.0) % Baso % (Auto) (0.0-1.0) % Neut # (Auto) (2.50-7.00) 10^3/uL Lymph # (Auto) (1.00-4.00) 10^3/uL [place] # (Auto) (0.10-0.80) 10^3/uL Eos # (Auto) (0.10-0.30) 10^3/uL Baso # (Auto) (0.00-0.10) 10^3/uL Immature Gran # (Auto) (0.00-0.50) 10^3/uL PT 20.6 H (9.2-11.2) SEC INR 2.1 H (0.9-1.1) Sodium 141 (136-145) mmol/L Potassium 4.3 (3.3-5.3) mmol/L Chloride 101 (98-115) mmol/L Carbon Dioxide 35.4 H (21.0-32.0) mmol/L Anion Gap 8.9 (5-15) mmol/L BUN 30 H (6-25) mg/dL Creatinine 2.78 H (0.51-1.17) mg/dL Est Cr Clr Drug Dosing 19.76 mL/min Estimated GFR (MDRD) 22 mL/min Glucose 97 (75 - 99) mg/dL Calcium 9.4 (8.7-10.3) mg/dL Blood Type O NEGATIVE Gel Antibody Screen Negative Crossmatch See Detail 07/16/20 Range/Units 07:15 WBC 3.79 L (5.00-10.00) 10^3/uL RBC 2.59 L (4.50-6.00) 10^6/uL Hgb 8.0 L (13.0-17.0) g/dL Hct 25.2 L (40.0-52.0) % MCV 97.3 H (82.0-92.0) fL MCH 30.9 (27.0-31.0) pg MCHC 31.7 L (32.0-36.0) g/dL RDW 17.2 H (11.5-14.5) % Plt Count 145 L (150-400) 10^3/uL MPV 12.1 H (7.4-10.4) fL Immature Gran % (Auto) 0.8 (0.0-5.0) % Neut % (Auto) 51.2 (50.0-70.0) % Lymph % (Auto) 37.7 (20.0-40.0) % [place] % (Auto) 7.4 (2.0-8.0) % Eos % (Auto) 2.6 (1.0-3.0) % Baso % (Auto) 0.3 (0.0-1.0) % Neut # (Auto) 1.94 L (2.50-7.00) 10^3/uL Lymph # (Auto) 1.43 (1.00-4.00) 10^3/uL [place] # (Auto) 0.28 (0.10-0.80) 10^3/uL Eos # (Auto) 0.10 (0.10-0.30) 10^3/uL Baso # (Auto) 0.01 (0.00-0.10) 10^3/uL Immature Gran # (Auto) 0.03 (0.00-0.50) 10^3/uL PT (9.2-11.2) SEC INR (0.9-1.1) Sodium (136-145) mmol/L Potassium (3.3-5.3) mmol/L Chloride (98-115) mmol/L Carbon Dioxide (21.0-32.0) mmol/L Anion Gap (5-15) mmol/L BUN (6-25) mg/dL Creatinine (0.51-1.17) mg/dL Est Cr Clr Drug Dosing mL/min Estimated GFR (MDRD) mL/min Glucose (75 - 99) mg/dL Calcium (8.7-10.3) mg/dL Blood Type Gel Antibody Screen Crossmatch Med Orders - Current: Current Medications Acetaminophen (Tylenol) 650 mg PO Q4H PRN PRN Reason: fever, pain Acetaminophen (Tylenol) 650 mg PO ONETIME [facility] Last Admin: 07/15/20 12:34 Dose: 650 mg Documented by: Albuterol/Ipratropium (Duoneb 3.0-0.5 Mg/3 Ml) 3 ml INH QID PRN PRN Reason: Shortness of Breath Carvedilol (Coreg) 3.125 mg PO BIDMEALS [facility] Last Admin: 07/16/20 07:43 Dose: 3.125 mg Documented by: Cholecalciferol (Vitamin D3) 25 mcg PO DAILY [facility] Last Admin: 07/16/20 08:21 Dose: 25 mcg Documented by: Cyanocobalamin (Vitamin B12) 1,000 mcg PO DAILY@1500 [facility] Last Admin: 07/15/20 14:47 Dose: 1,000 mcg Documented by: Diphenhydramine HCl (Benadryl) 25 mg PO ONETIME [facility] Last Admin: 07/15/20 12:34 Dose: 25 mg Documented by: Docusate Sodium (Colace) 100 mg PO DAILY@0800 [facility] Last Admin: 07/16/20 07:43 Dose: 100 mg Documented by: Fluoxetine HCl (Prozac) 40 mg PO QAM [facility] Last Admin: 07/16/20 08:20 Dose: 40 mg Documented by: Furosemide (Lasix) 20 mg IVPUSH ONETIME [facility] Last Admin: 07/15/20 15:54 Dose: 20 mg Documented by: Gabapentin (Neurontin) 300 mg PO BEDTIME [facility] Last Admin: 07/15/20 21:01 Dose: 300 mg Documented by: Magnesium Chloride (Mag-64) 128 mg PO DAILY [facility] Last Admin: 07/16/20 08:19 Dose: 128 mg Documented by: Nifedipine (Procardia Xl) 60 mg PO DAILY [facility] Last Admin: 07/16/20 08:20 Dose: 60 mg Documented by: Omeprazole (Omeprazole) 20 mg PO ACBREAKFAST [facility] Last Admin: 07/16/20 07:43 Dose: 20 mg Documented by: Oxycodone HCl (Oxycodone) 10 mg PO Q4H PRN PRN Reason: Pain Phytonadione (Vitamin K) 100 mcg PO DAILY@1800 [facility] Last Admin: 07/15/20 17:45 Dose: 100 mcg Documented by: Simvastatin (Zocor) 40 mg PO DAILY@2000 [facility] Last Admin: 07/15/20 21:00 Dose: 40 mg Documented by: Sodium Bicarbonate (Sodium Bicarbonate) 650 mg PO TID [facility] Last Admin: 07/16/20 08:20 Dose: 650 mg Documented by: Warfarin Sodium (Pharmacy To Dose - Warfarin) 0 dose .XX ASDIRECTED [facility] Warfarin Sodium (Coumadin) 5 mg PO DAILY@1800 [facility] Last Admin: 07/15/20 17:45 Dose: 5 mg Documented by: Discontinued Medications Furosemide (Lasix) 20 mg IVPUSH NOW ONE Stop: 07/14/20 20:50 Last Admin: 07/14/20 20:54 Dose: 20 mg Documented by: Sodium Chloride (Normal Saline) Confirm Administered Dose 100 mls @ as directed .ROUTE .STK-MED ONE Stop: 07/15/20 12:13 Last Admin: 07/15/20 12:29 Dose: 50 mls/hr Documented by: Lidocaine HCl (Xylocaine 2% Jelly) 5 ml TOP ONETIME ONE Stop: 07/14/20 19:28 Last Admin: 07/15/20 01:04 Dose: Not Given Documented by: Phytonadione (Vitamin K) 100 mcg PO QPM [facility] Phytonadione (Vitamin K) 100 mcg PO ONETIME ONE Stop: 07/15/20 02:01 Last Admin: 07/15/20 02:32 Dose: 100 mcg Documented by: Warfarin Sodium (Coumadin) 5 mg PO ONETIME ONE Stop: 07/15/20 02:01 Last Admin: 07/15/20 02:32 Dose: 5 mg Documented by: - Exam Quality Assessment: Supplemental Oxygen, DVT Prophylaxis General: Alert, Oriented Neck: No JVD Lungs: Crackles Cardiovascular: Regular Rate, Regular Rhythm. No: Bradycardia, Tachycardia GI/Abdominal Exam: Soft (Male) Exam: Deferred Back Exam: No: CVA Tenderness (L), CVA Tenderness (R) Extremities: Other (Less edema lower extremities) Peripheral Pulses: 2+: Radial (R), Femoral (L) Neurological: Normal Speech, Normal Tone, Sensation Intact Psy/Mental Status: Alert. No: Anxious Sepsis Event Note - Evaluation Sepsis Screening Result: No Definite Risk - Focused Exam Vital Signs: Vital Signs Temp Pulse Pulse Resp BP BP Pulse Ox 07/16/20 08:20 141/62 H 07/16/20 07:43 93 140/65 07/16/20 06:31 97.6 F 85 18 132/55 L 95 07/16/20 03:00 97.8 F 90 18 121/66 90 L 07/15/20 22:11 97.8 F 90 20 122/65 93 L - Problem List Review Problem List Initiated/Reviewed/Updated: Yes - My Orders Last 24 Hours: My Active Orders 07/15/20 10:16 NATALI Hose [Antiembolic Hose] [OM.PC] Routine 07/15/20 10:17 Antiembolic Devices [RC] 07/15/20 10:19 Bladder Scan [RC] ASDIRECTED 07/15/20 10:20 Verify Patient Consent Obtain [RC] ASDIRECTED Transfuse Red Blood Cells [COMM] Routine 07/15/20 Lunch Fluid Restriction [DIET] Low Sodium [Sodium Restricted Diet] [DIET] Acetaminophen [TylenoL] 650 mg PO ONETIME diphenhydrAMINE [Benadryl] 25 mg PO ONETIME 07/15/20 15:00 Furosemide [Lasix] 20 mg IVPUSH ONETIME 07/15/20 18:00 SODIUM,URINE RANDOM [URCHEM] Routine Warfarin [Coumadin] 5 mg PO DAILY@1800 - Plan Plan:: History of Present Illness 79 y/o gentleman well-known to this author who was recently discharged from [facility] to home health status due to significant weakness, anemia related to chemotherapy presented to the ED for increased shortness of breath. I had spoken to the patient's spouse earlier that afternoon when she denoted very little urine output, increased Oxygen needs to 3L/min and noted that he was on his fourth day of extra diuretics. I had seen [place] [facility] [place] [facility] a few days ago and increased in his Lasix by 20 mg daily, to a 40 mg dose for 5 days due to weight gain and increased edema and shortness of breath. Patient with long hx of multiple myeloma and had been cared for closely by oncologist/affiliate marketing manager Dr. [facility] and recently discontinued his chemotherapy due to post-chemotherapy symptom burden. Pertinent ED findings/work-up Hemoglobin 7.1% Creatinine 3.18 (above baseline) Chest x-ray, mild to moderate pulmonary edema with increasing heart failure size Hospital course 07/16/2020; seems to make some progress regarding his breathing although still requiring 3 L of oxygen seems less shortness of breath overall he feels better today with improved renal indices. Transfuse 1 unit PRBC yesterday premedicated prior no adverse events no hemolytic reactions. Hgb improved to 8% PLT 145, sodium, potassium normal. 4 pound weight loss overnight, though he had his CPAP brought in he did not use it last night Acute hospital problems --Hypoxia, hypoventilation, ICS, Oxygen 3 L/min --Anemia, Renal/chemotherapy induced, Transfuse --HFpEF, slight improvement clinically, less edema lower extremities --Chronic Kidney disease, stage IV --Dependent edema, becoming disuse in character --Weakness, moving --Protein Malnutrition --Recent Wt Loss, secondary to poor appetite Chronic problems Multiple myeloma, stopped VAD chemo. CAD, S/P CABG in 1998 DDD (degenerative disc disease), lumbar Anxiety, stable Obesity (BMI 30-39.9), recently wt loss. EDITH, Encourage use of home CPAP Hx of DVT; On Coumadin, INR 2.7 Coumadin, pharmacy to monitor INR Hyperlipidemia Essential hypertension, 2 days prior to admission decrease Coreg due to hypotension Hx Adenocarcinoma of right lung Liver hemangioma Depression, stable Disposition/overall plan --Patient meets qualification for continue inpatient stay for gentle IV diuresing --Lasix today --Assess urine Na+ levels --Thigh-high TEDS --ICS, goal ~1400 --Strict I/O --Cont with fluid restrictiona and low Na diet --Daily Wts. --Ensure use of home CPAP --Labs in am --labs in am, prevent blood draw anemia --Discussed condition with spouse, she agrees with plan however concerned about not being able to visit patient
[2020-07-16] MEDS ORDERED: Furosemide 40 MG/4 ML VIAL IVPUSH ONE ×2 (09:35→15:00)
[2020-07-16] MEDS ORDERED: Sodium Chloride 0.9% 10 ML Syringe FLUSH PRN (10:16)
[2020-07-16] MEDS: Cyanocobalamin (Vitamin B12) 500 MCG Tab PO SCH (14:57)
[2020-07-16] MEDS: Warfarin 5 MG Tab PO SCH (18:02)
[2020-07-16] MEDS: Phytonadione 100 MCG Tab PO SCH (18:02)
[2020-07-16] MEDS: Simvastatin 20 MG Tab PO SCH (20:26)
[2020-07-16] MEDS: Gabapentin 300 MG Cap PO SCH (20:26)
[2020-07-17 06:14] VITALS: PULSE 87
[2020-07-17] MEDS: Magnesium Chloride 64 MG Tab.ER PO SCH (08:14)
[2020-07-17] MEDS: FLUoxetine 10 MG Cap PO SCH (08:14)
[2020-07-17] MEDS: NIFEdipine 30 MG Tab.ER PO SCH (08:14)
[2020-07-17] MEDS: Omeprazole 20 MG Cap.CR PO SCH (08:14)
[2020-07-17] MEDS: Docusate Sodium 100 MG Cap PO SCH (08:14)
[2020-07-17] MEDS: Cholecalciferol (Vitamin D3) 25 MCG Tab PO SCH (08:14)
[2020-07-17 08:17] VITALS: BP 112/61
[2020-07-17] MEDS: Carvedilol 6.25 MG Tab PO SCH (08:17)
[2020-07-17 09:01] LABS: ANION GAP 8.4 mmol/L (5-15)
[2020-07-17] MEDS ORDERED: Furosemide 40 MG/4 ML VIAL IVPUSH ONE (09:34)
--- NOTE | 2020-07-17 09:54 | PCM.DCSUM1 ---
Discharge Summary - Hospital Course Diagnosis: Stroke: No - Discharge Data Discharge Date: 07/17/20 Discharge Disposition: Home, Self-Care 01 Condition: Fair - Referral to Home Health Primary Care Physician: Dereck Shultz NP - Patient Instructions Diet: Low Sodium Activity: As Tolerated, Cough & Deep Breathe, Elevate Extremity Driving: Do Not Drive Showering/Bathing: May Shower Other/Special Instructions: --Wear your Thigh-high TEDS stockings during the daty. --Use your breathing machine every 2 hours while awake. --Cont with fluid restrictiona and low Na diet. --Daily Wts. same time, same scale, keep log, bring in to ALL appointments. --Ensure use of home CPAP. --Very Low Salt diet. --Ankle pumps as taught. --See you in Clinic TUESDAY. at 1:30 - Discharge Plan *PRESCRIPTION DRUG MONITORING PROGRAM REVIEWED*: Not Applicable *COPY OF PRESCRIPTION DRUG MONITORING REPORT IN PATIENT ANAHY: Not Applicable Home Medications: Home Meds Omeprazole 20 mg PO 0800 02/14/15 [History] Simvastatin 40 mg PO 199902/14/15 [History] Docusate Sodium [Colace] 100 mg PO 0800 09/02/15 [History] Gabapentin [Neurontin] 300 mg PO BEDTIME 06/10/17 [History] EPINEPHrine [Epipen 2-Hunter] 0.3 mg IM ASDIRECTED PRN #1 ml 07/07/18 [Rx] Cyanocobalamin (Vitamin B-12) [B-12] 1,000 mcg PO DAILY@1500 11/30/18 [History] Lidocaine/Prilocaine [EMLA Crm] 1 applic TOP ASDIRECTED PRN 02/08/19 [History] Warfarin [Coumadin] 5 mg PO QPM 02/08/19 [History] oxyCODONE 10 mg PO Q4H PRN 04/26/19 [History] Acetaminophen [Tylenol] 650 mg PO Q4H PRN tablet 05/27/19 [Rx] Cholecalciferol (Vitamin D3) [Vitamin D3] 1,000 unit PO DAILY 04/23/20 [History] FLUoxetine [PROzac] 40 mg PO QAM 05/14/20 [History] NIFEdipine [Nifedipine ER] 60 mg PO DAILY 05/14/20 [History] carvediloL [Carvedilol] 3.125 mg PO BIDMEALS 05/14/20 [History] Albuterol/Ipratropium [DuoNeb 3.0-0.5 MG/3 ML] 3 ml INH QID PRN 05/27/20 [History] Magnesium Chloride [Mag-64] 128 mg PO DAILY 05/27/20 [History] Phytonadione [Vitamin K] 100 mcg PO QPM 05/27/20 [History] Sodium Bicarbonate 650 mg PO TID 06/18/20 [History] Furosemide [Lasix] 40 mg PO DAILY #0 07/17/20 [Rx] Forms: ED Department Discharge Referrals: [facility] [place] [Outside] Dereck Shultz NP [Primary Care Provider] - Regina Castillo MD [Physician] - - Discharge Summary/Plan Comment DC Time >30 min.: Yes Discharge Summary/Plan Comment: Final diagnosis Hypoxia, hypoventilation, ICS, Anemia, Renal/chemotherapy induced, HFpEF, slight improvement clinically, less edema lower extremities Chronic Kidney disease, stage IV, below creatinine baseline Dependent edema, becoming disuse in character Weakness, imoving Protein Malnutrition Recent Wt Loss, secondary to poor appetite History summary 79 y/o gentleman well-known to this author who was recently discharged from [facility] to home health status due to significant weakness, anemia related to chemotherapy presented to the ED for increased shortness of breath. I had spoken to the patient's spouse earlier that afternoon when she denoted very little urine output, increased Oxygen needs to 3L/min and noted that he was on his fourth day of extra diuretics. I had seen [facility] [place] [facility] a few days ago and increased in his Lasix by 20 mg daily, to a 40 mg dose for 5 days due to weight gain and increased edema and shortness of breath. Patient with long hx of multiple myeloma and had been cared for closely by oncologist/crane engineer Dr. Wagoner[facility] and recently discontinued his chemotherapy due to post-chemotherapy symptom burden. Pertinent ED findings/work-up Hemoglobin 7.1% Creatinine 3.18 (above baseline) Chest x-ray, mild to moderate pulmonary edema with increasing heart failure size Hospital course [facility] progressed slow but steady as far as his resp status. His oxygen requirements were slightly less upon discharge at 2.5 L/min. He was given IV diuretics carefully and had improving renal indices well below creatinine threshold at baseline. Assessed urine sodium which was greater than 100 dating likely positive response to diuretics. His weight continues to decrease 228 pounds--11# fluid loss. Hemoglobin was 7.1% and due to his cardiac history he was given 1 PRBC, premedicated prior and had no adverse events no hemolytic reactions. Chest x-ray upon admission showed mild to moderate congestive failure that had increased. he was placed on thigh-high NATLAI stockings during the day, he continued to use his incentive spirometer exceeding 1000 cc. He was on a fluid restriction of 1000 cc however this was increased at 1300 due to increase in thirst. He was placed on a very low sodium diet. Upon discharge Sodium 143, potassium 3.6 Reactant 2.56 Carbon dioxide 37.2 BNP 93 Medication changes/adjustments upon discharge Lasix 40 mg p.o. daily starting 07/18 Continue on all other medication Disposition/discharge instructions --Patient deemed ready for discharge, he feels much better, weight is dramatically down, less edema, less oxygen requirements, renal indices well below creatinine threshold, vital signs stable, afebrile, he will continue with home PT --Wear your Thigh-high TEDS stockings during the daty --Use your breathing machine every 2 hours while awake. --Cont with fluid restrictiona and low Na diet --Daily Wts. same time, same scale, keep log, bring in to ALL appointments --Ensure use of home CPAP --Very Low Salt diet --Ankle pumps as taught --See you in Clinic TUESDAY. at 1:30 - General Info Functional Status: Reports: Pain Controlled - Review of Systems General: Reports: Fever, Appetite. Denies: Weakness, Night Sweats HEENT: Reports: No Symptoms Pulmonary: Reports: Shortness of Breath, Other. Denies: Pleuritic Chest Pain, Cough, Sputum, Hemoptysis Cardiovascular: Reports: Edema (Improved) Gastrointestinal: Reports: No Symptoms Genitourinary: Reports: No Symptoms Musculoskeletal: Reports: No Symptoms Skin: Reports: Pallor Neurological: Reports: Confusion, Pre-Existing Deficit, Gait Disturbance. Denies: Dizziness Psychiatric: Reports: No Symptoms - Patient Data Vitals - Most Recent: Last Vital Signs Temp 98.6 F 07/17/20 06:13 Pulse 87 07/17/20 08:17 Resp 20 07/17/20 06:13 BP 112/61 07/17/20 08:17 Pulse Ox 93 L 07/17/20 06:22 Weight - Most Recent: 228 lb I&O - Last 24 hours: Intake & Output 07/16/20 07/17/20 07/17/20 22:59 06:59 14:59 Intake Total 370 0 Output Total 500 Balance -130 0 Lab Results - Last 24 hrs: Laboratory Results - last 24 hr 07/15/20 07/17/20 Range/Units 22:10 07:07 Sodium 143 (136-145) mmol/L Potassium 3.6 (3.3-5.3) mmol/L Chloride 101 (98-115) mmol/L Carbon Dioxide 37.2 H (21.0-32.0) mmol/L Anion Gap 8.4 (5-15) mmol/L BUN 29 H (6-25) mg/dL Creatinine 2.56 H (0.51-1.17) mg/dL Est Cr Clr Drug Dosing 21.46 mL/min Estimated GFR (MDRD) 24 mL/min Glucose 100 H (75 - 99) mg/dL Calcium 9.5 (8.7-10.3) mg/dL Ur Random Sodium 102.0 (40.0-220.0) mmol/L Med Orders - Current: Current Medications Acetaminophen (Tylenol) 650 mg PO Q4H PRN PRN Reason: fever, pain Acetaminophen (Tylenol) 650 mg PO ONETIME [facility] Last Admin: 07/15/20 12:34 Dose: 650 mg Documented by: Albuterol/Ipratropium (Duoneb 3.0-0.5 Mg/3 Ml) 3 ml INH QID PRN PRN Reason: Shortness of Breath Carvedilol (Coreg) 3.125 mg PO BIDMEALS [facility] Last Admin: 07/17/20 08:17 Dose: 3.125 mg Documented by: Cholecalciferol (Vitamin D3) 25 mcg PO DAILY [facility] Last Admin: 07/17/20 08:14 Dose: 25 mcg Documented by: Cyanocobalamin (Vitamin B12) 1,000 mcg PO DAILY@1500 [facility] Last Admin: 07/16/20 14:57 Dose: 1,000 mcg Documented by: Diphenhydramine HCl (Benadryl) 25 mg PO ONETIME [facility] Last Admin: 07/15/20 12:34 Dose: 25 mg Documented by: Docusate Sodium (Colace) 100 mg PO DAILY@0800 [facility] Last Admin: 07/17/20 08:14 Dose: 100 mg Documented by: Fluoxetine HCl (Prozac) 40 mg PO QAM [facility] Last Admin: 07/17/20 08:14 Dose: 40 mg Documented by: Furosemide (Lasix) 20 mg IVPUSH ONETIME [facility] Last Admin: 07/15/20 15:54 Dose: 20 mg Documented by: Gabapentin (Neurontin) 300 mg PO BEDTIME [facility] Last Admin: 07/16/20 20:26 Dose: 300 mg Documented by: Magnesium Chloride (Mag-64) 128 mg PO DAILY [facility] Last Admin: 07/17/20 08:14 Dose: 128 mg Documented by: Nifedipine (Procardia Xl) 60 mg PO DAILY [facility] Last Admin: 07/17/20 08:14 Dose: 60 mg Documented by: Omeprazole (Omeprazole) 20 mg PO ACBREAKFAST [facility] Last Admin: 07/17/20 08:14 Dose: 20 mg Documented by: Oxycodone HCl (Oxycodone) 10 mg PO Q4H PRN PRN Reason: Pain Phytonadione (Vitamin K) 100 mcg PO DAILY@1800 [facility] Last Admin: 07/16/20 18:02 Dose: 100 mcg Documented by: Simvastatin (Zocor) 40 mg PO DAILY@2000 [facility] Last Admin: 07/16/20 20:26 Dose: 40 mg Documented by: Sodium Bicarbonate (Sodium Bicarbonate) 650 mg PO TID [facility] Last Admin: 07/17/20 08:14 Dose: 650 mg Documented by: Sodium Chloride (Saline Flush) 10 ml FLUSH Q8HR PRN PRN Reason: IV Use Warfarin Sodium (Pharmacy To Dose - Warfarin) 0 dose .XX ASDIRECTED [facility] Warfarin Sodium (Coumadin) 5 mg PO DAILY@1800 [facility] Last Admin: 07/16/20 18:02 Dose: 5 mg Documented by: Discontinued Medications Furosemide (Lasix) 20 mg IVPUSH NOW ONE Stop: 07/14/20 20:50 Last Admin: 07/14/20 20:54 Dose: 20 mg Documented by: Furosemide (Lasix) 20 mg IVPUSH NOW ONE Stop: 07/16/20 09:36 Last Admin: 07/16/20 10:15 Dose: 20 mg Documented by: Furosemide (Lasix) 20 mg IVPUSH NOW ONE Stop: 07/16/20 15:01 Last Admin: 07/16/20 14:57 Dose: 20 mg Documented by: Furosemide (Lasix) 40 mg IVPUSH NOW ONE Stop: 07/17/20 09:35 Sodium Chloride (Normal Saline) Confirm Administered Dose 100 mls @ as directed .ROUTE .STK-MED ONE Stop: 07/15/20 12:13 Last Admin: 07/15/20 12:29 Dose: 50 mls/hr Documented by: Lidocaine HCl (Xylocaine 2% Jelly) 5 ml TOP ONETIME ONE Stop: 07/14/20 19:28 Last Admin: 07/15/20 01:04 Dose: Not Given Documented by: Phytonadione (Vitamin K) 100 mcg PO QPM [facility]LLIE Phytonadione (Vitamin K) 100 mcg PO ONETIME ONE Stop: 07/15/20 02:01 Last Admin: 07/15/20 02:32 Dose: 100 mcg Documented by: Warfarin Sodium (Coumadin) 5 mg PO ONETIME ONE Stop: 07/15/20 02:01 Last Admin: 07/15/20 02:32 Dose: 5 mg Documented by: - Exam Quality Assessment: Reports: Supplemental Oxygen (Oxygen decreased to 2.5 L) Neck: Reports: Supple Lungs: Reports: Crackles Cardiovascular: Reports: Regular Rate, Regular Rhythm GI/Abdominal Exam: No Distention (Male) Exam: Deferred Rectal (Males) Exam: Deferred Extremities: No Pedal Edema Skin: Reports: Dry Neurological: Reports: No New Focal Deficit
[2020-07-17] MEDS ORDERED: Sodium Chloride 0.9% 20 ML SDV FLUSH SCH (10:45)
== END 2020-07-17 13:15 | disposition home health service (06) | DRG 811 ==
LOC: KA.ED 19:12 → UNDOADMIN 21:24 → KA.MS 21:24 → UNDOADMIN 22:05
PROVIDERS: ADMIT Family Medicine; ATTEND Family Medicine
PROC: 30233N1 Transfusion of Nonautologous Red Blood Cells into Peripheral Vein, Percutaneous Approach (ICD-10-PCS; principal; 2020-07-15)
DX: D64.9 Anemia, unspecified (principal); D64.81 Anemia due to antineoplastic chemotherapy; I50.33 Acute on chronic diastolic (congestive) heart failure; I13.0 Hypertensive heart and chronic kidney disease with heart failure and stage 1 through stage 4 chronic kidney disease, or unspecified chronic kidney disease; N18.32 Chronic kidney disease, stage 3b; R09.02 Hypoxemia; N18.4 Chronic kidney disease, stage 4 (severe); E46 Unspecified protein-calorie malnutrition; C90.00 Multiple myeloma not having achieved remission; N17.9 Acute kidney failure, unspecified; D84.9 Immunodeficiency, unspecified; Z20.828 Contact with and (suspected) exposure to other viral communicable diseases; T45.1X5A Adverse effect of antineoplastic and immunosuppressive drugs, initial encounter; R06.89 Other abnormalities of breathing; I25.10 Atherosclerotic heart disease of native coronary artery without angina pectoris; M51.36 Other intervertebral disc degeneration, lumbar region; E66.9 Obesity, unspecified; G47.33 Obstructive sleep apnea (adult) (pediatric); N18.9 Chronic kidney disease, unspecified; I50.32 Chronic diastolic (congestive) heart failure; D18.03 Hemangioma of intra-abdominal structures; F32.9 Major depressive disorder, single episode, unspecified; G47.30 Sleep apnea, unspecified; H54.7 Unspecified visual loss; M54.5 Low back pain; G89.29 Other chronic pain; I51.7 Cardiomegaly; H81.90 Unspecified disorder of vestibular function, unspecified ear; N40.1 Benign prostatic hyperplasia with lower urinary tract symptoms; R32 Unspecified urinary incontinence; F41.9 Anxiety disorder, unspecified; Z86.718 Personal history of other venous thrombosis and embolism; Z85.118 Personal history of other malignant neoplasm of bronchus and lung; Z88.8 Allergy status to other drugs, medicaments and biological substances; Z79.899 Other long term (current) drug therapy; Z79.01 Long term (current) use of anticoagulants; I25.2 Old myocardial infarction; Z85.46 Personal history of malignant neoplasm of prostate; Z85.528 Personal history of other malignant neoplasm of kidney; Z68.38 Body mass index [BMI] 38.0-38.9, adult; E78.00 Pure hypercholesterolemia, unspecified; J44.9 Chronic obstructive pulmonary disease, unspecified
CPT/HCPCS: 36415; 36430; 51798; 71045; 80048; 80053; 82550; 82553; 83605; 83880; 84300; 84484; 85025; 85610; 86850; 86900; 86901; 86920; 86922; 93005; 96374; 99284; 99285-25; A9270-GY; J1642; J1940; P9016; U0002

== ENCOUNTER 2020-09-18 04:58 | Emergency (ER) | payer MEDICARE, BC ==
--- NOTE | 2020-09-18 06:06 | EDM.PDOC ---
ED HPI GENERAL MEDICAL PROBLEM - General Chief Complaint: General Stated Complaint: L elbow skin tear Time Seen by Provider: 09/18/20 05:44 Source of Information: Reports: Patient History Limitations: Reports: No Limitations - History of Present Illness INITIAL COMMENTS - FREE TEXT/NARRATIVE: Patient presents via ambulance for skin tear left elbow. He is in hospice. He fell in the bathroom this morning but denies any other pain or injuries. EMS found him to have low oxygen so put him on high flow NRB. Here in ER he is 95% on 2 liters. Bilateral Feet Pain Score (Numeric/FACES): 6 - Related Data Allergies Allergy/AdvReac Type Severity Reaction Status Date / Time daratumumab Allergy Nausea and Verified 09/18/20 05:39 Vomiting epoetin jesse [From Procrit] Allergy Hives Verified 09/18/20 05:39 [id number] [From Zarxio] Allergy Rash Verified 09/18/20 05:39 Home Meds: Home Meds Omeprazole 20 mg PO 0800 02/14/15 [History] Simvastatin 40 mg PO 199902/14/15 [History] Docusate Sodium [Colace] 100 mg PO 0800 09/02/15 [History] Gabapentin [Neurontin] 300 mg PO BEDTIME 06/10/17 [History] EPINEPHrine [Epipen 2-Hunter] 0.3 mg IM ASDIRECTED PRN #1 ml 07/07/18 [Rx] Cyanocobalamin (Vitamin B-12) [B-12] 1,000 mcg PO DAILY@1500 11/30/18 [History] Lidocaine/Prilocaine [EMLA Crm] 1 applic TOP ASDIRECTED PRN 02/08/19 [History] oxyCODONE 10 mg PO Q4H PRN 04/26/19 [History] Acetaminophen [Tylenol] 650 mg PO Q4H PRN tablet 05/27/19 [Rx] Cholecalciferol (Vitamin D3) [Vitamin D3] 1,000 unit PO DAILY 04/23/20 [History] FLUoxetine [PROzac] 40 mg PO QAM 05/14/20 [History] NIFEdipine [Nifedipine ER] 60 mg PO DAILY 05/14/20 [History] carvediloL [Carvedilol] 3.125 mg PO BIDMEALS 05/14/20 [History] Albuterol/Ipratropium [DuoNeb 3.0-0.5 MG/3 ML] 3 ml INH QID PRN 05/27/20 [History] Magnesium Chloride [Mag-64] 128 mg PO DAILY 05/27/20 [History] Sodium Bicarbonate 650 mg PO TID 06/18/20 [History] Furosemide [Lasix] 40 mg PO DAILY #0 07/17/20 [Rx] levETIRAcetam [Keppra] 500 mg PO BID 5 Days #10 tablet 07/27/20 [Rx] Past Medical History HEENT History: Reports: Hard of Hearing, Impaired Vision Other HEENT History: wears glasses Cardiovascular History: Reports: Blood Clots/VTE/DVT, CAD, Heart Failure, High Cholesterol, Hypertension, SD, SOB on Exertion, Other (See Below) Other Cardiovascular History: Chronic diastolic heart failure Respiratory History: Reports: Bronchitis, Recurrent, COPD, Sleep Apnea, SOB Other Respiratory History: CPAP, Adenoncarcinoma of the right lung Gastrointestinal History: Reports: Chronic Constipation, GERD Genitourinary History: Reports: BPH, Urinary Incontinence Other Genitourinary History: appt to see Dr Sin Mojica in [place] 09/30/16 for Kidney follow-up/. Renal Biopsy Oct 13 2015 negative for malignancy. HYPOGONADISM. acute on chronic renal failure Musculoskeletal History: Reports: Back Pain, Chronic, Fracture Other Musculoskeletal History: DJD Neurological History: Reports: Neuropathy, Peripheral, Seizure Psychiatric History: Reports: Anxiety, Depression Other Psychiatric History: Hallucinating off and on lately, angry, forgetful Endocrine/Metabolic History: Reports: Obesity/BMI 30+ Hematologic History: Reports: Anemia, Other (See Below) Other Hematologic History: Iron studies done. RED BLOOD CELL ANTIBODY POSITIVE (ON ANTI-CD38 THERAPY (DARATUMUMAB)). Chemotherapy induced anemiahypogammaglobulinemia, acquired Immunologic History: Reports: Immunosuppression, Other (See Below) Other Immunologic History: CHEMOTHERAPY AND RADIATION - stopped 2019. 09/18/20: patient currently on [facility] Oncologic (Cancer) History: Reports: Prostate, Other (See Below) Other Oncologic History: multiple myeloma jun 2015. PROSTATE CA 05-24-2013. 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 MASS IN KIDNEY 06-04-2015 Dermatologic History: Reports: Eczema Other Dermatologic History: In Sep 2016Itchy rash raised red/pink size of a pinhead after procrit injection, Procrit now held. continues using cream for eczema on abdomen, Voices at one time bruising was an issue "not so much any more" It's getting better" - Infectious Disease History Infectious Disease History: Reports: Chicken Pox, Influenza, Measles, Mumps Other Infectious Disease History: INFECTION WITH DRUG RESISTANT MICROORGANISMS - Past Surgical History HEENT Surgical History: Reports: Tonsillectomy Cardiovascular Surgical History: Reports: Coronary Artery Bypass Respiratory Surgical History: Reports: None GI Surgical History: Reports: Colonoscopy Male Surgical History: Reports: Prostate Biopsy Endocrine Surgical History: Reports: None Neurological Surgical History: Reports: Vertebroplasty, Other (See Below) Other Neurological Surgeries/Procedures: Vertibroplasty - in Jun 2015 Musculoskeletal Surgical History: Reports: Hip Replacement, Other (See Below) Other Musculoskeletal Surgeries/Procedures:: 3rd vertebral plasty done 09/24/15. Oncologic Surgical History: Reports: Bone Marrow Aspiration, Other (See Below) Other Oncologic Surgeries/Procedures: PROSTATE BIOPSY. LUNG BIOPSY. KIDNEY BIOPSY Dermatological Surgical History: Reports: None - Past Imaging History Past Imaging History: Reports: CAT Scan, Xray Social & Family History - Family History Family Medical History: No Pertinent Family History Cardiac: Reports: SD Respiratory: Reports: None GI: Reports: None : Reports: None OBGYN: Reports: None Musculoskeletal: Reports: Back pain, Chronic Psychiatric: Reports: None Endocrine/Metabolic: Reports: None - Caffeine Use Caffeine Use: Reports: Coffee, Soda - Living Situation & Occupation Living situation: Reports: , with Spouse ED ROS GENERAL - Review of Systems Review Of Systems: Comprehensive ROS is negative, except as noted in HPI. Constitutional: Denies: Fever ED EXAM, GENERAL - Physical Exam Exam: See Below Exam Limited By: No Limitations General Appearance: Other (Sleepy but comfortable) Eye Exam: Bilateral Eye: EOMI, Normal Inspection, PERRL Ears: Normal External Exam, Hearing Grossly Normal Nose: Normal Inspection, No Blood Throat/Mouth: Normal Inspection, Normal Voice, No Airway Compromise Head: Atraumatic, Normocephalic Neck: Normal Inspection Respiratory/Chest: Crackles (left lung base), Rhonchi (moderate throughout but cleared somewhat when I asked him to cough), Prolonged Expiration. No: Wheezing, Stridor Cardiovascular: Regular Rate, Rhythm, No Murmur GI/Abdominal: Soft, Non-Tender Extremities: Normal Inspection, Normal Range of Motion (no pain with passive ROM of left elbow), Non-Tender Neurological: Alert, Oriented, Normal Cognition, No Motor/Sensory Deficits Skin Exam: Warm, Dry, Intact (except left elbow which has a 5cm skin tear that is lying closely approximated when we removed bandages. I gently examined wound and skin integrity, finding good approximation without manipulation. TegaDerm was placed over it.), Normal Color, No Rash Course - Vital Signs Last Recorded V/S: Last Vital Signs Temp 97.8 F 09/18/20 05:26 Pulse 108 H 09/18/20 05:26 Resp 28 H 09/18/20 05:26 BP 140/61 09/18/20 05:26 Pulse Ox 97 09/18/20 05:26 - Re-Assessments/Exams Free Text/Narrative Re-Assessment/Exam: 09/18/20 06:27 We are trying to find more information about his respiratory baseline to help determine if this is chronic with his COPD and CHF or could be a pneumonia. No fever. Also checking on ability to get CXR or limited with hospice. 09/18/20 06:43 After checking with the on-call hospice nurse we learned that suspected pneumonias are usually treated without imaging. Also that he will be evaluated today by hospice nurse for evaluation and possible treatment; evidently treatment would also need to be okayed by patient's . We will try communicate my findings and recommendations to them. Patient is coughing up phlegm more now and is more awake and conversive. Discharged in stable condition. Departure - Departure Time of Disposition: 06:49 Disposition: Home, Self-Care 01 Condition: Good Clinical Impression: Respiratory crackles at left lung base Skin tear of elbow without complication Qualifiers: Encounter type: initial encounter Laterality: left Qualified Code(s): S51.012A - Laceration without foreign body of left elbow, initial encounter COPD (chronic obstructive pulmonary disease) Qualifiers: COPD type: unspecified COPD Qualified Code(s): J44.9 - Chronic obstructive pulmonary disease, unspecified CHF (congestive heart failure) Qualifiers: Heart failure type: unspecified Heart failure chronicity: acute on chronic Qualified Code(s): I50.9 - Heart failure, unspecified - Discharge Information Additional Instructions: Have hospice nurse monitor skin tear. I recommend antibiotic treatment of suspected pneumonia in left lung unless determined to be chronic/baseline. I would recommend a beta-lactam, such as Augmentin or Omnicef, along with Zithromax. Sepsis Event Note (ED) - Evaluation Sepsis Screening Result: No Definite Risk - Focused Exam Vital Signs: Vital Signs Temp Pulse Resp BP Pulse Ox 09/18/20 05:26 97.8 F 108 H 28 H 140/61 97
[2020-09-18 08:48] VITALS: BP 143/97; PULSE 103
== END 2020-09-18 09:45 | disposition home or self-care (01) ==
LOC: KA.ED 04:58
DX: S61.012A Laceration without foreign body of left thumb without damage to nail, initial encounter (principal); J44.9 Chronic obstructive pulmonary disease, unspecified; I11.0 Hypertensive heart disease with heart failure; I50.9 Heart failure, unspecified; I25.10 Atherosclerotic heart disease of native coronary artery without angina pectoris; E78.00 Pure hypercholesterolemia, unspecified; G62.9 Polyneuropathy, unspecified; K21.9 Gastro-esophageal reflux disease without esophagitis; I25.2 Old myocardial infarction; F41.9 Anxiety disorder, unspecified; F32.9 Major depressive disorder, single episode, unspecified; E66.9 Obesity, unspecified; R56.9 Unspecified convulsions; Z88.8 Allergy status to other drugs, medicaments and biological substances; Z68.41 Body mass index [BMI] 40.0-44.9, adult; W19.XXXA Unspecified fall, initial encounter
CPT/HCPCS: 99284